=== PATIENT | female | born 1955 ===

== ENCOUNTER 2016-12-03 12:19 | Emergency (ER) | payer MEDICAID ==
[2016-12-03 12:19] VITALS: BMI 15.0
[2016-12-03 12:27] VITALS: BP 139/71; PULSE 88; RESP 20; TEMP 97; O2SAT 98
--- NOTE | 2016-12-03 13:55 | RAD ---
HISTORY: sore throat COMPARISON: 11/13/2016 TECHNIQUE: Chest PA and lateral FINDINGS: LUNGS: Pulmonary hyperinflation consistent with emphysema. No infiltrate. PLEURA: No significant pleural effusion identified. No pneumothorax apparent. CARDIOVASCULAR: Normal. OSSEOUS STRUCTURES: No significant abnormalities. VISUALIZED UPPER ABDOMEN: Normal. OTHER FINDINGS: None. IMPRESSION: No active disease. Emphysema.
--- NOTE | 2016-12-03 14:03 | ED PDOC ---
HPI: General Adult Time Seen by Provider: 12/03/16 12:30 Chief Complaint (Nursing): ENT Problem Chief Complaint (Provider): Rash History Per: Patient Additional Complaint(s): Pt. states for the past several days she's had a white rash in her mouth, tongue , and the back of her throat. Reports increased pain with swallowing. Pt. was seen by me last week and had no rash. Pt. is HIV+. States she is compliant with her medications but has not been seen by Dr. Lynn since late last year. Denies fever, chest pain, cough, hemoptysis, abdominal pain. Past Medical History Reviewed: Historical Data, Nursing Documentation, Vital Signs Vital Signs: Last Vital Signs Temp 97 F L 12/03/16 12:24 Pulse 88 12/03/16 12:24 Resp 20 12/03/16 12:24 BP 139/71 12/03/16 12:24 Pulse Ox 98 12/03/16 15:43 - Medical History PMH: Anemia, Anxiety, Arthritis, Asthma, Bipolar Disorder, Depression, Hepatitis , HIV, HTN, Pneumonia Denies: CHF, COPD, Diabetes, Hypercholesterolemia, Hypothyroidism, Chronic Kidney Disease, Rheumatoid Arthritis, Seizures, Sexually Transmitted Disease - Family History Family History: States: No Known Family Hx - Immunization History Hx Tetanus Toxoid Vaccination: No Hx Influenza Vaccination: No Hx Pneumococcal Vaccination: No - Home Medications Home Medications: Ambulatory Orders Medication Instructions Recorded Fluconazole 100 mg PO DAILY #14 tablet 12/03/16 - Allergies Allergies/Adverse Reactions: Allergies Allergy/AdvReac Type Severity Reaction Status Date / Time No Known Allergies Allergy Verified 12/03/16 12:43 Review of Systems ROS Statement: Except As Marked, All Systems Reviewed And Found Negative ENT: Positive for: Throat Pain Physical Exam - Reviewed Nursing Documentation Reviewed: Yes Vital Signs Reviewed: Yes - Physical Exam Appears: Positive for: Well, Non-toxic, No Acute Distress Head Exam: Positive for: ATRAUMATIC, NORMAL INSPECTION, NORMOCEPHALIC Skin: Positive for: Normal Color, Warm. Negative for: Rash Eye Exam: Positive for: EOMI, Normal appearance, PERRL ENT: Positive for: Other (Scattered white plaques on buccal mucosa, tongue, extending into pharynx and distal to pharynx) Neck: Positive for: Normal, Painless ROM Cardiovascular/Chest: Positive for: Regular Rate, Rhythm Respiratory: Positive for: CNT, Normal Breath Sounds Gastrointestinal/Abdominal: Positive for: Normal Exam, Bowel Sounds, Soft. Negative for: Tenderness Back: Positive for: Normal Inspection Extremity: Positive for: Normal ROM Neurologic/Psych: Positive for: Alert, Oriented - Laboratory Results Result Diagrams: 12/03/16 13:40 12/03/16 13:40 - ECG O2 Sat by Pulse Oximetry: 98 - Radiology X-Ray: Interpreted by Me (CXR) X-Ray Interpretation: No Acute Disease - Progress ED Course And Treament: Labs ordered. Blood culture x 2 ordered. Pt. placed in iso. Case d/w Dr. Lynn who agress with care and states pt. can be given Fluconazole 200mg IV. Fluconazole 200mg IV ordered. Case d/w NICHO Castellanos, resident and arrangements made for admission. 15:41 Patient has expressed the desire to sign out AMA. Leaving Against Medical Advice (AMA): This patient is choosing to leave against medical advice. I have personally explained to the patient that choosing to do so may result in permanent bodily harm or . I have discussed at great length that without further evaluation and monitoring there may be unforeseen circumstances and/or deterioration causing permanent bodily harm or as a result of their choice. The patient has verbalized these risks back to the physician in laymans terms. The patient is alert, oriented, and shows the mental capacity to make clear decisions regarding the pts health care at this time. The pt continues to wishto leave against medical advice. In light of the patient's decision to leave AMA, follow- up has been arranged and the patient is aware of the importance of following up as instructed. The patient has been advised that they should return to the ED immediately if they change their mind at any time, or if their condition begins to change or worsen in any way. Will give Rx for fluconazole. Patient instructed to follow up with Dr. Lynn without fail. Disposition - Clinical Impression Clinical Impression: Esophageal candidiasis - Patient ED Disposition Is Patient to be Admitted: No - Disposition Referrals: Obi Lynn MD [Primary Care Provider] - Disposition: Against Medical Advice Disposition Time: 15:42 Condition: STABLE Additional Instructions: FOLLOW UP WITH DR. LYNN WITHOUT FAIL. TAKE YOUR ANTIBIOTICS WITHOUT FAIL Prescriptions: Fluconazole 100 mg PO DAILY #14 tablet Instructions: Oral Candidiasis (ED) Print Language: FRENCH
[2016-12-03 14:14] LABS: VENOUS BLOOD GAS BASE EXCESS 2.2 mmol/L (0.0-2.0); VENOUS BLOOD GAS PCO2 43 mmHg (40-60); VENOUS BLOOD PH 7.41 (7.32-7.43)
[2016-12-03 14:22] LABS: BASO % 0.8 % (0.0-2.0); EOS % 0.7 % (0.0-4.0); HEMATOCRIT 23.4 % (34.0-47.0); LYMPH # 0.7 K/uL (1.0-4.3); LYMPH % 26.8 % (20.0-40.0); MEAN CELL VOLUME 78.3 fl (81.0-99.0); MEAN CORPUSCULAR HEMOGLOBIN 23.7 pg (27.0-31.0); MEAN CORPUSCULAR HGB CONC 30.3 g/dL (33.0-37.0); MEAN PLATELET VOLUME 8.7 fl (7.2-11.7); MONO # 0.3 K/uL (0.0-0.8); MONO % 12.3 % (0.0-10.0); NEUT # 1.5 K/uL (1.8-7.0); NEUT % 59.4 % (50.0-75.0); NRBC % 0.2 % (0.0-0.0); WHITE BLOOD COUNT 2.5 K/uL (4.8-10.8)
[2016-12-03 14:29] LABS: ALKALINE PHOSPHATASE 73 U/L (38-126); ALT/SGPT 19 U/L (9-52); AST/SGOT 27 U/L (14-36); BILIRUBIN,TOTAL 0.4 mg/dl (0.2-1.3); BLOOD UREA NITROGEN 8 mg/dl (7-17); CALCIUM 8.7 mg/dL (8.4-10.2); CARBON DIOXIDE 23 mmol/L (22-30); CHLORIDE 105 mmol/L (98-107); GFR AFRICAN-AMERICAN > 60; GLUCOSE,RANDOM 88 mg/dL (65-105); POTASSIUM 3.6 MMOL/L (3.6-5.0); SODIUM 139 mmol/l (132-148); TOTAL PROTEIN 8.8 G/DL (6.3-8.2)
[2016-12-03 14:31] LABS: ALB/GLOB RATIO 0.7 (1.0-2.1)
[2016-12-03] MEDS ORDERED: Fluconazole IV 200mg/100 ml NS 100 ML IVPB ONE (15:00)
[2016-12-03] MEDS ORDERED: Sodium Chloride 0.9% 1,000 ML IV STA (15:15)
== END 2016-12-03 15:38 | disposition left against medical advice (07) ==
LOC: H.ER 12:19
DX: B37.0 Candidal stomatitis (principal); J02.9 Acute pharyngitis, unspecified

== ENCOUNTER 2016-12-05 18:22 | Emergency (ER) | payer MEDICAID ==
[2016-12-05 18:22] VITALS: BMI 15.0
[2016-12-05 18:32] VITALS: BP 128/73; PULSE 68; RESP 16; TEMP 98; O2SAT 98
--- NOTE | 2016-12-05 19:00 | ED PDOC ---
HPI: Headache Time Seen by Provider: 12/05/16 18:35 Chief Complaint (Nursing): Chest Pain Chief Complaint (Provider): Posterior Headache History Per: Patient History/Exam Limitations: no limitations Onset/Duration Of Symptoms: Days (2x) Current Symptoms Are (Timing): Still Present Severity: Moderate Associated Symptoms: denies: Blurred Vision, Nausea, Vomiting Additional Complaint(s): 61 year old female with a pertinent medical history of HTN and HIV(+) presents to the ED with complaints of a posterior headache that she has had for the past 2x days. She denies any recent trauma to the head, and denies having associated symptoms of a fever, nausea, vomiting, and blurred vision. PMD: Ruiz Dickens MD Past Medical History Reviewed: Historical Data, Nursing Documentation, Vital Signs Vital Signs: Last Vital Signs Temp 98.0 F 12/05/16 18:28 Pulse 68 12/05/16 18:28 Resp 16 12/05/16 18:28 BP 128/73 12/05/16 18:28 Pulse Ox 98 12/05/16 18:28 - Medical History PMH: Anemia, Anxiety, Arthritis, Asthma, Bipolar Disorder, Depression, Hepatitis , HIV, HTN, Pneumonia Denies: CHF, COPD, Diabetes, Hypercholesterolemia, Hypothyroidism, Chronic Kidney Disease, Rheumatoid Arthritis, Seizures, Sexually Transmitted Disease - Family History Family History: States: Unknown Family Hx - Social History Current smoker - smoking cessation education provided: Yes Alcohol: > 2 Drinks/Day Drugs: Cannabis, Cocaine - Immunization History Hx Tetanus Toxoid Vaccination: No Hx Influenza Vaccination: No Hx Pneumococcal Vaccination: No - Home Medications Home Medications: Ambulatory Orders Medication Instructions Recorded Fluconazole 100 mg PO DAILY #14 tablet 12/03/16 Naproxen [Naprosyn] 500 mg PO Q12H #20 tab 12/05/16 - Allergies Allergies/Adverse Reactions: Allergies Allergy/AdvReac Type Severity Reaction Status Date / Time No Known Allergies Allergy Verified 12/05/16 18:28 Review of Systems ROS Statement: Except As Marked, All Systems Reviewed And Found Negative Constitutional: Negative for: Fever Eyes: Negative for: Vision Change Gastrointestinal: Negative for: Nausea, Vomiting Neurological: Positive for: Headache (posterior) Physical Exam - Reviewed Nursing Documentation Reviewed: Yes Vital Signs Reviewed: Yes - Physical Exam Appears: Positive for: Well, Non-toxic Head Exam: Positive for: ATRAUMATIC, NORMOCEPHALIC Skin: Positive for: Normal Color Cardiovascular/Chest: Positive for: Regular Rate, Rhythm, Chest Non Tender Respiratory: Positive for: Normal Breath Sounds. Negative for: Respiratory Distress Neurologic/Psych: Positive for: Alert (and awake). Negative for: Motor/Sensory Deficits (no focal deficits) - ECG O2 Sat by Pulse Oximetry: 98 (RA) Pulse Ox Interpretation: Normal Medical Decision Making Medical Decision Makin:35 Initial impression: 61 year old female patient with posterior headache Initial plan: * CT head w/o contrast * reevaluation Scribe Attestation: Documented by Adore Durant, acting as a scribe for Dex Morgan MD. Provider Scribe Attestation: All medical record entries made by the Scribe were at my direction and personally dictated by me. I have reviewed the chart and agree that the record accurately reflects my personal performance of the history, physical exam, medical decision making, and the department course for this patient. I have also personally directed, reviewed, and agree with the discharge instructions and disposition. Disposition - Clinical Impression Clinical Impression: Chronic headaches - Patient ED Disposition Is Patient to be Admitted: No - Disposition Referrals: [facility] [Outside] Disposition: Routine/Home Disposition Time: 21:13 Condition: FAIR Prescriptions: Naproxen [Naprosyn] 500 mg PO Q12H #20 tab Instructions: General Headache (ED)
--- NOTE | 2016-12-05 20:59 | CT ---
EXAM: CT Head Without Intravenous Contrast. CLINICAL HISTORY: 61 years old, female; Pain; Headache; Other: Urrutia's R/O bleeding; Patient HX: AMS urrutia's anemia bipolar hiv. HTN hepatitis drug/ ETOH abuser; Additional info: R/O bleed TECHNIQUE: Axial computed tomography images of the head/brain without intravenous contrast. This CT exam was performed using one or more of the following dose reduction techniques: automated exposure control, adjustment of the mA and/or kV according to patient size, and/or use of iterative reconstruction technique. Coronal and sagittal reformatted images were created and reviewed. COMPARISON: CT - HEAD W/O CONTRAST 04/07/2016, MRI 09/15/2015 FINDINGS: Brain: Moderate atrophy. No acute intracranial hemorrhage. Linear hyperdensity, redemonstrated within RIGHT temporal region, stable. No mass. Several scattered foci of decreased attenuation within periventricular/subcortical white matter. No definite edema. Ventricles: No hydrocephalus. Bones/joints: No acute fracture. Soft tissues: Unremarkable. Vasculature: Atherosclerotic disease of intracranial arteries. Sinuses: Mucosal thickening of visualized LEFT sphenoid sinus. LEFT maxillary retention cyst. Mastoid air cells: No mastoid effusion. Orbits: Unremarkable as visualized. Other findings: IMPRESSION: 1. No acute intracranial hemorrhage. 2. Nonspecific white matter changes. 3. Incidental/non-acute findings are described above.
== END 2016-12-05 21:44 | disposition home or self-care (01) ==
LOC: H.ER 18:22
DX: R51 Headache (principal); B20 Human immunodeficiency virus [HIV] disease; D64.9 Anemia, unspecified; F31.9 Bipolar disorder, unspecified; I10 Essential (primary) hypertension

== ENCOUNTER 2016-12-13 15:02 | Emergency (ER) | payer MEDICAID ==
[2016-12-13 15:03] VITALS: BMI 15.0
[2016-12-13 15:17] VITALS: BP 130/69; PULSE 68; RESP 16; TEMP 97.1; O2SAT 98
--- NOTE | 2016-12-13 15:59 | ED PDOC ---
HPI: Chest Pain Time Seen by Provider: 12/13/16 15:14 Chief Complaint (Nursing): Chest Pain History Per: Patient History/Exam Limitations: no limitations Onset/Duration Of Symptoms: Days (2) Current Symptoms Are (Timing): Still Present Severity: Moderate Additional Complaint(s): 61-year-old female, PMHx includes HIV, presents to the emergency department with complaints of chest pain. Patient states she has been experiencing right- sided chest pain for the past two days. Pain is intermittent in nature, non- radiating and worse with deep inspiration. Denies shortness of breath, cough, fevers, nausea/vomiting, dizziness, arm pain, leg swelling, or any other associated symptoms. No other complaints at this time. Past Medical History Reviewed: Historical Data, Nursing Documentation, Vital Signs Vital Signs: Last Vital Signs Temp 97.1 F L 12/13/16 15:16 Pulse 68 12/13/16 15:16 Resp 16 12/13/16 15:16 BP 130/69 12/13/16 15:16 Pulse Ox 98 12/13/16 16:01 - Medical History PMH: Anemia, Anxiety, Arthritis, Asthma, Bipolar Disorder, Depression, Hepatitis , HIV, HTN, Pneumonia Denies: CHF, COPD, Diabetes, Hypercholesterolemia, Hypothyroidism, Chronic Kidney Disease, Rheumatoid Arthritis, Seizures, Sexually Transmitted Disease - Family History Family History: States: Unknown Family Hx - Immunization History Hx Tetanus Toxoid Vaccination: No Hx Influenza Vaccination: No Hx Pneumococcal Vaccination: No - Home Medications Home Medications: Ambulatory Orders Medication Instructions Recorded Fluconazole 100 mg PO DAILY #14 tablet 12/03/16 Naproxen [Naprosyn] 500 mg PO Q12H #20 tab 12/05/16 Naproxen [Naprosyn] 500 mg PO Q12H #20 tab 12/13/16 - Allergies Allergies/Adverse Reactions: Allergies Allergy/AdvReac Type Severity Reaction Status Date / Time No Known Allergies Allergy Verified 12/05/16 18:28 Review of Systems ROS Statement: Except As Marked, All Systems Reviewed And Found Negative Constitutional: Negative for: Fever, Chills Cardiovascular: Positive for: Chest Pain. Negative for: Palpitations Respiratory: Negative for: Cough, Shortness of Breath Gastrointestinal: Negative for: Nausea, Vomiting Musculoskeletal: Negative for: Back Pain Skin: Negative for: Rash Neurological: Negative for: Weakness, Numbness, Headache, Dizziness Physical Exam - Reviewed Nursing Documentation Reviewed: Yes Vital Signs Reviewed: Yes - Physical Exam Appears: Positive for: Non-toxic, No Acute Distress Head Exam: Positive for: ATRAUMATIC, NORMOCEPHALIC Skin: Positive for: Warm, Dry. Negative for: Rash Eye Exam: Positive for: Normal appearance Neck: Positive for: Painless ROM Respiratory: Negative for: Accessory Muscle Use, Respiratory Distress Gastrointestinal/Abdominal: Positive for: Soft. Negative for: Tenderness Extremity: Positive for: Normal ROM Neurologic/Psych: Positive for: Alert, Oriented - ECG O2 Sat by Pulse Oximetry: 98 Medical Decision Making Medical Decision Making: Impression: Chest pain Plan: * EKG * Chest X-Ray * Reassess and Disposition EKG Ordered, viewed and interpreted by ED Physician Rate 70bpm Rhythm NSR Interpret No acute ST/T wave changes Scribe Attestation: Documented by Latoya Lopez acting as a scribe for Dex Morgan MD. Provider Attestation: All medical record entries made by the Scribe were at my direction and personally dictated by me. I have reviewed the chart and agree that the record accurately reflects my personal performance of the history, physical exam, medical decision making, and the department course for this patient. I have also personally directed, reviewed, and agree with the discharge instructions and disposition. Disposition - Clinical Impression Clinical Impression: Pleuritic chest pain - Patient ED Disposition Is Patient to be Admitted: No - Disposition Disposition: Routine/Home Disposition Time: 16:49 Condition: FAIR Prescriptions: Naproxen [Naprosyn] 500 mg PO Q12H #20 tab Instructions: Pleurisy (ED)
--- NOTE | 2016-12-14 13:12 | RAD ---
HISTORY: cough COMPARISON: Comparison is made to the previous study dated 12/03/2016 FINDINGS: LUNGS: Mild hyperinflation of the lungs is again noted. Small hazy opacities in the lungs are noted. PLEURA: No significant pleural effusion identified, no pneumothorax apparent. CARDIOVASCULAR: Normal. OSSEOUS STRUCTURES: No significant abnormalities. VISUALIZED UPPER ABDOMEN: Normal. OTHER FINDINGS: None. IMPRESSION: Small opacities in the lungs noted.
== END 2016-12-13 17:10 | disposition home or self-care (01) ==
LOC: H.ER 15:02
DX: R07.81 Pleurodynia (principal); F31.9 Bipolar disorder, unspecified; I10 Essential (primary) hypertension

== ENCOUNTER 2017-01-14 14:10 | Observation (INO) | payer MEDICAID ==
[2017-01-14 14:10] VITALS: BMI 16.9
[2017-01-14] MEDS ORDERED: Sodium Chloride 0.9% 500 ML IV STA (15:01)
--- NOTE | 2017-01-14 15:05 | ED PDOC ---
HPI: Chest Pain Time Seen by Provider: 01/14/17 14:45 Chief Complaint (Nursing): Back Pain Chief Complaint (Provider): Chest pain History Per: Patient History/Exam Limitations: no limitations Onset/Duration Of Symptoms: Days (1-2 weeks), Waxing/Waning Current Symptoms Are (Timing): Still Present Additional Complaint(s): Pt. with chest pain and upper back pain off and on for 1-2 weeks. Dyspnea with it. No nausea, vomit, diarrhea, weakness, numbness, tingles, cough, headaches, dizziness. Feels cold. States she always feels cold. Does not take any meds at home. Past Medical History Reviewed: Nursing Documentation, Vital Signs Vital Signs: Last Vital Signs Temp 98.5 F 01/14/17 14:27 Pulse 80 01/14/17 14:27 Resp 17 01/14/17 14:27 BP 108/62 01/14/17 14:27 Pulse Ox 100 01/14/17 17:54 - Medical History PMH: Anemia, Anxiety, Arthritis, Asthma, Bipolar Disorder, Depression, Hepatitis , HIV, HTN, Pneumonia Denies: CHF, COPD, Diabetes, Hypercholesterolemia, Hypothyroidism, Chronic Kidney Disease, Rheumatoid Arthritis, Seizures, Sexually Transmitted Disease - Surgical History Surgical History: No Surg Hx - Family History Family History: States: Unknown Family Hx - Living Arrangements Living Arrangements: With Family - Social History Alcohol: None Drugs: Denies - Immunization History Hx Tetanus Toxoid Vaccination: No Hx Influenza Vaccination: No Hx Pneumococcal Vaccination: No - Home Medications Home Medications: Ambulatory Orders Medication Instructions Recorded Albuterol 0.083% [Albuterol 0.083% 3 ml IH Q6H PRN 01/07/17 Inhal Trini (2.5 mg/3 ml) UD] Albuterol HFA [Ventolin HFA 90 2 puff IH Q4H PRN 01/07/17 mcg/actuation (8 g)] Elviteg/Serene/Emtric/Tenofo Dis 1 tab PO DAILY 01/07/17 [Stribild Tablet] - Allergies Allergies/Adverse Reactions: Allergies Allergy/AdvReac Type Severity Reaction Status Date / Time No Known Allergies Allergy Verified 01/07/17 13:23 Review of Systems ROS Statement: Except As Marked, All Systems Reviewed And Found Negative Cardiovascular: Positive for: Chest Pain Respiratory: Positive for: Shortness of Breath Musculoskeletal: Positive for: Back Pain Physical Exam - Reviewed Nursing Documentation Reviewed: Yes Vital Signs Reviewed: Yes - Physical Exam Appears: Positive for: Non-toxic, No Acute Distress Head Exam: Positive for: ATRAUMATIC, NORMAL INSPECTION, NORMOCEPHALIC Skin: Positive for: Normal Color, Warm, DRY Eye Exam: Positive for: EOMI, Normal appearance, PERRL ENT: Positive for: Normal ENT Inspection Neck: Positive for: Normal, Painless ROM Cardiovascular/Chest: Positive for: Regular Rate, Rhythm, Chest Non Tender. Negative for: Edema Respiratory: Positive for: CNT, Normal Breath Sounds Gastrointestinal/Abdominal: Positive for: Normal Exam, Bowel Sounds, Soft. Negative for: Tenderness Back: Positive for: Normal Inspection. Negative for: L CVA Tenderness, R CVA Tenderness Extremity: Positive for: Normal ROM. Negative for: Tenderness, Pedal Edema Neurologic/Psych: Positive for: Alert, Oriented - Laboratory Results Result Diagrams: 01/14/17 15:50 01/14/17 16:15 Interpretation Of Abn Labs: 2.7 wbc, hg 8.8 - ECG ECG: Positive for: Interpreted By Me, Viewed By Me ECG Rhythm: Positive for: Normal QRS, Normal ST Segment, Sinus Rhythm O2 Sat by Pulse Oximetry: 100 Pulse Ox Interpretation: Normal - Radiology X-Ray: Interpreted by Me, Viewed By Me X-Ray Interpretation: No Acute Disease - Progress ED Course And Treament: 1752: Multiple ER visits. Stable. AAOx3. Tolerated PO. Pain free. 1805: Stable. AAOx3. Spoke with Cory for Dr. Villafana. Will admit tele obs for acs workup. Disposition - Clinical Impression Clinical Impression: Chest pain - Patient ED Disposition Is Patient to be Admitted: Yes Counseled Patient/Family Regarding: Studies Performed, Diagnosis - Disposition Disposition Time: 18:09 Condition: FAIR - Pt Status Changed To: Hospital Disposition Of: Observation - POA Present On Arrival: None
[2017-01-14 15:58] LABS: EOS % 1.5 % (0.0-4.0); HEMATOCRIT 27.4 % (34.0-47.0); LYMPH # 0.6 K/uL (1.0-4.3); LYMPH % 21.6 % (20.0-40.0); MEAN CELL VOLUME 79.1 fl (81.0-99.0); MEAN CORPUSCULAR HEMOGLOBIN 25.3 pg (27.0-31.0); MEAN PLATELET VOLUME 8.6 fl (7.2-11.7); MONO # 0.6 K/uL (0.0-0.8); MONO % 21.6 % (0.0-10.0); NEUT # 1.5 K/uL (1.8-7.0); NEUT % 54.3 % (50.0-75.0); NRBC % 0.1 % (0.0-0.0); PLATELET COUNT 209 K/uL (130-400); RED CELL DISTRIBUTION WIDTH 18.7 % (11.5-14.5); WHITE BLOOD COUNT 2.7 K/uL (4.8-10.8)
[2017-01-14 16:18] LABS: PARTIAL THROMBOPLASTIN TIME 27.4 SECONDS (23.3-32.5)
[2017-01-14 16:38] LABS: ALB/GLOB RATIO 0.6 (1.0-2.1); ALCOHOL SERUM < 10 mg/dl (0-10); ALKALINE PHOSPHATASE 89 U/L (38-126); ALT/SGPT 29 U/L (9-52); AST/SGOT 41 U/L (14-36); BILIRUBIN,TOTAL 0.6 mg/dl (0.2-1.3); BLOOD UREA NITROGEN 17 mg/dl (7-17); CALCIUM 9.2 mg/dL (8.4-10.2); CARBON DIOXIDE 24 mmol/L (22-30); CHLORIDE 103 mmol/L (98-107); GFR AFRICAN-AMERICAN > 60; GLUCOSE,RANDOM 96 mg/dL (65-105); POTASSIUM 3.9 MMOL/L (3.6-5.0); SODIUM 137 mmol/l (132-148); TOTAL PROTEIN 9.1 G/DL (6.3-8.2)
[2017-01-14 17:06] LABS: NEUTROPHIL 60 % (42-75); TOTAL CELLS COUNTED 100
[2017-01-14] MEDS ORDERED: Albuterol 0.083% Inhal Sol (2.5 mg/3 mL) UD IH PRN (19:59)
[2017-01-14] MEDS ORDERED: Albuterol HFA 90 mcg/actuation (8 g) IH PRN (19:59)
[2017-01-15 05:49] LABS: BASO % 0.6 % (0.0-2.0); EOS # 0.1 K/uL (0.0-0.7); EOS % 2.9 % (0.0-4.0); HEMATOCRIT 28.9 % (34.0-47.0); LYMPH # 0.6 K/uL (1.0-4.3); LYMPH % 26.4 % (20.0-40.0); MEAN CELL VOLUME 78.9 fl (81.0-99.0); MEAN CORPUSCULAR HGB CONC 31.7 g/dL (33.0-37.0); MEAN PLATELET VOLUME 8.2 fl (7.2-11.7); MONO # 0.5 K/uL (0.0-0.8); MONO % 21.8 % (0.0-10.0); NEUT # 1.1 K/uL (1.8-7.0); NEUT % 48.3 % (50.0-75.0); NRBC % 0.3 % (0.0-0.0); RED CELL DISTRIBUTION WIDTH 18.3 % (11.5-14.5); WHITE BLOOD COUNT 2.2 K/uL (4.8-10.8)
[2017-01-15 05:57] LABS: ALB/GLOB RATIO 0.6 (1.0-2.1); ALKALINE PHOSPHATASE 74 U/L (38-126); ALT/SGPT 29 U/L (9-52); AST/SGOT 26 U/L (14-36); BILIRUBIN,TOTAL 0.3 mg/dl (0.2-1.3); BLOOD UREA NITROGEN 19 mg/dl (7-17); CALCIUM 8.2 mg/dL (8.4-10.2); CARBON DIOXIDE 21 mmol/L (22-30); CHLORIDE 111 mmol/L (98-107); GFR AFRICAN-AMERICAN > 60; GLUCOSE,RANDOM 86 mg/dL (65-105); POTASSIUM 3.3 MMOL/L (3.6-5.0); SODIUM 140 mmol/l (132-148); TOTAL PROTEIN 7.2 G/DL (6.3-8.2)
[2017-01-15] MEDS ORDERED: Potassium Chloride 20 mEq ER Tab PO ONE (06:35)
--- NOTE | 2017-01-15 06:47 | RAD ---
HISTORY: dyspnea COMPARISON: No prior. FINDINGS: LUNGS: No active pulmonary disease. PLEURA: No significant pleural effusion identified, no pneumothorax apparent. CARDIOVASCULAR: Normal. OSSEOUS STRUCTURES: No significant abnormalities. VISUALIZED UPPER ABDOMEN: Normal. OTHER FINDINGS: None. IMPRESSION: No active disease.
--- NOTE | 2017-01-15 07:01 | CP.PCM.HP ---
History of Present Illness - History of Present Illness History of Present Illness: pt admitted for r sided cp radiating to back x 2 wks. at present no pain. seen and cleared by cardio, trops x 3 negative. this complaint was present during last visit and trops x 2 were negative at that time as well. pts hgb 9.2 this am. no bleeding source. pt is noncomliant w/ hiv therapy no compaints offered. no f/c, n/v/d.no cough/congestion. Present on Admission - Present on Admission Any Indicators Present on Admission: No Review of Systems - Cardiovascular Cardiovascular: As Per HPI, Chest Pain Past Patient History - Infectious Disease Hx of Infectious Diseases: None - Past Medical History & Family History Past Medical History?: Yes - Past Social History Smoking Status: Light Smoker < 10 Cigarettes Daily - CARDIAC Hx Congestive Heart Failure: No Hx Hypercholesterolemia: No Hx Hypertension: Yes - PULMONARY Hx Asthma: Yes Hx Chronic Obstructive Pulmonary Disease (COPD): No Hx Pneumonia: Yes - NEUROLOGICAL Hx Seizures: No - HEENT Hx HEENT Problems: Yes Other/Comment: Blurred vision,stated has old eyeglasses, needs new one. - RENAL Hx Chronic Kidney Disease: No - ENDOCRINE/METABOLIC Hx Hypothyroidism: No - HEMATOLOGICAL/ONCOLOGICAL Hx Anemia: Yes Hx Human Immunodeficiency Virus (HIV): Yes - INTEGUMENTARY Hx Dermatological Problems: No - MUSCULOSKELETAL/RHEUMATOLOGICAL Hx Arthritis: Yes Hx Falls: No Hx Rheumatoid Arthritis: No - GASTROINTESTINAL Hx Gastrointestinal Disorders: Yes Other/Comment: hepatitis C - GENITOURINARY/GYNECOLOGICAL Hx Sexually Transmitted Disorders: No - PSYCHIATRIC Hx Anxiety: Yes Hx Bipolar Disorder: Yes Hx Depression: Yes Hx Substance Use: No - SURGICAL HISTORY Hx Surgeries: No - ANESTHESIA Hx Anesthesia: No Hx Anesthesia Reactions: No Hx Malignant Hyperthermia: No Has any member of the family had a problem w/ anesthesia?: No Meds Home Medications: Home Medication List Medication Instructions Recorded Confirmed Type Aspirin [Aspirin Chewable] 81 mg PO DAILY 01/15/17 Rx Allergies/Adverse Reactions: Allergies Allergy/AdvReac Type Severity Reaction Status Date / Time No Known Allergies Allergy Verified 01/07/17 13:23 Physical Exam - Constitutional Appears: Well, Non-toxic, No Acute Distress - Head Exam Head Exam: ATRAUMATIC, NORMAL INSPECTION, NORMOCEPHALIC - Eye Exam Eye Exam: EOMI, Normal appearance, PERRL Pupil Exam: NORMAL ACCOMODATION, PERRL - ENT Exam ENT Exam: Mucous Membranes Moist, Normal Exam - Neck Exam Neck exam: Positive for: Normal Inspection - Respiratory Exam Respiratory Exam: Clear to Auscultation Bilateral, NORMAL BREATHING PATTERN - Cardiovascular Exam Cardiovascular Exam: REGULAR RHYTHM, RRR, +S1, +S2 - GI/Abdominal Exam GI & Abdominal Exam: Normal Bowel Sounds, Soft. absent: Tenderness - Extremities Exam Extremities exam: Positive for: full ROM, normal capillary refill, normal inspection, pedal pulses present - Back Exam Back exam: NORMAL INSPECTION - Neurological Exam Neurological exam: Alert, CN II-XII Intact, Normal Gait, Oriented x3, Reflexes Normal - Psychiatric Exam Psychiatric exam: Normal Affect, Normal Mood - Skin Skin Exam: Dry, Intact, Normal Color, Warm Results - Vital Signs Recent Vital Signs: Last Vital Signs Temp 98.3 F 01/15/17 05:01 Pulse 64 01/15/17 05:01 Resp 19 01/15/17 05:01 BP 110/66 01/15/17 05:01 Pulse Ox 99 01/15/17 05:01 - Labs Result Diagrams: 01/15/17 05:40 01/15/17 05:40 Labs: Laboratory Results - last 24 hr 01/14/17 01/14/17 01/15/17 20:04 21:45 05:40 WBC 2.2 L RBC 3.67 L Hgb 9.2 L Hct 28.9 L MCV 78.9 L MCH 25.0 L MCHC 31.7 L RDW 18.3 H Plt Count 208 MPV 8.2 Neut % (Auto) 48.3 L Lymph % (Auto) 26.4 [place] % (Auto) 21.8 H Eos % (Auto) 2.9 Baso % (Auto) 0.6 Neut # 1.1 L Lymph # 0.6 L [place] # 0.5 Eos # 0.1 Baso # 0.0 Sodium Potassium Chloride Carbon Dioxide Anion Gap BUN Creatinine Est GFR ( Amer) Est GFR (Non-Af Amer) Random Glucose Calcium Total Bilirubin AST ALT Alkaline Phosphatase Troponin I < 0.0120 Total Protein Albumin Globulin Albumin/Globulin Ratio Urine Opiates Screen Negative Urine Methadone Screen Negative Ur Barbiturates Screen Negative Ur Phencyclidine Scrn Negative Ur Amphetamines Screen Negative U Benzodiazepines Scrn Negative U Oth Cocaine Metabols Negative U Cannabinoids Screen Negative 01/15/17 05:40 WBC RBC Hgb Hct MCV MCH MCHC RDW Plt Count MPV Neut % (Auto) Lymph % (Auto) [place] % (Auto) Eos % (Auto) Baso % (Auto) Neut # Lymph # [place] # Eos # Baso # Sodium 140 Potassium 3.3 L Chloride 111 H Carbon Dioxide 21 L Anion Gap 11 BUN 19 H Creatinine 0.9 Est GFR ( Amer) > 60 Est GFR (Non-Af Amer) > 60 Random Glucose 86 Calcium 8.2 L Total Bilirubin 0.3 AST 26 ALT 29 Alkaline Phosphatase 74 Troponin I < 0.0120 Total Protein 7.2 Albumin 2.7 L D Globulin 4.4 H Albumin/Globulin Ratio 0.6 L Urine Opiates Screen Urine Methadone Screen Ur Barbiturates Screen Ur Phencyclidine Scrn Ur Amphetamines Screen U Benzodiazepines Scrn U Oth Cocaine Metabols U Cannabinoids Screen Assessment & Plan (1) DVT prophylaxis Assessment and Plan: scd and ae hose ambulation Status: Acute (2) Chest pain Assessment and Plan: tropx negative, asa cardio cleared Status: Acute (3) AIDS (acquired immunodeficiency syndrome), CD4 <=200 Assessment and Plan: noncompliant on therapy outpt f/u Status: Acute - Assessment and Plan (Free Text) Assessment: hypokalemia-kdur prior to dc Decision To Admit - Pt Status Changed To: Hospital Disposition Of: Observation - . Bed Request Type: Telemetry Admitting Physician: Gisela Villafana
--- NOTE | 2017-01-15 07:01 | CP.PCM.DIS ---
Provider - Provider Date of Admission: 01/14/17 18:09 Attending physician: Gisela Villafana MD Time Spent in preparation of Discharge (in minutes): 15 Hospital Course - Lab Results Lab Results: Most Recent Lab Values WBC 2.2 K/uL (4.8-10.8) L 01/15/17 05:40 RBC 3.67 Mil/uL (3.80-5.20) L 01/15/17 05:40 Hgb 9.2 g/dL (12.0-16.0) L 01/15/17 05:40 Hct 28.9 % (34.0-47.0) L 01/15/17 05:40 MCV 78.9 fl (81.0-99.0) L 01/15/17 05:40 MCH 25.0 pg (27.0-31.0) L 01/15/17 05:40 MCHC 31.7 g/dL (33.0-37.0) L 01/15/17 05:40 RDW 18.3 % (11.5-14.5) H 01/15/17 05:40 Plt Count 208 K/uL (130-400) 01/15/17 05:40 MPV 8.2 fl (7.2-11.7) 01/15/17 05:40 Neut % (Auto) 48.3 % (50.0-75.0) L 01/15/17 05:40 Lymph % (Auto) 26.4 % (20.0-40.0) 01/15/17 05:40 [place] % (Auto) 21.8 % (0.0-10.0) H 01/15/17 05:40 Eos % (Auto) 2.9 % (0.0-4.0) 01/15/17 05:40 Baso % (Auto) 0.6 % (0.0-2.0) 01/15/17 05:40 Neut # 1.1 K/uL (1.8-7.0) L 01/15/17 05:40 Lymph # 0.6 K/uL (1.0-4.3) L 01/15/17 05:40 [place] # 0.5 K/uL (0.0-0.8) 01/15/17 05:40 Eos # 0.1 K/uL (0.0-0.7) 01/15/17 05:40 Baso # 0.0 K/uL (0.0-0.2) 01/15/17 05:40 Neutrophils % (Manual) 60 % (42-75) 01/14/17 15:50 Lymphocytes % (Manual) 20 % (20-50) 01/14/17 15:50 Monocytes % (Manual) 20 % (0-10) H 01/14/17 15:50 Platelet Estimate Normal (NORMAL) 01/14/17 15:50 Anisocytosis (manual) Slight 01/14/17 15:50 Tear Drop Cells Slight 01/14/17 15:50 Ovalocytes Slight 01/14/17 15:50 PT 11.3 SECONDS (9.6-11.2) H 01/14/17 15:50 INR 1.09 (0.92-1.08) H 01/14/17 15:50 APTT 27.4 SECONDS (23.3-32.5) 01/14/17 15:50 Sodium 140 mmol/l (132-148) 01/15/17 05:40 Potassium 3.3 MMOL/L (3.6-5.0) L 01/15/17 05:40 Chloride 111 mmol/L (98-107) H 01/15/17 05:40 Carbon Dioxide 21 mmol/L (22-30) L 01/15/17 05:40 Anion Gap 11 (10-20) 01/15/17 05:40 BUN 19 mg/dl (7-17) H 01/15/17 05:40 Creatinine 0.9 mg/dL (0.7-1.2) 01/15/17 05:40 Est GFR ( Amer) > 60 01/15/17 05:40 Est GFR (Non-Af Amer) > 60 01/15/17 05:40 Random Glucose 86 mg/dL (65-105) 01/15/17 05:40 Calcium 8.2 mg/dL (8.4-10.2) L 01/15/17 05:40 Total Bilirubin 0.3 mg/dl (0.2-1.3) 01/15/17 05:40 AST 26 U/L (14-36) 01/15/17 05:40 ALT 29 U/L (9-52) 01/15/17 05:40 Alkaline Phosphatase 74 U/L (38-126) 01/15/17 05:40 Troponin I < 0.0120 ng/mL (0.00-0.120) 01/15/17 05:40 Total Protein 7.2 G/DL (6.3-8.2) 01/15/17 05:40 Albumin 2.7 g/dL (3.5-5.0) L D 01/15/17 05:40 Globulin 4.4 gm/dL (2.2-3.9) H 01/15/17 05:40 Albumin/Globulin Ratio 0.6 (1.0-2.1) L 01/15/17 05:40 Urine Opiates Screen Negative (NEGATIVE) 01/14/17 20:04 Urine Methadone Screen Negative (NEGATIVE) 01/14/17 20:04 Ur Barbiturates Screen Negative (NEGATIVE) 01/14/17 20:04 Ur Phencyclidine Scrn Negative (NEGATIVE) 01/14/17 20:04 Ur Amphetamines Screen Negative (NEGATIVE) 01/14/17 20:04 U Benzodiazepines Scrn Negative (NEGATIVE) 01/14/17 20:04 U Oth Cocaine Metabols Negative (NEGATIVE) 01/14/17 20:04 U Cannabinoids Screen Negative (NEGATIVE) 01/14/17 20:04 Alcohol, Quantitative < 10 mg/dl (0-10) 01/14/17 16:15 Discharge Exam - Head Exam Head Exam: ATRAUMATIC, NORMAL INSPECTION, NORMOCEPHALIC Discharge Plan - Follow Up Plan Condition: FAIR Disposition: HOME/ ROUTINE Additional Instructions: cleared by cardio trops negative. no cp at present. noback pain at present. no copmalitns/ distress at present for dc and f/u rmg tuesday am. rted prn. med spe rmed rec fianl dx-noncardiac cp. hypokalemia
--- NOTE | 2017-01-15 07:29 | CP.PCM.CON ---
History of Present Illness - History of Present Illness History of Present Illness: I was asked to see patient by Cory Weinstein APN. Patient seen in ED Patient is a 61 year old female with PMH HTN, hypercholesterolemia, HIV who presents with chest pain, abdominal pain weakness. The patietn has symptoms for greater than one week. Chest pain is central, nonradiating. Patient has had previous hospitalization for chest pain. She denies exertional symptoms. Review of Systems - Constitutional Constitutional: Lethargy, Weakness - EENT Eyes: absent: As Per HPI, Blind Spots, Blurred Vision, Change in Vision, Decreased Night Vision, Diplopia, Discharge, Dry Eye, Exophthalmos, Floaters, Irritation, Itchy Eyes, Loss of Peripheral Vision, Pain, Photophobia, Requires Corrective Lenses, Sees Flashes, Spots in Vision, Tunnel Vision, Other Visual Disturbances, Loss of Vision, Other Nose/Mouth/Throat: absent: As Per HPI, Epistaxis, Nasal Congestion, Nasal Discharge, Nasal Obstruction, Nasal Trauma, Nose Pain, Post Nasal Drip, Sinus Pain, Sinus Pressure, Bleeding Gums, Change in Voice, Dental Pain, Dry Mouth, Dysphagia, Halitosis, Hoarsness, Lip Swelling, Mouth Lesions, Mouth Pain, Odynophagia, Sore Throat, Throat Swelling, Tongue Swelling, Facial Pain, Neck Pain, Neck Mass, Other - Cardiovascular Cardiovascular: absent: As Per HPI, Acrocyanosis, Chest Pain, Chest Pain at Rest , Chest Pain with Activity, Claudication, Diaphoresis, Dyspnea, Dyspnea on Exertion, Edema, Irregular Heart Rhythm, Pain Radiating to Arm/Neck/Jaw, Leg Edema, Leg Ulcers, Lightheadedness, Orthopnea, Palpitations, Paroxysmal Nocturnal Dyspnea, Pedal Edema, Radiating Pain, Rapid Heart Rate, Slow Heart Rate, Syncope, Other - Respiratory Respiratory: absent: As Per HPI, Cough, Dyspnea, Hemoptysis, Dyspnea on Exertion , Wheezing, Snoring, Stridor, Pain on Inspiration, Chest Congestion, Excessive Mucous Production, Change in Mucous Color, Pain with Coughing, Other - Gastrointestinal Gastrointestinal: absent: As Per HPI, Abdominal Pain, Belching, Bloating, Change in Bowel Habits, Change in Stool Character, Coffee Ground Emesis, Constipation, Cramping, Diarrhea, Dyspepsia, Dysphagia, Early Satiety, Excessive Flatus, Fecal Incontinence, Heartburn, Hematemesis, Hematochezia, Loose Stools, Melena, Nausea, Odynophagia, Temesmus, Vomiting, Other - Genitourinary Genitourinary: absent: As Per HPI, Change in Urinary Stream, Difficulty Urinating, Dysuria, Flank Pain, Hematuria, Pyuria, Nocturia, Urinary Incontinence, Urinary Frequency, Urinary Hesitance, Urinary Urgency, Voiding Freq/Small Amts, Freq UTI, Hx Renal/Bladder Calculi, Hx /Renal Surgery, Bladder Distension, Other - Musculoskeletal Musculoskeletal: absent: As Per HPI, Abnormal Gait, Arthralgias, Atrophy, Back Pain, Deformity, Joint Swelling, Limited Range of Motion, Loss of Height, Muscle Cramps, Muscle Weakness, Myalgias, Neck Pain, Numbness, Radiating Pain into Limb, Stiffness, Tingling, Other - Integumentary Integumentary: absent: As Per HPI, Acne, Alopecia, Bleeding Lesions, Change in Hair, Change in Nails, Change in Pigmentation, Changing Lesions, Dry Skin, Erythema, Furuncle, Hirsutism, Lesions, New Lesions, Non-Healing Lesions, Photosensitivity, Pruritus, Rash, Skin Pain, Skin Ulcer, Sores, Striae, Swelling , Unusual Bruising, Wounds, Jaundice, Other - Neurological Neurological: absent: As Per HPI, Abnormal Gait, Abnormal Hearing, Abnormal Movements, Abnormal Speech, Behavioral Changes, Burning Sensations, Confusion, Convulsions, Disequilibrium, Dizziness, Numbness, Focal Weakness, Frequent Falls , Headaches, Lack of Coordination, Loss of Vision, Memory Loss, Paresthesias, Radicular Pain, Restless Legs, Sensory Deficit, Syncope, Tingling, Tremor, Vertigo, Weakness, Other Visual Disturbances, Other - Psychiatric Psychiatric: absent: As Per HPI, Abnormal Sleep Pattern, Anhedonia, Anxiety, Auditory Hallucinations, Behavioral Changes, Change in Appetite, Change in Libido, Confusion, Depression, Difficulty Concentrating, Hallucinations, Homicidal Ideation, Hopelessness, Irritability, Memory Loss, Mood Swings, Panic Attacks, Paranoia, Suicidal Ideation, Visual Hallucinations, Tactile Hallucinations, Other - Endocrine Endocrine: absent: As Per HPI, Change in Body Appearance, Change in Libido, Cold Intolorance, Deepening of Voice, Excessive Sweating, Fatigue, Flushing, Heat Intolorance, Increase in Ring/Shoe/Hat Size, Palpitations, Polydipsia, Polyphagia, Polyuria, Other - Hematologic/Lymphatic Hematologic: absent: As Per HPI, Easy Bleeding, Easy Bruising, Lymphadenopathy, Other Past Patient History - Infectious Disease Hx of Infectious Diseases: None - Past Medical History & Family History Past Medical History?: Yes - Past Social History Smoking Status: Light Smoker < 10 Cigarettes Daily - CARDIAC Hx Congestive Heart Failure: No Hx Hypercholesterolemia: No Hx Hypertension: Yes - PULMONARY Hx Asthma: Yes Hx Chronic Obstructive Pulmonary Disease (COPD): No Hx Pneumonia: Yes - NEUROLOGICAL Hx Seizures: No - HEENT Hx HEENT Problems: Yes Other/Comment: Blurred vision,stated has old eyeglasses, needs new one. - RENAL Hx Chronic Kidney Disease: No - ENDOCRINE/METABOLIC Hx Hypothyroidism: No - HEMATOLOGICAL/ONCOLOGICAL Hx Anemia: Yes Hx Human Immunodeficiency Virus (HIV): Yes - INTEGUMENTARY Hx Dermatological Problems: No - MUSCULOSKELETAL/RHEUMATOLOGICAL Hx Arthritis: Yes Hx Falls: No Hx Rheumatoid Arthritis: No - GASTROINTESTINAL Hx Gastrointestinal Disorders: Yes Other/Comment: hepatitis C - GENITOURINARY/GYNECOLOGICAL Hx Sexually Transmitted Disorders: No - PSYCHIATRIC Hx Anxiety: Yes Hx Bipolar Disorder: Yes Hx Depression: Yes Hx Substance Use: No - SURGICAL HISTORY Hx Surgeries: No - ANESTHESIA Hx Anesthesia: No Hx Anesthesia Reactions: No Hx Malignant Hyperthermia: No Has any member of the family had a problem w/ anesthesia?: No Meds Home Medications: Home Medication List Medication Instructions Recorded Confirmed Type Aspirin [Aspirin Chewable] 81 mg PO DAILY 01/15/17 Rx Allergies/Adverse Reactions: Allergies Allergy/AdvReac Type Severity Reaction Status Date / Time No Known Allergies Allergy Verified 01/07/17 13:23 - Medications Medications: Current Medications Albuterol (Ventolin Hfa 90 Mcg/Actuation (8 G)) 2 puff IH Q4H PRN PRN Reason: Shortness of Breath Albuterol Sulfate (Albuterol 0.083% Inhal Trini (2.5 Mg/3 Ml) Ud) 2.5 mg IH Q6H PRN PRN Reason: Shortness of Breath Aspirin (Aspirin Chewable) 81 mg PO DAILY [facility] Home Med (Elviteg/Serene/Emtric/Tenofo Dis [Stribild Tablet]) 1 tab PO DAILY OTILIA Physical Exam - Constitutional Appears: Non-toxic - Head Exam Head Exam: NORMAL INSPECTION - Eye Exam Eye Exam: Normal appearance - ENT Exam ENT Exam: Mucous Membranes Moist - Neck Exam Neck exam: Positive for: Full Rom - Respiratory Exam Respiratory Exam: Decreased Breath Sounds - Cardiovascular Exam Cardiovascular Exam: REGULAR RHYTHM - GI/Abdominal Exam GI & Abdominal Exam: Normal Bowel Sounds - Rectal Exam Rectal Exam: Deferred - Extremities Exam Extremities exam: Negative for: pedal edema - Back Exam Back exam: NORMAL INSPECTION - Neurological Exam Neurological exam: Alert, Oriented x3 - Psychiatric Exam Psychiatric exam: Normal Affect - Skin Skin Exam: Normal Color Results - Vital Signs Recent Vital Signs: Last Vital Signs Temp 98.3 F 01/15/17 05:01 Pulse 64 01/15/17 05:01 Resp 19 01/15/17 05:01 BP 110/66 01/15/17 05:01 Pulse Ox 99 01/15/17 05:01 - Labs Result Diagrams: 01/15/17 05:40 01/15/17 05:40 Labs: Laboratory Results - last 24 hr 01/14/17 01/14/17 01/15/17 20:04 21:45 05:40 WBC 2.2 L RBC 3.67 L Hgb 9.2 L Hct 28.9 L MCV 78.9 L MCH 25.0 L MCHC 31.7 L RDW 18.3 H Plt Count 208 MPV 8.2 Neut % (Auto) 48.3 L Lymph % (Auto) 26.4 [place] % (Auto) 21.8 H Eos % (Auto) 2.9 Baso % (Auto) 0.6 Neut # 1.1 L Lymph # 0.6 L [place] # 0.5 Eos # 0.1 Baso # 0.0 Sodium Potassium Chloride Carbon Dioxide Anion Gap BUN Creatinine Est GFR ( Amer) Est GFR (Non-Af Amer) Random Glucose Calcium Total Bilirubin AST ALT Alkaline Phosphatase Troponin I < 0.0120 Total Protein Albumin Globulin Albumin/Globulin Ratio Urine Opiates Screen Negative Urine Methadone Screen Negative Ur Barbiturates Screen Negative Ur Phencyclidine Scrn Negative Ur Amphetamines Screen Negative U Benzodiazepines Scrn Negative U Oth Cocaine Metabols Negative U Cannabinoids Screen Negative 01/15/17 05:40 WBC RBC Hgb Hct MCV MCH MCHC RDW Plt Count MPV Neut % (Auto) Lymph % (Auto) [place] % (Auto) Eos % (Auto) Baso % (Auto) Neut # Lymph # [place] # Eos # Baso # Sodium 140 Potassium 3.3 L Chloride 111 H Carbon Dioxide 21 L Anion Gap 11 BUN 19 H Creatinine 0.9 Est GFR ( Amer) > 60 Est GFR (Non-Af Amer) > 60 Random Glucose 86 Calcium 8.2 L Total Bilirubin 0.3 AST 26 ALT 29 Alkaline Phosphatase 74 Troponin I < 0.0120 Total Protein 7.2 Albumin 2.7 L D Globulin 4.4 H Albumin/Globulin Ratio 0.6 L Urine Opiates Screen Urine Methadone Screen Ur Barbiturates Screen Ur Phencyclidine Scrn Ur Amphetamines Screen U Benzodiazepines Scrn U Oth Cocaine Metabols U Cannabinoids Screen - EKG Data EKG Interpreted by: Myself Assessment & Plan (1) Chest pain Assessment and Plan: recommend serial troponin. If 3 negative sets the patitn is stable to be discharged. Status: Acute (2) AIDS (acquired immunodeficiency syndrome), CD4 <=200 Assessment and Plan: there is association with premature CAD. if troponin negative can d/c home. Status: Acute (3) HTN (hypertension) Assessment and Plan: medical therapy Status: Chronic
[2017-01-15 07:53] VITALS: BP 132/72; PULSE 61; RESP 18; TEMP 98.6; O2SAT 100
--- NOTE | 2017-01-15 11:25 | CARD ---
APPROVED REPORT EKG Measurement Heart [id number] <Conclusion> Normal sinus rhythm Normal ECG
== END 2017-01-15 10:45 | disposition home or self-care (01) ==
LOC: H.ER 14:10 → H.ERHOLD 18:09 → H.TEL 21:51
PROVIDERS: ADMIT Family Medicine; ATTEND Family Medicine
DX: R07.89 Other chest pain (principal); E78.00 Pure hypercholesterolemia, unspecified; I10 Essential (primary) hypertension; J45.909 Unspecified asthma, uncomplicated; B20 Human immunodeficiency virus [HIV] disease; Z91.19 Patient's noncompliance with other medical treatment and regimen; E87.6 Hypokalemia; F17.210 Nicotine dependence, cigarettes, uncomplicated; Z87.01 Personal history of pneumonia (recurrent); F31.9 Bipolar disorder, unspecified; F41.9 Anxiety disorder, unspecified; F32.9 Major depressive disorder, single episode, unspecified

== ENCOUNTER 2017-01-20 15:17 | Inpatient (IN) | payer MEDICAID ==
[2017-01-20 15:18] VITALS: BMI 16.9
[2017-01-20 15:24] VITALS: O2SAT 99
--- NOTE | 2017-01-20 16:12 | ED PDOC ---
HPI: Psych/Substance Abuse Time Seen by Provider: 01/20/17 15:24 Chief Complaint (Nursing): Psychiatric Evaluation Chief Complaint (Provider): Psychiatric Evaluation History Per: Patient History/Exam Limitations: no limitations Additional Complaint(s): 15:24 Fidelina Rayo, 61 year old female presents to the ED on 01/20/17 for a psychiatric evaluation. A few hours prior to arrival, 911 was called on the patient as patient was making a lot of noise in her apartment. As per notes, the patient has been keeping her oven on and states that she was very cold. The patient denies any shortness of breath, headache, suicidal or homicidal ideations. Of note, Mobile crisis was called on scene. Past Medical History Reviewed: Historical Data, Nursing Documentation, Vital Signs Vital Signs: Last Vital Signs Temp 97.7 F 01/20/17 15:21 Pulse 66 01/20/17 15:21 Resp 18 01/20/17 15:21 BP 163/82 H 01/20/17 15:21 Pulse Ox 99 01/20/17 15:21 - Medical History PMH: Anemia, Anxiety, Arthritis, Asthma, Bipolar Disorder, Depression, Hepatitis , HIV, HTN, Pneumonia Denies: CHF, COPD, Diabetes, Hypercholesterolemia, Hypothyroidism, Chronic Kidney Disease, Rheumatoid Arthritis, Seizures, Sexually Transmitted Disease - Family History Family History: States: Unknown Family Hx - Immunization History Hx Tetanus Toxoid Vaccination: No Hx Influenza Vaccination: No Hx Pneumococcal Vaccination: No - Allergies Allergies/Adverse Reactions: Allergies Allergy/AdvReac Type Severity Reaction Status Date / Time No Known Allergies Allergy Verified 01/07/17 13:23 Review of Systems Respiratory: Negative for: Shortness of Breath Neurological: Negative for: Headache Psych: Negative for: Suicidal ideation (and no homicidal ideations) Physical Exam - Reviewed Nursing Documentation Reviewed: Yes Vital Signs Reviewed: Yes - Physical Exam Appears: Positive for: Non-toxic, No Acute Distress Head Exam: Positive for: ATRAUMATIC, NORMOCEPHALIC Skin: Positive for: Normal Color, Warm, Dry Eye Exam: Positive for: Normal appearance ENT: Positive for: Normal ENT Inspection Neck: Positive for: Normal Cardiovascular/Chest: Positive for: Regular Rate, Rhythm, Chest Non Tender Respiratory: Positive for: Normal Breath Sounds. Negative for: Respiratory Distress Gastrointestinal/Abdominal: Positive for: Normal Exam Back: Positive for: Normal Inspection Extremity: Positive for: Normal ROM. Negative for: Deformity Neurologic/Psych: Positive for: Alert, Oriented (x3) - Laboratory Results Result Diagrams: 01/20/17 20:38 01/20/17 20:38 - ECG O2 Sat by Pulse Oximetry: 99 (RA) Pulse Ox Interpretation: Normal - Radiology X-Ray: Interpreted by Me (CXR) X-Ray Interpretation: No Acute Disease - Progress ED Course And Treament: Pt. evaluated by crisis who spoke with Dr. Cho and arrangements made for admission. Urine culture obtained. Rocephin 1gm IM given for UTI. Medical Decision Making Medical Decision Makin:24 Initial Impression: Psychiatric Evaluation Initial Plan: * Crisis Evaluation As Ordered * 1:1 Observation CONT Scribe Attestation: Documented by Penny Marcelino, acting as a scribe for Lev Patel PA-C. Provider Scribe Attestation: All medical record entries made by the Scribe were at my direction and personally dictated by me. I have reviewed the chart and agree that the record accurately reflects my personal performance of the history, physical exam, medical decision making, and the department course for this patient. I have also personally directed, reviewed, and agree with the discharge instructions and disposition. Disposition - Clinical Impression Clinical Impression: UTI (urinary tract infection), Schizophrenia - Patient ED Disposition Is Patient to be Admitted: No - Disposition Disposition Time: 23:00 Condition: STABLE
[2017-01-20 20:47] LABS: RBC URINE 13 /hpf (0-3); URINE BACTERIA FEW (<OCC); URINE BILIRUBIN NEGATIVE (NEGATIVE); URINE BLOOD SMALL (NEGATIVE); URINE COLOR YELLOW (YELLOW); URINE GLUCOSE (UA) NEG (Normal); URINE KETONE NEGATIVE (NEGATIVE); URINE LEUKOCYTE ESTERASE MOD Leu/uL (Negative); URINE PROTEIN 30 mg/dL (NEGATIVE); WBC CLUMPS FEW /hpf; WBC URINE 115 /hpf (0-5)
[2017-01-20 20:49] LABS: BASO % 0.1 % (0.0-2.0); EOS % 0.2 % (0.0-4.0); LYMPH # 0.7 K/uL (1.0-4.3); LYMPH % 14.3 % (20.0-40.0); MEAN CELL VOLUME 77.8 fl (81.0-99.0); MEAN CORPUSCULAR HEMOGLOBIN 24.7 pg (27.0-31.0); MEAN CORPUSCULAR HGB CONC 31.8 g/dL (33.0-37.0); MEAN PLATELET VOLUME 8.8 fl (7.2-11.7); MONO # 0.8 K/uL (0.0-0.8); MONO % 17.2 % (0.0-10.0); NEUT # 3.3 K/uL (1.8-7.0); NEUT % 68.2 % (50.0-75.0); NRBC % 0.1 % (0.0-0.0); RED CELL DISTRIBUTION WIDTH 19.3 % (11.5-14.5); WHITE BLOOD COUNT 4.8 K/uL (4.8-10.8)
[2017-01-20 21:11] LABS: ALB/GLOB RATIO 0.6 (1.0-2.1); ALCOHOL SERUM < 10 mg/dl (0-10); ALKALINE PHOSPHATASE 73 U/L (38-126); ALT/SGPT 22 U/L (9-52); AST/SGOT 25 U/L (14-36); BILIRUBIN,TOTAL 0.6 mg/dl (0.2-1.3); BLOOD UREA NITROGEN 18 mg/dl (7-17); CALCIUM 8.6 mg/dL (8.4-10.2); CARBON DIOXIDE 23 mmol/L (22-30); CHLORIDE 106 mmol/L (98-107); GFR AFRICAN-AMERICAN > 60; GLUCOSE,RANDOM 89 mg/dL (65-105); POTASSIUM 4.1 MMOL/L (3.6-5.0); SODIUM 139 mmol/l (132-148); TOTAL PROTEIN 7.3 G/DL (6.3-8.2)
[2017-01-20] MEDS ORDERED: cefTRIAXone (Rocephin) 1 gm Inj IM STA (21:14)
[2017-01-20] MEDS ORDERED: Alum-Mag Hydrox-Simethicone Susp (30 mL) PO PRN (22:40)
[2017-01-20] MEDS ORDERED: DiphenhydrAMINE 50 mg/ml Inj IM PRN (22:40)
[2017-01-20] MEDS ORDERED: Magnesium Hydroxide Susp 30 ml UD PO PRN (22:40)
[2017-01-21 07:20] LABS: THYROID STIMULATING HORMONE 3.5 mIU/ML (0.46-4.68)
--- NOTE | 2017-01-21 08:53 | CARD ---
APPROVED REPORT EKG Measurement Heart [id number] <Conclusion> Normal sinus rhythm Normal ECG
--- NOTE | 2017-01-21 10:28 | RAD ---
HISTORY: clearance COMPARISON: Chest radiograph 01/06/[address] scan of the chest 08/21/2013. FINDINGS: LUNGS: Lung parks remain hyperinflated consistent with underlying emphysema upper lobe predominance which is seen to much better advantage on prior CT scan. No acute consolidation. . The interstitial markings are also somewhat increased and coarsened with few scattered peribronchial cuffing changes. Rule out sequela of reactive/ inflammatory airway disease. . Linear radiopaque densities in the left medial lung base consistent with chronic atelectasis and or scarring PLEURA: No significant pleural effusion identified, no pneumothorax apparent. CARDIOVASCULAR: Normal. OSSEOUS STRUCTURES: No significant abnormalities. VISUALIZED UPPER ABDOMEN: Normal. OTHER FINDINGS: None. IMPRESSION: Lung parks remain hyperinflated consistent with underlying emphysema upper lobe predominance which is seen to much better advantage on prior CT scan. No acute consolidation. . The interstitial markings are also somewhat increased and coarsened with few scattered peribronchial cuffing changes. Rule out sequela of reactive/ inflammatory airway disease.. Linear radiopaque densities in the left medial lung base consistent with chronic atelectasis and or scarring
--- NOTE | 2017-01-21 13:26 | PCM.PSYCH ---
Initial Psychiatric Evaluation - Initial Psychiatric Evaluation Type of Admission: Voluntary Legal Status: Capacity Chief Complaint (in patient's own words): my anxiety got the best of me, its got me all mixed up Patient's Reaction to Hospitalization: irritable History of Present Illness and Precipitating Events: 61 yo hiv positive female who is living alone. neighbors called police because pt has been leaving stove on. pt appears to have a change in her functioning. she is not cooperative with this exam because of irritability. she states she has been feeling anxious lately, she answers "i don't know" to most questions. states she does not know how she pays her rent, she does not know where she gets her treatment or the names of her medications. she does remember taking risperdal and being dx with bipolar disorder in the past. she appears thin and medically ill. she is incontinent of urine here on the 3np unit. she has an impaired gait and states she feels week. she denies suicidal thoughts at this time. Current Medications: Active Medications Generic Name Dose Route Start Last Admin Trade Name Freq PRN Reason Stop Dose Admin Acetaminophen 650 mg 01/20/17 22:40 Tylenol 325mg Tab PO Q4 PRN Pain, moderate (4-7) Al Hydrox/Mg Hydrox/Simethicone 30 ml 01/20/17 22:40 Maalox Plus 30 Ml PO Q4 PRN Dyspepsia Diphenhydramine HCl 50 mg 01/20/17 22:40 Benadryl IM Q6 PRN Extrapyramidal S/S Unable PO Diphenhydramine HCl 50 mg 01/20/17 22:40 Benadryl PO Q6 PRN Extrapyramidal Symptoms Diphenhydramine HCl 50 mg 01/20/17 22:47 Benadryl PO HS PRN Sleep Haloperidol 5 mg 01/20/17 22:40 Haldol PO Q4 PRN Agitation Haloperidol Lactate 5 mg 01/20/17 22:40 Haldol IM Q4 PRN Agitation, Unable to Take PO Lorazepam 1 mg 01/20/17 23:18 Ativan PO Q6 PRN Anxiety/Agitation Lorazepam 1 mg 01/20/17 23:20 Ativan IM Q6 PRN Anxiety/Agitation Magnesium Hydroxide 30 ml 01/20/17 22:40 Milk Of Magnesia PO HS PRN Constipation Risperidone 0.5 mg 01/21/17 22:00 Risperdal M-Tab PO HS OTILIA Past Psychiatric History - Past Psychiatric History Previous Treatment History: None Prior Professional Help: cannot remember if she's been hospitalized Prior Psychiatric Treatment: cannot remember name of providers, remembers she is on risperdal History of Abuse: unknown History of ETOH/Drug Use: uses crack cocaine. reports recent use. she is guarded about her past drug use. History of Family Illness: unknown Pertinent Medical Hx (Current Medical&Sleep Prob, Allergies): Allergies Allergy/AdvReac Type Severity Reaction Status Date / Time No Known Allergies Allergy Verified 01/07/17 13:23 hiv positive, hep c positive Review of Systems - Psychiatric Psychiatric: As Per HPI Mental Status Examination - Personal Presentation Personal Presentation: Looks older than stated age Additional comments: thin, weak appearing - Affect Affect: Depressed - Motor Activity Motor Activity: Calm - Reliability in Providing Information Reliability in Providing Information: Poor, due to alteration in thoughts, Poor , due to cognitve impairment (possible ) - Speech Speech: Organized - Mood Mood: Depressed, Anxious - Formal Thought Process Formal Thought Process: Paranoia, Loosening of associations - Obsessions/Compulsions Obsessions: No Compulsions: No - Cognitive Functions Orientation: Person, Place, Situation, Time Sensorium: Alert Attention/Concentration: Easily distracted Abstract Thinking: [place] Estimate of Intelligence: Average Judgement: Intact, as evidence by: Insight regarding need for hospitalization Memory: Recent intact, as evidence by: Ability to recall events of the day, Remote intact, as evidenced by: Abilit to recall sig. life events - Risk Risk: Suicidal (denies plan or intent), Diminished functioning - Strength & Assets Inventory Strength & Assets Inventory: Intelligence - Limitations Limitations: Living alone DSM 5 DX - DSM 5 DSM 5 Diagnosis: bipolar disorder by history psychosis nos hiv, hepatitis c - Recommended/Plan of Treatment Treatment Recommendations and Plan of Treatment: admit to the 3ns unit for safety and observation gather collateral information provide supportive therapy adjust medications- start on low dose of risperdal hospitalist consult- t/c an ID consult to further assess/manage pt's hiv pt/ot consult encourage participation in treatment disposition planning- may need out of home placement Projected ELOS: 7-10 days Prognosis: fair - Smoking Cessation Smoking Cessation Initiated: No Reason for not providing: declines
[2017-01-21] MEDS: Risperidone M tab 0.5MG PO SCH (21:25)
--- NOTE | 2017-01-22 09:26 | CP.PCM.CON ---
History of Present Illness - History of Present Illness History of Present Illness: 61 yo hiv positive female who is living alone. neighbors called police because pt has been leaving stove on. pt appears to have a change in her functioning. she is not cooperative with this exam because of irritability. she states she has been feeling anxious lately, she answers "i don't know" to most questions. states she does not know how she pays her rent, she does not know where she gets her treatment or the names of her medications. she does remember taking risperdal and being dx with bipolar disorder in the past. she appears thin and medically ill. she is incontinent of urine here on the 3np unit. she has an impaired gait and states she feels week. she denies suicidal thoughts at this time. Past Patient History - Infectious Disease Hx of Infectious Diseases: None - Past Medical History & Family History Past Medical History?: Yes - Past Social History Smoking Status: Light Smoker < 10 Cigarettes Daily - CARDIAC Hx Congestive Heart Failure: No Hx Hypercholesterolemia: No Hx Hypertension: Yes - PULMONARY Hx Asthma: Yes Hx Chronic Obstructive Pulmonary Disease (COPD): No Hx Pneumonia: Yes - NEUROLOGICAL Hx Seizures: No - HEENT Hx HEENT Problems: Yes Other/Comment: Blurred vision,stated has old eyeglasses, needs new one. - RENAL Hx Chronic Kidney Disease: No - ENDOCRINE/METABOLIC Hx Hypothyroidism: No - HEMATOLOGICAL/ONCOLOGICAL Hx Anemia: Yes Hx Human Immunodeficiency Virus (HIV): Yes - INTEGUMENTARY Hx Dermatological Problems: No - MUSCULOSKELETAL/RHEUMATOLOGICAL Hx Arthritis: Yes Hx Rheumatoid Arthritis: No - GASTROINTESTINAL Hx Gastrointestinal Disorders: Yes Other/Comment: hepatitis C - GENITOURINARY/GYNECOLOGICAL Hx Sexually Transmitted Disorders: No - PSYCHIATRIC Hx Anxiety: Yes Hx Bipolar Disorder: Yes Hx Depression: Yes - SURGICAL HISTORY Hx Surgeries: No - ANESTHESIA Hx Anesthesia: No Hx Anesthesia Reactions: No Hx Malignant Hyperthermia: No Meds Allergies/Adverse Reactions: Allergies Allergy/AdvReac Type Severity Reaction Status Date / Time No Known Allergies Allergy Verified 01/07/17 13:23 - Medications Medications: Current Medications Acetaminophen (Tylenol 325mg Tab) 650 mg PO Q4 PRN PRN Reason: Pain, moderate (4-7) Al Hydrox/Mg Hydrox/Simethicone (Maalox Plus 30 Ml) 30 ml PO Q4 PRN PRN Reason: Dyspepsia Diphenhydramine HCl (Benadryl) 50 mg IM Q6 PRN PRN Reason: Extrapyramidal S/S Unable PO Diphenhydramine HCl (Benadryl) 50 mg PO Q6 PRN PRN Reason: Extrapyramidal Symptoms Last Admin: 01/21/17 23:40 Dose: 50 mg Diphenhydramine HCl (Benadryl) 50 mg PO HS PRN PRN Reason: Sleep Haloperidol (Haldol) 5 mg PO Q4 PRN PRN Reason: Agitation Haloperidol Lactate (Haldol) 5 mg IM Q4 PRN PRN Reason: Agitation, Unable to Take PO Home Med (Diclofenac [Diclofenac]) 75 mg PO BID [facility] Home Med (Elviteg/Serene/Emtric/Tenofo Dis [Stribild Tablet]) 1 tab PO DAILY OTILIA Lorazepam (Ativan) 1 mg PO Q6 PRN PRN Reason: Anxiety/Agitation Lorazepam (Ativan) 1 mg IM Q6 PRN PRN Reason: Anxiety/Agitation Magnesium Hydroxide (Milk Of Magnesia) 30 ml PO HS PRN PRN Reason: Constipation Risperidone (Risperdal M-Tab) 0.5 mg PO HS OTILIA Last Admin: 01/21/17 21:25 Dose: Not Given Results - Vital Signs Recent Vital Signs: Last Vital Signs Temp 98 F 01/22/17 05:56 Pulse 65 01/22/17 05:56 Resp 16 01/22/17 05:56 BP 130/76 01/22/17 05:56 Pulse Ox 99 01/21/17 16:35 - Labs Result Diagrams: 01/20/17 20:38 01/20/17 20:38 Labs: Laboratory Results - last 24 hr 01/21/17 01/21/17 06:28 06:28 Hemoglobin A1c 6.4 RPR Nonreactive
--- NOTE | 2017-01-22 10:16 | PCM.PYCHPN ---
Psychiatric Progress Note - Psychiatric Progress Note Patient seen today, length of contact: pt is seen today and evaluated Patient Chief Complaint: pt is still depressed and anxious DSM 5 Symptoms Update: major depression Medication Change: No Medical Record Reviewed: Yes Mental Status Examination - Cognitive Function Orientation: Person, Place, Situation, Time Attention: Poor Concentration: Poor Association: WNL Fund of Knowledge: WNL - Mood Mood: Depressed, Anxious - Affect Affect: Constricted, Depressed - Formal Thought Process Formal Thought Process: Paranoia, Loosening of associations - Suicidal Ideation Suicidal Ideation: No - Homicidal Ideation Homicidal Ideation: No Goal/Treatment Plan - Goal/Treatment Plan Progress Toward Problem(s) and Goals/Treatment Plan: will continue to stabilize the pt with risperdal and encourage compliance with HIV meds and risperdal
--- NOTE | 2017-01-22 10:19 | PCM.PYCHPN ---
Psychiatric Progress Note - Psychiatric Progress Note Patient seen today, length of contact: pt is seen today and evaluated Patient Chief Complaint: pt is still depressed and anxious and still in denial about it.pt continues to refuse meds fir HIV .pt is currently taking risperdal 0.5 mg hs. Mental Status Examination - Cognitive Function Orientation: Person, Place, Situation, Time - Mood Mood: Depressed, Anxious - Affect Affect: Depressed - Formal Thought Process Formal Thought Process: Paranoia, Loosening of associations - Homicidal Ideation Homicidal Ideation: No
--- NOTE | 2017-01-22 10:38 | CP.PCM.HP ---
History of Present Illness - History of Present Illness History of Present Illness: pt admitted for abn behavior-had stove/iron on to heat her house. at present denies si/hi. denies complaints. is noncompliant on hiv meds. foundt ohave asymptomatic uti. no f/c, n/v/d. 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 bw nad ua noted. all notes and imaging reviewed. Present on Admission - Present on Admission Any Indicators Present on Admission: No Past Patient History - Infectious Disease Hx of Infectious Diseases: None - Past Medical History & Family History Past Medical History?: Yes - Past Social History Smoking Status: Light Smoker < 10 Cigarettes Daily - CARDIAC Hx Congestive Heart Failure: No Hx Hypercholesterolemia: No Hx Hypertension: Yes - PULMONARY Hx Asthma: Yes Hx Chronic Obstructive Pulmonary Disease (COPD): No Hx Pneumonia: Yes - NEUROLOGICAL Hx Seizures: No - HEENT Hx HEENT Problems: Yes Other/Comment: Blurred vision,stated has old eyeglasses, needs new one. - RENAL Hx Chronic Kidney Disease: No - ENDOCRINE/METABOLIC Hx Hypothyroidism: No - HEMATOLOGICAL/ONCOLOGICAL Hx Anemia: Yes Hx Human Immunodeficiency Virus (HIV): Yes - INTEGUMENTARY Hx Dermatological Problems: No - MUSCULOSKELETAL/RHEUMATOLOGICAL Hx Arthritis: Yes Hx Rheumatoid Arthritis: No - GASTROINTESTINAL Hx Gastrointestinal Disorders: Yes Other/Comment: hepatitis C - GENITOURINARY/GYNECOLOGICAL Hx Sexually Transmitted Disorders: No - PSYCHIATRIC Hx Anxiety: Yes Hx Bipolar Disorder: Yes Hx Depression: Yes - SURGICAL HISTORY Hx Surgeries: No - ANESTHESIA Hx Anesthesia: No Hx Anesthesia Reactions: No Hx Malignant Hyperthermia: No Meds Allergies/Adverse Reactions: Allergies Allergy/AdvReac Type Severity Reaction Status Date / Time No Known Allergies Allergy Verified 01/07/17 13:23 Results - Vital Signs Recent Vital Signs: Last Vital Signs Temp 98 F 01/22/17 05:56 Pulse 65 01/22/17 05:56 Resp 16 01/22/17 05:56 BP 130/76 01/22/17 05:56 Pulse Ox 99 01/21/17 16:35 - Labs Result Diagrams: 01/20/17 20:38 01/20/17 20:38 Labs: Laboratory Results - last 24 hr 01/21/17 01/21/17 06:28 06:28 Hemoglobin A1c 6.4 RPR Nonreactive Assessment & Plan (1) Schizophrenia Assessment and Plan: psych meds, interventions, therapies Status: Acute (2) UTI (urinary tract infection) Assessment and Plan: keflex, f/u c/s hydration Status: Acute (3) AIDS (acquired immunodeficiency syndrome), CD4 <=200 Assessment and Plan: offer meds, pt has been refusing, f/u cd4 count/viral load Status: Acute (4) DVT prophylaxis Assessment and Plan: ambulation Status: Acute (5) Depressed Status: Acute Priority: Medium Decision To Admit - Pt Status Changed To: Hospital Disposition Of: Inpatient - Admit Certification Admit to Inpatient:: After my assessment, the patient will require hospitalization for at least two midnights. This is because of the severity of symptoms shown, intensity of services needed, and/or the medical risk in this patient being treated as an outpatient. - . Bed Request Type: Adult Psychiatry Admitting Physician: Gisela Villafana
[2017-01-22] MEDS: Nystatin 100,000 Units/ml Oral Susp 5 ml UD PO SCH ×3 (14:00→21:34)
[2017-01-22] MEDS: Risperidone M tab 0.5MG PO SCH (21:34)
[2017-01-23] MEDS: Nystatin 100,000 Units/ml Oral Susp 5 ml UD PO SCH ×4 (08:43→21:12)
--- NOTE | 2017-01-23 16:31 | PCM.PYCHPN ---
Psychiatric Progress Note - Psychiatric Progress Note Patient seen today, length of contact: pt is seen today and evaluated Patient Chief Complaint: pt is still depressed and anxious and still in denial about it.pt has agreed to to take meds for HIV .pt is currently taking risperdal 0.5 mg hs.no side ceffects to meds. DSM 5 Symptoms Update: schizophrenia Medication Change: No Medical Record Reviewed: Yes Mental Status Examination - Cognitive Function Orientation: Person, Place, Situation, Time Attention: Poor Concentration: Poor Association: WNL Fund of Knowledge: WNL - Mood Mood: Depressed, Anxious - Affect Affect: Depressed - Speech Speech: Appropriate - Formal Thought Process Formal Thought Process: Paranoia, Loosening of associations - Suicidal Ideation Suicidal Ideation: No - Homicidal Ideation Homicidal Ideation: No Goal/Treatment Plan - Goal/Treatment Plan Progress Toward Problem(s) and Goals/Treatment Plan: will continue to titrate risperdal to stabilize the psychosis and encourage compliance with meds.
[2017-01-23] MEDS: Risperidone M tab 0.5MG PO SCH (21:12)
[2017-01-24] MEDS: Nystatin 100,000 Units/ml Oral Susp 5 ml UD PO SCH ×6 (08:23→21:07)
--- NOTE | 2017-01-24 09:48 | PCM.PYCHPN ---
Psychiatric Progress Note - Psychiatric Progress Note Patient seen today, length of contact: discussed with team Patient Chief Complaint: i want to go home!! Problems Identified/Issues Discussed: met with pt. discussed her problems with leaving stove on prior to the admission. pt states "the problem is just that my apartment is f+&#ing cold." pt is refusing PT services when they come. states she needs a walker to get around. no supports identified. pt states her sleep is improving. she is very irritable. she reports hearing voices that she is not sure are from her head. Medical Problems: pt is hep c and HIV positive. seen by hospitalist Medication Change: Yes (increase risperdal) Medical Record Reviewed: Yes Mental Status Examination - Cognitive Function Orientation: Person, Place, Situation, Time Attention: Poor Concentration: Poor Association: WNL Fund of Knowledge: WNL Decription of patient's judgement and insights: poor - Mood Mood: Other (irritable) - Affect Affect: Depressed - Speech Speech: Appropriate - Formal Thought Process Formal Thought Process: Hallucinations (reports AH), Paranoia, Loosening of associations - Suicidal Ideation Suicidal Ideation: No - Homicidal Ideation Homicidal Ideation: No Goal/Treatment Plan - Goal/Treatment Plan Need for Continued Stay: Remain at risks for inpatient hospitalization, Discharge may exacerbated symptoms Progress Toward Problem(s) and Goals/Treatment Plan: bipolar disorder cocaine abuse will increase risperdal to address her irritable mood continue to encourage pt to accept PT referral disposition planning- may need out of home placement Estimated Date of D/C: 01/31/17
[2017-01-24] MEDS: Risperidone M tab 0.5MG PO SCH ×2 (12:35→21:07)
[2017-01-24 14:33] LABS: HEMATOCRIT 28.7 % (34.0-47.0); MEAN CELL VOLUME 78.8 fl (81.0-99.0); MEAN CORPUSCULAR HEMOGLOBIN 25.1 pg (27.0-31.0); MEAN CORPUSCULAR HGB CONC 31.8 g/dL (33.0-37.0); RED CELL DISTRIBUTION WIDTH 19.3 % (11.5-14.5); WHITE BLOOD COUNT 5.1 K/uL (4.8-10.8)
[2017-01-25] MEDS: Nystatin 100,000 Units/ml Oral Susp 5 ml UD PO SCH ×4 (08:26→21:15)
[2017-01-25] MEDS: Risperidone M tab 0.5MG PO SCH ×2 (08:27→21:13)
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
[2017-01-26] MEDS: Risperidone M tab 0.5MG PO SCH (10:18)
[2017-01-26] MEDS: Nystatin 100,000 Units/ml Oral Susp 5 ml UD PO SCH ×2 (13:06→17:05)
--- NOTE | 2017-01-26 13:18 | PCM.PYCHPN ---
Psychiatric Progress Note - Psychiatric Progress Note Patient seen today, length of contact: Patient evaluated, chart reviewed, case discussed with team, 35 min Patient Chief Complaint: "I want to get out of here." Problems Identified/Issues Discussed: Patient has been more compliant with medications. She [place] [facility] [place] and was not accepted. Her family came to visit yesterday and stated that she will assume responsibility for the patient and between her and the patient's son, they plan to provide the patient with time checker care. Patient denies acute medical or psychiatric complaints to filing writer. NO AH/VH/ paranoia/delusions. Medication Change: No Medical Record Reviewed: Yes Mental Status Examination - Cognitive Function Orientation: Person, Place, Situation, Time Memory: Impaired (Difficult ao assess cognitive function/memory because the patient is irritable and unwilling to engage properly in interview) Attention: Poor Concentration: Poor Association: WNL Fund of Knowledge: WNL Decription of patient's judgement and insights: Poor insight/judgment regarding chronic cocaine abuse and ability to care for herself; is otherwise calm and not aggressive during the day. - Mood Mood: Other (Labile, irritable, angry) - Affect Affect: Constricted (Angry) - Speech Speech: Appropriate - Formal Thought Process Formal Thought Process: Loosening of associations Psychotic Thoughts and Behaviors: No AH/VH/paranoia/delusions - Suicidal Ideation Suicidal Ideation: No - Homicidal Ideation Homicidal Ideation: No Goal/Treatment Plan - Goal/Treatment Plan Need for Continued Stay: Remain at risks for inpatient hospitalization Progress Toward Problem(s) and Goals/Treatment Plan: 61 yo female w/ h/o Bipolar disorder, Cocaine abuse, psychosis NOS r/o substance induced psychotic disorder, presented acutely psychotic and engaging in dangerous behaviors for self and others, likely due to chronic cocaine abuse/ intoxication. Patient screened by [facility] and not accepted for [place] admission, therefore patient will be discharged tomorrow under the care of her family. -Continue to offer medications and therapy, although patient is only intermittently compliant. Estimated Date of D/C: 01/27/17
[2017-01-26 14:26] LABS: % CD3 (MATURE T CELL) 87 Percent (57-85)
[2017-01-27] MEDS: Risperidone M tab 0.5MG PO SCH ×2 (00:59→09:12)
[2017-01-27] MEDS: Nystatin 100,000 Units/ml Oral Susp 5 ml UD PO SCH ×3 (01:01→09:26)
[2017-01-27 06:21] VITALS: BP 125/63; PULSE 54; RESP 18; TEMP 97.2
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
== END 2017-01-27 13:20 | disposition left against medical advice (07) | DRG 430 ==
LOC: H.ER 15:17 → H.ERHOLD 21:20 → H.PSYCH 22:24 → H.STEP 01-21 20:29
PROVIDERS: ADMIT Psychiatry & Neurology Psychiatry; ATTEND Psychiatry & Neurology Psychiatry
PROC: GZHZZZZ Group Psychotherapy (ICD-10-PCS; principal; 2017-01-20)
PROC: GZ56ZZZ Individual Psychotherapy, Supportive (ICD-10-PCS; 2017-01-20)
DX: F31.9 Bipolar disorder, unspecified (principal); B20 Human immunodeficiency virus [HIV] disease; B19.20 Unspecified viral hepatitis C without hepatic coma; F14.10 Cocaine abuse, uncomplicated; N39.0 Urinary tract infection, site not specified; F41.9 Anxiety disorder, unspecified; I10 Essential (primary) hypertension; J45.909 Unspecified asthma, uncomplicated; Z91.14 Patient's other noncompliance with medication regimen; F17.210 Nicotine dependence, cigarettes, uncomplicated

== ENCOUNTER 2017-02-08 12:22 | Inpatient (IN) | payer MEDICAID ==
[2017-02-08 12:22] VITALS: BMI 16.9
[2017-02-08] MEDS ORDERED: Sodium Chloride 0.9% 1,000 ML IV STA ×2 (12:48→14:52)
--- NOTE | 2017-02-08 12:54 | ED PDOC ---
HPI: Altered Mental Status Time Seen by Provider: 02/08/17 12:25 Chief Complaint (Nursing): Altered Mental Status Chief Complaint (Provider): Altered Mental Status History Per: EMS History/Exam Limitations: Clinical Condition Onset/Duration Of Symptoms: Unknown Onset Of Symptoms: Cannot Confirm Onset Current Symptoms Are (Timing): Still Present Description Of Symptoms: Not At Baseline Usual Baseline: Unknown Exacerbating Factor(s): Unknown Use Of Anticoag/Antiplatlets: Unknown Additional History Per: Prior Records Additional Complaint(s): Patient is a 61 year old female who presents to ED via EMS for AMS. As per EMS, tire installer found patient lethargic, minimally responsive with antibiotic bottles near by. History as per patient is limited, patient answers questions but slugishly. pts home health aide will return shortly.. Past Medical History Reviewed: Historical Data, Nursing Documentation, Vital Signs Vital Signs: Last Vital Signs Temp 98.1 F 02/08/17 12:23 Pulse 111 H 02/08/17 12:23 Resp 16 02/08/17 12:23 BP 157/99 H 02/08/17 12:23 Pulse Ox 99 02/08/17 12:23 - Medical History PMH: Anemia, Anxiety, Arthritis, Asthma, Bipolar Disorder, Depression, Hepatitis , HIV, HTN, Pneumonia Denies: CHF, COPD, Diabetes, Hypercholesterolemia, Hypothyroidism, Chronic Kidney Disease, Rheumatoid Arthritis, Seizures, Sexually Transmitted Disease - Surgical History Surgical History: No Surg Hx - Family History Family History: States: Unknown Family Hx - Social History Current smoker - smoking cessation education provided: No Alcohol: None Drugs: Denies - Immunization History Hx Tetanus Toxoid Vaccination: No Hx Influenza Vaccination: No Hx Pneumococcal Vaccination: No - Home Medications Home Medications: Ambulatory Orders Medication Instructions Recorded Elviteg/Serene/Emtric/Tenofo Dis 1 tab PO DAILY 01/22/17 [Stribild Tablet] Risperidone [Risperdal M-TAB] 0.5 mg PO DAILY odt 01/27/17 Risperidone [Risperdal M-TAB] 0.5 mg PO HS odt 01/27/17 - Allergies Allergies/Adverse Reactions: Allergies Allergy/AdvReac Type Severity Reaction Status Date / Time No Known Allergies Allergy Verified 02/08/17 12:23 Review of Systems Review Of Systems: ROS cannot be obtained secondary to pt's inabilty to answer questions. Physical Exam - Reviewed Nursing Documentation Reviewed: Yes Vital Signs Reviewed: Yes - Physical Exam Appears: Positive for: In Acute Distress (contracted , thin, cachectic ) Head Exam: Positive for: ATRAUMATIC Skin: Positive for: Normal Color, Warm Eye Exam: Positive for: Normal appearance Neck: Positive for: Normal, Painless ROM Cardiovascular/Chest: Positive for: Regular Rate, Rhythm. Negative for: Murmur Respiratory: Positive for: Normal Breath Sounds. Negative for: Respiratory Distress Gastrointestinal/Abdominal: Positive for: Normal Exam Extremity: Positive for: Other (contracted extremities ) Neurologic/Psych: Positive for: Alert (but somnolent), Other (unable to access at this time) - Laboratory Results Result Diagrams: 02/09/17 07:04 02/09/17 07:04 - ECG O2 Sat by Pulse Oximetry: 99 (RA) Pulse Ox Interpretation: Normal Medical Decision Making Medical Decision Making: Time: 1250 Initial impression: AMS Initial plan: -- CT-head -- EKG -- Alcohol serum -- Ammonia -- CMP -- UDS -- Urine dip -- CBC -- CXR -- NSF Time: 1430 PROCEDURE: CT HEAD WITHOUT CONTRAST. HISTORY: ams COMPARISON: Comparison made with CT scan brain 12/05/2016 TECHNIQUE: Axial computed tomography images were obtained through the head/brain without intravenous contrast. Radiation dose: Total exam DLP = 913.44 mGy-cm. This CT exam was performed using one or more of the following dose reduction techniques: Automated exposure control, adjustment of the mA and/or kV according to patient size, and/or use of iterative reconstruction technique. FINDINGS: HEMORRHAGE: No acute parenchymal, for axial hemorrhage. BRAIN: Moderate to fairly significant diffuse/color fluid chronic periventricular white matter ischemic changes are again seen extending peripherally into the deep and subcortical white matter both cerebral hemispheres. There also appear to be a few small chronic bilateral basal nuclei lacunar type infarcts. Moderate to fairly significant central volume loss evidenced by disproportionate enlargement of the ventricles as compared sulci. VENTRICLES: Ventricular dilatation likely due to central volume loss. CALVARIUM: There are no acute calvarial fractures. PARANASAL SINUSES: Unremarkable as visualized. No significant inflammatory changes. . Old fracture deformities of the nasal bones again noted. MASTOID AIR CELLS: Unremarkable as visualized. No inflammatory changes. OTHER FINDINGS: None. IMPRESSION: Moderate to significant chronic white matter ischemic changes. Scattered chronic bilateral basal nuclei lacunar type infarcts. Moderate to fairly significant central volume loss. Time: 1445 Urine: RBC elevated at 27 and WBC 311 Toxicology (+) cocaine pt with co2 7. ordered iv fluids, abx for uti abg ordered as well vbg shows improved co2 on repeat DX: cocaine abuse, renal insufficiency, acidosis Scribe Attestation: Documented by Honey Hopper acting as a scribe for Zahida Mclaughlin MD. Scribe Attestation: All medical record entries made by the Scribe were at my direction and personally dictated by me. I have reviewed the chart and agree that the record accurately reflects my personal performance of the history, physical exam, medical decision making, and the department course for this patient. I have also personally directed, reviewed, and agree with the discharge instructions and disposition. Time: 13:55 Chest X-ray FINDINGS: LUNGS: Emphysema changes with hyperinflation again noted PLEURA: No pneumothorax or pleural fluid seen. CARDIOVASCULAR: Normal. OSSEOUS STRUCTURES: No significant abnormalities. VISUALIZED UPPER ABDOMEN: Normal. OTHER FINDINGS: None. IMPRESSION: Emphysema changes with hyperinflation again noted Time: 14:09 --Head CT FINDINGS: HEMORRHAGE: No acute parenchymal, for axial hemorrhage. BRAIN: Moderate to fairly significant diffuse/color fluid chronic periventricular white matter ischemic changes are again seen extending peripherally into the deep and subcortical white matter both cerebral hemispheres. There also appear to be a few small chronic bilateral basal nuclei lacunar type infarcts. Moderate to fairly significant central volume loss evidenced by disproportionate enlargement of the ventricles as compared sulci. VENTRICLES: Ventricular dilatation likely due to central volume loss. CALVARIUM: There are no acute calvarial fractures. PARANASAL SINUSES: Unremarkable as visualized. No significant inflammatory changes. . Old fracture deformities of the nasal bones again noted. MASTOID AIR CELLS: Unremarkable as visualized. No inflammatory changes. OTHER FINDINGS: None. IMPRESSION: Moderate to significant chronic white matter ischemic changes. Scattered chronic bilateral basal nuclei lacunar type infarcts. Moderate to fairly significant central volume loss. Time: 14:34 --ED urine dipstick (POC) Time: 14:51 --Rocephin 1 gm IVBP for UTI --Sodium Chloride 1,000 ml IV 150 mls/hr Time: 14:58 --Arterial Blood Gas Shock --Revaluation Time: 15:03 --Urine Catheter Time: 15:45 --Blood culture Stat Time: 16:41 --Paged family practice Resident for Admission to Telemetry --Pending for callback from Nephrology Time: 16:54 --Spoke to resident and agrees to admission. --Spoke to Dr. Jung who agrees with admission. ----Patient admitted to Telemetry Inpatient for uti, renal insufficiency and cocaine abuse. PCP: Dolly Cevallos Scribe Attestation: Documented by Rea Mansfield, acting as a scribe for Zahida Mclaughlin MD. Provider Scribe Attestation: All medical record entries made by the Scribe were at my direction and personally dictated by me. I have reviewed the chart and agree that the record accurately reflects my personal performance of the history, physical exam, medical decision making, and the department course for this patient. I have also personally directed, reviewed, and agree with the discharge instructions and disposition. Disposition - Clinical Impression Clinical Impression: UTI (urinary tract infection), Renal failure, Cocaine abuse - Patient ED Disposition Is Patient to be Admitted: Yes - Disposition Disposition Time: 14:35 Condition: STABLE
--- NOTE | 2017-02-08 13:56 | RAD ---
PROCEDURE: CHEST RADIOGRAPH, 1 VIEW HISTORY: ams COMPARISON: 01/20/17 FINDINGS: LUNGS: Emphysema changes with hyperinflation again noted PLEURA: No pneumothorax or pleural fluid seen. CARDIOVASCULAR: Normal. OSSEOUS STRUCTURES: No significant abnormalities. VISUALIZED UPPER ABDOMEN: Normal. OTHER FINDINGS: None. IMPRESSION: Emphysema changes with hyperinflation again noted
--- NOTE | 2017-02-08 14:11 | CT ---
PROCEDURE: CT HEAD WITHOUT CONTRAST. HISTORY: ams COMPARISON: Comparison made with CT scan brain 12/05/2016 TECHNIQUE: Axial computed tomography images were obtained through the head/brain without intravenous contrast. Radiation dose: Total exam DLP = 913.44 mGy-cm. This CT exam was performed using one or more of the following dose reduction techniques: Automated exposure control, adjustment of the mA and/or kV according to patient size, and/or use of iterative reconstruction technique. FINDINGS: HEMORRHAGE: No acute parenchymal, for axial hemorrhage. BRAIN: Moderate to fairly significant diffuse/color fluid chronic periventricular white matter ischemic changes are again seen extending peripherally into the deep and subcortical white matter both cerebral hemispheres. There also appear to be a few small chronic bilateral basal nuclei lacunar type infarcts. Moderate to fairly significant central volume loss evidenced by disproportionate enlargement of the ventricles as compared sulci. VENTRICLES: Ventricular dilatation likely due to central volume loss. CALVARIUM: There are no acute calvarial fractures. PARANASAL SINUSES: Unremarkable as visualized. No significant inflammatory changes. . Old fracture deformities of the nasal bones again noted. MASTOID AIR CELLS: Unremarkable as visualized. No inflammatory changes. OTHER FINDINGS: None. IMPRESSION: Moderate to significant chronic white matter ischemic changes. Scattered chronic bilateral basal nuclei lacunar type infarcts. Moderate to fairly significant central volume loss.
[2017-02-08 14:13] LABS: RBC URINE 27 /hpf (0-3); RENAL EPITHELIAL 1 /hpf (0-3); URINE BACTERIA FEW (<OCC); URINE BILIRUBIN NEGATIVE (NEGATIVE); URINE BLOOD MODERATE (NEGATIVE); URINE COLOR YELLOW (YELLOW); URINE GLUCOSE (UA) 150 mg/dL (Normal); URINE KETONE TRACE mg/dL (NEGATIVE); URINE LEUKOCYTE ESTERASE LARGE Leu/uL (Negative); URINE PROTEIN >=500 mg/dL (NEGATIVE); URINE UROBILINOGEN 0.2-1.0 mg/dL (0.2-1.0); WBC URINE 311 /hpf (0-5)
[2017-02-08 14:55] LABS: ALB/GLOB RATIO 0.5 (1.0-2.1); ALCOHOL SERUM < 10 mg/dl (0-10); ALKALINE PHOSPHATASE 84 U/L (38-126); ALT/SGPT 9 U/L (9-52); AST/SGOT 34 U/L (14-36); BILIRUBIN,TOTAL 1.2 mg/dl (0.2-1.3); BLOOD UREA NITROGEN 60 mg/dl (7-17); CALCIUM 9.1 mg/dL (8.4-10.2); CHLORIDE 120 mmol/L (98-107); GFR AFRICAN-AMERICAN 8; GLUCOSE,RANDOM 125 mg/dL (65-105); SODIUM 146 mmol/l (132-148); TOTAL PROTEIN 10.6 G/DL (6.3-8.2)
[2017-02-08 14:58] LABS: CARBON DIOXIDE 7 mmol/L (22-30)
[2017-02-08 14:59] LABS: POTASSIUM 4.8 MMOL/L (3.6-5.0)
[2017-02-08] MEDS ORDERED: cefTRIAXone (Rocephin) 1 gm Inj ONE (15:35)
[2017-02-08 15:54] LABS: BASO % 0.6 % (0.0-2.0); HEMATOCRIT 35.5 % (34.0-47.0); LYMPH # 0.5 K/uL (1.0-4.3); LYMPH % 17.4 % (20.0-40.0); MEAN CELL VOLUME 81.1 fl (81.0-99.0); MEAN CORPUSCULAR HEMOGLOBIN 24.4 pg (27.0-31.0); MEAN CORPUSCULAR HGB CONC 30.1 g/dL (33.0-37.0); MEAN PLATELET VOLUME 9.4 fl (7.2-11.7); MONO # 0.3 K/uL (0.0-0.8); MONO % 11.8 % (0.0-10.0); NEUT # 1.9 K/uL (1.8-7.0); NEUT % 70.2 % (50.0-75.0); NRBC % 0.4 % (0.0-0.0); RED CELL DISTRIBUTION WIDTH 22.1 % (11.5-14.5); WHITE BLOOD COUNT 2.7 K/uL (4.8-10.8)
[2017-02-08 16:43] LABS: VENOUS BLOOD GAS BASE EXCESS 5.2 mmol/L (0.0-2.0); VENOUS BLOOD GAS PCO2 33 mmHg (40-60); VENOUS BLOOD PH 7.53 (7.32-7.43)
[2017-02-08] MEDS ORDERED: Potassium Chloride 20 mEq/15 ml LIQ UD PO ONE (17:40)
[2017-02-08] MEDS ORDERED: Sodium Chloride 0.9% 500 ML IV ONE (18:59)
[2017-02-08] MEDS ORDERED: Potassium Ch 20mEq in D5-1/2NS 1,000 ML IV SCH (19:15)
--- NOTE | 2017-02-08 19:43 | CP.PCM.HP ---
History of Present Illness - History of Present Illness History of Present Illness: Pt is a 61 y/o female w/ PMHx HIV/AIDS (Last blood work on 02/02 CD4 <20), Hepatitis C, Bipolar disorder, COPD, brought to [facility] ER for AMS, ED work up shows pt has UTI and LAN and is severely Dehydrated. Pt was seen and evaluated by this write of this note and Dr. Rodriguez (senior resident) in presence of patient' s family and career information specialist. Pt is currently not talking much, have to ask her ask the same question multiple times before she finally gives answer which is also limited. Per her family she has not been eating much, and ever since she lost her dentures she has difficulty swallowing anything thicken than water, from chart review pt was admitted in 08/2015 for dysphasia presumed to be due fungal infection and treated for it. Family also reports pt complaints a lot about her abdomen hurting. Full ROS not obtained given pt's status Present on Admission - Present on Admission Any Indicators Present on Admission: No Review of Systems - Review of Systems All systems: reviewed and no additional remarkable complaints except Review of Systems: Unable to obtain full ROS given pt status Past Patient History - Infectious Disease Hx of Infectious Diseases: None - Past Medical History & Family History Past Medical History?: Yes - Past Social History Smoking Status: Light Smoker < 10 Cigarettes Daily - CARDIAC Hx Congestive Heart Failure: No Hx Hypercholesterolemia: No Hx Hypertension: Yes - PULMONARY Hx Asthma: Yes Hx Chronic Obstructive Pulmonary Disease (COPD): No Hx Pneumonia: Yes - NEUROLOGICAL Hx Seizures: No - HEENT Hx HEENT Problems: Yes Other/Comment: Blurred vision,stated has old eyeglasses, needs new one. - RENAL Hx Chronic Kidney Disease: No - ENDOCRINE/METABOLIC Hx Hypothyroidism: No - HEMATOLOGICAL/ONCOLOGICAL Hx Anemia: Yes Hx Human Immunodeficiency Virus (HIV): Yes - INTEGUMENTARY Hx Dermatological Problems: No - MUSCULOSKELETAL/RHEUMATOLOGICAL Hx Arthritis: Yes Hx Rheumatoid Arthritis: No - GASTROINTESTINAL Hx Gastrointestinal Disorders: Yes Other/Comment: hepatitis C - GENITOURINARY/GYNECOLOGICAL Hx Sexually Transmitted Disorders: No - PSYCHIATRIC Hx Anxiety: Yes Hx Bipolar Disorder: Yes Hx Depression: Yes - SURGICAL HISTORY Hx Surgeries: No - ANESTHESIA Hx Anesthesia: No Hx Anesthesia Reactions: No Hx Malignant Hyperthermia: No Meds Allergies/Adverse Reactions: Allergies Allergy/AdvReac Type Severity Reaction Status Date / Time No Known Allergies Allergy Verified 02/08/17 12:23 Physical Exam - Constitutional Appears: Toxic, Older Than Stated Age, Cachectic, Chronically Ill - Head Exam Head Exam: NORMOCEPHALIC - Eye Exam Eye Exam: Normal appearance - ENT Exam ENT Exam: Mucous Membranes Dry. absent: Mucous Membranes Moist - Respiratory Exam Respiratory Exam: Clear to Auscultation Bilateral, NORMAL BREATHING PATTERN. absent: Rhonchi, Wheezes - Cardiovascular Exam Cardiovascular Exam: REGULAR RHYTHM, +S1, +S2 - GI/Abdominal Exam GI & Abdominal Exam: Normal Bowel Sounds, Soft, Tenderness. absent: Organomegaly, Pulsatile Mass - Extremities Exam Extremities exam: Negative for: calf tenderness, pedal edema - Back Exam Back exam: tenderness - Neurological Exam Neurological exam: Alert - Psychiatric Exam Psychiatric exam: Flat Affect Results - Vital Signs Recent Vital Signs: Last Vital Signs Temp 103 F H 02/08/17 18:56 Pulse 109 H 02/08/17 18:56 Resp 26 H 02/08/17 18:58 BP 156/83 H 02/08/17 18:56 Pulse Ox 98 02/08/17 18:56 - Labs Result Diagrams: 02/08/17 15:32 02/08/17 14:32 Assessment & Plan - Assessment and Plan (Free Text) Assessment: pt is a61 y/o female w/ PMHx AIDS (non-complaint with medication), Hepatitis C , Bipolar disorder,COPD, being admitted for UTI, severe dehydration, LAN (new, baseline renal function has been normal). Plan: LAN, Cr went from 0.7 () to 6.3 most likely due top being severely dehydrated Nephrology consulted ()- spoke with him via telephone recommends given pt D51/2NS at 150cc, order urine electrolytes,renal ultrasound and loading dose of vancomycin 1g over 2 hours 2. UTI given a dose of ceftrixone in ED Getting Vancomycin now ID consulted for further recommendation 3.Dehydration No bolus was given in ED 500 NS bolus ordered;then continue with D5 1/2NS at 150cc Monitor 4. AIDS cd4< 20 Pt not taking of her medication for HIV or prophylaxis medication against opportunistic infections zaina olivas ID consulted 5. Dysphasia Working diagnosis of esophageal candidiasis Swallow eval ordered Consider starting flucanazole 6. Diet- NPO for now, re-evaluate after swallow eval 7.DVT prophylaxis- SCDs
[2017-02-08] MEDS: Dextrose 5%/0.45% NS 1,000 ML IV SCH (20:30)
--- NOTE | 2017-02-08 21:43 | CP.PCM.CON ---
History of Present Illness - History of Present Illness History of Present Illness: REASON FOR CONSULTATION : LAN .. WITH CREATININ RISING FROM NORMAL EARLY THIS MONTH TO 6.3 NOW ALL PREVIOUS EMR REVIEWED .. CURRENT CHART REVIEWED .. PT WAS SEEN AND EXAMINED CASE D/W ER ATTENDING .. CASE WAS ALSO D/W MED RESIDENT A LENGTH Pt is a 61 y/o female w/ PMHx HIV/AIDS (Last blood work on 02/02 CD4 <20), Hepatitis C, Bipolar disorder, COPD, brought to [facility] ER for AMS, ED work up shows pt has UTI and LAN and is severely Dehydrated. Pt was seen and evaluated by this write of this note and Dr. Rodriguez (senior resident) in presence of patient' s family and career development counselor. Pt is currently not talking much, have to ask her ask the same question multiple times before she finally gives answer which is also limited. Per her family she has not been eating much, and ever since she lost her dentures she has difficulty swallowing anything thicken than water, from chart review pt was admitted in 08/2015 for dysphasia presumed to be due fungal infection and treated Past Patient History - Infectious Disease Hx of Infectious Diseases: None - Past Medical History & Family History Past Medical History?: Yes - Past Social History Smoking Status: Former Smoker - CARDIAC Hx Congestive Heart Failure: No Hx Hypercholesterolemia: No Hx Hypertension: Yes - PULMONARY Hx Asthma: Yes Hx Chronic Obstructive Pulmonary Disease (COPD): No Hx Pneumonia: Yes - NEUROLOGICAL Hx Seizures: No - HEENT Hx HEENT Problems: Yes Other/Comment: Blurred vision,stated has old eyeglasses, needs new one. - RENAL Hx Chronic Kidney Disease: No - ENDOCRINE/METABOLIC Hx Hypothyroidism: No - HEMATOLOGICAL/ONCOLOGICAL Hx Anemia: Yes Hx Human Immunodeficiency Virus (HIV): Yes - INTEGUMENTARY Hx Dermatological Problems: No - MUSCULOSKELETAL/RHEUMATOLOGICAL Hx Falls: No - GASTROINTESTINAL Hx Gastrointestinal Disorders: Yes Other/Comment: hepatitis C - GENITOURINARY/GYNECOLOGICAL Hx Sexually Transmitted Disorders: No - PSYCHIATRIC Hx Substance Use: Yes - SURGICAL HISTORY Hx Surgeries: No - ANESTHESIA Hx Anesthesia: No Hx Anesthesia Reactions: No Hx Malignant Hyperthermia: No Meds Allergies/Adverse Reactions: Allergies Allergy/AdvReac Type Severity Reaction Status Date / Time No Known Allergies Allergy Verified 02/08/17 12:23 - Medications Medications: Current Medications Acetaminophen (Tylenol 650 Mg Supp) 650 mg [place] Q6 PRN PRN Reason: Fever >100.4 F Dextrose/Sodium Chloride (Dextrose 5%/0.45% Ns 1000 Ml) 1,000 mls @ 150 mls/hr IV .Q6H40M OTILIA Stop: 02/09/17 19:40 Last Admin: 02/08/17 20:30 Dose: 150 mls/hr Results - Vital Signs Recent Vital Signs: Last Vital Signs Temp 98.3 F 02/08/17 20:32 Pulse 101 H 02/08/17 20:55 Resp 18 02/08/17 20:55 BP 118/70 02/08/17 20:32 Pulse Ox 100 02/08/17 20:32 - Labs Result Diagrams: 02/08/17 15:32 02/08/17 14:32 Assessment & Plan - Assessment and Plan (Free Text) Assessment: LAN .. R/O PRE RENAL AZOTEMIA Vs ATN MILD HYPERNATREMIA SPEAKS FOR DEHYDRATION MULTIPLE CO MORBIDITIES P : IVF D5 1/2 AT 150 CC/ H URINE LYTES , CREATININ AND OSMOLALITY SERIAL DAILY BNP WILL WATCH RENAL FUNCTION CLOSELY - Date & Time Date: 02/08/17 Time: 18:00
[2017-02-09] MEDS: Dextrose 5%/0.45% NS 1,000 ML IV SCH ×3 (03:00→20:30)
[2017-02-09 07:33] LABS: HEMATOCRIT 31.5 % (34.0-47.0); MEAN CELL VOLUME 79.4 fl (81.0-99.0); MEAN CORPUSCULAR HEMOGLOBIN 24.2 pg (27.0-31.0); MEAN CORPUSCULAR HGB CONC 30.5 g/dL (33.0-37.0); RED CELL DISTRIBUTION WIDTH 21.8 % (11.5-14.5)
[2017-02-09 07:43] LABS: ALB/GLOB RATIO 0.5 (1.0-2.1); BILIRUBIN,TOTAL 0.6 mg/dl (0.2-1.3); POTASSIUM 3.7 MMOL/L (3.6-5.0); TOTAL PROTEIN 7.9 G/DL (6.3-8.2)
--- NOTE | 2017-02-09 10:15 | CP.PCM.PN ---
Subjective - Date & Time of Evaluation Date of Evaluation: 02/09/17 Time of Evaluation: 10:00 - Subjective Subjective: 61 y/o F with PMhx of HIV, AIDS, bipolar disorder admitted for LAN and AMS, seen at bedside this morning, she says she is feeling better. Patient c/o thirst , denies vomiting or nausea, denies SOB or palpitations but c/o chest pressure, since yesterday. Denies diarrhea or calf pain. Objective - Vital Signs/Intake and Output Vital Signs (last 24 hours): Temp Pulse Resp BP Pulse Ox 97.5 F L 71 18 127/77 96 02/09/17 08:11 02/09/17 08:11 02/09/17 08:11 02/09/17 08:11 02/09/17 08:11 Intake and Output: 02/09/17 02/09/17 06:59 18:59 Intake Total 1225 Output Total 500 Balance 725 - Medications Medications: Current Medications Acetaminophen (Tylenol 650 Mg Supp) 650 mg [place] Q6 PRN PRN Reason: Fever >100.4 F Dextrose/Sodium Chloride (Dextrose 5%/0.45% Ns 1000 Ml) 1,000 mls @ 150 mls/hr IV .Q6H40M [facility] Stop: 02/09/17 19:40 Last Admin: 02/09/17 03:00 Dose: 150 mls/hr Ceftriaxone Sodium 1 gm/ (Sodium Chloride) 100 mls @ 100 mls/hr IVPB DAILY [facility] Last Admin: 02/09/17 10:11 Dose: 100 mls/hr - Labs Labs: 02/09/17 07:04 02/09/17 07:04 - Constitutional Appears: Cachectic - Eye Exam Eye Exam: PERRL - ENT Exam ENT Exam: Mucous Membranes Dry - Respiratory Exam Respiratory Exam: Clear to Ausculation Bilateral, NORMAL BREATHING PATTERN. absent: Rales, Wheezes - Cardiovascular Exam Cardiovascular Exam: REGULAR RHYTHM, +S1, +S2. absent: Gallop, Murmur - GI/Abdominal Exam GI & Abdominal Exam: Normal Bowel Sounds. absent: Tenderness, Mass - Extremities Exam Extremities Exam: absent: Pedal Edema, Tenderness - Neurological Exam Neurological Exam: Alert, Awake. absent: Oriented x3 (Partially disoriented. Recognizes person, place and year) - Psychiatric Exam Psychiatric exam: Normal Affect, Normal Mood - Skin Skin Exam: Warm Assessment and Plan - Assessment and Plan (Free Text) Assessment: pt is a61 y/o female w/ PMHx AIDS (non-complaint with medication), Hepatitis C , Bipolar disorder,COPD, being admitted for UTI, severe dehydration, LAN (new, baseline renal function has been normal). 1. LAN most likely due to severe dehydration Repeated CMP this morning unchanged from yesterday Rule out toxic causes F/U methanol, acetaminophen, salicylates levels, Nephrology consulted () US abd: WNL On D5 1/2NS 2. Bacteremia Fever 103 yesterday BCx x2 growing Gram neg rods Possible due to UTI ID Consult(Dr Arredondo). Spoke to Dr Arredondo over the phone and she recommended stopping Ceftriaxone and starting patient on Meropenen IV VS stable Echo ordered Case discussed with Dr Baptiste(ICU) and recommendations and input appreciated. Patient has no criteria at this time for ICU admission. 3. UTI UA + for leukocytes esterase and WBC high. Negative nitrates s/p 1 dose of ceftriaxone and vanco ID consulted: On Meropenen IV 4. AIDS cd4< 20 Non compliant with HAART therapy Will hold truvada, bactrim untill eval by ID ID consulted. Will wait for recommendation Start Zithromax 600mg 2 times a week for MAC prophylaxis LP ordered to rule out meningitis since patient was admitted for AMS, CD4<20. F/ U Anesthesiology consult 5. Dysphagia Working diagnosis of esophageal candidiasis F/U Swallow eval 6. BMI 17 Cachexia Most likely due to AIDS 7. Prophylaxis SCDs
[2017-02-09 10:42] LABS: ABG ALLEN TEST YES; ARTERIAL BLOOD GAS HCO3 11.4 mmol/L (21-28); ARTERIAL BLOOD GAS O2 CAPACITY 12.7 mL/dL (16-24); ARTERIAL BLOOD GAS O2 CONTENT 12.6 ML/dL (15-23); ARTERIAL BLOOD GAS PH 7.29 (7.35-7.45); ARTERIAL BLOOD GAS PO2 115 mm/Hg (80-100); ARTERIAL BLOOD HGB O2 SAT 96.7 % (95.0-98.0); CARBOXYHEMOGLOBIN 0.8 % (0.5-1.5); HHB 0.8 % (0.0-5.0); METHEMOGLOBIN 1.7 % (0.0-3.0)
[2017-02-09] MEDS ORDERED: Meropenem 1 GM in Sodium Chloride 0.9% 100 ML IVPB ONE (10:52)
--- NOTE | 2017-02-09 11:09 | US ---
PROCEDURE: Ultrasound of the Kidneys HISTORY: LAN COMPARISON: 01/01/2016. TECHNIQUE: Sonogram of the kidneys. FINDINGS: RIGHT KIDNEY: Measures: 3.8 x 9.9 cm. Normal in size, contour and echogenicity. No stone, solid mass lesion or hydronephrosis visualized. LEFT KIDNEY: Measures: 4.4 x 10.8 cm. Normal in size, contour and echogenicity. No stone, solid mass lesion or hydronephrosis visualized. OTHER FINDINGS: None. IMPRESSION: No significant or acute findings to account for/ related to the clinical presentation. No significant interval change compared to the prior examination(s).
[2017-02-09 12:52] LABS: ALB/GLOB RATIO 0.5 (1.0-2.1); BILIRUBIN,TOTAL 0.5 mg/dl (0.2-1.3); CALCIUM 7.9 mg/dL (8.4-10.2); POTASSIUM 3.3 MMOL/L (3.6-5.0); TOTAL PROTEIN 7.2 G/DL (6.3-8.2)
--- NOTE | 2017-02-09 13:33 | PQF GENQUE ---
This form is a permanent part of the medical record 02/09/17 Dr. Edward Lee, Would you please clarify if there is an associated diagnosis or not to go along with the following: Ht 5'1", Wt 90 pounds with a BMI of 17. If yes please document along with the BMI of 17. Patient with a history of AIDS is admitted with lethargy, not eating much and difficulty swallowing. EMR lists the patient as being 5'1" weighing 90 pounds with a BMI of 17. Diagnoses include Dehydration ,LAN and dysphagia possible esophageal candidiasis. Clarification of your documentation is requested to better reflect the severity of illness and intensity of treatment of your patient. PHYSICIAN'S RESPONSE Based on your medical judgment of the clinical indicators outlined above please clarify the following: [] Practitioner response : [] Please document the BMI of [] No additional diagnosis [] If unable to determine, please check the box, sign and date. Present On Admission (POA) Indicator: [] Present at the time of admission [] Not present at the time of admission [] Clinically Undetermined In responding to this query, please exercise your independent professional judgment. The fact that a question is asked does not imply that any particular answer is desired or expected. Thank you for your clarification on this documentation. If you have any questions please call:[phone] or [phone] Medical Records Dept * Thank you, Caron Daley RN CDMP MTDD
--- NOTE | 2017-02-09 15:29 | CP.PCM.CON ---
History of Present Illness - History of Present Illness History of Present Illness: Infectious Disease Consultation Note- Asked to see this patient at the request of the family practice team . HPI-History obtained from the medical translator and the patient's chart as pt. is not very good historian. Pt. is a 61 y/o female with HIV/AIDS non compliant with HAART( as per med chart last Cd4 <20) f/u at [facility], hep C, Bipolar disorder, COPD, who was brought in to the ED for AMS. Pt. was found to have fever and + UA and acute renal insufficiency and dehydration on admission and today her blood cx were reported as GNR prelim. as per family practice resident pt. also has been using cocaine and was pos for cocaine on tox screen. as per medical translator pt. is much better compared to yesterday on admission and is AAO x 2. Advised the resident to start pt. on IV meropenem pending ID and sensitivity of the GNR ( renal dose). currently pt. is awake and alert and denies any complaints. She knows place and date but can't name the president. She denies any fever or chills, denies any ESTEVEZ, denies any dysurea, denies any sob, denies any cough, denies any abd. pain, denies any diarrhea. Review of Systems - Review of Systems Review of Systems: ROS- denies any fever or chills now but had fever on admission, denies any ESTEVEZ, denies any neck pain , denies any cough, denies nay sob, denies any chest pain, denies any abd. pain, denies any n/v, denies any dysurea, denies any diarrhea Past Patient History - Infectious Disease Hx of Infectious Diseases: None - Past Medical History & Family History Past Medical History?: Yes - Past Social History Alcohol: None Drugs: Cocaine - CARDIAC Hx Hypertension: Yes - PULMONARY Hx Asthma: Yes Hx Pneumonia: Yes - NEUROLOGICAL Hx Seizures: No - HEENT Hx HEENT Problems: Yes Other/Comment: Blurred vision,stated has old eyeglasses, needs new one. - RENAL Hx Chronic Kidney Disease: No - ENDOCRINE/METABOLIC Hx Hypothyroidism: No - HEMATOLOGICAL/ONCOLOGICAL Hx AIDS: Yes Hx Human Immunodeficiency Virus (HIV): Yes - INTEGUMENTARY Hx Dermatological Problems: No - MUSCULOSKELETAL/RHEUMATOLOGICAL Hx Arthritis: Yes Hx Rheumatoid Arthritis: No - GASTROINTESTINAL Hx Gastrointestinal Disorders: Yes Other/Comment: hepatitis C - GENITOURINARY/GYNECOLOGICAL Hx Sexually Transmitted Disorders: No - PSYCHIATRIC Hx Anxiety: Yes Hx Bipolar Disorder: Yes Hx Depression: Yes - SURGICAL HISTORY Hx Surgeries: No - ANESTHESIA Hx Anesthesia: No Hx Anesthesia Reactions: No Hx Malignant Hyperthermia: No Meds Allergies/Adverse Reactions: Allergies Allergy/AdvReac Type Severity Reaction Status Date / Time No Known Allergies Allergy Verified 02/08/17 12:23 - Medications Medications: Current Medications Acetaminophen (Tylenol 650 Mg Supp) 650 mg ME Q6 PRN PRN Reason: Fever >100.4 F Dextrose/Sodium Chloride (Dextrose 5%/0.45% Ns 1000 Ml) 1,000 mls @ 150 mls/hr IV .[id number] OTILIA Stop: 02/09/17 19:40 Last Admin: 02/09/17 03:00 Dose: 150 mls/hr Physical Exam - Constitutional Appears: No Acute Distress, Chronically Ill - Head Exam Head Exam: ATRAUMATIC - Eye Exam Eye Exam: EOMI, PERRL - ENT Exam Additional comments: dry oral mucosa - Neck Exam Neck exam: Positive for: Full Rom Additional comments: supple - Respiratory Exam Respiratory Exam: Clear to Auscultation Bilateral, NORMAL BREATHING PATTERN - Cardiovascular Exam Cardiovascular Exam: RRR, +S1, +S2 - GI/Abdominal Exam GI & Abdominal Exam: Normal Bowel Sounds, Soft Additional comments: NT, ND - Extremities Exam Additional comments: No edema B/L LE - Neurological Exam Neurological exam: Alert Additional comments: oriented x 2 Results - Vital Signs Recent Vital Signs: Last Vital Signs Temp 98 F 02/09/17 12:22 Pulse 77 02/09/17 12:22 Resp 18 02/09/17 12:22 BP 141/83 02/09/17 12:22 Pulse Ox 99 02/09/17 12:47 - Labs Result Diagrams: 02/09/17 07:04 02/09/17 12:05 Labs: Laboratory Results - last 24 hr 02/09/17 02/09/17 02/09/17 02:50 07:04 07:04 WBC RBC 3.97 Hgb 9.6 L Hct 31.5 L MCV 79.4 L MCH 24.2 L MCHC 30.5 L RDW 21.8 H Plt Count 124 L D pCO2 pO2 HCO3 ABG pH ABG Total CO2 ABG O2 Saturation ABG O2 Content ABG Base Excess ABG Hemoglobin ABG Carboxyhemoglobin POC ABG HHb (Measured) ABG Methemoglobin ABG O2 Capacity Jamie Test A-a O2 Difference Hgb O2 Saturation FiO2 Blood Gas Comments Crit Value Called To Crit Value Called By Crit Value Read Back Blood Gas Notified Time Sodium 144 Potassium 3.7 Chloride 120 H Carbon Dioxide 9 L* D Anion Gap 19 BUN 67 H Creatinine 6.3 H Est GFR ( Amer) 8 Est GFR (Non-Af Amer) 7 Random Glucose 139 H Lactic Acid Calcium 8.0 L Total Bilirubin 0.6 AST 73 H D ALT 20 Alkaline Phosphatase 56 Total Protein 7.9 Albumin 2.7 L D Globulin 5.2 H Albumin/Globulin Ratio 0.5 L Ur Random Sodium 100 Ur Random Potassium 19.5 Salicylates Acetaminophen 02/09/17 02/09/17 02/09/17 10:38 12:05 14:30 WBC RBC Hgb Hct MCV MCH MCHC RDW Plt Count pCO2 15 L* pO2 115 H HCO3 11.4 L ABG pH 7.29 L ABG Total CO2 7.7 L ABG O2 Saturation 99.2 H ABG O2 Content 12.6 L ABG Base Excess -17.3 L ABG Hemoglobin 9.1 L ABG Carboxyhemoglobin 0.8 POC ABG HHb (Measured) 0.8 ABG Methemoglobin 1.7 ABG O2 Capacity 12.7 L Jamie Test Yes A-a O2 Difference 16.0 Hgb O2 Saturation 96.7 FiO2 21.0 Blood Gas Comments Room air,rr Crit Value Called To Rosa reid Crit Value Called By 15 Crit Value Read Back Y Blood Gas Notified Time 1042 Sodium 142 Potassium 3.3 L Chloride 119 H Carbon Dioxide 9 L* Anion Gap 17 BUN 68 H Creatinine 6.0 H Est GFR ( Amer) 9 Est GFR (Non-Af Amer) 7 Random Glucose 74 Lactic Acid 1.4 Calcium 7.9 L Total Bilirubin 0.5 AST 83 H ALT 30 Alkaline Phosphatase 55 Total Protein 7.2 Albumin 2.4 L Globulin 4.8 H Albumin/Globulin Ratio 0.5 L Ur Random Sodium Ur Random Potassium Salicylates Acetaminophen 02/09/17 14:30 WBC RBC Hgb Hct MCV MCH MCHC RDW Plt Count pCO2 pO2 HCO3 ABG pH ABG Total CO2 ABG O2 Saturation ABG O2 Content ABG Base Excess ABG Hemoglobin ABG Carboxyhemoglobin POC ABG HHb (Measured) ABG Methemoglobin ABG O2 Capacity Jamie Test A-a O2 Difference Hgb O2 Saturation FiO2 Blood Gas Comments Crit Value Called To Crit Value Called By Crit Value Read Back Blood Gas Notified Time Sodium Potassium Chloride Carbon Dioxide Anion Gap BUN Creatinine Est GFR ( Amer) Est GFR (Non-Af Amer) Random Glucose Lactic Acid Calcium Total Bilirubin AST ALT Alkaline Phosphatase Total Protein Albumin Globulin Albumin/Globulin Ratio Ur Random Sodium Ur Random Potassium Salicylates < 1.0 Acetaminophen < 10.0 L Laboratory Results - last 72 hr 02/08/17 02/08/17 02/08/17 13:46 13:59 14:32 WBC RBC Hgb Hct MCV MCH MCHC RDW Plt Count MPV Neut % (Auto) Lymph % (Auto) Starke % (Auto) Eos % (Auto) Baso % (Auto) Neut # Lymph # Starke # Eos # Baso # pCO2 pO2 HCO3 ABG pH ABG Total CO2 ABG O2 Saturation ABG O2 Content ABG Base Excess ABG Hemoglobin ABG Carboxyhemoglobin POC ABG HHb (Measured) ABG Methemoglobin ABG O2 Capacity Jamie Test VBG pH VBG pCO2 VBG HCO3 VBG Total CO2 VBG O2 Sat (Calc) VBG Base Excess VBG Potassium A-a O2 Difference Hgb O2 Saturation Glucose Lactate FiO2 Blood Gas Comments Crit Value Called To Crit Value Called By Crit Value Read Back Blood Gas Notified Time Sodium 146 Potassium 4.8 Chloride 120 H Carbon Dioxide 7 L* D Anion Gap 24 H BUN 60 H Creatinine 6.3 H Est GFR ( Amer) 8 Est GFR (Non-Af Amer) 7 Random Glucose 125 H Lactic Acid Calcium 9.1 Total Bilirubin 1.2 AST 34 ALT 9 D Alkaline Phosphatase 84 Ammonia Total Protein 10.6 H Albumin 3.6 Globulin 7.0 H Albumin/Globulin Ratio 0.5 L Venous Blood Potassium Urine Color Yellow Urine Clarity Cloudy Urine pH 6.0 Ur Specific [place] 1.014 Urine Protein >=500 Urine Glucose (UA) 150 Urine Ketones Trace Urine Blood Moderate Urine Nitrate Negative Urine Bilirubin Negative Urine Urobilinogen 0.2-1.0 Ur Leukocyte Esterase Large Urine RBC (Auto) 27 H Urine Microscopic WBC 311 H Ur Squamous Epith Cells 4 Ur Renal Epithelial Cell 1 Urine Bacteria Few H Ur Random Sodium Ur Random Potassium Salicylates Urine Opiates Screen Negative Urine Methadone Screen Negative Acetaminophen Ur Barbiturates Screen Negative Ur Phencyclidine Scrn Negative Ur Amphetamines Screen Negative U Benzodiazepines Scrn Negative U Oth Cocaine Metabols Positive H U Cannabinoids Screen Negative Alcohol, Quantitative < 10 02/08/17 02/08/17 02/08/17 14:32 15:32 16:21 WBC 2.7 L RBC 4.38 Hgb 10.7 L Hct 35.5 MCV 81.1 D MCH 24.4 L MCHC 30.1 L RDW 22.1 H Plt Count 148 MPV 9.4 Neut % (Auto) 70.2 Lymph % (Auto) 17.4 L Starke % (Auto) 11.8 H Eos % (Auto) 0.0 Baso % (Auto) 0.6 Neut # 1.9 Lymph # 0.5 L Starke # 0.3 Eos # 0.0 Baso # 0.0 pCO2 pO2 42 HCO3 ABG pH ABG Total CO2 ABG O2 Saturation ABG O2 Content ABG Base Excess ABG Hemoglobin ABG Carboxyhemoglobin POC ABG HHb (Measured) ABG Methemoglobin ABG O2 Capacity Jamie Test VBG pH 7.53 H VBG pCO2 33 L VBG HCO3 28.5 VBG Total CO2 28.6 H VBG O2 Sat (Calc) 85.5 H VBG Base Excess 5.2 H VBG Potassium 3.0 L A-a O2 Difference Hgb O2 Saturation Glucose 110 H Lactate 1.6 FiO2 21.0 Blood Gas Comments Crit Value Called To Crit Value Called By Crit Value Read Back Blood Gas Notified Time Sodium 137.0 Potassium Chloride 105.0 Carbon Dioxide Anion Gap BUN Creatinine Est GFR ( Amer) Est GFR (Non-Af Amer) Random Glucose Lactic Acid Calcium Total Bilirubin AST ALT Alkaline Phosphatase Ammonia < 9 L Total Protein Albumin Globulin Albumin/Globulin Ratio Venous Blood Potassium 3.0 L Urine Color Urine Clarity Urine pH Ur Specific [place] Urine Protein Urine Glucose (UA) Urine Ketones Urine Blood Urine Nitrate Urine Bilirubin Urine Urobilinogen Ur Leukocyte Esterase Urine RBC (Auto) Urine Microscopic WBC Ur Squamous Epith Cells Ur Renal Epithelial Cell Urine Bacteria Ur Random Sodium Ur Random Potassium Salicylates Urine Opiates Screen Urine Methadone Screen Acetaminophen Ur Barbiturates Screen Ur Phencyclidine Scrn Ur Amphetamines Screen U Benzodiazepines Scrn U Oth Cocaine Metabols U Cannabinoids Screen Alcohol, Quantitative 02/09/17 02/09/17 02/09/17 02:50 07:04 07:04 WBC RBC 3.97 Hgb 9.6 L Hct 31.5 L MCV 79.4 L MCH 24.2 L MCHC 30.5 L RDW 21.8 H Plt Count 124 L D MPV Neut % (Auto) Lymph % (Auto) Starke % (Auto) Eos % (Auto) Baso % (Auto) Neut # Lymph # Starke # Eos # Baso # pCO2 pO2 HCO3 ABG pH ABG Total CO2 ABG O2 Saturation ABG O2 Content ABG Base Excess ABG Hemoglobin ABG Carboxyhemoglobin POC ABG HHb (Measured) ABG Methemoglobin ABG O2 Capacity Jamie Test VBG pH VBG pCO2 VBG HCO3 VBG Total CO2 VBG O2 Sat (Calc) VBG Base Excess VBG Potassium A-a O2 Difference Hgb O2 Saturation Glucose Lactate FiO2 Blood Gas Comments Crit Value Called To Crit Value Called By Crit Value Read Back Blood Gas Notified Time Sodium 144 Potassium 3.7 Chloride 120 H Carbon Dioxide 9 L* D Anion Gap 19 BUN 67 H Creatinine 6.3 H Est GFR ( Amer) 8 Est GFR (Non-Af Amer) 7 Random Glucose 139 H Lactic Acid Calcium 8.0 L Total Bilirubin 0.6 AST 73 H D ALT 20 Alkaline Phosphatase 56 Ammonia Total Protein 7.9 Albumin 2.7 L D Globulin 5.2 H Albumin/Globulin Ratio 0.5 L Venous Blood Potassium Urine Color Urine Clarity Urine pH Ur Specific [place] Urine Protein Urine Glucose (UA) Urine Ketones Urine Blood Urine Nitrate Urine Bilirubin Urine Urobilinogen Ur Leukocyte Esterase Urine RBC (Auto) Urine Microscopic WBC Ur Squamous Epith Cells Ur Renal Epithelial Cell Urine Bacteria Ur Random Sodium 100 Ur Random Potassium 19.5 Salicylates Urine Opiates Screen Urine Methadone Screen Acetaminophen Ur Barbiturates Screen Ur Phencyclidine Scrn Ur Amphetamines Screen U Benzodiazepines Scrn U Oth Cocaine Metabols U Cannabinoids Screen Alcohol, Quantitative 02/09/17 02/09/17 02/09/17 10:38 12:05 14:30 WBC RBC Hgb Hct MCV MCH MCHC RDW Plt Count MPV Neut % (Auto) Lymph % (Auto) Starke % (Auto) Eos % (Auto) Baso % (Auto) Neut # Lymph # Starke # Eos # Baso # pCO2 15 L* pO2 115 H HCO3 11.4 L ABG pH 7.29 L ABG Total CO2 7.7 L ABG O2 Saturation 99.2 H ABG O2 Content 12.6 L ABG Base Excess -17.3 L ABG Hemoglobin 9.1 L ABG Carboxyhemoglobin 0.8 POC ABG HHb (Measured) 0.8 ABG Methemoglobin 1.7 ABG O2 Capacity 12.7 L Jamie Test Yes VBG pH VBG pCO2 VBG HCO3 VBG Total CO2 VBG O2 Sat (Calc) VBG Base Excess VBG Potassium A-a O2 Difference 16.0 Hgb O2 Saturation 96.7 Glucose Lactate FiO2 21.0 Blood Gas Comments Room air,rr Crit Value Called To Rosa reid Crit Value Called By 15 Crit Value Read Back Y Blood Gas Notified Time 1042 Sodium 142 Potassium 3.3 L Chloride 119 H Carbon Dioxide 9 L* Anion Gap 17 BUN 68 H Creatinine 6.0 H Est GFR ( Amer) 9 Est GFR (Non-Af Amer) 7 Random Glucose 74 Lactic Acid 1.4 Calcium 7.9 L Total Bilirubin 0.5 AST 83 H ALT 30 Alkaline Phosphatase 55 Ammonia Total Protein 7.2 Albumin 2.4 L Globulin 4.8 H Albumin/Globulin Ratio 0.5 L Venous Blood Potassium Urine Color Urine Clarity Urine pH Ur Specific [place] Urine Protein Urine Glucose (UA) Urine Ketones Urine Blood Urine Nitrate Urine Bilirubin Urine Urobilinogen Ur Leukocyte Esterase Urine RBC (Auto) Urine Microscopic WBC Ur Squamous Epith Cells Ur Renal Epithelial Cell Urine Bacteria Ur Random Sodium Ur Random Potassium Salicylates Urine Opiates Screen Urine Methadone Screen Acetaminophen Ur Barbiturates Screen Ur Phencyclidine Scrn Ur Amphetamines Screen U Benzodiazepines Scrn U Oth Cocaine Metabols U Cannabinoids Screen Alcohol, Quantitative 02/09/17 14:30 WBC RBC Hgb Hct MCV MCH MCHC RDW Plt Count MPV Neut % (Auto) Lymph % (Auto) Starke % (Auto) Eos % (Auto) Baso % (Auto) Neut # Lymph # Starke # Eos # Baso # pCO2 pO2 HCO3 ABG pH ABG Total CO2 ABG O2 Saturation ABG O2 Content ABG Base Excess ABG Hemoglobin ABG Carboxyhemoglobin POC ABG HHb (Measured) ABG Methemoglobin ABG O2 Capacity Jamie Test VBG pH VBG pCO2 VBG HCO3 VBG Total CO2 VBG O2 Sat (Calc) VBG Base Excess VBG Potassium A-a O2 Difference Hgb O2 Saturation Glucose Lactate FiO2 Blood Gas Comments Crit Value Called To Crit Value Called By Crit Value Read Back Blood Gas Notified Time Sodium Potassium Chloride Carbon Dioxide Anion Gap BUN Creatinine Est GFR ( Amer) Est GFR (Non-Af Amer) Random Glucose Lactic Acid Calcium Total Bilirubin AST ALT Alkaline Phosphatase Ammonia Total Protein Albumin Globulin Albumin/Globulin Ratio Venous Blood Potassium Urine Color Urine Clarity Urine pH Ur Specific [place] Urine Protein Urine Glucose (UA) Urine Ketones Urine Blood Urine Nitrate Urine Bilirubin Urine Urobilinogen Ur Leukocyte Esterase Urine RBC (Auto) Urine Microscopic WBC Ur Squamous Epith Cells Ur Renal Epithelial Cell Urine Bacteria Ur Random Sodium Ur Random Potassium Salicylates < 1.0 Urine Opiates Screen Urine Methadone Screen Acetaminophen < 10.0 L Ur Barbiturates Screen Ur Phencyclidine Scrn Ur Amphetamines Screen U Benzodiazepines Scrn U Oth Cocaine Metabols U Cannabinoids Screen Alcohol, Quantitative Microbiology 02/08/17 15:45 Blood-Venous Blood Culture - Preliminary Gram Negative Alec 02/08/17 15:45 Blood-Venous Gram Stain - Final 02/08/17 13:59 Urine,Clean Catch Urine Culture - Preliminary Gram Negative Alec 02/08/17 15:30 Blood-Venous Blood Culture - Preliminary Gram Negative Alec 02/08/17 15:30 Blood-Venous Gram Stain - Final Accession No. : [id number] Patient Name / ID : KIP CAPPS / [id number] Exam Date : 02/08/2017 13:02:45 ( Approved ) Study Comment : Sex / Age : F / 61Y Creator : Jesus Kenyon MD Dictator : Jesus Kenyon MD Inseam Trimming Machine Operator : Dairy Husbandman : Jesus Kenyon MD Approver2 : Report Date : 02/08/2017 13:55:22 My Comment : PROCEDURE: CHEST RADIOGRAPH, 1 VIEW HISTORY: ams COMPARISON: 01/20/17 FINDINGS: LUNGS: Emphysema changes with hyperinflation again noted PLEURA: No pneumothorax or pleural fluid seen. CARDIOVASCULAR: Normal. OSSEOUS STRUCTURES: No significant abnormalities. VISUALIZED UPPER ABDOMEN: Normal. OTHER FINDINGS: None. IMPRESSION: Emphysema changes with hyperinflation again noted Accession No. : [id number] Patient Name / ID : KIP CAPPS / [id number] Exam Date : 02/08/2017 13:40:05 ( Approved ) Study Comment : Sex / Age : F / 61Y Creator : Jesus Kenyon MD Dictator : Jesus Kenyon MD Inseam Trimming Machine Operator : Dairy Husbandman : Jesus Kenyon MD Approver2 : Report Date : 02/08/2017 14:09:40 My Comment : PROCEDURE: CT HEAD WITHOUT CONTRAST. HISTORY: ams COMPARISON: Comparison made with CT scan brain 12/05/2016 TECHNIQUE: Axial computed tomography images were obtained through the head/brain without intravenous contrast. Radiation dose: Total exam DLP = 913.44 mGy-cm. This CT exam was performed using one or more of the following dose reduction techniques: Automated exposure control, adjustment of the mA and/or kV according to patient size, and/or use of iterative reconstruction technique. FINDINGS: HEMORRHAGE: No acute parenchymal, for axial hemorrhage. BRAIN: Moderate to fairly significant diffuse/color fluid chronic periventricular white matter ischemic changes are again seen extending peripherally into the deep and subcortical white matter both cerebral hemispheres. There also appear to be a few small chronic bilateral basal nuclei lacunar type infarcts. Moderate to fairly significant central volume loss evidenced by disproportionate enlargement of the ventricles as compared sulci. VENTRICLES: Ventricular dilatation likely due to central volume loss. CALVARIUM: There are no acute calvarial fractures. PARANASAL SINUSES: Unremarkable as visualized. No significant inflammatory changes. . Old fracture deformities of the nasal bones again noted. MASTOID AIR CELLS: Unremarkable as visualized. No inflammatory changes. OTHER FINDINGS: None. IMPRESSION: Moderate to significant chronic white matter ischemic changes. Scattered chronic bilateral basal nuclei lacunar type infarcts. Moderate to fairly significant central volume loss. Accession No. : [id number] Patient Name / ID : KIP CAPPS / [id number] Exam Date : 02/08/2017 19:41:15 ( Approved ) Study Comment : Sex / Age : F / 61Y Creator : Jarrod Talamantes MD Dictator : Jarrod Talamantes MD Inseam Trimming Machine Operator : Dairy Husbandman : Jarrod Talamantes MD Approver2 : Report Date : 02/09/2017 11:08:24 My Comment : PROCEDURE: Ultrasound of the Kidneys HISTORY: LAN COMPARISON: 01/01/2016. TECHNIQUE: Sonogram of the kidneys. FINDINGS: RIGHT KIDNEY: Measures: 3.8 x 9.9 cm. Normal in size, contour and echogenicity. No stone, solid mass lesion or hydronephrosis visualized. LEFT KIDNEY: Measures: 4.4 x 10.8 cm. Normal in size, contour and echogenicity. No stone, solid mass lesion or hydronephrosis visualized. OTHER FINDINGS: None. IMPRESSION: No significant or acute findings to account for/ related to the clinical presentation. No significant interval change compared to the prior examination(s ). Assessment & Plan (1) AIDS (acquired immunodeficiency syndrome), CD4 <=200 Status: Acute (2) UTI (urinary tract infection) Status: Acute (3) Bacteremia due to Gram-negative bacteria Status: Acute (4) Renal failure Status: Acute - Assessment and Plan (Free Text) Assessment: A/P- 61 y/o female with AIDS , Cocaine abuse, acute renal failure and dehydration presents with fever, leukopenia and GNR bacteremia. The source of the GNR bacteremia most like UTI as the UA is pos for large LE and prelim urine cx also GNR. in light of the immunesuppressed status and the GNR bacteremia advise to place on broad spectrum GNR coverage and hence meropenem started ( renal dose). await Final ID and sensitivity of the GNR in both blood and urine cx. check echo r/o any vegetations. check 2 more blood cx. advise to also place on zithromax 1200 mg po once a week for MAC prophylaxis since her latest CD4 is <20. Pt. should also be on PCP prophylaxis , would advise atovaquone since bactrim might exacerbate her already low wbc count. Hold off on any HAART at this time since pt. is in acute renal failure most likely secondary to severe dehydration since the renal US is negative for any blockage or any hydro. IV hydration as per primary team. Thank you for allowing me to take part in the care of this patient. All above d/w family practice team at length.
--- NOTE | 2017-02-09 16:56 | CP.CCUPN ---
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 1 month ago, states she is semi-compliant with [facility] meds from [facility] : referred today for transfer to ICU fir further mgmt. and observation. She is presently awake and alert, oriented x 3, denies any distress, admits to be very thirsty, denies any dizziness, headaches, neck pain, photophobia, nausea, recurrent fevers, chills or sweats, nor new focal deficits. She is on D5half saline at 150 ml/hr. Urine tox + for cocaine, Lactate level = 1.6 and empiric Vanco and Alva started in ED. No hypoxemia or hypotension reported. CT brain negative for acute disease process. ROS: All pertinent Nursing notes and all other 10+ systems reviewed: otherwise as above. PMSFH: No other new pertinent information relative to current medical problems noted. No other distress noted: EXAM- overall, thin, frail, cachectic appearing elderly female: HEENT: no icterus, pupils midline, equal and reactive, no nystagmus, + oral candidiasis NECK: no visible JVD, supple, carotids equal upstroke bilat/no bruits, no neck tenderness CHEST: decreased BS bases, no wheezes audible. HEART: regular, distant, S1S2, no murmur audible, no rubs. ABD: soft, flat, no increased distention, no focal tenderness, no HSM. BS hypoactive. EXT: no LE edema, no peripheral/ digital cyanosis, no calf tenderness or palpable cords, distal pulses intact and symmetrical, SCDs on bilaterally. NEURO: no gross focal motor deficits. SKIN: no rashes LABS: WBC= below 1.0 HGB= 9.6 PLTs = 124K Coags: none ordered. Na= 144 K= 3.7 CL= 120 HCO3= 9 BUN/Cr= 67/6.3 BS= 128 Blood Cx +GNRs. Urine Cx + GNRs. CXR: clear bilaterally Assessment: 1. Rapid Progression to Acute Renal Failure: etiology ATN, AIDS Nephropathy, drug-induced renal failure (Tenofovir), other Intra-renal disease with severe metabolic acidosis. 2. Neutropenic Sepsis, without Severe Sepsis physiology; etiology unclear, ?? GUARD RANGE infection. 3. r/o Oral - Esophageal Candidiasis 4. AIDS 5. Chronic Disease Anemia PLAN: 1. f/u pending cultures on identification of GNRs. Meropenem and Vanco as per ID. Also, recd a dose of Rocephin yesterday. LP not done initially, ?? appropriate now after being on antibiotics for 24H. 2. Initial Lactate level normal, check repeat. 3. Hyperchloremic acidosis and on saline fluids, consider switch to LR for now and watch K levels closely. 4. Hold Risperdal unless there is excessive psycho-motor agitative activity. 5. No need for any assisted breathing support, nor invasive monitoring at this time. Would transfer to ICU if she worsens and fails to respond to current treatment.
--- NOTE | 2017-02-09 20:45 | CP.PCM.CON ---
History of Present Illness - History of Present Illness History of Present Illness: Anesthesia Consult: Received phone call around 16:00 to evaluate patient for lumbar puncture. Requested coags be performed prior to procedure. Blood drawn at 18:00 and results posted at 20:30. INR borderline for LP without correction of coagulopathy. Will repeat INR tomorrow morning and if still borderline will request heme consult to correct underlying coagulopathy prior to LP. Thank you for the consult. Marco Mendoza Past Patient History - Infectious Disease Hx of Infectious Diseases: None - Past Medical History & Family History Past Medical History?: Yes - Past Social History Alcohol: None Drugs: Cocaine - CARDIAC Hx Hypertension: Yes - PULMONARY Hx Pneumonia: Yes - NEUROLOGICAL Hx Seizures: No - HEENT Hx HEENT Problems: Yes Other/Comment: Blurred vision,stated has old eyeglasses, needs new one. - RENAL Hx Chronic Kidney Disease: No - ENDOCRINE/METABOLIC Hx Hypothyroidism: No - HEMATOLOGICAL/ONCOLOGICAL Hx AIDS: Yes Hx Human Immunodeficiency Virus (HIV): Yes - INTEGUMENTARY Hx Dermatological Problems: No - MUSCULOSKELETAL/RHEUMATOLOGICAL Hx Arthritis: Yes Hx Rheumatoid Arthritis: No - GASTROINTESTINAL Hx Gastrointestinal Disorders: Yes Other/Comment: hepatitis C - GENITOURINARY/GYNECOLOGICAL Hx Sexually Transmitted Disorders: No - PSYCHIATRIC Hx Anxiety: Yes Hx Bipolar Disorder: Yes Hx Depression: Yes - SURGICAL HISTORY Hx Surgeries: No - ANESTHESIA Hx Anesthesia: No Hx Anesthesia Reactions: No Hx Malignant Hyperthermia: No Meds Allergies/Adverse Reactions: Allergies Allergy/AdvReac Type Severity Reaction Status Date / Time No Known Allergies Allergy Verified 02/08/17 12:23 - Medications Medications: Current Medications Acetaminophen (Tylenol 650 Mg Supp) 650 mg PA Q6 PRN PRN Reason: Fever >100.4 F Meropenem 500 mg/ Sodium (Chloride) 100 mls @ 100 mls/hr IVPB Q12 OTILIA Results - Vital Signs Recent Vital Signs: Last Vital Signs Temp 97.6 F 02/09/17 20:00 Pulse 87 02/09/17 20:00 Resp 20 02/09/17 20:00 BP 135/83 02/09/17 20:00 Pulse Ox 93 L 02/09/17 20:00 - Labs Result Diagrams: 02/09/17 07:04 02/09/17 12:05 Labs: Laboratory Results - last 24 hr 02/09/17 02/09/17 02/09/17 02:50 07:04 07:04 WBC RBC 3.97 Hgb 9.6 L Hct 31.5 L MCV 79.4 L MCH 24.2 L MCHC 30.5 L RDW 21.8 H Plt Count 124 L D PT INR pCO2 pO2 HCO3 ABG pH ABG Total CO2 ABG O2 Saturation ABG O2 Content ABG Base Excess ABG Hemoglobin ABG Carboxyhemoglobin POC ABG HHb (Measured) ABG Methemoglobin ABG O2 Capacity Jamie Test A-a O2 Difference Hgb O2 Saturation FiO2 Blood Gas Comments Crit Value Called To Crit Value Called By Crit Value Read Back Blood Gas Notified Time Sodium 144 Potassium 3.7 Chloride 120 H Carbon Dioxide 9 L* D Anion Gap 19 BUN 67 H Creatinine 6.3 H Est GFR ( Amer) 8 Est GFR (Non-Af Amer) 7 Random Glucose 139 H Lactic Acid Calcium 8.0 L Total Bilirubin 0.6 AST 73 H D ALT 20 Alkaline Phosphatase 56 Total Protein 7.9 Albumin 2.7 L D Globulin 5.2 H Albumin/Globulin Ratio 0.5 L Ur Random Sodium 100 Ur Random Potassium 19.5 Salicylates Acetaminophen 02/09/17 02/09/17 02/09/17 10:38 12:05 14:30 WBC RBC Hgb Hct MCV MCH MCHC RDW Plt Count PT INR pCO2 15 L* pO2 115 H HCO3 11.4 L ABG pH 7.29 L ABG Total CO2 7.7 L ABG O2 Saturation 99.2 H ABG O2 Content 12.6 L ABG Base Excess -17.3 L ABG Hemoglobin 9.1 L ABG Carboxyhemoglobin 0.8 POC ABG HHb (Measured) 0.8 ABG Methemoglobin 1.7 ABG O2 Capacity 12.7 L Jamie Test Yes A-a O2 Difference 16.0 Hgb O2 Saturation 96.7 FiO2 21.0 Blood Gas Comments Room air,rr Crit Value Called To Rosa reid Crit Value Called By 15 Crit Value Read Back Y Blood Gas Notified Time 1042 Sodium 142 Potassium 3.3 L Chloride 119 H Carbon Dioxide 9 L* Anion Gap 17 BUN 68 H Creatinine 6.0 H Est GFR ( Amer) 9 Est GFR (Non-Af Amer) 7 Random Glucose 74 Lactic Acid 1.4 Calcium 7.9 L Total Bilirubin 0.5 AST 83 H ALT 30 Alkaline Phosphatase 55 Total Protein 7.2 Albumin 2.4 L Globulin 4.8 H Albumin/Globulin Ratio 0.5 L Ur Random Sodium Ur Random Potassium Salicylates Acetaminophen 02/09/17 02/09/17 14:30 18:00 WBC RBC Hgb Hct MCV MCH MCHC RDW Plt Count PT 14.0 H INR 1.35 H pCO2 pO2 HCO3 ABG pH ABG Total CO2 ABG O2 Saturation ABG O2 Content ABG Base Excess ABG Hemoglobin ABG Carboxyhemoglobin POC ABG HHb (Measured) ABG Methemoglobin ABG O2 Capacity Jamie Test A-a O2 Difference Hgb O2 Saturation FiO2 Blood Gas Comments Crit Value Called To Crit Value Called By Crit Value Read Back Blood Gas Notified Time Sodium Potassium Chloride Carbon Dioxide Anion Gap BUN Creatinine Est GFR ( Amer) Est GFR (Non-Af Amer) Random Glucose Lactic Acid Calcium Total Bilirubin AST ALT Alkaline Phosphatase Total Protein Albumin Globulin Albumin/Globulin Ratio Ur Random Sodium Ur Random Potassium Salicylates < 1.0 Acetaminophen < 10.0 L
--- NOTE | 2017-02-10 00:14 | CP.PCM.PN ---
Subjective - Date & Time of Evaluation Date of Evaluation: 02/09/17 Time of Evaluation: 13:00 - Subjective Subjective: SEEN ON RENAL F/U A AND O X 2 D/W FP RESIDENT ..CLINICALLY BETTER I AM GLAD TO SEE CREATININ SLIGHTLY BETTER 6.3 -- > 6.0 Objective - Vital Signs/Intake and Output Vital Signs (last 24 hours): Temp Pulse Resp BP Pulse Ox 98.8 F 76 20 150/87 94 L 02/10/17 00:06 02/10/17 00:06 02/10/17 00:06 02/10/17 00:06 02/10/17 00:06 Intake and Output: 02/09/17 02/10/17 18:59 06:59 Intake Total 1450 Balance 1450 - Medications Medications: Current Medications Acetaminophen (Tylenol 650 Mg Supp) 650 mg ME Q6 PRN PRN Reason: Fever >100.4 F Meropenem 500 mg/ Sodium (Chloride) 100 mls @ 100 mls/hr IVPB Q12 OTILIA - Labs Labs: 02/09/17 07:04 02/09/17 12:05 PT 14.0 SECONDS (9.6-11.2) H 02/09/17 18:00 INR 1.35 (0.92-1.08) H 02/09/17 18:00 Assessment and Plan - Assessment and Plan (Free Text) Assessment: LAN .. PROBABLY ATN .. 2/2 INFECTION AND SYSTEMIC INFLAMATORY RESPONSE SYNDROME SEPSIS WITH G - BACTERIA IN URINE AND BLOOD ON IVAB .. ON IVF P : C/O CURRENT MANAGEMENT C/O IVF WILL MONITORE PROGRESS CAREFULLY WILL CONSIDER HD IF NO IMPROVEMENT OF RENAK FUNCTION
[2017-02-10 06:55] LABS: ALB/GLOB RATIO 0.5 (1.0-2.1); BILIRUBIN,TOTAL 0.6 mg/dl (0.2-1.3); CALCIUM 8.4 mg/dL (8.4-10.2); POTASSIUM 4.1 MMOL/L (3.6-5.0); TOTAL PROTEIN 7.4 G/DL (6.3-8.2)
[2017-02-10 07:00] LABS: PARTIAL THROMBOPLASTIN TIME 34.6 SECONDS (23.3-32.5)
[2017-02-10 08:19] LABS: BASO % 0.2 % (0.0-2.0); EOS # 0.1 K/uL (0.0-0.7); EOS % 7.9 % (0.0-4.0); HEMATOCRIT 30.5 % (34.0-47.0); LYMPH # 0.1 K/uL (1.0-4.3); LYMPH % 7.9 % (20.0-40.0); MEAN CELL VOLUME 77.5 fl (81.0-99.0); MEAN CORPUSCULAR HEMOGLOBIN 24.5 pg (27.0-31.0); MEAN CORPUSCULAR HGB CONC 31.6 g/dL (33.0-37.0); MONO # 0.1 K/uL (0.0-0.8); MONO % 8.5 % (0.0-10.0); NEUT # 0.8 K/uL (1.8-7.0); NEUT % 75.5 % (50.0-75.0); NRBC % 0.3 % (0.0-0.0); PLATELET COUNT 87 K/uL (130-400); RED CELL DISTRIBUTION WIDTH 21.5 % (11.5-14.5)
[2017-02-10 08:25] LABS: WHITE BLOOD COUNT 1.1 K/uL (4.8-10.8)
[2017-02-10] MEDS: Lactated Ringer's 1,000 ML IV SCH ×2 (08:30→17:41)
--- NOTE | 2017-02-10 09:50 | PQF GENQUE ---
This form is a permanent part of the medical record 02/10/17 Dr. Edward Lee, Please clarify the appropriate diagnosis for this patient. The attending physician is required to clarify conflicting documentation in the medical record. The following documentation is noted in the medical record: BACTEREMIA or SEPSIS Diagnosis: Bacteremia Documented by: Family Practice Team Diagnosis: Bacteremia due to gram negative bacteria Documented by: ID Diagnosis: Neutropenic Sepsis without severe sepsis physiology Documented by: Director Business Development Diagnosis: Sepsis with gram negative bacteria in urine and blood and SIRS Documented by: Occupational Medicine Officer Admitted with AMS. TEMP 103 max, HR 111, R26, BP 157/99. WBC 2.7 , INR 1.35, procalcitonin 10, BUN 67 and creatinine 6.3. BLOOD and URINE CS growing Gram Neg Rods. Noted to have a history of AIDS and currently in acute renal failure with documentation of Bacteremia and Sepsis . Treated with IVAB Clarification of your documentation is requested to better reflect the severity of illness and intensity of treatment of your patient. PHYSICIAN'S RESPONSE Based on your medical judgment of the clinical indicators outlined above please clarify the following: [] Practitioner response [] If unable to determine, please check the box, sign and date. Present On Admission (POA) Indicator: [] Present at the time of admission [] Not present at the time of admission [] Clinically Undetermined In responding to this query, please exercise your independent professional judgment. The fact that a question is asked does not imply that any particular answer is desired or expected. Thank you for your clarification on this documentation. If you have any questions please call:extension [phone] Medical Records Dept. * Thank you, Caron Daley RN CDPROVID[facility]
--- NOTE | 2017-02-10 09:53 | PQF GENQUE ---
This form is a permanent part of the medical record 02/10/17 Dr.Pierre Lee, Would you please clarify if there is an associated diagnosis or not to go along with the CBC findings. WBC 1.1 H&H 9.6/30.5 and platelet count of 87,000. Clarification of your documentation is requested to better reflect the severity of illness and intensity of treatment of your patient. PHYSICIAN'S RESPONSE Based on your medical judgment of the clinical indicators outlined above please clarify the following: [] Practitioner response [] If unable to determine, please check the box, sign and date. Present On Admission (POA) Indicator: [] Present at the time of admission [] Not present at the time of admission [] Clinically Undetermined In responding to this query, please exercise your independent professional judgment. The fact that a question is asked does not imply that any particular answer is desired or expected. Thank you for your clarification on this documentation. If you have any questions please call:extension [phone] or [phone] Medical Records Dept * Thank you, Caron Daley RN CDNEW [facility]
--- NOTE | 2017-02-10 10:22 | CP.PCM.PN ---
Subjective - Date & Time of Evaluation Date of Evaluation: 02/10/17 Time of Evaluation: 07:30 - Subjective Subjective: 61 y/o admitted for AMS, AIDS and LAN seen at bedside this morning c/o diffuse abd pain since yesterday. Patient communicating less that yesterday and seems less oriented. She denies CP, SOB or palpitations. Reports no BM for few days( can't recall exact number), no diarrhea. Patient c/w NPO after swallowing eval recs. Anesthesiology was consulted for LP yesterday but unable to perform due to patient's INR mildly elevated. She is afebrile. Objective - Vital Signs/Intake and Output Vital Signs (last 24 hours): Temp Pulse Resp BP Pulse Ox 97.6 F 80 16 136/80 93 L 02/10/17 08:20 02/10/17 08:20 02/10/17 08:20 02/10/17 08:20 02/10/17 05:00 - Medications Medications: Current Medications Acetaminophen (Tylenol 650 Mg Supp) 650 mg SC Q6 PRN PRN Reason: Fever >100.4 F Meropenem 500 mg/ Sodium (Chloride) 100 mls @ 100 mls/hr IVPB Q12 OTILIA Fluconazole (Diflucan Iv 200 Mg/100 Ml Ns) 100 mls @ 100 mls/hr IVPB DAILY OTILIA Lactated Ringer's (Lactated Ringer's) 1,000 mls @ 125 mls/hr IV .Q8H OTILIA Last Admin: 02/10/17 08:30 Dose: 125 mls/hr - Labs Labs: 02/10/17 06:25 02/10/17 06:25 PT 12.8 SECONDS (9.6-11.2) H 02/10/17 06:25 INR 1.23 (0.92-1.08) H 02/10/17 06:25 APTT 34.6 SECONDS (23.3-32.5) H 02/10/17 06:25 - Constitutional Appears: Cachectic - Eye Exam Eye Exam: PERRL - ENT Exam ENT Exam: Mucous Membranes Moist - Respiratory Exam Respiratory Exam: Clear to Ausculation Bilateral, NORMAL BREATHING PATTERN - Cardiovascular Exam Cardiovascular Exam: REGULAR RHYTHM, +S1, +S2. absent: Gallop - GI/Abdominal Exam GI & Abdominal Exam: Tenderness (diffuse mild tednerness), Normal Bowel Sounds. absent: Distended, Guarding, Rebound - Extremities Exam Extremities Exam: Normal Capillary Refill. absent: Calf Tenderness - Neurological Exam Neurological Exam: Alert, Awake. absent: Oriented x3 - Psychiatric Exam Psychiatric exam: Normal Affect, Normal Mood - Skin Skin Exam: Warm Assessment and Plan - Assessment and Plan (Free Text) Assessment: pt is a61 y/o female w/ PMHx AIDS (non-complaint with medication), Hepatitis C , Bipolar disorder,COPD, being admitted for UTI, severe dehydration, LAN 1. LAN severe dehydration vs sepsis BUN/Creat trending up Acetaminophen and Salicilates level: WNL F/U methanol, and drug panel levels Nephrology consulted () US abd: WNL On LR 125mls IR consulted for temporary catheter placement for dialysis 2. Sepsis without septic shock SIRS + bacteremia + LAN BCx x2 growing Gram neg rods UCx: E.Coli ESBL SIRS: WBC 1.1, PCO2 15 qSOFA=1: No high risk of mortality Afebrile for more than 24h ID Consult(Dr Arredondo). Will cont following recs F/U Echo report 3. UTI UA + for leukocytes esterase and WBC high. Negative nitrates UCx: ESBL E.Coli sensitive to Imipenen ID consulted: On Meropenen 500mg q12h IV 4. AIDS cd4< 20 Non compliant with HAART therapy Will hold truvada, bactrim as per ID recs because renal impairment and leukopenia Start Zithromax and Atovacuone for prophylaxis LP recommended to rule out meningitis. Anesthesiologist unable to perform LP because low INR 5. Pancytopenia Most likely due to sepsis on AIDS patient will monitor on IV abx 6. Dysphagia Most likely due to esophageal candidiasis Swallow eval abnormal. Recs c/w NPO Start fluconazole IV On IV LR 125mls 7. BMI 17 Cachexia Most likely due to AIDS 8. Prophylaxis SCDs
[2017-02-10] MEDS: Fluconazole IV 200mg/100 ml NS 100 ML IVPB SCH (10:36)
[2017-02-10 14:50] LABS: EOSINOPHIL 6 % (0-7); METAMYELOCYTE 1 % (0-0); MYELOCYTE 2 % (0-0); NEUTROPHIL 69 % (42-75); TOTAL CELLS COUNTED 100
[2017-02-10 14:51] LABS: LARGE PLATELETS PRESENT
--- NOTE | 2017-02-10 14:51 | CP.PCM.PCO ---
Assessment/Plan - Assessment and Plan (Free Text) Assessment: I saw and evaluated the patient. I discussed the case with the resident and agree with the findings and plan as documented in the resident's note. Spoke with Anesthesia/ID/Nephro will hold off on LP for now contiue abx Will start dialysis. will place IR consult
--- NOTE | 2017-02-10 15:05 | CP.PCM.PN ---
Subjective - Date & Time of Evaluation Date of Evaluation: 02/10/17 Time of Evaluation: 12:20 - Subjective Subjective: ID Note- Pt. seen and examined today. Pt. denies any fever or chills. denies any pain anywhere. Objective - Vital Signs/Intake and Output Vital Signs (last 24 hours): Temp Pulse Resp BP Pulse Ox 97.6 F 80 16 136/80 93 L 02/10/17 08:20 02/10/17 08:20 02/10/17 08:20 02/10/17 08:20 02/10/17 05:00 - Medications Medications: Current Medications Acetaminophen (Tylenol 650 Mg Supp) 650 mg ID Q6 PRN PRN Reason: Fever >100.4 F Meropenem 500 mg/ Sodium (Chloride) 100 mls @ 100 mls/hr IVPB Q12 OTILIA Fluconazole (Diflucan Iv 200 Mg/100 Ml Ns) 100 mls @ 100 mls/hr IVPB DAILY OTILIA Last Admin: 02/10/17 10:36 Dose: 100 mls/hr Lactated Ringer's (Lactated Ringer's) 1,000 mls @ 125 mls/hr IV .Q8H OTILIA Last Admin: 02/10/17 08:30 Dose: 125 mls/hr - Labs Labs: - Additional Findings Additional findings: - Constitutional Appears: No Acute Distress, Chronically Ill - Head Exam Head Exam: ATRAUMATIC - Eye Exam Eye Exam: EOMI, PERRL - ENT Exam Additional comments: dry oral mucosa - Neck Exam Neck exam: Positive for: Full Rom Additional comments: supple - Respiratory Exam Respiratory Exam: Clear to Auscultation Bilateral, NORMAL BREATHING PATTERN - Cardiovascular Exam Cardiovascular Exam: RRR, +S1, +S2 - GI/Abdominal Exam GI & Abdominal Exam: Normal Bowel Sounds, Soft Additional comments: NT, ND - Extremities Exam Additional comments: No edema B/L LE - Neurological Exam Neurological exam: Alert Additional comments: oriented x 2 Laboratory Results - last 72 hr 02/08/17 02/08/17 02/08/17 13:46 13:59 14:32 WBC RBC Hgb Hct MCV MCH MCHC RDW Plt Count MPV Neut % (Auto) Lymph % (Auto) [place] % (Auto) Eos % (Auto) Baso % (Auto) Neut # Lymph # [place] # Eos # Baso # Neutrophils % (Manual) Band Neutrophils % Lymphocytes % (Manual) Monocytes % (Manual) Eosinophils % (Manual) Metamyelocytes % Myelocytes % Platelet Estimate Large Platelets Hypochromasia (manual) Poikilocytosis (manual Anisocytosis (manual) Microcytosis (manual) Tear Drop Cells Ovalocytes [place] Cells Schistocytes PT INR APTT pCO2 pO2 HCO3 ABG pH ABG Total CO2 ABG O2 Saturation ABG O2 Content ABG Base Excess ABG Hemoglobin ABG Carboxyhemoglobin POC ABG HHb (Measured) ABG Methemoglobin ABG O2 Capacity Jamie Test VBG pH VBG pCO2 VBG HCO3 VBG Total CO2 VBG O2 Sat (Calc) VBG Base Excess VBG Potassium A-a O2 Difference Hgb O2 Saturation Glucose Lactate FiO2 Blood Gas Comments Crit Value Called To Crit Value Called By Crit Value Read Back Blood Gas Notified Time Sodium 146 Potassium 4.8 Chloride 120 H Carbon Dioxide 7 L* D Anion Gap 24 H BUN 60 H Creatinine 6.3 H Est GFR ( Amer) 8 Est GFR (Non-Af Amer) 7 Random Glucose 125 H Lactic Acid Calcium 9.1 Total Bilirubin 1.2 AST 34 ALT 9 D Alkaline Phosphatase 84 Ammonia Total Protein 10.6 H Albumin 3.6 Globulin 7.0 H Albumin/Globulin Ratio 0.5 L Procalcitonin Venous Blood Potassium Urine Color Yellow Urine Clarity Cloudy Urine pH 6.0 Ur Specific [place] 1.014 Urine Protein >=500 Urine Glucose (UA) 150 Urine Ketones Trace Urine Blood Moderate Urine Nitrate Negative Urine Bilirubin Negative Urine Urobilinogen 0.2-1.0 Ur Leukocyte Esterase Large Urine RBC (Auto) 27 H Urine Microscopic WBC 311 H Ur Squamous Epith Cells 4 Ur Renal Epithelial Cell 1 Urine Bacteria Few H Ur Random Sodium Ur Random Potassium Salicylates Urine Opiates Screen Negative Urine Methadone Screen Negative Acetaminophen Ur Barbiturates Screen Negative Ur Phencyclidine Scrn Negative Ur Amphetamines Screen Negative U Benzodiazepines Scrn Negative U Oth Cocaine Metabols Positive H U Cannabinoids Screen Negative Alcohol, Quantitative < 10 02/08/17 02/08/17 02/08/17 14:32 15:32 16:21 WBC 2.7 L RBC 4.38 Hgb 10.7 L Hct 35.5 MCV 81.1 D MCH 24.4 L MCHC 30.1 L RDW 22.1 H Plt Count 148 MPV 9.4 Neut % (Auto) 70.2 Lymph % (Auto) 17.4 L [place] % (Auto) 11.8 H Eos % (Auto) 0.0 Baso % (Auto) 0.6 Neut # 1.9 Lymph # 0.5 L [place] # 0.3 Eos # 0.0 Baso # 0.0 Neutrophils % (Manual) Band Neutrophils % Lymphocytes % (Manual) Monocytes % (Manual) Eosinophils % (Manual) Metamyelocytes % Myelocytes % Platelet Estimate Large Platelets Hypochromasia (manual) Poikilocytosis (manual Anisocytosis (manual) Microcytosis (manual) Tear Drop Cells Ovalocytes [place] Cells Schistocytes PT INR APTT pCO2 pO2 42 HCO3 ABG pH ABG Total CO2 ABG O2 Saturation ABG O2 Content ABG Base Excess ABG Hemoglobin ABG Carboxyhemoglobin POC ABG HHb (Measured) ABG Methemoglobin ABG O2 Capacity Jamie Test VBG pH 7.53 H VBG pCO2 33 L VBG HCO3 28.5 VBG Total CO2 28.6 H VBG O2 Sat (Calc) 85.5 H VBG Base Excess 5.2 H VBG Potassium 3.0 L A-a O2 Difference Hgb O2 Saturation Glucose 110 H Lactate 1.6 FiO2 21.0 Blood Gas Comments Crit Value Called To Crit Value Called By Crit Value Read Back Blood Gas Notified Time Sodium 137.0 Potassium Chloride 105.0 Carbon Dioxide Anion Gap BUN Creatinine Est GFR ( Amer) Est GFR (Non-Af Amer) Random Glucose Lactic Acid Calcium Total Bilirubin AST ALT Alkaline Phosphatase Ammonia < 9 L Total Protein Albumin Globulin Albumin/Globulin Ratio Procalcitonin Venous Blood Potassium 3.0 L Urine Color Urine Clarity Urine pH Ur Specific [place] Urine Protein Urine Glucose (UA) Urine Ketones Urine Blood Urine Nitrate Urine Bilirubin Urine Urobilinogen Ur Leukocyte Esterase Urine RBC (Auto) Urine Microscopic WBC Ur Squamous Epith Cells Ur Renal Epithelial Cell Urine Bacteria Ur Random Sodium Ur Random Potassium Salicylates Urine Opiates Screen Urine Methadone Screen Acetaminophen Ur Barbiturates Screen Ur Phencyclidine Scrn Ur Amphetamines Screen U Benzodiazepines Scrn U Oth Cocaine Metabols U Cannabinoids Screen Alcohol, Quantitative 02/09/17 02/09/17 02/09/17 02:50 07:04 07:04 WBC RBC 3.97 Hgb 9.6 L Hct 31.5 L MCV 79.4 L MCH 24.2 L MCHC 30.5 L RDW 21.8 H Plt Count 124 L D MPV Neut % (Auto) Lymph % (Auto) [place] % (Auto) Eos % (Auto) Baso % (Auto) Neut # Lymph # [place] # Eos # Baso # Neutrophils % (Manual) Band Neutrophils % Lymphocytes % (Manual) Monocytes % (Manual) Eosinophils % (Manual) Metamyelocytes % Myelocytes % Platelet Estimate Large Platelets Hypochromasia (manual) Poikilocytosis (manual Anisocytosis (manual) Microcytosis (manual) Tear Drop Cells Ovalocytes [place] Cells Schistocytes PT INR APTT pCO2 pO2 HCO3 ABG pH ABG Total CO2 ABG O2 Saturation ABG O2 Content ABG Base Excess ABG Hemoglobin ABG Carboxyhemoglobin POC ABG HHb (Measured) ABG Methemoglobin ABG O2 Capacity Jamie Test VBG pH VBG pCO2 VBG HCO3 VBG Total CO2 VBG O2 Sat (Calc) VBG Base Excess VBG Potassium A-a O2 Difference Hgb O2 Saturation Glucose Lactate FiO2 Blood Gas Comments Crit Value Called To Crit Value Called By Crit Value Read Back Blood Gas Notified Time Sodium 144 Potassium 3.7 Chloride 120 H Carbon Dioxide 9 L* D Anion Gap 19 BUN 67 H Creatinine 6.3 H Est GFR ( Amer) 8 Est GFR (Non-Af Amer) 7 Random Glucose 139 H Lactic Acid Calcium 8.0 L Total Bilirubin 0.6 AST 73 H D ALT 20 Alkaline Phosphatase 56 Ammonia Total Protein 7.9 Albumin 2.7 L D Globulin 5.2 H Albumin/Globulin Ratio 0.5 L Procalcitonin Venous Blood Potassium Urine Color Urine Clarity Urine pH Ur Specific [place] Urine Protein Urine Glucose (UA) Urine Ketones Urine Blood Urine Nitrate Urine Bilirubin Urine Urobilinogen Ur Leukocyte Esterase Urine RBC (Auto) Urine Microscopic WBC Ur Squamous Epith Cells Ur Renal Epithelial Cell Urine Bacteria Ur Random Sodium 100 Ur Random Potassium 19.5 Salicylates Urine Opiates Screen Urine Methadone Screen Acetaminophen Ur Barbiturates Screen Ur Phencyclidine Scrn Ur Amphetamines Screen U Benzodiazepines Scrn U Oth Cocaine Metabols U Cannabinoids Screen Alcohol, Quantitative 02/09/17 02/09/17 02/09/17 10:38 12:05 14:30 WBC RBC Hgb Hct MCV MCH MCHC RDW Plt Count MPV Neut % (Auto) Lymph % (Auto) [place] % (Auto) Eos % (Auto) Baso % (Auto) Neut # Lymph # [place] # Eos # Baso # Neutrophils % (Manual) Band Neutrophils % Lymphocytes % (Manual) Monocytes % (Manual) Eosinophils % (Manual) Metamyelocytes % Myelocytes % Platelet Estimate Large Platelets Hypochromasia (manual) Poikilocytosis (manual Anisocytosis (manual) Microcytosis (manual) Tear Drop Cells Ovalocytes [place] Cells Schistocytes PT INR APTT pCO2 15 L* pO2 115 H HCO3 11.4 L ABG pH 7.29 L ABG Total CO2 7.7 L ABG O2 Saturation 99.2 H ABG O2 Content 12.6 L ABG Base Excess -17.3 L ABG Hemoglobin 9.1 L ABG Carboxyhemoglobin 0.8 POC ABG HHb (Measured) 0.8 ABG Methemoglobin 1.7 ABG O2 Capacity 12.7 L Jamie Test Yes VBG pH VBG pCO2 VBG HCO3 VBG Total CO2 VBG O2 Sat (Calc) VBG Base Excess VBG Potassium A-a O2 Difference 16.0 Hgb O2 Saturation 96.7 Glucose Lactate FiO2 21.0 Blood Gas Comments Room air,rr Crit Value Called To Rosa reid Crit Value Called By 15 Crit Value Read Back Y Blood Gas Notified Time 1042 Sodium 142 Potassium 3.3 L Chloride 119 H Carbon Dioxide 9 L* Anion Gap 17 BUN 68 H Creatinine 6.0 H Est GFR ( Amer) 9 Est GFR (Non-Af Amer) 7 Random Glucose 74 Lactic Acid 1.4 Calcium 7.9 L Total Bilirubin 0.5 AST 83 H ALT 30 Alkaline Phosphatase 55 Ammonia Total Protein 7.2 Albumin 2.4 L Globulin 4.8 H Albumin/Globulin Ratio 0.5 L Procalcitonin Venous Blood Potassium Urine Color Urine Clarity Urine pH Ur Specific [place] Urine Protein Urine Glucose (UA) Urine Ketones Urine Blood Urine Nitrate Urine Bilirubin Urine Urobilinogen Ur Leukocyte Esterase Urine RBC (Auto) Urine Microscopic WBC Ur Squamous Epith Cells Ur Renal Epithelial Cell Urine Bacteria Ur Random Sodium Ur Random Potassium Salicylates Urine Opiates Screen Urine Methadone Screen Acetaminophen Ur Barbiturates Screen Ur Phencyclidine Scrn Ur Amphetamines Screen U Benzodiazepines Scrn U Oth Cocaine Metabols U Cannabinoids Screen Alcohol, Quantitative 02/09/17 02/09/17 02/09/17 14:30 14:30 18:00 WBC RBC Hgb Hct MCV MCH MCHC RDW Plt Count MPV Neut % (Auto) Lymph % (Auto) [place] % (Auto) Eos % (Auto) Baso % (Auto) Neut # Lymph # [place] # Eos # Baso # Neutrophils % (Manual) Band Neutrophils % Lymphocytes % (Manual) Monocytes % (Manual) Eosinophils % (Manual) Metamyelocytes % Myelocytes % Platelet Estimate Large Platelets Hypochromasia (manual) Poikilocytosis (manual Anisocytosis (manual) Microcytosis (manual) Tear Drop Cells Ovalocytes [place] Cells Schistocytes PT 14.0 H INR 1.35 H APTT pCO2 pO2 HCO3 ABG pH ABG Total CO2 ABG O2 Saturation ABG O2 Content ABG Base Excess ABG Hemoglobin ABG Carboxyhemoglobin POC ABG HHb (Measured) ABG Methemoglobin ABG O2 Capacity Jamie Test VBG pH VBG pCO2 VBG HCO3 VBG Total CO2 VBG O2 Sat (Calc) VBG Base Excess VBG Potassium A-a O2 Difference Hgb O2 Saturation Glucose Lactate FiO2 Blood Gas Comments Crit Value Called To Crit Value Called By Crit Value Read Back Blood Gas Notified Time Sodium Potassium Chloride Carbon Dioxide Anion Gap BUN Creatinine Est GFR ( Amer) Est GFR (Non-Af Amer) Random Glucose Lactic Acid Calcium Total Bilirubin AST ALT Alkaline Phosphatase Ammonia Total Protein Albumin Globulin Albumin/Globulin Ratio Procalcitonin 10.05 H Venous Blood Potassium Urine Color Urine Clarity Urine pH Ur Specific [place] Urine Protein Urine Glucose (UA) Urine Ketones Urine Blood Urine Nitrate Urine Bilirubin Urine Urobilinogen Ur Leukocyte Esterase Urine RBC (Auto) Urine Microscopic WBC Ur Squamous Epith Cells Ur Renal Epithelial Cell Urine Bacteria Ur Random Sodium Ur Random Potassium Salicylates < 1.0 Urine Opiates Screen Urine Methadone Screen Acetaminophen < 10.0 L Ur Barbiturates Screen Ur Phencyclidine Scrn Ur Amphetamines Screen U Benzodiazepines Scrn U Oth Cocaine Metabols U Cannabinoids Screen Alcohol, Quantitative 02/10/17 02/10/17 02/10/17 06:25 06:25 06:25 WBC 1.1 L* D RBC 3.94 Hgb 9.6 L Hct 30.5 L MCV 77.5 L MCH 24.5 L MCHC 31.6 L RDW 21.5 H Plt Count 87 L D MPV 10.0 Neut % (Auto) 75.5 H Lymph % (Auto) 7.9 L [place] % (Auto) 8.5 Eos % (Auto) 7.9 H Baso % (Auto) 0.2 Neut # 0.8 L Lymph # 0.1 L [place] # 0.1 Eos # 0.1 Baso # 0.0 Neutrophils % (Manual) 69 Band Neutrophils % 6 H Lymphocytes % (Manual) 9 L Monocytes % (Manual) 7 Eosinophils % (Manual) 6 Metamyelocytes % 1 H Myelocytes % 2 H Platelet Estimate Decreased L Large Platelets Present Hypochromasia (manual) Slight Poikilocytosis (manual Moderate Anisocytosis (manual) Marked Microcytosis (manual) Slight Tear Drop Cells Slight Ovalocytes Slight [place] Cells Moderate Schistocytes Slight PT 12.8 H INR 1.23 H APTT 34.6 H pCO2 pO2 HCO3 ABG pH ABG Total CO2 ABG O2 Saturation ABG O2 Content ABG Base Excess ABG Hemoglobin ABG Carboxyhemoglobin POC ABG HHb (Measured) ABG Methemoglobin ABG O2 Capacity Jamie Test VBG pH VBG pCO2 VBG HCO3 VBG Total CO2 VBG O2 Sat (Calc) VBG Base Excess VBG Potassium A-a O2 Difference Hgb O2 Saturation Glucose Lactate FiO2 Blood Gas Comments Crit Value Called To Crit Value Called By Crit Value Read Back Blood Gas Notified Time Sodium 140 Potassium 4.1 Chloride 119 H Carbon Dioxide 7 L* D Anion Gap 18 BUN 77 H Creatinine 6.7 H Est GFR ( Amer) 8 Est GFR (Non-Af Amer) 6 Random Glucose 84 Lactic Acid Calcium 8.4 Total Bilirubin 0.6 AST 54 H D ALT 30 Alkaline Phosphatase 65 Ammonia Total Protein 7.4 Albumin 2.5 L Globulin 4.9 H Albumin/Globulin Ratio 0.5 L Procalcitonin Venous Blood Potassium Urine Color Urine Clarity Urine pH Ur Specific [place] Urine Protein Urine Glucose (UA) Urine Ketones Urine Blood Urine Nitrate Urine Bilirubin Urine Urobilinogen Ur Leukocyte Esterase Urine RBC (Auto) Urine Microscopic WBC Ur Squamous Epith Cells Ur Renal Epithelial Cell Urine Bacteria Ur Random Sodium Ur Random Potassium Salicylates Urine Opiates Screen Urine Methadone Screen Acetaminophen Ur Barbiturates Screen Ur Phencyclidine Scrn Ur Amphetamines Screen U Benzodiazepines Scrn U Oth Cocaine Metabols U Cannabinoids Screen Alcohol, Quantitative Microbiology 02/08/17 13:59 Urine,Clean Catch Urine Culture - Final Escherichia Coli 02/08/17 15:45 Blood-Venous Blood Culture - Preliminary Gram Negative Alec 02/08/17 15:45 Blood-Venous Gram Stain - Final 02/08/17 15:30 Blood-Venous Blood Culture - Preliminary Gram Negative Alec 02/08/17 15:30 Blood-Venous Gram Stain - Final Assessment and Plan (1) AIDS (acquired immunodeficiency syndrome), CD4 <=200 Status: Acute (2) UTI (urinary tract infection) Status: Acute (3) Bacteremia due to Gram-negative bacteria Status: Acute (4) Renal failure Status: Acute - Assessment and Plan (Free Text) Assessment: A/P- 61 y/o female with AIDS , Cocaine abuse, acute renal failure and dehydration presents with fever, leukopenia and GNR bacteremia. afebrile Leukopenic and thrombocytopenic. blood cx- GNR x 2 urine cx- ESBL e.coli renal function not improving in Acute renal failure as per renal may need HD if no improvement. Metabolic acidosis, might have possibly ingested nephrotoxic substance as outpatient. plan- await final ID and sensitivity of the GNR in blood cx , most likely will be same ESBL as urine cx. advise to continue with IV meropenem (renal dose) day #2. await echo report to rule out IE. neutropenic precautions. continue with one a week zithromax for MAC prophylaaxis. continue with IV fluconazole for severe oral candidiasis, may have esophageal candidiasis as well. also advise nystatin swish and spit to be started . await repeat blood cx as well. acidosis and renal management as per renal and primary team. All above d/w Dr.Pierre Lee.
--- NOTE | 2017-02-10 18:25 | CARD ---
APPROVED REPORT EXAM: Two-dimensional and M-mode echocardiogram with Doppler and color Doppler. Other Information Quality : GoodRhythm : NSR INDICATION Infection:Subacute bacterial endocarditis 2D DIMENSIONS IVSd1.08 (0.7-1.1cm)LVDd3.95 (3.9-5.9cm) LVOT Diameter1.94 (1.8-2.4cm)PWd0.85 (0.7-1.1cm) IVSs1.09 (0.8-1.2cm)LVDs2.84 (2.5-4.0cm) FS (%) 28.0 %PWs1.28 (0.8-1.2cm) M-Mode DIMENSIONS Left Atrium (MM)3.43 (2.5-4.0cm)IVSd0.77 (0.7-1.1cm) Aortic Root2.80 (2.2-3.7cm)LVDd4.63 (4.0-5.6cm) Aortic Cusp Exc.1.80 (1.5-2.0cm)PWd0.87 (0.7-1.1cm) IVSs1.23 cmFS (%) 42 % LVDs2.67 (2.0-3.8cm)PWs1.40 cm Aortic Valve AoV Peak Xfqwevqs724.1cm/sAoV VTI17.0cmAO Peak GR.4mmHg LVOT Peak Gvojowmp57.7cm/Esther Mean GR.2mmHgAVA (VMAX)2.07cm2 Mitral Valve MV E Himipuki46.5cm/sMV DECEL [id number] A Vtazbran57.7cm/s MV THP82xcM/A ratio0.8MVA (PHT)3.55cm2 TDI Lateral E' Peak V9.86cm/sMedial E' Peak V5.30cm/sE/Lateral E'6.7 E/Medial E'12.5 Pulmonary Valve PV Peak Ztocutnp038.7cm/s Tricuspid Valve TR Peak Dsglamnh038na/sRAP [id number] Peak Gr.22mmHg [id number] LEFT VENTRICLE The left ventricle is normal size. There is normal left ventricular wall thickness. The left ventricular function is normal. The left ventricular ejection fraction is 55% There is normal LV segmental wall motion. The left ventricular diastolic function is normal. No left ventricle thrombus noted on this study. There is no ventricular septal defect visualized. There is no left ventricular aneurysm. There is no mass noted in the left ventricle. RIGHT VENTRICLE The right ventricle is normal size. There is normal right ventricular wall thickness. The right ventricular systolic function is normal. ATRIA The left atrium size is normal. The right atrium size is normal. The interatrial septum is intact with no evidence for an atrial septal defect. AORTIC VALVE The aortic valve is normal in structure and function. No aortic regurgitation is present. There is no aortic valvular stenosis. There is no aortic valvular vegetation. MITRAL VALVE The mitral valve is normal in structure and function. There is no evidence of mitral valve prolapse. There is no mitral valve stenosis. Mitral regurgitation is mild. TRICUSPID VALVE The tricuspid valve is normal in structure and function. There is no tricuspid valve regurgitation noted. There is no tricuspid valve prolapse or vegetation. There is no tricuspid valve stenosis. PULMONIC VALVE The pulmonary valve is normal in structure and function. There is no pulmonic valvular regurgitation. There is no pulmonic valvular stenosis. GREAT VESSELS The aortic root is normal in size. The ascending aorta is normal in size. The IVC is normal in size and collapses >50% with inspiration. PERICARDIAL EFFUSION The pericardium appears normal. There is no pleural effusion. <Conclusion> Normal LV sytolic function Mild Mitral Regurgitation No vegetations seen
[2017-02-10 18:37] LABS: CALCIUM 8.4 mg/dL (8.4-10.2); POTASSIUM 3.2 MMOL/L (3.6-5.0)
--- NOTE | 2017-02-10 20:07 | CP.PCM.PN ---
Subjective - Date & Time of Evaluation Date of Evaluation: 02/10/17 Time of Evaluation: 13:00 - Subjective Subjective: SEEN ON RENAL F/U STILL WITH LAN .. CREATININ WORSE ACIDOSIS .. SEPSIS .. GNB IN BLOOD WELL IN URINE WILL START ON HD .. CONSENT OBTAINED FROM THE SON ON THE BED SIDE Objective - Vital Signs/Intake and Output Vital Signs (last 24 hours): Temp Pulse Resp BP Pulse Ox 97.4 F L 79 18 141/75 98 02/10/17 19:41 02/10/17 19:41 02/10/17 19:41 02/10/17 19:41 02/10/17 19:41 - Medications Medications: Current Medications Acetaminophen (Tylenol 650 Mg Supp) 650 mg [place] Q6 PRN PRN Reason: Fever >100.4 F Meropenem 500 mg/ Sodium (Chloride) 100 mls @ 100 mls/hr IVPB Q12 OTILIA Fluconazole (Diflucan Iv 200 Mg/100 Ml Ns) 100 mls @ 100 mls/hr IVPB DAILY OTILIA Last Admin: 02/10/17 10:36 Dose: 100 mls/hr Lactated Ringer's (Lactated Ringer's) 1,000 mls @ 125 mls/hr IV .Q8H OTILIA Last Admin: 02/10/17 17:41 Dose: 125 mls/hr Azithromycin 600 mg/ Sodium (Chloride) 500 mls @ 250 mls/hr IVPB ONCE ONE Stop: 02/11/17 10:59 - Labs Labs: 02/10/17 06:25 02/10/17 17:30 PT 12.8 SECONDS (9.6-11.2) H 02/10/17 06:25 INR 1.23 (0.92-1.08) H 02/10/17 06:25 APTT 34.6 SECONDS (23.3-32.5) H 02/10/17 06:25 Assessment and Plan - Assessment and Plan (Free Text) Assessment: LAN .. ATN .. NOT GETTING BETTER WILL PROCEED WITH HD IR TO INSERT IJ SHILY CATH FOR HD MEANWHILE C/O CURRENT CARE
[2017-02-10] MEDS: Meropenem 500 MG in Sodium Chloride 0.9% 100 ML IVPB SCH (21:58)
[2017-02-11] MEDS: Lactated Ringer's 1,000 ML IV SCH ×3 (05:48→16:29)
[2017-02-11] MEDS: Fluconazole IV 200mg/100 ml NS 100 ML IVPB SCH (08:00)
--- NOTE | 2017-02-11 08:24 | CP.PCM.PN ---
Subjective - Date & Time of Evaluation Date of Evaluation: 02/11/17 Time of Evaluation: 07:05 - Subjective Subjective: 61 y/o F admitted for AIDS, LAN and Sepsis seen at bedside with overall general status improved compared to yesterday. Patient is more talkative. NO acute events overnight. She refused 2nd swallow eval yesterday as per nurse. Advanced to soft diet. F/U PO tolerance. Denies CP, palpitations, SOB. Patient states she "feels hungry". Patient to start HD because of worsening renal function. Still no BM since admission. Objective - Vital Signs/Intake and Output Vital Signs (last 24 hours): Temp Pulse Resp BP Pulse Ox 99.1 F 79 18 158/89 H 96 02/11/17 08:13 02/11/17 08:13 02/11/17 08:13 02/11/17 08:13 02/11/17 08:13 Intake and Output: 02/11/17 02/11/17 06:59 18:59 Intake Total 1475 Balance 1475 - Medications Medications: Current Medications Acetaminophen (Tylenol 650 Mg Supp) 650 mg [place] Q6 PRN PRN Reason: Fever >100.4 F Meropenem 500 mg/ Sodium (Chloride) 100 mls @ 100 mls/hr IVPB Q12 [facility] Last Admin: 02/10/17 21:58 Dose: 100 mls/hr Fluconazole (Diflucan Iv 200 Mg/100 Ml Ns) 100 mls @ 100 mls/hr IVPB DAILY OTILIA Last Admin: 02/10/17 10:36 Dose: 100 mls/hr Lactated Ringer's (Lactated Ringer's) 1,000 mls @ 125 mls/hr IV .Q8H OTILIA Last Admin: 02/11/17 05:48 Dose: 125 mls/hr Azithromycin 600 mg/ Sodium (Chloride) 500 mls @ 250 mls/hr IVPB ONCE ONE Stop: 02/11/17 10:59 - Labs Labs: 02/10/17 06:25 02/10/17 17:30 PT 12.8 SECONDS (9.6-11.2) H 02/10/17 06:25 INR 1.23 (0.92-1.08) H 02/10/17 06:25 APTT 34.6 SECONDS (23.3-32.5) H 02/10/17 06:25 - Constitutional Appears: Cachectic, Chronically Ill - Head Exam Head Exam: ATRAUMATIC, NORMOCEPHALIC - Eye Exam Eye Exam: PERRL - ENT Exam ENT Exam: Mucous Membranes Moist - Respiratory Exam Respiratory Exam: Clear to Ausculation Bilateral, NORMAL BREATHING PATTERN - Cardiovascular Exam Cardiovascular Exam: REGULAR RHYTHM, +S1, +S2. absent: Gallop - GI/Abdominal Exam GI & Abdominal Exam: Soft, Normal Bowel Sounds. absent: Guarding, Tenderness, Rebound - Extremities Exam Extremities Exam: Normal Capillary Refill. absent: Calf Tenderness - Neurological Exam Neurological Exam: Alert, Awake, Oriented x3 - Psychiatric Exam Psychiatric exam: Normal Affect, Normal Mood - Skin Skin Exam: Normal Color, Warm Assessment and Plan - Assessment and Plan (Free Text) Assessment: pt is a61 y/o female w/ PMHx AIDS (non-complaint with medication), Hepatitis C , Bipolar disorder,COPD, being admitted for UTI, Sepsis and LAN 1. LAN severe dehydration vs sepsis vs toxic ingestion BUN/Creat trending up Nephrology consulted () US abd: WNL On LR 125mls IR consulted for temporary catheter placement for dialysis 2. Sepsis without septic shock SIRS + bacteremia + LAN BCx x2 growing Gram neg rods BCx x1: E.Coli ESBL qSOFA=1: No high risk of mortality ID Consult(Dr Arredondo). Will cont following recs. On Meropenen 500mg q12h IV Echo no vegetations 3. UTI UA + for leukocytes esterase and WBC high. Negative nitrates UCx: ESBL E.Coli sensitive to Imipenen On Meropenen 500mg q12h IV 4. AIDS cd4< 20 Will hold truvada, bactrim as per ID recs because renal impairment and leukopenia Start Zithromax for prophylaxis Patient refused Zithromax IV when nurse tried to give it to her. Since patient is now advanced to soft diet will order 1200mg PO weekly as recommended by ID. 5. Pancytopenia Most likely due to sepsis on AIDS patient will monitor with daily CBC on IV abx 6. Dysphagia Most likely due to esophageal candidiasis Repeat Swallow eval done today: Patient started on soft diet as per recs c/w fluconazole IV On IV LR 125mls 7. BMI 17 Cachexia Most likely due to AIDS 8. Prophylaxis SCDs
[2017-02-11] MEDS ORDERED: AZITHROMYCIN IVPB ONE (09:00)
[2017-02-11] MEDS ORDERED: SODIUM CHLORIDE 0.9% IVPB ONE (09:00)
[2017-02-11] MEDS: Meropenem 500 MG in Sodium Chloride 0.9% 100 ML IVPB SCH ×2 (09:31→22:57)
--- NOTE | 2017-02-11 11:43 | CP.PCM.PN ---
Subjective - Date & Time of Evaluation Date of Evaluation: 02/11/17 Time of Evaluation: 11:43 - Subjective Subjective: Id note- Pt. seen and examined today. denies any fever, denies any ESTEVEZ, denies any n/v, denies any chest pain, denies any abd. pain, denies any dysurea, denies any diarrhea. Objective - Vital Signs/Intake and Output Vital Signs (last 24 hours): Temp Pulse Resp BP Pulse Ox 99.1 F 79 18 158/89 H 96 02/11/17 08:13 02/11/17 09:00 02/11/17 08:13 02/11/17 08:13 02/11/17 08:13 Intake and Output: 02/11/17 02/11/17 06:59 18:59 Intake Total 1475 Balance 1475 - Medications Medications: Current Medications Acetaminophen (Tylenol 650 Mg Supp) 650 mg [place] Q6 PRN PRN Reason: Fever >100.4 F Meropenem 500 mg/ Sodium (Chloride) 100 mls @ 100 mls/hr IVPB Q12 [facility] Last Admin: 02/11/17 09:31 Dose: 100 mls/hr Fluconazole (Diflucan Iv 200 Mg/100 Ml Ns) 100 mls @ 100 mls/hr IVPB DAILY [facility] Last Admin: 02/11/17 08:00 Dose: 100 mls/hr Lactated Ringer's (Lactated Ringer's) 1,000 mls @ 125 mls/hr IV .Q8H [facility] Last Admin: 02/11/17 09:00 Dose: 125 mls/hr - Labs Labs: - Additional Findings Additional findings: - Constitutional Appears: No Acute Distress, Chronically Ill - Head Exam Head Exam: ATRAUMATIC - Eye Exam Eye Exam: EOMI, PERRL - ENT Exam Additional comments: dry oral mucosa - Neck Exam Neck exam: Positive for: Full Rom Additional comments: supple - Respiratory Exam Respiratory Exam: Clear to Auscultation Bilateral, NORMAL BREATHING PATTERN - Cardiovascular Exam Cardiovascular Exam: RRR, +S1, +S2 - GI/Abdominal Exam GI & Abdominal Exam: Normal Bowel Sounds, Soft Additional comments: NT, ND - Extremities Exam Additional comments: No edema B/L LE - Neurological Exam Neurological exam: Alert Additional comments: Laboratory Results - last 72 hr 02/09/17 02/09/17 02/09/17 02:50 07:04 07:04 WBC RBC 3.97 Hgb 9.6 L Hct 31.5 L MCV 79.4 L MCH 24.2 L MCHC 30.5 L RDW 21.8 H Plt Count 124 L D MPV Neut % (Auto) Lymph % (Auto) Saline % (Auto) Eos % (Auto) Baso % (Auto) Neut # Lymph # Saline # Eos # Baso # Neutrophils % (Manual) Band Neutrophils % Lymphocytes % (Manual) Monocytes % (Manual) Eosinophils % (Manual) Metamyelocytes % Myelocytes % Platelet Estimate Large Platelets Hypochromasia (manual) Poikilocytosis (manual Anisocytosis (manual) Microcytosis (manual) Tear Drop Cells Ovalocytes [place] Cells Schistocytes PT INR APTT pCO2 pO2 HCO3 ABG pH ABG Total CO2 ABG O2 Saturation ABG O2 Content ABG Base Excess ABG Hemoglobin ABG Carboxyhemoglobin POC ABG HHb (Measured) ABG Methemoglobin ABG O2 Capacity Jamie Test A-a O2 Difference Hgb O2 Saturation FiO2 Blood Gas Comments Crit Value Called To Crit Value Called By Crit Value Read Back Blood Gas Notified Time Sodium 144 Potassium 3.7 Chloride 120 H Carbon Dioxide 9 L* D Anion Gap 19 BUN 67 H Creatinine 6.3 H Est GFR ( Amer) 8 Est GFR (Non-Af Amer) 7 Random Glucose 139 H Lactic Acid Calcium 8.0 L Total Bilirubin 0.6 AST 73 H D ALT 20 Alkaline Phosphatase 56 Total Protein 7.9 Albumin 2.7 L D Globulin 5.2 H Albumin/Globulin Ratio 0.5 L Procalcitonin Ur Random Sodium 100 Ur Random Potassium 19.5 Salicylates Acetaminophen Absolute Lymphs (Flow) % CD4 Cells Absolute CD4 Count T-Help/Suppress Ratio % CD8 Cells Absolute CD8 Count T-Lymph Analys Comment 02/09/17 02/09/17 02/09/17 10:00 10:38 12:05 WBC RBC Hgb Hct MCV MCH MCHC RDW Plt Count MPV Neut % (Auto) Lymph % (Auto) Saline % (Auto) Eos % (Auto) Baso % (Auto) Neut # Lymph # Saline # Eos # Baso # Neutrophils % (Manual) Band Neutrophils % Lymphocytes % (Manual) Monocytes % (Manual) Eosinophils % (Manual) Metamyelocytes % Myelocytes % Platelet Estimate Large Platelets Hypochromasia (manual) Poikilocytosis (manual Anisocytosis (manual) Microcytosis (manual) Tear Drop Cells Ovalocytes Marlene Cells Schistocytes PT INR APTT pCO2 15 L* pO2 115 H HCO3 11.4 L ABG pH 7.29 L ABG Total CO2 7.7 L ABG O2 Saturation 99.2 H ABG O2 Content 12.6 L ABG Base Excess -17.3 L ABG Hemoglobin 9.1 L ABG Carboxyhemoglobin 0.8 POC ABG HHb (Measured) 0.8 ABG Methemoglobin 1.7 ABG O2 Capacity 12.7 L Jamie Test Yes A-a O2 Difference 16.0 Hgb O2 Saturation 96.7 FiO2 21.0 Blood Gas Comments Room air,rr Crit Value Called To Rosa reid Crit Value Called By 15 Crit Value Read Back Y Blood Gas Notified Time 1042 Sodium 142 Potassium 3.3 L Chloride 119 H Carbon Dioxide 9 L* Anion Gap 17 BUN 68 H Creatinine 6.0 H Est GFR ( Amer) 9 Est GFR (Non-Af Amer) 7 Random Glucose 74 Lactic Acid Calcium 7.9 L Total Bilirubin 0.5 AST 83 H ALT 30 Alkaline Phosphatase 55 Total Protein 7.2 Albumin 2.4 L Globulin 4.8 H Albumin/Globulin Ratio 0.5 L Procalcitonin Ur Random Sodium Ur Random Potassium Salicylates Acetaminophen Absolute Lymphs (Flow) 124 L % CD4 Cells 3 L Absolute CD4 Count <20 L T-Help/Suppress Ratio 0.07 L % CD8 Cells 40 Absolute CD8 Count 50 L T-Lymph Analys Comment See note 02/09/17 02/09/17 02/09/17 14:30 14:30 14:30 WBC RBC Hgb Hct MCV MCH MCHC RDW Plt Count MPV Neut % (Auto) Lymph % (Auto) Saline % (Auto) Eos % (Auto) Baso % (Auto) Neut # Lymph # Saline # Eos # Baso # Neutrophils % (Manual) Band Neutrophils % Lymphocytes % (Manual) Monocytes % (Manual) Eosinophils % (Manual) Metamyelocytes % Myelocytes % Platelet Estimate Large Platelets Hypochromasia (manual) Poikilocytosis (manual Anisocytosis (manual) Microcytosis (manual) Tear Drop Cells Ovalocytes Marlene Cells Schistocytes PT INR APTT pCO2 pO2 HCO3 ABG pH ABG Total CO2 ABG O2 Saturation ABG O2 Content ABG Base Excess ABG Hemoglobin ABG Carboxyhemoglobin POC ABG HHb (Measured) ABG Methemoglobin ABG O2 Capacity Jamie Test A-a O2 Difference Hgb O2 Saturation FiO2 Blood Gas Comments Crit Value Called To Crit Value Called By Crit Value Read Back Blood Gas Notified Time Sodium Potassium Chloride Carbon Dioxide Anion Gap BUN Creatinine Est GFR ( Amer) Est GFR (Non-Af Amer) Random Glucose Lactic Acid 1.4 Calcium Total Bilirubin AST ALT Alkaline Phosphatase Total Protein Albumin Globulin Albumin/Globulin Ratio Procalcitonin 10.05 H Ur Random Sodium Ur Random Potassium Salicylates < 1.0 Acetaminophen < 10.0 L Absolute Lymphs (Flow) % CD4 Cells Absolute CD4 Count T-Help/Suppress Ratio % CD8 Cells Absolute CD8 Count T-Lymph Analys Comment 02/09/17 02/10/17 02/10/17 18:00 06:25 06:25 WBC 1.1 L* D RBC 3.94 Hgb 9.6 L Hct 30.5 L MCV 77.5 L MCH 24.5 L MCHC 31.6 L RDW 21.5 H Plt Count 87 L D MPV 10.0 Neut % (Auto) 75.5 H Lymph % (Auto) 7.9 L Saline % (Auto) 8.5 Eos % (Auto) 7.9 H Baso % (Auto) 0.2 Neut # 0.8 L Lymph # 0.1 L Saline # 0.1 Eos # 0.1 Baso # 0.0 Neutrophils % (Manual) 69 Band Neutrophils % 6 H Lymphocytes % (Manual) 9 L Monocytes % (Manual) 7 Eosinophils % (Manual) 6 Metamyelocytes % 1 H Myelocytes % 2 H Platelet Estimate Decreased L Large Platelets Present Hypochromasia (manual) Slight Poikilocytosis (manual Moderate Anisocytosis (manual) Marked Microcytosis (manual) Slight Tear Drop Cells Slight Ovalocytes Slight Marlene Cells Moderate Schistocytes Slight PT 14.0 H INR 1.35 H APTT pCO2 pO2 HCO3 ABG pH ABG Total CO2 ABG O2 Saturation ABG O2 Content ABG Base Excess ABG Hemoglobin ABG Carboxyhemoglobin POC ABG HHb (Measured) ABG Methemoglobin ABG O2 Capacity Jamie Test A-a O2 Difference Hgb O2 Saturation FiO2 Blood Gas Comments Crit Value Called To Crit Value Called By Crit Value Read Back Blood Gas Notified Time Sodium 140 Potassium 4.1 Chloride 119 H Carbon Dioxide 7 L* D Anion Gap 18 BUN 77 H Creatinine 6.7 H Est GFR ( Amer) 8 Est GFR (Non-Af Amer) 6 Random Glucose 84 Lactic Acid Calcium 8.4 Total Bilirubin 0.6 AST 54 H D ALT 30 Alkaline Phosphatase 65 Total Protein 7.4 Albumin 2.5 L Globulin 4.9 H Albumin/Globulin Ratio 0.5 L Procalcitonin Ur Random Sodium Ur Random Potassium Salicylates Acetaminophen Absolute Lymphs (Flow) % CD4 Cells Absolute CD4 Count T-Help/Suppress Ratio % CD8 Cells Absolute CD8 Count T-Lymph Analys Comment 02/10/17 02/10/17 02/10/17 06:25 17:30 17:30 WBC RBC Hgb Hct MCV MCH MCHC RDW Plt Count MPV Neut % (Auto) Lymph % (Auto) Saline % (Auto) Eos % (Auto) Baso % (Auto) Neut # Lymph # Saline # Eos # Baso # Neutrophils % (Manual) Band Neutrophils % Lymphocytes % (Manual) Monocytes % (Manual) Eosinophils % (Manual) Metamyelocytes % Myelocytes % Platelet Estimate Large Platelets Hypochromasia (manual) Poikilocytosis (manual Anisocytosis (manual) Microcytosis (manual) Tear Drop Cells Ovalocytes [place] Cells Schistocytes PT 12.8 H INR 1.23 H APTT 34.6 H pCO2 pO2 HCO3 ABG pH ABG Total CO2 ABG O2 Saturation ABG O2 Content ABG Base Excess ABG Hemoglobin ABG Carboxyhemoglobin POC ABG HHb (Measured) ABG Methemoglobin ABG O2 Capacity Jamie Test A-a O2 Difference Hgb O2 Saturation FiO2 Blood Gas Comments Crit Value Called To Crit Value Called By Crit Value Read Back Blood Gas Notified Time Sodium 139 Potassium 3.2 L Chloride 118 H Carbon Dioxide 8 L* Anion Gap 16 BUN 80 H Creatinine 6.5 H Est GFR ( Amer) 8 Est GFR (Non-Af Amer) 6 Random Glucose 79 Lactic Acid Calcium 8.4 Total Bilirubin AST ALT Alkaline Phosphatase Total Protein Albumin Globulin Albumin/Globulin Ratio Procalcitonin Ur Random Sodium Ur Random Potassium Salicylates < 1.0 Acetaminophen Absolute Lymphs (Flow) % CD4 Cells Absolute CD4 Count T-Help/Suppress Ratio % CD8 Cells Absolute CD8 Count T-Lymph Analys Comment Microbiology 02/08/17 15:45 Blood-Venous Blood Culture - Final Escherichia Coli 02/08/17 15:45 Blood-Venous Gram Stain - Final 02/08/17 15:30 Blood-Venous Blood Culture - Final Escherichia Coli 02/08/17 15:30 Blood-Venous Gram Stain - Final 02/10/17 06:25 Blood-Venous Blood Culture - Preliminary NO GROWTH AFTER 24 HOURS 02/08/17 13:59 Urine,Clean Catch Urine Culture - Final Escherichia Coli Assessment and Plan (1) AIDS (acquired immunodeficiency syndrome), CD4 <=200 Status: Acute (2) UTI (urinary tract infection) Status: Acute (3) Bacteremia due to Gram-negative bacteria Status: Acute (4) Renal failure Status: Acute - Assessment and Plan (Free Text) Assessment: A/P- 61 y/o female with AIDS , Cocaine abuse, acute renal failure and dehydration presents with fever, leukopenia and GNR bacteremia. afebrile Leukopenic and thrombocytopenic. blood cx- ESBL e.coli x 2 urine cx- ESBL e.coli repeat blood cx- neg x 1 renal function not improving in Acute renal failure as per renal may need HD if no improvement. Metabolic acidosis, might have possibly ingested nephrotoxic substance as outpatient. plan- advise to continue with IV meropenem (renal dose) day #3 for E.Coli ESBL bacteremia. advise total of 21 days of IV antibiotics for this GNR bacteremia treatment. neutropenic precautions. continue with once a week zithromax for MAC prophylaaxis. continue with IV fluconazole for severe oral candidiasis, may have esophageal candidiasis as well. also advise nystatin swish and spit to be started . check 2 more repeat blood cx. acidosis and renal management as per renal and primary team. All above d/w Dr.Pierre Lee.
[2017-02-11] MEDS ORDERED: Lidocaine 1% Inj (20ml) ONE (12:59)
--- NOTE | 2017-02-11 13:27 | PCM.SURG1 ---
Surgeon's Initial Post Op Note - Surgeon's Notes Surgeon: Ladan Rodriguez [employer]uttle Driver: None Type of Anesthesia: Local Pre-Operative Diagnosis: Renal failure Operative Findings: Patent right IJV Post-Operative Diagnosis: Renal failure Operation Performed: Non-tunneled HD catheter placement right IJV Specimen/Specimens Removed: none Estimated Blood Loss: EBL {In ML}: 2 Blood Products Given: N/A Drains Used: No Drains Post-Op Condition: Fair Date of Surgery/Procedure: 02/11/17 Time of Surgery/Procedure: 13:25
[2017-02-11] MEDS: POLYETHYLENE GLYCOL 3350 17 GM/Dose PACKET PO ONE ×2 (17:07→17:11)
[2017-02-11] MEDS: Potassium Chloride 20 mEq/15 ml LIQ UD PO ONE ×2 (17:07→17:11)
--- NOTE | 2017-02-11 19:07 | CARD ---
APPROVED REPORT EKG Measurement Heart [id number] <Conclusion> Normal sinus rhythm Normal ECG
[2017-02-11 21:28] LABS: ALB/GLOB RATIO 0.5 (1.0-2.1); BILIRUBIN,TOTAL 0.5 mg/dl (0.2-1.3); CALCIUM 8.7 mg/dL (8.4-10.2); TOTAL PROTEIN 6.4 G/DL (6.3-8.2)
[2017-02-11 21:35] LABS: EOS # 0.1 K/uL (0.0-0.7); HEMATOCRIT 25.8 % (34.0-47.0); MEAN CELL VOLUME 73.5 fl (81.0-99.0); MEAN CORPUSCULAR HEMOGLOBIN 24.1 pg (27.0-31.0); MEAN CORPUSCULAR HGB CONC 32.8 g/dL (33.0-37.0); MEAN PLATELET VOLUME 8.9 fl (7.2-11.7); RED CELL DISTRIBUTION WIDTH 21.4 % (11.5-14.5)
[2017-02-11 21:46] LABS: WHITE BLOOD COUNT 1.3 K/uL (4.8-10.8)
[2017-02-11 21:47] LABS: PLATELET COUNT 53 K/uL (130-400)
[2017-02-11 22:25] LABS: LYMPH % 10.5 % (20.0-40.0); NEUT % 52.8 % (50.0-75.0)
[2017-02-11 22:26] LABS: EOS % 13.1 % (0.0-4.0); MONO % 22.6 % (0.0-10.0)
[2017-02-11 22:27] LABS: NRBC % 0.3 % (0.0-0.0)
[2017-02-11 22:28] LABS: LYMPH # 0.1 K/uL (1.0-4.3); NEUT # 0.6 K/uL (1.8-7.0)
[2017-02-11 22:29] LABS: MONO # 0.3 K/uL (0.0-0.8)
[2017-02-11 22:54] LABS: EOSINOPHIL 8 % (0-7); NEUTROPHIL 54 % (42-75); TOTAL CELLS COUNTED 100
[2017-02-11 23:06] LABS: EOS # 0.3 K/uL (0.0-0.7); LYMPH # 0.3 K/uL (1.0-4.3); NEUT # 1.1 K/uL (1.8-7.0)
[2017-02-11 23:13] LABS: BASO % 0.6 % (0.0-2.0); EOS % 13.5 % (0.0-4.0); HEMATOCRIT 26.8 % (34.0-47.0); LYMPH % 14.3 % (20.0-40.0); MEAN CELL VOLUME 73.7 fl (81.0-99.0); MEAN CORPUSCULAR HEMOGLOBIN 24.1 pg (27.0-31.0); MEAN CORPUSCULAR HGB CONC 32.7 g/dL (33.0-37.0); MEAN PLATELET VOLUME 9.3 fl (7.2-11.7); MONO # 0.2 K/uL (0.0-0.8); MONO % 12.5 % (0.0-10.0); NEUT % 59.1 % (50.0-75.0); NRBC % 0.8 % (0.0-0.0); RED CELL DISTRIBUTION WIDTH 21.5 % (11.5-14.5)
[2017-02-11 23:20] LABS: WHITE BLOOD COUNT 1.9 K/uL (4.8-10.8)
--- NOTE | 2017-02-12 00:26 | CP.PCM.PN ---
Subjective - Date & Time of Evaluation Date of Evaluation: 02/11/17 Time of Evaluation: 13:00 - Subjective Subjective: SEEN ON RENAL F/U S/P R TUNNELLED CATH .. WILL START ON HD TODAY CREATININ REMAINS THE SAME Objective - Vital Signs/Intake and Output Vital Signs (last 24 hours): Temp Pulse Resp BP Pulse Ox 97.3 F L 91 H 18 145/85 96 02/12/17 00:11 02/12/17 00:11 02/12/17 00:11 02/12/17 00:11 02/11/17 20:00 Intake and Output: 02/11/17 02/12/17 18:59 06:59 Intake Total 1475 Balance 1475 - Medications Medications: Current Medications Acetaminophen (Tylenol 650 Mg Supp) 650 mg [place] Q6 PRN PRN Reason: Fever >100.4 F Azithromycin (Zithromax) 1,200 mg PO QWK [facility] Meropenem 500 mg/ Sodium (Chloride) 100 mls @ 100 mls/hr IVPB Q12 [facility] Last Admin: 02/11/17 22:57 Dose: Not Given Fluconazole (Diflucan Iv 200 Mg/100 Ml Ns) 100 mls @ 100 mls/hr IVPB DAILY [facility] Last Admin: 02/11/17 08:00 Dose: 100 mls/hr Lactated Ringer's (Lactated Ringer's) 1,000 mls @ 125 mls/hr IV .Q8H [facility] Last Admin: 02/11/17 16:29 Dose: Not Given - Labs Labs: 02/11/17 21:42 02/11/17 21:05 PT 12.8 SECONDS (9.6-11.2) H 02/10/17 06:25 INR 1.23 (0.92-1.08) H 02/10/17 06:25 APTT 34.6 SECONDS (23.3-32.5) H 02/10/17 06:25 Assessment and Plan - Assessment and Plan (Free Text) Assessment: ACI .. TO START 1ST HD TODAY .. NEXT HD ON MON C/O CURRENT CARE SEPSIS ON IVAB
[2017-02-12 07:47] LABS: BASO % 0.4 % (0.0-2.0); EOS # 0.2 K/uL (0.0-0.7); EOS % 8.4 % (0.0-4.0); HEMATOCRIT 25.3 % (34.0-47.0); LYMPH # 1.3 K/uL (1.0-4.3); LYMPH % 53.3 % (20.0-40.0); MEAN CELL VOLUME 74.7 fl (81.0-99.0); MEAN CORPUSCULAR HEMOGLOBIN 24.5 pg (27.0-31.0); MEAN CORPUSCULAR HGB CONC 32.8 g/dL (33.0-37.0); MEAN PLATELET VOLUME 9.8 fl (7.2-11.7); MONO # 0.3 K/uL (0.0-0.8); MONO % 11.5 % (0.0-10.0); NEUT # 0.6 K/uL (1.8-7.0); NEUT % 26.4 % (50.0-75.0); NRBC % 0.3 % (0.0-0.0); RED CELL DISTRIBUTION WIDTH 21.9 % (11.5-14.5); WHITE BLOOD COUNT 2.3 K/uL (4.8-10.8)
[2017-02-12 08:26] LABS: BLOOD UREA NITROGEN 46 mg/dl (7-17); CARBON DIOXIDE 18 mmol/L (22-30); CHLORIDE 109 mmol/L (98-107); GFR AFRICAN-AMERICAN 15; GLUCOSE,RANDOM 65 mg/dL (65-105); POTASSIUM 2.9 MMOL/L (3.6-5.0); SODIUM 140 mmol/l (132-148)
--- NOTE | 2017-02-12 10:50 | CP.PCM.PN ---
Subjective - Date & Time of Evaluation Date of Evaluation: 02/12/17 Time of Evaluation: 09:10 - Subjective Subjective: 61 y/o admitted for LAN and sepsis seen at bedside, states she feels better, patient general status seems to be improving since admission. She has been refusing to take some PO meds. Attemps to place peripheral IV line yesterday unsuccessful and PM dose of Meropenen was given after dialysis as per nurse. Today's AM dose has not been given. Spoke with Dr Membreno(Climatology Teacher) this morning, he does not recommend using dialysis port for IV abx if life expectancy is more than 15 days. He does not recommends PICC line placement in patient with HD and recommends femoral line in opposite side on the body. I personally spoke with patient this morning to encourage her to take PO meds, she agreed to. She has been tolerating PO soft diet since yesterday. Objective - Vital Signs/Intake and Output Vital Signs (last 24 hours): Temp Pulse Resp BP Pulse Ox 97.7 F 55 L 18 146/70 96 02/12/17 07:57 02/12/17 07:57 02/12/17 07:57 02/12/17 07:57 02/12/17 07:57 Intake and Output: 02/12/17 02/12/17 06:59 18:59 Intake Total 100 Balance 100 - Medications Medications: Current Medications Acetaminophen (Tylenol 650 Mg Supp) 650 mg [place] Q6 PRN PRN Reason: Fever >100.4 F Azithromycin (Zithromax) 1,200 mg PO QWK [facility] Meropenem 500 mg/ Sodium (Chloride) 100 mls @ 100 mls/hr IVPB Q12 [facility] Last Admin: 02/11/17 22:57 Dose: Not Given Fluconazole (Diflucan Iv 200 Mg/100 Ml Ns) 100 mls @ 100 mls/hr IVPB DAILY [facility] Last Admin: 02/11/17 08:00 Dose: 100 mls/hr Lactated Ringer's (Lactated Ringer's) 1,000 mls @ 125 mls/hr IV .Q8H [facility] Last Admin: 02/12/17 00:00 Dose: Not Given - Labs Labs: 02/12/17 06:30 02/12/17 06:30 PT 12.8 SECONDS (9.6-11.2) H 02/10/17 06:25 INR 1.23 (0.92-1.08) H 02/10/17 06:25 APTT 34.6 SECONDS (23.3-32.5) H 02/10/17 06:25 - Constitutional Appears: Cachectic, Chronically Ill - Eye Exam Eye Exam: PERRL - ENT Exam ENT Exam: Mucous Membranes Moist - Respiratory Exam Respiratory Exam: Clear to Ausculation Bilateral, NORMAL BREATHING PATTERN. absent: Rales - Cardiovascular Exam Cardiovascular Exam: REGULAR RHYTHM, +S1, +S2. absent: Gallop, Murmur - GI/Abdominal Exam GI & Abdominal Exam: Soft, Normal Bowel Sounds. absent: Distended, Tenderness - Extremities Exam Extremities Exam: Normal Capillary Refill. absent: Calf Tenderness - Neurological Exam Neurological Exam: Alert, Awake, Oriented x3 (Confused and partially disoriented at times) - Psychiatric Exam Psychiatric exam: absent: Homicidal Ideation, Suicidal Ideation - Skin Skin Exam: Warm Assessment and Plan - Assessment and Plan (Free Text) Assessment: pt is a61 y/o female w/ PMHx AIDS (non-complaint with medication), Hepatitis C , Bipolar disorder, COPD, being admitted for UTI, Sepsis and LAN 1. LAN Unknown cause Severe dehydration vs sepsis vs toxic ingestion BUN/Creat improved after HD Nephrology consulted () C/w IV fluids On HD MWF 2. Sepsis without septic shock SIRS + bacteremia + LAN BCx: ESBL qSOFA=1: No high risk of mortality ID Consult(Dr Arredondo). Will cont following recs. On Meropenen 500mg q12h IV. WBC improved Will try to get femoral line for IV medications today 3. UTI UA + for leukocytes esterase and WBC high. Negative nitrates UCx: ESBL E.Coli sensitive to Imipenen On Meropenen 500mg q12h IV 4. AIDS cd4< 20 Hold HAART On PO Zithromax for MAC prophylaxis 5. Pancytopenia Most likely due to sepsis on AIDS patient will monitor with daily CBC on IV abx 6. Dysphagia Most likely due to esophageal candidiasis C/w pureed diet c/w fluconazole IV 7. BMI 17 Cachexia Most likely due to AIDS 8. Prophylaxis SCDs
[2017-02-12] MEDS: Fluconazole IV 200mg/100 ml NS 100 ML IVPB SCH (11:19)
[2017-02-12] MEDS: Meropenem 500 MG in Sodium Chloride 0.9% 100 ML IVPB SCH ×3 (11:20→21:22)
[2017-02-12] MEDS: Lactated Ringer's 1,000 ML IV SCH ×4 (11:20→23:03)
[2017-02-12] MEDS ORDERED: Potassium Chloride 20 mEq/15 ml LIQ UD PO ONE (12:40)
--- NOTE | 2017-02-12 19:24 | CP.PCM.PN ---
Subjective - Date & Time of Evaluation Date of Evaluation: 02/12/17 Time of Evaluation: 19:22 - Subjective Subjective: had hd on tue next tx on Mon vss stable for same. Objective - Vital Signs/Intake and Output Vital Signs (last 24 hours): Temp Pulse Resp BP Pulse Ox 97.7 F 54 L 20 157/77 H 96 02/12/17 15:58 02/12/17 15:58 02/12/17 15:58 02/12/17 15:58 02/12/17 15:58 - Medications Medications: Current Medications Acetaminophen (Tylenol 650 Mg Supp) 650 mg [place] Q6 PRN PRN Reason: Fever >100.4 F Azithromycin (Zithromax) 1,200 mg PO QWK [facility] Fluconazole (Diflucan Iv 200 Mg/100 Ml Ns) 100 mls @ 100 mls/hr IVPB DAILY [facility] Last Admin: 02/12/17 11:19 Dose: Not Given Lactated Ringer's (Lactated Ringer's) 1,000 mls @ 125 mls/hr IV .Q8H [facility] Last Admin: 02/12/17 15:48 Dose: 125 mls/hr Meropenem 500 mg/ Sodium (Chloride) 100 mls @ 100 mls/hr IVPB Q12 [facility] Last Admin: 02/12/17 14:00 Dose: 100 mls/hr - Labs Labs: 02/12/17 06:30 02/12/17 06:30 PT 12.8 SECONDS (9.6-11.2) H 02/10/17 06:25 INR 1.23 (0.92-1.08) H 02/10/17 06:25 APTT 34.6 SECONDS (23.3-32.5) H 02/10/17 06:25 - Constitutional Appears: Non-toxic - Head Exam Head Exam: NORMAL INSPECTION - Eye Exam Pupil Exam: NORMAL ACCOMODATION - ENT Exam ENT Exam: Mucous Membranes Moist - Respiratory Exam Respiratory Exam: NORMAL BREATHING PATTERN - Cardiovascular Exam Cardiovascular Exam: REGULAR RHYTHM - GI/Abdominal Exam GI & Abdominal Exam: Soft, Normal Bowel Sounds - Extremities Exam Extremities Exam: Normal Inspection - Neurological Exam Neurological Exam: Alert, Awake - Psychiatric Exam Psychiatric exam: Normal Affect - Skin Skin Exam: Dry, Warm Assessment and Plan - Assessment and Plan (Free Text) Plan: hd mw
[2017-02-12] MEDS ORDERED: Meropenem 500 MG in Sodium Chloride 0.9% 100 ML IVPB SCH (21:00)
[2017-02-12 21:17] LABS: CALCIUM 8.8 mg/dL (8.4-10.2); POTASSIUM 3.8 MMOL/L (3.6-5.0)
[2017-02-13 08:14] LABS: BASO % 0.7 % (0.0-2.0); EOS # 0.8 K/uL (0.0-0.7); EOS % 19.9 % (0.0-4.0); LYMPH # 1.6 K/uL (1.0-4.3); LYMPH % 39.3 % (20.0-40.0); MEAN CELL VOLUME 75.7 fl (81.0-99.0); MEAN CORPUSCULAR HEMOGLOBIN 24.1 pg (27.0-31.0); MEAN CORPUSCULAR HGB CONC 31.8 g/dL (33.0-37.0); MEAN PLATELET VOLUME 10.2 fl (7.2-11.7); MONO # 0.5 K/uL (0.0-0.8); MONO % 12.3 % (0.0-10.0); NEUT # 1.1 K/uL (1.8-7.0); NEUT % 27.8 % (50.0-75.0); NRBC % 0.2 % (0.0-0.0); RED CELL DISTRIBUTION WIDTH 22.2 % (11.5-14.5); WHITE BLOOD COUNT 4.1 K/uL (4.8-10.8)
[2017-02-13 08:59] LABS: ALB/GLOB RATIO 0.5 (1.0-2.1); BILIRUBIN,TOTAL 0.5 mg/dl (0.2-1.3); TOTAL PROTEIN 6.1 G/DL (6.3-8.2)
[2017-02-13] MEDS: Fluconazole IV 200mg/100 ml NS 100 ML IVPB SCH (08:59)
[2017-02-13] MEDS: Lactated Ringer's 1,000 ML IV SCH ×2 (08:59→16:41)
[2017-02-13 09:02] LABS: POTASSIUM 2.6 MMOL/L (3.6-5.0)
--- NOTE | 2017-02-13 10:04 | CP.PCM.PN ---
Subjective - Date & Time of Evaluation Date of Evaluation: 02/13/17 Time of Evaluation: 08:05 - Subjective Subjective: 61 y/o F w/ PMHx AIDS admitted with sepsis and LAN. Patient was seen and examined at bedside this morning. Patient states she feels weak, and " wants to come back to sleep". Patient is a poor history inupiat. She is refusing PO medications. She reports chest pain, but does not want to give details. Denies SOB, abdominal pain, diarrheas, or other complains. Objective - Vital Signs/Intake and Output Vital Signs (last 24 hours): Temp Pulse Resp BP Pulse Ox 97.8 F 60 16 174/74 H 95 02/13/17 08:08 02/13/17 08:08 02/13/17 08:08 02/13/17 08:08 02/13/17 08:08 Intake and Output: 02/13/17 02/13/17 06:59 18:59 Intake Total 1575 Balance 1575 - Medications Medications: Current Medications Acetaminophen (Tylenol 650 Mg Supp) 650 mg [place] Q6 PRN PRN Reason: Fever >100.4 F Azithromycin (Zithromax) 1,200 mg PO QWK [facility] Fluconazole (Diflucan Iv 200 Mg/100 Ml Ns) 100 mls @ 100 mls/hr IVPB DAILY [facility] Last Admin: 02/13/17 08:59 Dose: 100 mls/hr Lactated Ringer's (Lactated Ringer's) 1,000 mls @ 125 mls/hr IV .Q8H [facility] Last Admin: 02/13/17 08:59 Dose: 125 mls/hr Meropenem 500 mg/ Sodium (Chloride) 100 mls @ 100 mls/hr IVPB Q12 [facility] Last Admin: 02/12/17 21:22 Dose: 100 mls/hr - Labs Labs: 02/13/17 06:45 02/13/17 06:45 PT 12.8 SECONDS (9.6-11.2) H 02/10/17 06:25 INR 1.23 (0.92-1.08) H 02/10/17 06:25 APTT 34.6 SECONDS (23.3-32.5) H 02/10/17 06:25 - Constitutional Appears: No Acute Distress, Other (cachectic) - Respiratory Exam Respiratory Exam: Clear to Ausculation Bilateral, NORMAL BREATHING PATTERN - Cardiovascular Exam Cardiovascular Exam: REGULAR RHYTHM, +S1, +S2 - GI/Abdominal Exam GI & Abdominal Exam: Soft, Normal Bowel Sounds. absent: Guarding, Rigid, Tenderness - Extremities Exam Extremities Exam: Normal Inspection. absent: Calf Tenderness, Pedal Edema Additional comments: No edema in lower extremities noted. - Neurological Exam Neurological Exam: Alert, Awake, Oriented x3 - Skin Skin Exam: Dry, Intact, Pallor - Additional Findings Additional findings: Mouth: bilateral tongue white lesions Assessment and Plan - Assessment and Plan (Free Text) Assessment: 61 y/o female w/ PMHx AIDS (non-complaint with medication), Hepatitis C, Bipolar disorder, COPD, being admitted for UTI, Sepsis and LAN. Plan: Sepsis most likely secondary to Urosepsis Blood culture and urine culture positive for ESBL/ E choli WBC improving C/w Meropenem 500 mg Q12 ID Consult(Dr Arredondo). F/U recommendations qSOFA=1: No high risk of mortality LAN Unknown etiology BUN/Creat improved after HD, but today were elevated: 50/4.5 Nephrology consulted () C/w IV fluids On HD MWF F/U eosinophils Microcytic anemia -Etiology could be multifactorial -H/H trending down today 7.3/23.0 -Consider transfusion of PRBC -F/U Haptoglobin, Iron studies, Peripheral smear, retic count -Consider Venofer Hypokalemia K+: 2.6 Replace potassium -F/U Magnesium serum -F/U repeat potassium -F/U phosphorus UTI UA + for leukocytes esterase and WBC high. Negative nitrates UCx: ESBL E.Coli sensitive to Imipenen On Meropenen 500mg q12h IV HIV infection with AIDS cd4< 20 Hold HAART C/W PO Zithromax for MAC prophylaxis 5. Pancytopenia Most likely due to sepsis on AIDS patient will monitor with daily CBC on IV abx Consider Hemo consult 6. Dysphagia Most likely due to esophageal candidiasis C/w pureed diet c/w fluconazole IV 7. BMI 17 Cachexia Most likely due to AIDS 8. Prophylaxis SCDs Patient with worsening thrombocytopenia
[2017-02-13] MEDS: Meropenem 500 MG in Sodium Chloride 0.9% 100 ML IVPB SCH ×2 (10:05→21:26)
[2017-02-13 12:03] LABS: IRON 105 ug/dL (37-170)
[2017-02-13 12:04] LABS: MAGNESIUM 1.9 MG/DL (1.6-2.3)
[2017-02-13] MEDS: Potassium Chloride 20 mEq/15 ml LIQ UD PO SCH ×3 (12:05→16:37)
[2017-02-13 12:07] LABS: RETIC% 0.4 % (0.5-1.5)
[2017-02-13 12:45] LABS: ACETONE None Detected; ETHANOL None Detected; METHANOL None Detected
[2017-02-13] MEDS ORDERED: Potassium Chloride 20 mEq/15 ml LIQ UD PO SCH (17:00)
[2017-02-13] MEDS: Potassium Chloride 40 MEQ in Lactated Ringer's 1,000 ML IV SCH (19:10)
[2017-02-14 05:58] LABS: BASO # 0.1 K/uL (0.0-0.2); BASO % 2.5 % (0.0-2.0); EOS # 0.8 K/uL (0.0-0.7); EOS % 13.9 % (0.0-4.0); HEMATOCRIT 23.2 % (34.0-47.0); LYMPH # 2.9 K/uL (1.0-4.3); LYMPH % 51.8 % (20.0-40.0); MEAN CELL VOLUME 76.1 fl (81.0-99.0); MEAN CORPUSCULAR HEMOGLOBIN 24.5 pg (27.0-31.0); MEAN CORPUSCULAR HGB CONC 32.2 g/dL (33.0-37.0); MEAN PLATELET VOLUME 9.2 fl (7.2-11.7); MONO # 0.5 K/uL (0.0-0.8); MONO % 8.6 % (0.0-10.0); NEUT # 1.3 K/uL (1.8-7.0); NEUT % 23.2 % (50.0-75.0); NRBC % 0.1 % (0.0-0.0); RED CELL DISTRIBUTION WIDTH 21.4 % (11.5-14.5); WHITE BLOOD COUNT 5.7 K/uL (4.8-10.8)
[2017-02-14 06:15] LABS: ALB/GLOB RATIO 0.5 (1.0-2.1); BILIRUBIN,TOTAL 0.6 mg/dl (0.2-1.3); CALCIUM 7.9 mg/dL (8.4-10.2); POTASSIUM 3.2 MMOL/L (3.6-5.0); TOTAL PROTEIN 5.8 G/DL (6.3-8.2)
[2017-02-14] MEDS: Potassium Chloride 40 MEQ in Lactated Ringer's 1,000 ML IV SCH ×3 (06:22→22:59)
--- NOTE | 2017-02-14 08:57 | CP.PCM.PN ---
Subjective - Date & Time of Evaluation Date of Evaluation: 02/14/17 Time of Evaluation: 08:10 - Subjective Subjective: Patient is full code Spoke with family today at 13:50. Daniel Arellano and "Easy": , . They prefer patient to be transferred to 24h supervision facility after DC from hospital for continues care and state that [facility]( [phone]) is convenient for them. 61 y/o admitted for sepsis and lan, seen at bedside in not acute distress. Patient apparently pulled out her femoral IV line today. She is due for HD today. SHe has been refusing to take PO meds at times. Afebrile. Denies CP, palpitations, SOB. Labs reviewed. Agitated at times. New peripheral line in R/ UE placed Objective - Vital Signs/Intake and Output Vital Signs (last 24 hours): Temp Pulse Resp BP Pulse Ox 97.4 F L 57 L 18 173/98 H 100 02/14/17 08:10 02/14/17 08:10 02/14/17 08:10 02/14/17 08:10 02/14/17 08:10 Intake and Output: 02/14/17 02/14/17 06:59 18:59 Intake Total 1675 Balance 1675 - Medications Medications: Current Medications Acetaminophen (Tylenol 650 Mg Supp) 650 mg [place] Q6 PRN PRN Reason: Fever >100.4 F Azithromycin (Zithromax) 1,200 mg PO QWK [facility] Fluconazole (Diflucan Iv 200 Mg/100 Ml Ns) 100 mls @ 100 mls/hr IVPB DAILY [facility] Last Admin: 02/13/17 08:59 Dose: 100 mls/hr Meropenem 500 mg/ Sodium (Chloride) 100 mls @ 100 mls/hr IVPB Q12 [facility] Last Admin: 02/13/17 21:26 Dose: 100 mls/hr Potassium Chloride 40 meq/ (Lactated Ringer's) 1,020 mls @ 125 mls/hr IV .Q8H10M [facility] Last Admin: 02/14/17 06:22 Dose: 125 mls/hr Lisinopril (Zestril) 10 mg PO DAILY [facility] Last Admin: 02/13/17 21:27 Dose: 10 mg Risperidone (Risperdal Tab) 0.5 mg PO BID [facility] - Labs Labs: 02/14/17 05:41 02/14/17 05:41 PT 12.8 SECONDS (9.6-11.2) H 02/10/17 06:25 INR 1.23 (0.92-1.08) H 02/10/17 06:25 APTT 34.6 SECONDS (23.3-32.5) H 02/10/17 06:25 - Constitutional Appears: Cachectic, Chronically Ill - Eye Exam Eye Exam: PERRL - ENT Exam ENT Exam: Mucous Membranes Moist - Respiratory Exam Respiratory Exam: Clear to Ausculation Bilateral, NORMAL BREATHING PATTERN - Cardiovascular Exam Cardiovascular Exam: REGULAR RHYTHM, +S1, +S2. absent: Gallop - GI/Abdominal Exam GI & Abdominal Exam: Soft, Normal Bowel Sounds. absent: Tenderness - Neurological Exam Neurological Exam: Alert, Awake. absent: Oriented x3 (confused at times) - Psychiatric Exam Psychiatric exam: Agitated (at times) Assessment and Plan - Assessment and Plan (Free Text) Assessment: pt is a 61 y/o female w/ PMHx AIDS (non-complaint with medication), Hepatitis C , Bipolar disorder, COPD, being admitted for UTI, Sepsis and LAN 1. LAN Possible ATN due to sepsis BUN/Creat persistent elevated but improved since admission For HD today. Nephrology consulted () C/w IV fluids On HD MWF Non anion gap metabolic acidosis on admission. Normal Urine Ph. Low random urine K and High urine Na. Hypokalemia: Spoke with Dr Jung and HD today will be adjusted to replace K levels F/U Urine Phosp, Ca and Eos 2. Sepsis without septic shock Improving. Repeat BCx negative SIRS + bacteremia + LAN BCx: ESBL sensitive to Imipenen qSOFA=1: No high risk of mortality ID Consult(Dr Arredondo). Will cont following recs. On Meropenen 500mg q12h IV. WBC WNL today 3. UTI UA + for leukocytes esterase and WBC high. Negative nitrates UCx: ESBL E.Coli sensitive to Imipenen On Meropenen 500mg q12h IV 4. AIDS cd4< 20 Hold HAART due to LAN On PO Zithromax for MAC prophylaxis 5. Pancytopenia Leukopenia resolved will cont monitoring daily Most likely due to sepsis on AIDS patient vs abx side effects Anemia work up consistent with that of chronic disease F/U Epo. 6.Bipolar disorder Patient agitated at times, pulling out IV lines Restart Seroquel BID Will consider 1 to 1 obs if required Psych consult(Dr Julio) 7. Dysphagia Most likely due to esophageal candidiasis C/w pureed diet c/w fluconazole IV 8. BMI 17 Cachexia Most likely due to AIDS 9. Prophylaxis SCDs
[2017-02-14] MEDS: Meropenem 500 MG in Sodium Chloride 0.9% 100 ML IVPB SCH ×2 (09:18→21:21)
[2017-02-14] MEDS: Fluconazole IV 200mg/100 ml NS 100 ML IVPB SCH (09:18)
[2017-02-14] MEDS ORDERED: Sodium Chloride 0.9% 1,000 ML IV SCH (15:30)
--- NOTE | 2017-02-15 00:12 | CP.PCM.PN ---
Subjective - Date & Time of Evaluation Date of Evaluation: 02/15/17 Time of Evaluation: 16:00 - Subjective Subjective: SEEN ON RENAL F/U SEEN ON HD Objective - Vital Signs/Intake and Output Vital Signs (last 24 hours): Temp Pulse Resp BP Pulse Ox 97.4 F L 76 18 152/75 H 99 02/14/17 20:12 02/14/17 21:00 02/14/17 20:12 02/14/17 20:12 02/14/17 20:12 Intake and Output: 02/14/17 02/15/17 18:59 06:59 Intake Total 1200 Balance 1200 - Medications Medications: Current Medications Acetaminophen (Tylenol 650 Mg Supp) 650 mg [place] Q6 PRN PRN Reason: Fever >100.4 F Azithromycin (Zithromax) 1,200 mg PO QWK [facility] Fluconazole (Diflucan Iv 200 Mg/100 Ml Ns) 100 mls @ 100 mls/hr IVPB DAILY [facility] Last Admin: 02/14/17 09:18 Dose: 100 mls/hr Meropenem 500 mg/ Sodium (Chloride) 100 mls @ 100 mls/hr IVPB Q12 [facility] Last Admin: 02/14/17 21:21 Dose: 100 mls/hr Potassium Chloride 40 meq/ (Lactated Ringer's) 1,020 mls @ 125 mls/hr IV .Q8H10M [facility] Last Admin: 02/14/17 22:59 Dose: Not Given Sodium Chloride (Sodium Chloride 0.9%) 1,000 mls @ 100 mls/hr IV .Q10H [facility] Stop: 02/15/17 15:24 Last Admin: 02/14/17 16:11 Dose: 100 mls/hr Lisinopril (Zestril) 10 mg PO DAILY [facility] Last Admin: 02/14/17 09:15 Dose: 10 mg Risperidone (Risperdal Tab) 0.5 mg PO BID [facility] Last Admin: 02/14/17 16:12 Dose: 0.5 mg - Labs Labs: 02/14/17 05:41 02/14/17 05:41 PT 12.8 SECONDS (9.6-11.2) H 02/10/17 06:25 INR 1.23 (0.92-1.08) H 02/10/17 06:25 APTT 34.6 SECONDS (23.3-32.5) H 02/10/17 06:25 Assessment and Plan - Assessment and Plan (Free Text) Assessment: LAN .. ON HD M W F MULTIPLE CO MORBIDITIES P : C/O CRRENT CARE
[2017-02-15] MEDS: Potassium Chloride 40 MEQ in Lactated Ringer's 1,000 ML IV SCH (05:14)
[2017-02-15 06:52] LABS: BASO % 0.9 % (0.0-2.0); EOS # 0.4 K/uL (0.0-0.7); EOS % 9.5 % (0.0-4.0); LYMPH # 2.2 K/uL (1.0-4.3); LYMPH % 52.9 % (20.0-40.0); MEAN CELL VOLUME 75.3 fl (81.0-99.0); MEAN CORPUSCULAR HEMOGLOBIN 24.8 pg (27.0-31.0); MEAN CORPUSCULAR HGB CONC 32.9 g/dL (33.0-37.0); MEAN PLATELET VOLUME 8.8 fl (7.2-11.7); MONO # 0.5 K/uL (0.0-0.8); MONO % 11.1 % (0.0-10.0); NEUT # 1.1 K/uL (1.8-7.0); NEUT % 25.6 % (50.0-75.0); NRBC % 0.1 % (0.0-0.0); RED CELL DISTRIBUTION WIDTH 21.5 % (11.5-14.5); WHITE BLOOD COUNT 4.2 K/uL (4.8-10.8)
[2017-02-15 07:11] LABS: ALB/GLOB RATIO 0.5 (1.0-2.1); CALCIUM 7.6 mg/dL (8.4-10.2); POTASSIUM 4.9 MMOL/L (3.6-5.0); TOTAL PROTEIN 6.7 G/DL (6.3-8.2)
--- NOTE | 2017-02-15 09:00 | CP.PCM.PN ---
Subjective - Date & Time of Evaluation Date of Evaluation: 02/15/17 Time of Evaluation: 07:35 - Subjective Subjective: 61 y/o admitted for LAN and sepsis seen at bedside. Patient general status continues improving, she is more awake and interacting, although answering questions with single words and not much interested in keeping a conversation. She denies, SOB, CP, palpitations. She underwent hemodialysis last night. Potassium was corrected. Spoke with family yesterday. Objective - Vital Signs/Intake and Output Vital Signs (last 24 hours): Temp Pulse Resp BP Pulse Ox 97.4 F L 65 18 163/71 H 93 L 02/15/17 08:17 02/15/17 08:17 02/15/17 08:17 02/15/17 08:17 02/15/17 08:17 - Medications Medications: Current Medications Acetaminophen (Tylenol 650 Mg Supp) 650 mg [place] Q6 PRN PRN Reason: Fever >100.4 F Azithromycin (Zithromax) 1,200 mg PO QWK [facility] Fluconazole (Diflucan Iv 200 Mg/100 Ml Ns) 100 mls @ 100 mls/hr IVPB DAILY [facility] Last Admin: 02/14/17 09:18 Dose: 100 mls/hr Meropenem 500 mg/ Sodium (Chloride) 100 mls @ 100 mls/hr IVPB Q12 [facility] Last Admin: 02/14/17 21:21 Dose: 100 mls/hr Potassium Chloride 40 meq/ (Lactated Ringer's) 1,020 mls @ 125 mls/hr IV .Q8H10M [facility] Last Admin: 02/15/17 05:14 Dose: 125 mls/hr Sodium Chloride (Sodium Chloride 0.9%) 1,000 mls @ 100 mls/hr IV .Q10H [facility] Stop: 02/15/17 15:24 Last Admin: 02/14/17 16:11 Dose: 100 mls/hr Lisinopril (Zestril) 10 mg PO DAILY [facility] Last Admin: 02/14/17 09:15 Dose: 10 mg Risperidone (Risperdal Tab) 0.5 mg PO BID [facility] Last Admin: 02/14/17 16:12 Dose: 0.5 mg - Labs Labs: 02/15/17 05:15 02/15/17 05:15 PT 12.8 SECONDS (9.6-11.2) H 02/10/17 06:25 INR 1.23 (0.92-1.08) H 02/10/17 06:25 APTT 34.6 SECONDS (23.3-32.5) H 02/10/17 06:25 - Constitutional Appears: Cachectic, Chronically Ill - Eye Exam Eye Exam: Normal appearance - ENT Exam ENT Exam: Mucous Membranes Moist - Respiratory Exam Respiratory Exam: Clear to Ausculation Bilateral, NORMAL BREATHING PATTERN - Cardiovascular Exam Cardiovascular Exam: REGULAR RHYTHM, +S1, +S2. absent: Gallop - GI/Abdominal Exam GI & Abdominal Exam: Soft, Normal Bowel Sounds. absent: Tenderness Additional comments: flat - Extremities Exam Extremities Exam: Normal Capillary Refill. absent: Pedal Edema - Neurological Exam Neurological Exam: Alert, Awake, Oriented x3 (confused at times. Partially oriented in time) - Psychiatric Exam Psychiatric exam: absent: Agitated - Skin Skin Exam: Warm Assessment and Plan - Assessment and Plan (Free Text) Assessment: pt is a 61 y/o female w/ PMHx AIDS (non-complaint with medication), Hepatitis C , Bipolar disorder, COPD, being admitted for UTI, Sepsis and LAN 1. LAN Possible ATN due to sepsis BUN/Creat improved after dialysis yesterday. Hopefully renal function would reverse Nephrology consulted () C/w IV fluids On HD MWF Non anion gap metabolic acidosis on admission. Normal Urine Ph. Low random urine K and High urine Na. Hypokalemia: Potassium level today WNL F/U Urine Phosp, Ca and Eos 2. Sepsis without septic shock Improving. Repeat BCx negative SIRS + bacteremia + LAN BCx: ESBL sensitive to Imipenen qSOFA=1: No high risk of mortality ID Consult(Dr Arredondo). Will cont following recs. On Meropenen 500mg q12h IV(will need 3 weeks of abx) day 6 3. UTI UA + for leukocytes esterase and WBC high. Negative nitrates UCx: ESBL E.Coli sensitive to Imipenen On Meropenen 500mg q12h IV day 6 4. AIDS cd4< 20 Hold HAART due to LAN On PO Zithromax for MAC prophylaxis Patient will need admission to 24h supervision facility after DC from hosp. May also need to cont HD as outpatient. s/w consulted 5. Pancytopenia Stable Most likely due to sepsis on AIDS patient vs abx side effects Anemia work up consistent with that of chronic disease F/U Epo. 6.Bipolar disorder Patient agitated at times C/w Risperdal BID 0.5mg because of renal impairment Psych consult(Dr Julio) recs Increased risperdal to 1 mg BID. 7. Dysphagia Most likely due to esophageal candidiasis C/w pureed diet c/w fluconazole IV day 5 8. BMI 17 Cachexia Most likely due to AIDS 9. Prophylaxis SCDs
--- NOTE | 2017-02-15 10:02 | CP.PCM.CON ---
History of Present Illness - History of Present Illness History of Present Illness: Psychiatry consult called for h/o Bipolar disorder and cocaine abuse, episodes of agitation. HPI: 61 y/o female w/ PMHx AIDS (non-complaint with medication), Hepatitis C, Bipolar disorder, COPD, admitted for UTI, Sepsis, LAN, pancytopenia, dysphagia, is having periods of confusion and agitation due to current medical issues. Patient oriented x 2 (not date, said 1995). She can not explain why she is in the hospital or what is currently happening. She denies AH/VH/paranoia/ depression/hailee/delusions/anxiety. Patient is a poor historian at this time due to altered mental status. Patient has a known history of cocaine abuse and is non-compliant with treatment for her mental illness. She was last admitted to [facility] a few weeks ago and left AMA. PPHx: History of prior psych admissions for bipolar disorder and cocaine abuse. PMHx: AIDS (non-complaint with medication), Hepatitis C, Bipolar disorder, COPD , w/ current UTI, Sepsis, LAN, pancytopenia, dysphagia All: NKDA SHx: H/o crack cocaine abuse. Lives with her family (mother and sister). MSE: A + O x 2, cachetic, poor eye contact, mood "okay", affect- constricted, speech-soft, slow; psychomotor retarded, no AH/VH/delusions/paranoia. Poor insight/judgment. Impression: 61 y/o female w/ PMHx AIDS (non-complaint with medication), Hepatitis C, Bipolar disorder, COPD, admitted for UTI, Sepsis, LAN, pancytopenia , dysphagia, is having periods of confusion and agitation due to current medical issues. Recommendations: -Increase Risperdal to 1 mg PO Q12 hr -No inpatient psychiatric admission indicated at this time, as her presentation is due to acute medical issues Past Patient History - Infectious Disease Hx of Infectious Diseases: None - Past Medical History & Family History Past Medical History?: Yes - Past Social History Alcohol: None Drugs: Cocaine - CARDIAC Hx Hypertension: Yes - PULMONARY Hx Pneumonia: Yes - NEUROLOGICAL Hx Seizures: No - HEENT Hx HEENT Problems: Yes Other/Comment: Blurred vision,stated has old eyeglasses, needs new one. - RENAL Hx Chronic Kidney Disease: No - ENDOCRINE/METABOLIC Hx Hypothyroidism: No - HEMATOLOGICAL/ONCOLOGICAL Hx AIDS: Yes Hx Human Immunodeficiency Virus (HIV): Yes - INTEGUMENTARY Hx Dermatological Problems: No - MUSCULOSKELETAL/RHEUMATOLOGICAL Hx Arthritis: Yes Hx Rheumatoid Arthritis: No - GASTROINTESTINAL Hx Gastrointestinal Disorders: Yes Other/Comment: hepatitis C - GENITOURINARY/GYNECOLOGICAL Hx Sexually Transmitted Disorders: No - PSYCHIATRIC Hx Anxiety: Yes Hx Bipolar Disorder: Yes Hx Depression: Yes - SURGICAL HISTORY Hx Surgeries: No - ANESTHESIA Hx Anesthesia: No Hx Anesthesia Reactions: No Hx Malignant Hyperthermia: No Meds Allergies/Adverse Reactions: Allergies Allergy/AdvReac Type Severity Reaction Status Date / Time No Known Allergies Allergy Verified 02/08/17 12:23 - Medications Medications: Current Medications Acetaminophen (Tylenol 650 Mg Supp) 650 mg SD Q6 PRN PRN Reason: Fever >100.4 F Azithromycin (Zithromax) 1,200 mg PO QWK [facility] Fluconazole (Diflucan Iv 200 Mg/100 Ml Ns) 100 mls @ 100 mls/hr IVPB DAILY [facility] Last Admin: 02/14/17 09:18 Dose: 100 mls/hr Meropenem 500 mg/ Sodium (Chloride) 100 mls @ 100 mls/hr IVPB Q12 [facility] Last Admin: 02/14/17 21:21 Dose: 100 mls/hr Potassium Chloride 40 meq/ (Lactated Ringer's) 1,020 mls @ 125 mls/hr IV .Q8H10M [facility] Last Admin: 02/15/17 05:14 Dose: 125 mls/hr Sodium Chloride (Sodium Chloride 0.9%) 1,000 mls @ 100 mls/hr IV .Q10H [facility] Stop: 02/15/17 15:24 Last Admin: 02/14/17 16:11 Dose: 100 mls/hr Lisinopril (Zestril) 10 mg PO DAILY [facility] Last Admin: 02/14/17 09:15 Dose: 10 mg Risperidone (Risperdal Tab) 0.5 mg PO BID [facility] Last Admin: 02/14/17 16:12 Dose: 0.5 mg Results - Vital Signs Recent Vital Signs: Last Vital Signs Temp 97.4 F L 02/15/17 08:17 Pulse 65 02/15/17 08:17 Resp 18 02/15/17 08:17 BP 163/71 H 02/15/17 08:17 Pulse Ox 93 L 02/15/17 08:17 - Labs Result Diagrams: 02/15/17 05:15 02/15/17 05:15 Labs: Laboratory Results - last 24 hr 02/09/17 02/11/17 02/15/17 15:00 21:05 05:15 WBC 4.2 L RBC 3.18 L Hgb 7.9 L Hct 24.0 L MCV 75.3 L MCH 24.8 L MCHC 32.9 L RDW 21.5 H Plt Count 68 L MPV 8.8 Neut % (Auto) 25.6 L Lymph % (Auto) 52.9 H Price % (Auto) 11.1 H Eos % (Auto) 9.5 H Baso % (Auto) 0.9 Neut # 1.1 L Lymph # 2.2 Price # 0.5 Eos # 0.4 Baso # 0.0 Sodium Potassium Chloride Carbon Dioxide Anion Gap BUN Creatinine Est GFR ( Amer) Est GFR (Non-Af Amer) Random Glucose Calcium Total Bilirubin AST ALT Alkaline Phosphatase Total Protein Albumin Globulin Albumin/Globulin Ratio Toxicology Panel see note Hepatitis A IgM Ab Negative Hep Bs Antigen Negative Hep B Core IgM Ab Negative 02/15/17 05:15 WBC RBC Hgb Hct MCV MCH MCHC RDW Plt Count MPV Neut % (Auto) Lymph % (Auto) Price % (Auto) Eos % (Auto) Baso % (Auto) Neut # Lymph # Price # Eos # Baso # Sodium 139 Potassium 4.9 Chloride 110 H Carbon Dioxide 24 Anion Gap 10 BUN 18 H Creatinine 2.5 H Est GFR ( Amer) 24 Est GFR (Non-Af Amer) 19 Random Glucose 82 Calcium 7.6 L Total Bilirubin 1.0 AST 25 ALT 22 Alkaline Phosphatase 60 Total Protein 6.7 Albumin 2.3 L D Globulin 4.4 H Albumin/Globulin Ratio 0.5 L Toxicology Panel Hepatitis A IgM Ab Hep Bs Antigen Hep B Core IgM Ab
[2017-02-15] MEDS: Meropenem 500 MG in Sodium Chloride 0.9% 100 ML IVPB SCH ×2 (10:15→21:22)
[2017-02-15] MEDS: Fluconazole IV 200mg/100 ml NS 100 ML IVPB SCH (10:16)
--- NOTE | 2017-02-15 12:37 | CP.PCM.PN ---
Subjective - Date & Time of Evaluation Date of Evaluation: 02/15/17 Time of Evaluation: 12:37 - Subjective Subjective: ID note- Pt. seen and examined with her family member in the room. pt. denies any fever . is not eating much. Objective - Vital Signs/Intake and Output Vital Signs (last 24 hours): Temp Pulse Resp BP Pulse Ox 97.6 F 76 18 173/67 H 98 02/15/17 12:19 02/15/17 12:19 02/15/17 12:19 02/15/17 12:19 02/15/17 12:19 - Medications Medications: Current Medications Acetaminophen (Tylenol 650 Mg Supp) 650 mg [place] Q6 PRN PRN Reason: Fever >100.4 F Azithromycin (Zithromax) 1,200 mg PO QWK [facility] Fluconazole (Diflucan Iv 200 Mg/100 Ml Ns) 100 mls @ 100 mls/hr IVPB DAILY [facility] Last Admin: 02/15/17 10:16 Dose: 100 mls/hr Meropenem 500 mg/ Sodium (Chloride) 100 mls @ 100 mls/hr IVPB Q12 [facility] Last Admin: 02/15/17 10:15 Dose: 100 mls/hr Potassium Chloride 40 meq/ (Lactated Ringer's) 1,020 mls @ 125 mls/hr IV .Q8H10M [facility] Last Admin: 02/15/17 05:14 Dose: 125 mls/hr Sodium Chloride (Sodium Chloride 0.9%) 1,000 mls @ 100 mls/hr IV .Q10H [facility] Stop: 02/15/17 15:24 Last Admin: 02/14/17 16:11 Dose: 100 mls/hr Lisinopril (Zestril) 10 mg PO DAILY [facility] Last Admin: 02/15/17 10:15 Dose: 10 mg Risperidone (Risperdal Tab) 1 mg PO Q12 [facility] - Labs Labs: - Additional Findings Additional findings: - Constitutional Appears: No Acute Distress, Chronically Ill - Head Exam Head Exam: ATRAUMATIC - Eye Exam Eye Exam: EOMI, PERRL - ENT Exam Additional comments: dry oral mucosa - Neck Exam Neck exam: Positive for: Full Rom Additional comments: supple - Respiratory Exam Respiratory Exam: Clear to Auscultation Bilateral, NORMAL BREATHING PATTERN - Cardiovascular Exam Cardiovascular Exam: RRR, +S1, +S2 - GI/Abdominal Exam GI & Abdominal Exam: Normal Bowel Sounds, Soft Additional comments: NT, ND - Extremities Exam Additional comments: No edema B/L LE - Neurological Exam Neurological exam: Alert Additional comments: Laboratory Results - last 72 hr 02/09/17 02/11/17 02/12/17 15:00 21:05 20:45 WBC RBC Hgb Hct MCV MCH MCHC RDW Plt Count Manual Plt Count MPV Neut % (Auto) Lymph % (Auto) Blount % (Auto) Eos % (Auto) Baso % (Auto) Neut # Lymph # Blount # Eos # Baso # Retic Count Sodium 135 Potassium 3.8 Chloride 108 H Carbon Dioxide 19 L Anion Gap 12 BUN 12 Creatinine 1.3 H Est GFR ( Amer) 50 Est GFR (Non-Af Amer) 41 Random Glucose 155 H Calcium 8.8 Phosphorus Magnesium Iron TIBC % Saturation Ferritin Total Bilirubin AST ALT Alkaline Phosphatase Lactate Dehydrogenase Total Protein Albumin Globulin Albumin/Globulin Ratio Vitamin B12 Ethanolamine None detected Toxicology Panel see note Methyl Alcohol Level None detected Isopropanol None detected Acetone Level None detected Hepatitis A IgM Ab Negative Hep Bs Antigen Negative Hep B Core IgM Ab Negative Hepatitis C Antibody Reactive H 02/13/17 02/13/17 02/13/17 06:45 06:45 11:50 WBC 4.1 L D RBC 3.04 L Hgb 7.3 L Hct 23.0 L MCV 75.7 L MCH 24.1 L MCHC 31.8 L RDW 22.2 H Plt Count 58 L Manual Plt Count 60 L MPV 10.2 Neut % (Auto) 27.8 L Lymph % (Auto) 39.3 Blount % (Auto) 12.3 H Eos % (Auto) 19.9 H Baso % (Auto) 0.7 Neut # 1.1 L Lymph # 1.6 Blount # 0.5 Eos # 0.8 H Baso # 0.0 Retic Count 0.4 L Sodium 139 Potassium 2.6 L Chloride 111 H Carbon Dioxide 17 L Anion Gap 14 BUN 50 H Creatinine 4.5 H Est GFR ( Amer) 12 Est GFR (Non-Af Amer) 10 Random Glucose 71 Calcium 8.0 L Phosphorus Magnesium Iron TIBC % Saturation Ferritin Total Bilirubin 0.5 AST 32 ALT 27 Alkaline Phosphatase 55 Lactate Dehydrogenase Total Protein 6.1 L Albumin 2.1 L Globulin 4.0 H Albumin/Globulin Ratio 0.5 L Vitamin B12 Ethanolamine Toxicology Panel Methyl Alcohol Level Isopropanol Acetone Level Hepatitis A IgM Ab Hep Bs Antigen Hep B Core IgM Ab Hepatitis C Antibody 02/13/17 02/13/17 02/14/17 11:50 11:50 05:41 WBC 5.7 RBC 3.05 L Hgb 7.5 L Hct 23.2 L MCV 76.1 L MCH 24.5 L MCHC 32.2 L RDW 21.4 H Plt Count 65 L Manual Plt Count MPV 9.2 Neut % (Auto) 23.2 L Lymph % (Auto) 51.8 H Blount % (Auto) 8.6 Eos % (Auto) 13.9 H Baso % (Auto) 2.5 H Neut # 1.3 L Lymph # 2.9 Blount # 0.5 Eos # 0.8 H Baso # 0.1 Retic Count Sodium Potassium Chloride Carbon Dioxide Anion Gap BUN Creatinine Est GFR ( Amer) Est GFR (Non-Af Amer) Random Glucose Calcium Phosphorus 4.0 Magnesium 1.9 Iron 105 TIBC 150 L % Saturation 70 H Ferritin 5410.0 Total Bilirubin AST ALT Alkaline Phosphatase Lactate Dehydrogenase 603 Total Protein Albumin Globulin Albumin/Globulin Ratio Vitamin B12 634 Ethanolamine Toxicology Panel Methyl Alcohol Level Isopropanol Acetone Level Hepatitis A IgM Ab Hep Bs Antigen Hep B Core IgM Ab Hepatitis C Antibody 02/14/17 02/15/17 02/15/17 05:41 05:15 05:15 WBC 4.2 L RBC 3.18 L Hgb 7.9 L Hct 24.0 L MCV 75.3 L MCH 24.8 L MCHC 32.9 L RDW 21.5 H Plt Count 68 L Manual Plt Count MPV 8.8 Neut % (Auto) 25.6 L Lymph % (Auto) 52.9 H Blount % (Auto) 11.1 H Eos % (Auto) 9.5 H Baso % (Auto) 0.9 Neut # 1.1 L Lymph # 2.2 Blount # 0.5 Eos # 0.4 Baso # 0.0 Retic Count Sodium 143 139 Potassium 3.2 L 4.9 Chloride 115 H 110 H Carbon Dioxide 18 L 24 Anion Gap 13 10 BUN 47 H 18 H Creatinine 4.7 H 2.5 H Est GFR ( Amer) 11 24 Est GFR (Non-Af Amer) 9 19 Random Glucose 69 82 Calcium 7.9 L 7.6 L Phosphorus Magnesium Iron TIBC % Saturation Ferritin Total Bilirubin 0.6 1.0 AST 23 25 ALT 22 22 Alkaline Phosphatase 52 60 Lactate Dehydrogenase Total Protein 5.8 L 6.7 Albumin 1.9 L 2.3 L D Globulin 3.8 4.4 H Albumin/Globulin Ratio 0.5 L 0.5 L Vitamin B12 Ethanolamine Toxicology Panel Methyl Alcohol Level Isopropanol Acetone Level Hepatitis A IgM Ab Hep Bs Antigen Hep B Core IgM Ab Hepatitis C Antibody Microbiology 02/12/17 05:30 Blood-Venous Blood Culture - Preliminary NO GROWTH AFTER 3 DAYS 02/10/17 06:25 Blood-Venous Blood Culture - Final NO GROWTH AFTER 5 DAYS 02/10/17 06:25 Blood-Venous Gram Stain - Final TEST NOT PERFORMED 02/10/17 17:30 Blood-Venous Blood Culture - Preliminary NO GROWTH AFTER 4 DAYS 02/10/17 17:30 Blood-Venous Blood Culture - Preliminary NO GROWTH AFTER 4 DAYS 02/08/17 15:45 Blood-Venous Blood Culture - Final Escherichia Coli 02/08/17 15:45 Blood-Venous Gram Stain - Final 02/08/17 15:30 Blood-Venous Blood Culture - Final Escherichia Coli 02/08/17 15:30 Blood-Venous Gram Stain - Final 02/08/17 13:59 Urine,Clean Catch Urine Culture - Final Escherichia Coli Assessment and Plan (1) AIDS (acquired immunodeficiency syndrome), CD4 <=200 Status: Acute (2) UTI (urinary tract infection) Status: Acute (3) Bacteremia due to Gram-negative bacteria Status: Acute (4) Renal failure Status: Acute - Assessment and Plan (Free Text) Assessment: A/P- 61 y/o female with AIDS , Cocaine abuse, acute renal failure and dehydration presents with fever, leukopenia and GNR bacteremia. afebrile Leukopenic and thrombocytopenic. blood cx- ESBL e.coli x 2 urine cx- ESBL e.coli repeat blood cx- neg x 4 HD as per renal plan- advise to continue with IV meropenem (renal dose) day #7 for E.Coli ESBL bacteremia. advise total of 21 days of IV antibiotics for this GNR bacteremia treatment. neutropenic precautions. continue with once a week zithromax for MAC prophylaaxis. continue with IV fluconazole for severe oral candidiasis, may have esophageal candidiasis as well. day #7. can be switched to oral fluconazole. check echo r/o vegetations. HD as per renal. HAART to be initiated as outpatient.
--- NOTE | 2017-02-15 14:07 | VASCULAR ---
PROCEDURE: Date of procedure: 02/11/2017 Procedure: Placement of a non tunneled hemodialysis catheter, CPT 30590 Medications: 6cc 1 percent lidocaine Radiation: 1.3 mGy Fluoro time: 28.7 Seconds Images saved: 2 HISTORY: Acute renal failure TECHNIQUE: Following informed consent, the patient's right neck was prepped and draped in the usual sterile fashion. Ultrasound showed a patent and compressible right internal jugular vein. After the skin was anesthetized with 1% lidocaine, the internal jugular vein was accessed under direct ultrasound guidance with micropuncture technique and a guidewire was advanced under fluorospocic guidance into the SVC. The venotomy was then dilated to accommodate a non tunneled 15 hemodialysis catheter. An image documenting ultrasound guidance for vascular access was permanently saved. The catheter was tested and has adequate blood return for hemodialysis. The catheter was flushed and loaded with heparin per specified amounts. The catheter was secured to patient's skin. A dressing was applied. Post procedure chest x-ray showed a hemodialysis catheter at the caval atrial junction. IMPRESSION: Placement of a non tunneled 15 centimeter hemodialysis catheter via the right internal jugular vein. The tip of the catheter was confirmed with a postoperative chest x-ray and is at the superior vena cava-cavoatrial junction. The catheter is functional ready for use.
[2017-02-15 20:00] LABS: HEMATOCRIT 22.8 % (34.0-47.0); MEAN CORPUSCULAR HGB CONC 31.2 g/dL (33.0-37.0); WHITE BLOOD COUNT 4.3 K/uL (4.8-10.8)
[2017-02-15 20:09] LABS: ALB/GLOB RATIO 0.5 (1.0-2.1); CALCIUM 7.7 mg/dL (8.4-10.2); TOTAL PROTEIN 7.3 G/DL (6.3-8.2)
[2017-02-15 20:12] LABS: POTASSIUM 5.6 MMOL/L (3.6-5.0)
--- NOTE | 2017-02-15 20:19 | PCM.RRTMUL ---
MOBILE [employer]ROL OFFICER Nurse Assessment - Situation MOBILE PATROL OFFICER Responder Arrival Time:: 18:38 Location:: [address] [place] [address] Room Number:: 411 [employer]BILE [employer]ROL OFFICER Reason for Call: Tachycardia MOBILE PATROL OFFICER Called By: RN - IV IV Inserted during MOBILE PATROL OFFICER?: No - Respiratory Oxygen Delivery Method:: Nasal Cannula Received Nebulizer Treatments:: No Was the Patient Ventilated with Bag/Mask 100% O2?: No Secretions Suctioned?: No Was the Patient Intubated?: No Was the Patient Placed on a Ventilator?: No - Diagnostic Test Ordered EKG:: Yes Chest X-Ray:: No CT Scan:: No CPR started during MOBILE PATROL OFFICER?: No - Vital Signs Blood Pressure:: 148/78 Pulse Rate:: 110 Respiratory Rate:: 20 Temperature:: 99.7 F Oxygen Saturation:: 100 - [place] Coma Scale Coma Scale Eye Opening:: Spontaneous Coma Scale Motor:: Withdraw response to pain Coma Scale Verbal:: Confused/able to answer Coma Scale Total:: 12 - Time MOBILE PATROL OFFICER Ended Time MOBILE PATROL OFFICER Ended:: 19:02 - Vital Signs at end of MOBILE PATROL OFFICER Blood Pressure:: 137/69 Pulse Rate:: 105 Respiratory Rate:: 20 Temperature:: 99.7 F O2 Sat by Pulse Oximetry:: 100 - Recommendations 5) MOBILE PATROL OFFICER Level of Care Recommendations: Remain in current setting I.Reason for MOBILE PATROL OFFICER - A) Acute Change in Patient: Subjective: MOBILE [employer]ROL OFFICER time: 6:37 pm MOBILE PATROL OFFICER arrival time: 6:39 pm MOBILE PATROL OFFICER location: 411- MOBILE PATROL OFFICER vitals: 155/65 HR: 139. O2 saturation : 98 S: MOBILE PATROL OFFICER was called by the residents Dr. Coronado and Dr. Rodriguez after they noticed the patients heart rate was 135. The patient has been noticed to have increasing exrapyramidal side effect with shaking of her upper extremities and facial movement after having a increase dosage of her riperidone. When the medical team arrived patient was noticed to be shaking. She was arousable with verbal and physical stimuli and she was able to follow simple commands. Patient was not able to verbalize wether she has chest pain or SOB. General: Patient noted to be shaking, Cachetic, Agitated Chronically ill Mouth: Dry mucous membrane and dry lips. Respiratory: CTAB, no w/r/r Cardio: S1S2 heard, tachycardia, Regular rhythum Abd: soft, NTND Neurological: Awake,able to follow simple verbal commands. Able to with drawl with painful response. MOBILE PATROL OFFICER intervention: EKG: SVT Medication given: Adenosine 6mg x1, Adenosine 12mg x 2. Cardizem 10mg push over 2 min. Cardizam drip 5 units titration Labs ordered: CBC, CMP, Lactic acid, Troponin, - D/C: Risperidone. A/P: 61 YO F w/ PMH: of AIDS, Hepatitis C, Bipolar disorder, COPD who was admitted for UTI, Sepsis and LAN , had an MOBILE PATROL OFFICER called after her heart rate was noticed to be 135. - Dr. Coronado called the attending Dr. Hatfield and informed her about the patients condition. - F/u with Labs - D/C Risperiodone - Recommend Cardio Consult. - Administer Cardizam drip 5 units and titrate. - Vital check Q2. End vitals: 130/80 HR: 126 O2 saturation : 100% - Dr. Bautista was at bedside during entire MOBILE PATROL OFFICER Residents: Dr. Rodriguez PGY-3, Dr. Coronado PGY-2, Jb Ruiz PGY-1
[2017-02-15 20:20] LABS: TROPONIN I 0.015 ng/mL (0.00-0.120)
--- NOTE | 2017-02-15 21:50 | CP.PCM.PN ---
Subjective - Date & Time of Evaluation Date of Evaluation: 02/15/17 Time of Evaluation: 13:00 - Subjective Subjective: WAS SEEN ON RENAL F/U IN BED . VERY SLOW IN MENTATION AND RESPONSE LUNCH ON BED SIDE INTACT .. VERY POOR APPETITE ON HD M W F ALL PREVIOUS EMR REVIEWED Objective - Vital Signs/Intake and Output Vital Signs (last 24 hours): Temp Pulse Resp BP Pulse Ox 99.7 F H 110 H 20 148/78 97 02/15/17 20:26 02/15/17 20:26 02/15/17 20:26 02/15/17 20:26 02/15/17 20:05 Intake and Output: 02/15/17 02/16/17 18:59 06:59 Intake Total 1200 Balance 1200 - Medications Medications: Current Medications Acetaminophen (Tylenol 650 Mg Supp) 650 mg [place] Q6 PRN PRN Reason: Fever >100.4 F Azithromycin (Zithromax) 1,200 mg PO QWK [facility] Fluconazole (Diflucan Iv 200 Mg/100 Ml Ns) 100 mls @ 100 mls/hr IVPB DAILY [facility] Last Admin: 02/15/17 10:16 Dose: 100 mls/hr Meropenem 500 mg/ Sodium (Chloride) 100 mls @ 100 mls/hr IVPB Q12 [facility] Last Admin: 02/15/17 21:22 Dose: 100 mls/hr Potassium Chloride 40 meq/ (Lactated Ringer's) 1,020 mls @ 125 mls/hr IV .Q8H10M [facility] Last Admin: 02/15/17 05:14 Dose: 125 mls/hr Diltiazem HCl 125 mg/ Sodium (Chloride) 125 mls @ 5 mls/hr IV .Q24H ONE; 5 MG/ HR PRN Reason: Protocol Stop: 02/16/17 19:34 Last Admin: 02/15/17 20:31 Dose: 5 mg/hr, 5 mls/hr Lisinopril (Zestril) 10 mg PO DAILY [facility] Last Admin: 02/15/17 10:15 Dose: 10 mg - Labs Labs: 02/15/17 19:30 02/15/17 18:56 PT 12.8 SECONDS (9.6-11.2) H 02/10/17 06:25 INR 1.23 (0.92-1.08) H 02/10/17 06:25 APTT 34.6 SECONDS (23.3-32.5) H 02/10/17 06:25 Assessment and Plan - Assessment and Plan (Free Text) Assessment: LAN .. PROBABLY ATN .. ON HD M W F MULTIPLE CO MORBIDITIES P : C/O CURRENT CARE C/O CURRENT HD
[2017-02-16] MEDS: Potassium Chloride 40 MEQ in Lactated Ringer's 1,000 ML IV SCH (02:10)
[2017-02-16 07:42] LABS: HEMATOCRIT 18.7 % (34.0-47.0); MEAN CELL VOLUME 76.5 fl (81.0-99.0); MEAN CORPUSCULAR HEMOGLOBIN 24.6 pg (27.0-31.0); MEAN CORPUSCULAR HGB CONC 32.1 g/dL (33.0-37.0); RED CELL DISTRIBUTION WIDTH 21.2 % (11.5-14.5); WHITE BLOOD COUNT 4.2 K/uL (4.8-10.8)
[2017-02-16 08:08] LABS: ALB/GLOB RATIO 0.5 (1.0-2.1); BILIRUBIN,TOTAL 0.7 mg/dl (0.2-1.3); CALCIUM 7.6 mg/dL (8.4-10.2); TOTAL PROTEIN 6.7 G/DL (6.3-8.2)
[2017-02-16 08:17] LABS: POTASSIUM 5.6 MMOL/L (3.6-5.0)
--- NOTE | 2017-02-16 09:43 | CP.PCM.PN ---
Subjective - Date & Time of Evaluation Date of Evaluation: 02/16/17 Time of Evaluation: 07:40 - Subjective Subjective: 61 y/o F seen at bedside this morning, lethargic, arousable with difficulty. Patient's general status worsened since yesterday. She was called [facility] last night for tachycardia and she was placed in cardizem drip. VS today reviewed and stable. She is receiving HD MWF. Unable to get any information from patient due to mental status Objective - Vital Signs/Intake and Output Vital Signs (last 24 hours): Temp Pulse Resp BP Pulse Ox 97.4 F L 80 18 126/72 100 02/16/17 08:03 02/16/17 08:03 02/16/17 08:03 02/16/17 08:03 02/16/17 08:03 - Medications Medications: Current Medications Acetaminophen (Tylenol 650 Mg Supp) 650 mg [place] Q6 PRN PRN Reason: Fever >100.4 F Azithromycin (Zithromax) 1,200 mg PO QWK [facility] Fluconazole (Diflucan Iv 200 Mg/100 Ml Ns) 100 mls @ 100 mls/hr IVPB DAILY [facility] Last Admin: 02/15/17 10:16 Dose: 100 mls/hr Meropenem 500 mg/ Sodium (Chloride) 100 mls @ 100 mls/hr IVPB Q12 [facility] Last Admin: 02/15/17 21:22 Dose: 100 mls/hr Diltiazem HCl 125 mg/ Sodium (Chloride) 125 mls @ 5 mls/hr IV .Q24H ONE; 5 MG/ HR PRN Reason: Protocol Stop: 02/16/17 19:34 Last Admin: 02/15/17 20:31 Dose: 5 mg/hr, 5 mls/hr Dextrose/Sodium Chloride (Dextrose 5%/0.45% Ns 1000 Ml) 1,000 mls @ 60 mls/hr IV .[id number] [facility] Stop: 02/17/17 08:42 Lisinopril (Zestril) 10 mg PO DAILY [facility] Last Admin: 02/15/17 10:15 Dose: 10 mg - Labs Labs: 02/16/17 07:29 02/16/17 07:29 PT 12.8 SECONDS (9.6-11.2) H 02/10/17 06:25 INR 1.23 (0.92-1.08) H 02/10/17 06:25 APTT 34.6 SECONDS (23.3-32.5) H 02/10/17 06:25 - Constitutional Appears: Cachectic, Chronically Ill, Other (lethargic) - Respiratory Exam Respiratory Exam: Decreased Breath Sounds, Clear to Ausculation Bilateral - Cardiovascular Exam Cardiovascular Exam: REGULAR RHYTHM, +S1, +S2. absent: Gallop - GI/Abdominal Exam GI & Abdominal Exam: Normal Bowel Sounds - Extremities Exam Extremities Exam: Normal Capillary Refill - Neurological Exam Neurological Exam: absent: Alert (lethargic), Awake, Oriented x3 - Skin Skin Exam: Pallor, Warm Assessment and Plan - Assessment and Plan (Free Text) Assessment: pt is a 61 y/o female w/ PMHx AIDS (non-complaint with medication), Hepatitis C , Bipolar disorder, COPD, being admitted for UTI, Sepsis and LAN . Pancytopenia Worsening Hgb 6.0 today Lethargic 1 PRBC ordered FOBT ordered CT head stat w/o contrast to rule out intracraneal bleeding Most likely due to sepsis on AIDS patient vs abx side effects Anemia work up consistent with that of chronic disease F/U Epo. DC Meropenen, Fluconazole for now . LAN Stable Possible ATN due to sepsis Nephrology consulted () C/w IV fluids On HD MWF Non anion gap metabolic acidosis on admission. Normal Urine Ph. Low random urine K and High urine Na. F/U Urine Phosp, Ca and Eos For HD today . Sepsis without septic shock Improving. Repeat BCx negative SIRS + bacteremia + LAN BCx: ESBL sensitive to Imipenen qSOFA=1: No high risk of mortality ID Consult(Dr Arredondo). Will cont following recs. Hold Meropenen 500mg q12h IV(will need 3 weeks of abx) day 7 due to concerns of possible bone marrow suppression . UTI UA + for leukocytes esterase and WBC high. Negative nitrates UCx: ESBL E.Coli sensitive to Imipenen . AIDS cd4< 20 Hold HAART due to LAN On PO Zithromax for MAC prophylaxis Patient will need admission to 24h supervision facility after DC from hosp. May also need to cont HD as outpatient. s/w consulted .Bipolar disorder Patient agitated at times C/w Risperdal BID 0.5mg because of renal impairment Psych consult(Dr Julio) recs Increased risperdal to 1 mg BID. Hold due to tachy and AMS . Dysphagia Most likely due to esophageal candidiasis C/w pureed diet c/w fluconazole IV day 5 . BMI 17 Cachexia Most likely due to AIDS . Prophylaxis SCDs
[2017-02-16 09:57] LABS: HEMATOCRIT 19.7 % (34.0-47.0)
[2017-02-16] MEDS: Dextrose 5%/0.45% NS 1,000 ML IV SCH (11:18)
--- NOTE | 2017-02-16 12:55 | CARD ---
APPROVED REPORT EKG Measurement Heart [id number] <Conclusion> Unacceptable baseline artefacts Please repeat ??Supraventricular tachycardia Low voltage QRS Borderline ECG
--- NOTE | 2017-02-16 15:58 | CT ---
PROCEDURE: CT HEAD WITHOUT CONTRAST. HISTORY: ams COMPARISON: None available. TECHNIQUE: Axial computed tomography images were obtained through the head/brain without intravenous contrast. Radiation dose: Total exam DLP = 1676 mGy-cm. This CT exam was performed using one or more of the following dose reduction techniques: Automated exposure control, adjustment of the mA and/or kV according to patient size, and/or use of iterative reconstruction technique. FINDINGS: HEMORRHAGE: No intracranial hemorrhage. BRAIN: No mass effect or edema. Atrophy and chronic microvascular ischemic changes. VENTRICLES: Unremarkable. No hydrocephalus. CALVARIUM: Unremarkable. PARANASAL SINUSES: Unremarkable as visualized. No significant inflammatory changes. MASTOID AIR CELLS: Unremarkable as visualized. No inflammatory changes. OTHER FINDINGS: None. IMPRESSION: No bleed.
[2017-02-16] MEDS ORDERED: Meropenem 500 MG in Sodium Chloride 0.9% 100 ML IVPB SCH (21:00)
[2017-02-16] MEDS: Meropenem 500 MG in Sodium Chloride 0.9% 100 ML IVPB SCH (21:45)
--- NOTE | 2017-02-16 23:57 | CP.PCM.PN ---
Subjective - Date & Time of Evaluation Date of Evaluation: 02/16/17 Time of Evaluation: 13:00 - Subjective Subjective: SEEN ON RENAL F/U HD TO START SHORTLY APPEARS LETHARGIC TODAY .. LESS RESPONSIVE THAT BEFORE ALL PREVIOUS EMR REVIEWED ON HD M W F Objective - Vital Signs/Intake and Output Vital Signs (last 24 hours): Temp Pulse Resp BP Pulse Ox 97.8 F 95 H 20 170/70 H 93 L 02/16/17 20:00 02/16/17 20:00 02/16/17 20:00 02/16/17 20:00 02/16/17 20:00 Intake and Output: 02/16/17 02/17/17 18:59 06:59 Intake Total 720 Balance 720 - Medications Medications: Current Medications Acetaminophen (Tylenol 650 Mg Supp) 650 mg [place] Q6 PRN PRN Reason: Fever >100.4 F Azithromycin (Zithromax) 1,200 mg PO QWK [facility] Dextrose/Sodium Chloride (Dextrose 5%/0.45% Ns 1000 Ml) 1,000 mls @ 60 mls/hr IV .[id number] [facility] Stop: 02/17/17 08:42 Last Admin: 02/16/17 11:18 Dose: 60 mls/hr Meropenem 500 mg/ Sodium (Chloride) 100 mls @ 100 mls/hr IVPB Q12 [facility] Last Admin: 02/16/17 21:45 Dose: 100 mls/hr Fluconazole (Diflucan Iv 200 Mg/100 Ml Ns) 100 mls @ 100 mls/hr IVPB DAILY [facility] - Labs Labs: 02/16/17 09:30 02/16/17 07:29 PT 12.8 SECONDS (9.6-11.2) H 02/10/17 06:25 INR 1.23 (0.92-1.08) H 02/10/17 06:25 APTT 34.6 SECONDS (23.3-32.5) H 02/10/17 06:25 Assessment and Plan - Assessment and Plan (Free Text) Assessment: ESRD ON HD M W ANEMIA .. GIVE ONE UNIT TONIGHT .. 2ND UNIT IN AM ON HD SEPSIS ON IVAB C/O CURRENT CARE TRANFUSE ONE UNIT TODAY AND 2ND UNIT ON NEXT HD
[2017-02-17] MEDS: Dextrose 5%/0.45% NS 1,000 ML IV SCH (02:00)
[2017-02-17 06:50] LABS: BASO # 0.1 K/uL (0.0-0.2); BASO % 1.6 % (0.0-2.0); EOS # 0.2 K/uL (0.0-0.7); EOS % 4.5 % (0.0-4.0); HEMATOCRIT 32.7 % (34.0-47.0); LYMPH # 1.4 K/uL (1.0-4.3); MEAN CELL VOLUME 79.5 fl (81.0-99.0); MEAN CORPUSCULAR HEMOGLOBIN 26.7 pg (27.0-31.0); MEAN CORPUSCULAR HGB CONC 33.6 g/dL (33.0-37.0); MEAN PLATELET VOLUME 8.9 fl (7.2-11.7); MONO # 0.4 K/uL (0.0-0.8); MONO % 11.5 % (0.0-10.0); NEUT # 1.7 K/uL (1.8-7.0); NEUT % 45.4 % (50.0-75.0); NRBC % 0.7 % (0.0-0.0); RED CELL DISTRIBUTION WIDTH 17.9 % (11.5-14.5); WHITE BLOOD COUNT 3.8 K/uL (4.8-10.8)
[2017-02-17 07:17] LABS: CALCIUM 7.6 mg/dL (8.4-10.2); POTASSIUM 4.1 MMOL/L (3.6-5.0)
--- NOTE | 2017-02-17 07:23 | PQF SEPSIS ---
This form is a permanent part of the medical record 02/17/17 Dr. Edward Lee, For your patient's severity of illness would you please further clarify the type of Sepsis. Admitted with AMS.Temp 103, HR 111, BP 157/99. Blood and urine CS growing E coli. Lactic acid 1.4. Treated with IVAB Clarification of your documentation is requested to better reflect the severity of illness and intensity of treatment of your patient. Indicators present [x] Temp < 96.8 or > 100.4 [x] WBC count > 12,000/mm3 or <000/mm3 or 10% immature neutrophils [x] Heart Rate > 90 [] Respiratory Rate > 20 [x] Fever or hypothermia [] Chills [x] Positive blood cultures E.Coli [] Hypotension [] Metabolic acidosis (Elevated lactate level, anion gap or reduced blood pH) [x] Acute confusion /Altered Mental Status [] Shock [] Other: [] Location in the medical record that reflects the above clinical findings: [] Treatment Provided: [x] IVAB PHYSICIAN'S RESPONSE Based on your medical judgment of the clinical indicators outlined above, are you treating this patient for a known or suspected: [] Sepsis / Septicemia Please specify organism if known [] [] SIRS (Systemic Inflammatory Response Syndrome) [] Severe Sepsis (Sepsis with Associated Organ Dysfunction) [] Fever of Unknown Origin [] Other, please indicate: [] [] If Unable to Determine, please check the box, sign and date. Present On Admission (POA) Indicator: [] Present at the time of admission [] Not present at the time of admission [] Clinically Undetermined In responding to this query, please exercise your independent professional judgment. The fact that a question is asked does not imply that any particular answer is desired or expected. Thank you for your clarification on this documentation. If you have any questions please call:[phone] or [phone] * Thank you, Caron Daley RN CDMP [facility]
[2017-02-17] MEDS: Meropenem 500 MG in Sodium Chloride 0.9% 100 ML IVPB SCH ×2 (09:31→21:21)
[2017-02-17] MEDS: Fluconazole IV 200mg/100 ml NS 100 ML IVPB SCH (09:32)
--- NOTE | 2017-02-17 10:01 | CP.PCM.PN ---
Subjective - Date & Time of Evaluation Date of Evaluation: 02/17/17 Time of Evaluation: 08:30 - Subjective Subjective: Patient seen and examined bedside. She is lying on her side, awake, lethargic. Patient is nonverbal, not responding to questions. Nurse was bedside, reports patient appeared more alert today. Objective - Vital Signs/Intake and Output Vital Signs (last 24 hours): Temp Pulse Resp BP Pulse Ox 97.8 F 66 18 135/77 100 02/17/17 08:22 02/17/17 08:22 02/17/17 08:22 02/17/17 08:22 02/17/17 08:22 Intake and Output: 02/17/17 02/17/17 06:59 18:59 Intake Total 720 Balance 720 - Medications Medications: Current Medications Acetaminophen (Tylenol 650 Mg Supp) 650 mg [place] Q6 PRN PRN Reason: Fever >100.4 F Azithromycin (Zithromax) 1,200 mg PO QWK [facility] Meropenem 500 mg/ Sodium (Chloride) 100 mls @ 100 mls/hr IVPB Q12 [facility] Last Admin: 02/17/17 09:31 Dose: 100 mls/hr Fluconazole (Diflucan Iv 200 Mg/100 Ml Ns) 100 mls @ 100 mls/hr IVPB DAILY [facility] Last Admin: 02/17/17 09:32 Dose: 100 mls/hr - Labs Labs: 02/17/17 05:45 02/17/17 05:45 PT 12.8 SECONDS (9.6-11.2) H 02/10/17 06:25 INR 1.23 (0.92-1.08) H 02/10/17 06:25 APTT 34.6 SECONDS (23.3-32.5) H 02/10/17 06:25 - Constitutional Appears: Cachectic - Head Exam Head Exam: ATRAUMATIC, NORMAL INSPECTION - Eye Exam Eye Exam: Normal appearance - ENT Exam ENT Exam: Mucous Membranes Moist - Respiratory Exam Respiratory Exam: Clear to Ausculation Bilateral, NORMAL BREATHING PATTERN - Cardiovascular Exam Cardiovascular Exam: REGULAR RHYTHM, +S1, +S2 - GI/Abdominal Exam GI & Abdominal Exam: Normal Bowel Sounds. absent: Distended, Tenderness - Extremities Exam Extremities Exam: absent: Calf Tenderness - Neurological Exam Neurological Exam: Awake, CN II-XII Intact (grossly) - Skin Skin Exam: Dry, Intact Assessment and Plan - Assessment and Plan (Free Text) Assessment: Assessment: 61 y/o female w/ PMHx AIDS (non-complaint with medication), Hepatitis C, Bipolar disorder, COPD, admitted for sepsis likely secondary to UTI and LAN, now with pancytopenia. Patient continues to have AMS. Patient is immunocompromised. status, CD4 <20, consider Progressive Multifocal Leukoencephalopathy, will workup to rule out SARITHA virus vs BK virus as etiologies. Pancytopenia Worsening pancytopenia, unclear if related to sepsis vs adverse side effect of medication vs AIDS. Pt s/p 2 PRBCs. Hb : 11.0. will monitor. Epo: 5.[address] abd/pelvis to rule out bleeding. Heme/onc consult. Case d/w Dr. Marquez. follow up recommendations LAN Improving, possible ATN due to sepsis. Cr: 2.0, trending down. Nephrology consulted () C/w IV fluids and HD MWF Non anion gap metabolic acidosis on admission. Normal Urine Ph. Low random urine K and High urine Na. F/U Urine Phosp, Ca and Eos Monitor. Sepsis Improving. Repeat BCx negative SIRS + bacteremia + LAN BCx: ESBL sensitive to Imipenen qSOFA=1: No high risk of mortality ID Consult(Dr Arredondo). Will cont following recs. Antibiotics continued. UTI UA + for leukocytes esterase and WBC high. Negative nitrates UCx: ESBL, Continue meropenem AIDS pt is immunocompromised, consider PML as etiology, will work up to rule out BK/ SARITHA virus with PCR as well as imaging. -follow up MRI brain with and without contrast. cd4< 20. Hold HAART due to LAN On PO Zithromax for MAC prophylaxis Patient will need admission to 24h supervision facility after DC from hosp. May also need to cont HD as outpatient. s/w consulted Bipolar disorder Patient agitated at times C/w Risperdal BID 0.5mg because of renal impairment Psych consult(Dr Julio) recs Increased risperdal to 1 mg BID. Hold due to tachy and AMS Dysphagia Most likely due to esophageal candidiasis C/w pureed diet c/w fluconazole IV day 5 BMI 17 Cachexia Most likely due to AIDS -nutrition consult ordered DVT Prophylaxis pt has thrombocytopenia, SCDs for now
[2017-02-17 12:37] LABS: RBC URINE 1 /hpf (0-3); URINE BILIRUBIN NEGATIVE (NEGATIVE); URINE BLOOD NEGATIVE (NEGATIVE); URINE COLOR STRAW (YELLOW); URINE GLUCOSE (UA) >=500 mg/dL (Normal); URINE KETONE 20 mg/dL (NEGATIVE); URINE LEUKOCYTE ESTERASE NEG Leu/uL (Negative); URINE PROTEIN 30 mg/dL (NEGATIVE); URINE UROBILINOGEN 0.2-1.0 mg/dL (0.2-1.0); WBC URINE 1 /hpf (0-5)
--- NOTE | 2017-02-17 15:22 | CP.PCM.PCO ---
Assessment/Plan - Assessment and Plan (Free Text) Assessment: Pt admitted with Ecoli sepsis - positive blood and urine cx Spoke with next of kin yesterday and today . Advised family meeting. She will reach out to children and mother nad let us know
--- NOTE | 2017-02-17 17:37 | CP.PCM.PN ---
Subjective - Date & Time of Evaluation Date of Evaluation: 02/17/17 Time of Evaluation: 15:00 - Subjective Subjective: SEEN ON RENAL F/U APPEARS MORE ALERT AND RESPONSIVE THAN BEFORE ON HD M W F CREAT IS BETTER Objective - Vital Signs/Intake and Output Vital Signs (last 24 hours): Temp Pulse Resp BP Pulse Ox 97.9 F 64 20 170/73 H 100 02/17/17 16:00 02/17/17 16:00 02/17/17 16:00 02/17/17 16:00 02/17/17 16:00 Intake and Output: 02/17/17 02/17/17 06:59 18:59 Intake Total 720 Balance 720 - Medications Medications: Current Medications Acetaminophen (Tylenol 650 Mg Supp) 650 mg [place] Q6 PRN PRN Reason: Fever >100.4 F Azithromycin (Zithromax) 1,200 mg PO QWK [facility] Meropenem 500 mg/ Sodium (Chloride) 100 mls @ 100 mls/hr IVPB Q12 [facility] Last Admin: 02/17/17 09:31 Dose: 100 mls/hr Fluconazole (Diflucan Iv 200 Mg/100 Ml Ns) 100 mls @ 100 mls/hr IVPB DAILY [facility] Last Admin: 02/17/17 09:32 Dose: 100 mls/hr - Labs Labs: 02/17/17 05:45 02/17/17 05:45 PT 12.8 SECONDS (9.6-11.2) H 02/10/17 06:25 INR 1.23 (0.92-1.08) H 02/10/17 06:25 APTT 34.6 SECONDS (23.3-32.5) H 02/10/17 06:25 Assessment and Plan - Assessment and Plan (Free Text) Assessment: RENAL FUNCTION IMPROVING .. CREATININ IS 2.0 TODAY IF CREAT IS 2 OR LOWER TOMORROW THEN I WILL D/C FURTHER HD
--- NOTE | 2017-02-17 17:51 | CP.PCM.PN ---
Subjective - Date & Time of Evaluation Date of Evaluation: 02/17/17 Time of Evaluation: 17:00 - Subjective Subjective: ID note- Pt. seen and examined today. somewhat lethargic. afebrile . does not answer my questions. as per team less lethargic today. Objective - Vital Signs/Intake and Output Vital Signs (last 24 hours): Temp Pulse Resp BP Pulse Ox 97.9 F 64 20 170/73 H 100 02/17/17 16:00 02/17/17 16:00 02/17/17 16:00 02/17/17 16:00 02/17/17 16:00 Intake and Output: 02/17/17 02/17/17 06:59 18:59 Intake Total 720 Balance 720 - Medications Medications: Current Medications Acetaminophen (Tylenol 650 Mg Supp) 650 mg [place] Q6 PRN PRN Reason: Fever >100.4 F Azithromycin (Zithromax) 1,200 mg PO QWK [facility] Meropenem 500 mg/ Sodium (Chloride) 100 mls @ 100 mls/hr IVPB Q12 [facility] Last Admin: 02/17/17 09:31 Dose: 100 mls/hr Fluconazole (Diflucan Iv 200 Mg/100 Ml Ns) 100 mls @ 100 mls/hr [facility] Last Admin: 02/17/17 09:32 Dose: 100 mls/hr - Labs Labs: - Additional Findings Additional findings: - Constitutional Appears: No Acute Distress, Chronically Ill - Head Exam Head Exam: ATRAUMATIC - Eye Exam Eye Exam: EOMI, PERRL - ENT Exam Additional comments: dry oral mucosa - Neck Exam Neck exam: Positive for: Full Rom Additional comments: supple - Respiratory Exam Respiratory Exam: Clear to Auscultation Bilateral, NORMAL BREATHING PATTERN - Cardiovascular Exam Cardiovascular Exam: RRR, +S1, +S2 - GI/Abdominal Exam GI & Abdominal Exam: Normal Bowel Sounds, Soft Additional comments: NT, ND - Extremities Exam Additional comments: No edema B/L LE - Neurological Exam Neurological exam: lethargic Laboratory Results - last 72 hr 02/09/17 02/11/17 02/15/17 15:00 21:05 05:15 WBC 4.2 L RBC 3.18 L Hgb 7.9 L Hct 24.0 L MCV 75.3 L MCH 24.8 L MCHC 32.9 L RDW 21.5 H Plt Count 68 L MPV 8.8 Neut % (Auto) 25.6 L Lymph % (Auto) 52.9 H [place] % (Auto) 11.1 H Eos % (Auto) 9.5 H Baso % (Auto) 0.9 Neut # 1.1 L Lymph # 2.2 [place] # 0.5 Eos # 0.4 Baso # 0.0 Sodium Potassium Chloride Carbon Dioxide Anion Gap BUN Creatinine Est GFR ( Amer) Est GFR (Non-Af Amer) Random Glucose Lactic Acid Calcium Erythropoietin Total Bilirubin AST ALT Alkaline Phosphatase Troponin I Total Protein Albumin Globulin Albumin/Globulin Ratio Urine Color Urine Clarity Urine pH Ur Specific [place] Urine Protein Urine Glucose (UA) Urine Ketones Urine Blood Urine Nitrate Urine Bilirubin Urine Urobilinogen Ur Leukocyte Esterase Urine RBC (Auto) Urine Microscopic WBC Ur Squamous Epith Cells Stool Occult Blood Toxicology Panel see note Hepatitis A IgM Ab Negative Hep Bs Antigen Negative Hep B Core IgM Ab Negative Hepatitis C Antibody Reactive H Blood Type Antibody Screen Crossmatch BBK History Checked 02/15/17 02/15/17 02/15/17 05:15 05:15 18:56 WBC RBC Hgb Hct MCV MCH MCHC RDW Plt Count MPV Neut % (Auto) Lymph % (Auto) [place] % (Auto) Eos % (Auto) Baso % (Auto) Neut # Lymph # [place] # Eos # Baso # Sodium 139 140 Potassium 4.9 5.6 H Chloride 110 H 113 H Carbon Dioxide 24 19 L Anion Gap 10 14 BUN 18 H 20 H Creatinine 2.5 H 2.7 H Est GFR ( Amer) 24 22 Est GFR (Non-Af Amer) 19 18 Random Glucose 82 75 Lactic Acid Calcium 7.6 L 7.7 L Erythropoietin 5.0 Total Bilirubin 1.0 1.0 AST 25 27 ALT 22 24 Alkaline Phosphatase 60 63 Troponin I 0.0150 Total Protein 6.7 7.3 Albumin 2.3 L D 2.5 L Globulin 4.4 H 4.9 H Albumin/Globulin Ratio 0.5 L 0.5 L Urine Color Urine Clarity Urine pH Ur Specific [place] Urine Protein Urine Glucose (UA) Urine Ketones Urine Blood Urine Nitrate Urine Bilirubin Urine Urobilinogen Ur Leukocyte Esterase Urine RBC (Auto) Urine Microscopic WBC Ur Squamous Epith Cells Stool Occult Blood Toxicology Panel Hepatitis A IgM Ab Hep Bs Antigen Hep B Core IgM Ab Hepatitis C Antibody Blood Type Antibody Screen Crossmatch BBK History Checked 02/15/17 02/15/17 02/16/17 18:57 19:30 07:29 WBC 4.3 L 4.2 L RBC 2.96 L 2.45 L Hgb 7.1 L 6.0 L* Hct 22.8 L 18.7 L MCV 77.0 L 76.5 L MCH 24.0 L 24.6 L MCHC 31.2 L 32.1 L RDW 21.0 H 21.2 H Plt Count 67 L 67 L MPV Neut % (Auto) Lymph % (Auto) [place] % (Auto) Eos % (Auto) Baso % (Auto) Neut # Lymph # [place] # Eos # Baso # Sodium Potassium Chloride Carbon Dioxide Anion Gap BUN Creatinine Est GFR ( Amer) Est GFR (Non-Af Amer) Random Glucose Lactic Acid 1.4 Calcium Erythropoietin Total Bilirubin AST ALT Alkaline Phosphatase Troponin I Total Protein Albumin Globulin Albumin/Globulin Ratio Urine Color Urine Clarity Urine pH Ur Specific [place] Urine Protein Urine Glucose (UA) Urine Ketones Urine Blood Urine Nitrate Urine Bilirubin Urine Urobilinogen Ur Leukocyte Esterase Urine RBC (Auto) Urine Microscopic WBC Ur Squamous Epith Cells Stool Occult Blood Toxicology Panel Hepatitis A IgM Ab Hep Bs Antigen Hep B Core IgM Ab Hepatitis C Antibody Blood Type Antibody Screen Crossmatch BBK History Checked 02/16/17 02/16/17 02/16/17 07:29 09:30 09:30 WBC RBC Hgb 6.3 L* Hct 19.7 L MCV MCH MCHC RDW Plt Count MPV Neut % (Auto) Lymph % (Auto) [place] % (Auto) Eos % (Auto) Baso % (Auto) Neut # Lymph # [place] # Eos # Baso # Sodium 144 Potassium 5.6 H Chloride 114 H Carbon Dioxide 20 L Anion Gap 16 BUN 22 H Creatinine 3.0 H Est GFR ( Amer) 19 Est GFR (Non-Af Amer) 16 Random Glucose 82 Lactic Acid Calcium 7.6 L Erythropoietin Total Bilirubin 0.7 AST 22 ALT 25 Alkaline Phosphatase 54 Troponin I Total Protein 6.7 Albumin 2.2 L Globulin 4.5 H Albumin/Globulin Ratio 0.5 L Urine Color Urine Clarity Urine pH Ur Specific [place] Urine Protein Urine Glucose (UA) Urine Ketones Urine Blood Urine Nitrate Urine Bilirubin Urine Urobilinogen Ur Leukocyte Esterase Urine RBC (Auto) Urine Microscopic WBC Ur Squamous Epith Cells Stool Occult Blood Toxicology Panel Hepatitis A IgM Ab Hep Bs Antigen Hep B Core IgM Ab Hepatitis C Antibody Blood Type A POSITIVE Antibody Screen Negative Crossmatch See Detail BBK History Checked Patient has bt 02/16/17 02/17/17 02/17/17 Unknown 04:32 05:45 WBC 3.8 L RBC 4.11 Hgb 11.0 L D Hct 32.7 L MCV 79.5 L D MCH 26.7 L MCHC 33.6 RDW 17.9 H Plt Count 52 L MPV 8.9 Neut % (Auto) 45.4 L Lymph % (Auto) 37.0 [place] % (Auto) 11.5 H Eos % (Auto) 4.5 H Baso % (Auto) 1.6 Neut # 1.7 L Lymph # 1.4 [place] # 0.4 Eos # 0.2 Baso # 0.1 Sodium Potassium Chloride Carbon Dioxide Anion Gap BUN Creatinine Est GFR ( Amer) Est GFR (Non-Af Amer) Random Glucose Lactic Acid Calcium Erythropoietin Total Bilirubin AST ALT Alkaline Phosphatase Troponin I Total Protein Albumin Globulin Albumin/Globulin Ratio Urine Color Straw Urine Clarity Clear Urine pH 9.0 Ur Specific [place] < 1.005 Urine Protein 30 Urine Glucose (UA) >=500 Urine Ketones 20 Urine Blood Negative Urine Nitrate Negative Urine Bilirubin Negative Urine Urobilinogen 0.2-1.0 Ur Leukocyte Esterase Neg Urine RBC (Auto) 1 Urine Microscopic WBC 1 Ur Squamous Epith Cells < 1 Stool Occult Blood Negative Toxicology Panel Hepatitis A IgM Ab Hep Bs Antigen Hep B Core IgM Ab Hepatitis C Antibody Blood Type Antibody Screen Crossmatch BBK History Checked 02/17/17 05:45 WBC RBC Hgb Hct MCV MCH MCHC RDW Plt Count MPV Neut % (Auto) Lymph % (Auto) [place] % (Auto) Eos % (Auto) Baso % (Auto) Neut # Lymph # [place] # Eos # Baso # Sodium 142 Potassium 4.1 Chloride 110 H Carbon Dioxide 25 Anion Gap 11 BUN 9 Creatinine 2.0 H Est GFR ( Amer) 30 Est GFR (Non-Af Amer) 25 Random Glucose 89 Lactic Acid Calcium 7.6 L Erythropoietin Total Bilirubin AST ALT Alkaline Phosphatase Troponin I Total Protein Albumin Globulin Albumin/Globulin Ratio Urine Color Urine Clarity Urine pH Ur Specific [place] Urine Protein Urine Glucose (UA) Urine Ketones Urine Blood Urine Nitrate Urine Bilirubin Urine Urobilinogen Ur Leukocyte Esterase Urine RBC (Auto) Urine Microscopic WBC Ur Squamous Epith Cells Stool Occult Blood Toxicology Panel Hepatitis A IgM Ab Hep Bs Antigen Hep B Core IgM Ab Hepatitis C Antibody Blood Type Antibody Screen Crossmatch BBK History Checked Microbiology 02/12/17 05:30 Blood-Venous Blood Culture - Final NO GROWTH AFTER 5 DAYS 02/12/17 05:30 Blood-Venous Gram Stain - Final 02/10/17 17:30 Blood-Venous Blood Culture - Final NO GROWTH AFTER 5 DAYS 02/10/17 17:30 Blood-Venous Gram Stain - Final 02/10/17 17:30 Blood-Venous Blood Culture - Final NO GROWTH AFTER 5 DAYS 02/10/17 17:30 Blood-Venous Gram Stain - Final 02/10/17 06:25 Blood-Venous Blood Culture - Final NO GROWTH AFTER 5 DAYS 02/10/17 06:25 Blood-Venous Gram Stain - Final TEST NOT PERFORMED 02/08/17 15:45 Blood-Venous Blood Culture - Final Escherichia Coli 02/08/17 15:45 Blood-Venous Gram Stain - Final 02/08/17 15:30 Blood-Venous Blood Culture - Final Escherichia Coli 02/08/17 15:30 Blood-Venous Gram Stain - Final 02/08/17 13:59 Urine,Clean Catch Urine Culture - Final Escherichia Coli Accession No. : [id number] Patient Name / ID : KIP CAPPS / [id number] Exam Date : 02/16/2017 15:24:20 ( Approved ) Study Comment : Sex / Age : F / 61Y Creator : Gene Morrissey MD Dictator : Gene Morrissey MD Construction Engineer : [employer]products Extractor : Gene Morrissey MD Approver2 : Report Date : 02/16/2017 15:56:25 My Comment : PROCEDURE: CT HEAD WITHOUT CONTRAST. HISTORY: ams COMPARISON: None available. TECHNIQUE: Axial computed tomography images were obtained through the head/brain without intravenous contrast. Radiation dose: Total exam DLP = 1676 mGy-cm. This CT exam was performed using one or more of the following dose reduction techniques: Automated exposure control, adjustment of the mA and/or kV according to patient size, and/or use of iterative reconstruction technique. FINDINGS: HEMORRHAGE: No intracranial hemorrhage. BRAIN: No mass effect or edema. Atrophy and chronic microvascular ischemic changes. VENTRICLES: Unremarkable. No hydrocephalus. CALVARIUM: Unremarkable. PARANASAL SINUSES: Unremarkable as visualized. No significant inflammatory changes. MASTOID AIR CELLS: Unremarkable as visualized. No inflammatory changes. OTHER FINDINGS: None. IMPRESSION: No bleed. Assessment and Plan (1) AIDS (acquired immunodeficiency syndrome), CD4 <=200 Status: Acute (2) UTI (urinary tract infection) Status: Acute (3) Bacteremia due to Gram-negative bacteria Status: Acute (4) Renal failure Status: Acute - Assessment and Plan (Free Text) Assessment: A/P- 61 y/o female with AIDS , Cocaine abuse, acute renal failure and dehydration presents with fever, leukopenia and GNR bacteremia. afebrile pancytopenia most likely secondary to uncontrolled HIV and hence HIV nmarrow suppression blood cx- ESBL e.coli x 2 urine cx- ESBL e.coli repeat blood cx- neg x 4 HD as per renal plan- advise to continue with IV meropenem (renal dose) day #10 for E.Coli ESBL bacteremia. advise total of 21 days of IV antibiotics for this GNR bacteremia treatment. continue with once a week zithromax for MAC prophylaaxis. continue with fluconazole for severe oral candidiasis, may have esophageal candidiasis as well. day #10. HD as per renal. HAART to be initiated as outpatient. all above d/w DR.Pierre Lee.
--- NOTE | 2017-02-18 06:38 | CP.PCM.PN ---
Subjective - Date & Time of Evaluation Date of Evaluation: 02/18/17 Time of Evaluation: 07:45 - Subjective Subjective: Patient more arousable today, responding slightly more to questions, reports feeling cold. No acute events overnight. Patient to get imaging today as well as HD. Family meeting scheduled for this afternoon. Objective - Vital Signs/Intake and Output Vital Signs (last 24 hours): Temp Pulse Resp BP Pulse Ox 98.2 F 65 18 155/78 H 100 02/18/17 05:02 02/18/17 05:02 02/18/17 05:02 02/18/17 05:02 02/18/17 05:02 Intake and Output: 02/17/17 02/18/17 18:59 06:59 Intake Total 800 Balance 800 - Medications Medications: Current Medications Acetaminophen (Tylenol 650 Mg Supp) 650 mg [place] Q6 PRN PRN Reason: Fever >100.4 F Azithromycin (Zithromax) 1,200 mg PO QWK [facility] Meropenem 500 mg/ Sodium (Chloride) 100 mls @ 100 mls/hr IVPB Q12 [facility] Last Admin: 02/17/17 21:21 Dose: 100 mls/hr Fluconazole (Diflucan Iv 200 Mg/100 Ml Ns) 100 mls @ 100 mls/hr IVPB DAILY [facility] Last Admin: 02/17/17 09:32 Dose: 100 mls/hr - Labs Labs: 02/17/17 05:45 02/17/17 05:45 PT 12.8 SECONDS (9.6-11.2) H 02/10/17 06:25 INR 1.23 (0.92-1.08) H 02/10/17 06:25 APTT 34.6 SECONDS (23.3-32.5) H 02/10/17 06:25 - Constitutional Appears: Cachectic (lethargic, arousable) - Head Exam Head Exam: NORMOCEPHALIC - Eye Exam Eye Exam: Normal appearance - Respiratory Exam Respiratory Exam: Clear to Ausculation Bilateral, NORMAL BREATHING PATTERN - Cardiovascular Exam Cardiovascular Exam: REGULAR RHYTHM, +S1, +S2 - GI/Abdominal Exam GI & Abdominal Exam: absent: Tenderness Assessment and Plan - Assessment and Plan (Free Text) Assessment: 61 y/o female w/ PMHx AIDS (non-complaint with medication), Hepatitis C, Bipolar disorder, COPD, admitted for sepsis likely secondary to UTI and LAN, now with pancytopenia. She is hemodynamically stable, and is more alert today. Patient is immunocompromised. 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 Family meeting this afternoon to discuss plan of care. Pancytopenia Labs reviewed, worsening pancytopenia, appears to be medication induced vs AIDS. Pt s/p 2 PRBCs. Hb on 02/17: 11.0, hb today after dialysis: 9.[address] abd/pelvis to rule out bleeding. Appreciate heme/onc input. If patient clinically improves, consider bone marrow biopsy. LAN Improving, possible ATN due to sepsis. Cr: 3.0, up from 2.0 yesterday, s/p HD also with hypokalemia : 2.9, will replace. Nephrology on board. () C/w IV fluids and HD MWF Non anion gap metabolic acidosis on admission. Normal Urine Ph. Low random urine K and High urine Na. F/U Urine Phosp, Ca and Eos Monitor. Sepsis Hemodynamically stable. Repeat BCx negative SIRS + bacteremia + LAN BCx: ESBL sensitive to Imipenen qSOFA=1: No high risk of mortality ID Consult(Dr Arredondo, appreciate input: Antibiotics continued. UTI UA + for leukocytes esterase and WBC high. Negative nitrates UCx: ESBL, Continue meropenem AIDS pt is immunocompromised, considering PML as etiology, will work up to rule out BK/SARITHA virus with PCR as well as imaging. PCR is pending, MRI without contrast today after HD cd4< 20. Hold HAART due to LAN On PO Zithromax for MAC prophylaxis s/w consulted Bipolar disorder patient has been stable, no reports of agitation to team. Psych consult (Dr Julio) recs Increased risperdal to 1 mg BID. Hold due to tachy and AMS Dysphagia Likely due to esophageal candidiasis, patient does not have appetite C/w pureed diet c/w fluconazole IV day 5 BMI 17 Cachexia Most likely due to AIDS -nutrition consult ordered DVT Prophylaxis pt has worsening thrombocytopenia, SCDs for now
[2017-02-18] MEDS: Fluconazole IV 200mg/100 ml NS 100 ML IVPB SCH (09:17)
[2017-02-18] MEDS: Meropenem 500 MG in Sodium Chloride 0.9% 100 ML IVPB SCH ×2 (09:17→20:40)
--- NOTE | 2017-02-18 09:56 | CP.PCM.CON ---
History of Present Illness - History of Present Illness History of Present Illness: 61 year old female with a history of HIV/AIDS (noncompliant with HAART), hep c, bipolar disorder, admitted with bacteremia, LAN, with pancytopenia. The patient is currently drowsy and I am unable to obtain further history from her. Review of her medical records shows pancytopenia with neutropenia. Her hgb susan is 6 and plt susan is 58,000 during this admission. She has no signs of overt bleeding and is receiving PRBC transfusion support. Past medical, surgical, family, social history cannot be obtained from the patient. Allergies: NKA Review of systems cannot be obtained from the patient. Past Patient History - Infectious Disease Hx of Infectious Diseases: None - Past Medical History & Family History Past Medical History?: Yes - Past Social History Alcohol: None Drugs: Cocaine - CARDIAC Hx Hypertension: Yes - PULMONARY Hx Pneumonia: Yes - NEUROLOGICAL Hx Seizures: No - HEENT Hx HEENT Problems: Yes Other/Comment: Blurred vision,stated has old eyeglasses, needs new one. - RENAL Hx Chronic Kidney Disease: No - ENDOCRINE/METABOLIC Hx Hypothyroidism: No - HEMATOLOGICAL/ONCOLOGICAL Hx AIDS: Yes Hx Human Immunodeficiency Virus (HIV): Yes - INTEGUMENTARY Hx Dermatological Problems: No - MUSCULOSKELETAL/RHEUMATOLOGICAL Hx Arthritis: Yes Hx Rheumatoid Arthritis: No - GASTROINTESTINAL Hx Gastrointestinal Disorders: Yes Other/Comment: hepatitis C - GENITOURINARY/GYNECOLOGICAL Hx Sexually Transmitted Disorders: No - PSYCHIATRIC Hx Anxiety: Yes Hx Bipolar Disorder: Yes Hx Depression: Yes - SURGICAL HISTORY Hx Surgeries: No - ANESTHESIA Hx Anesthesia: No Hx Anesthesia Reactions: No Hx Malignant Hyperthermia: No Meds Allergies/Adverse Reactions: Allergies Allergy/AdvReac Type Severity Reaction Status Date / Time No Known Allergies Allergy Verified 02/08/17 12:23 - Medications Medications: Current Medications Acetaminophen (Tylenol 650 Mg Supp) 650 mg [place] Q6 PRN PRN Reason: Fever >100.4 F Azithromycin (Zithromax) 1,200 mg PO QWK [facility] Meropenem 500 mg/ Sodium (Chloride) 100 mls @ 100 mls/hr IVPB Q12 [facility] Last Admin: 02/18/17 09:17 Dose: 100 mls/hr Fluconazole (Diflucan Iv 200 Mg/100 Ml Ns) 100 mls @ 100 mls/hr IVPB DAILY [facility] Last Admin: 02/18/17 09:17 Dose: 100 mls/hr Physical Exam - Constitutional Appears: Cachectic - Head Exam Head Exam: ATRAUMATIC - Eye Exam Eye Exam: Normal appearance - ENT Exam ENT Exam: Mucous Membranes Dry - Respiratory Exam Respiratory Exam: NORMAL BREATHING PATTERN - Cardiovascular Exam Cardiovascular Exam: +S1, +S2 - GI/Abdominal Exam GI & Abdominal Exam: Normal Bowel Sounds - Extremities Exam Extremities exam: Positive for: normal inspection - Neurological Exam Neurological exam: Altered - Skin Skin Exam: Warm Results - Vital Signs Recent Vital Signs: Last Vital Signs Temp 97.7 F 02/18/17 08:20 Pulse 55 L 02/18/17 08:20 Resp 18 02/18/17 08:20 BP 149/66 02/18/17 08:20 Pulse Ox 100 02/18/17 08:20 - Labs Result Diagrams: 02/17/17 05:45 02/17/17 05:45 Labs: Laboratory Results - last 24 hr 02/17/17 02/17/17 04:32 16:45 Urine Color Straw Urine Clarity Clear Urine pH 9.0 Ur Specific [place] < 1.005 Urine Protein 30 Urine Glucose (UA) >=500 Urine Ketones 20 Urine Blood Negative Urine Nitrate Negative Urine Bilirubin Negative Urine Urobilinogen 0.2-1.0 Ur Leukocyte Esterase Neg Urine RBC (Auto) 1 Urine Microscopic WBC 1 Ur Squamous Epith Cells < 1 Hep Bs Antibody Negative Assessment & Plan (1) Pancytopenia Assessment and Plan: likely related to HIV/AIDS normal iron and b12 stores; will check folate infiltrative bone marrow pathology possible given compromised immune systems will consider bone marrow biopsy if pt clinically improves transfusion support PRN Thank you for this interesting consult. Status: Acute
[2017-02-18 12:02] LABS: POTASSIUM 2.9 MMOL/L (3.6-5.0)
[2017-02-18 12:04] LABS: BASO # 0.1 K/uL (0.0-0.2); BASO % 1.7 % (0.0-2.0); EOS # 0.1 K/uL (0.0-0.7); HEMATOCRIT 28.1 % (34.0-47.0); LYMPH # 1.5 K/uL (1.0-4.3); LYMPH % 40.3 % (20.0-40.0); MEAN CELL VOLUME 80.9 fl (81.0-99.0); MEAN CORPUSCULAR HEMOGLOBIN 28.1 pg (27.0-31.0); MEAN CORPUSCULAR HGB CONC 34.8 g/dL (33.0-37.0); MONO # 0.3 K/uL (0.0-0.8); MONO % 9.3 % (0.0-10.0); NEUT # 1.7 K/uL (1.8-7.0); NEUT % 44.7 % (50.0-75.0); NRBC % 0.6 % (0.0-0.0); RED CELL DISTRIBUTION WIDTH 18.4 % (11.5-14.5); WHITE BLOOD COUNT 3.8 K/uL (4.8-10.8)
[2017-02-18 13:02] LABS: MEAN PLATELET VOLUME 9.1 fl (7.2-11.7)
--- NOTE | 2017-02-18 15:39 | CP.PCM.PN ---
Addendum entered and electronically signed by Jay Cruz MD 02/18/17 17: 29: Family meeting held this afternoon at 14:00, Patients son, friend, sister (via video chat), social media analyst, casework specialist and Danielle Cevallos, Tyson Yuen, and the show card writer were present to the entirety of the meeting. Goals of care were discussed and the family is in agreement with DNR/DNI status. Discussed placement in [facility] dye[facility] machine operator care facility, family is considering. All questions and concerns addressed. Addendum entered and electronically signed by Deena Yuen MD 02/18/17 16:33 : I saw and evaluated the patient. I discussed the case with the resident and agree with the findings and plan as documented in the resident's note. HD today, family meeting this afternoon to discuss goals of care. Original Note: Subjective - Date & Time of Evaluation Date of Evaluation: 02/18/17 Time of Evaluation: 12:00 - Subjective Subjective: ID Note- Pt. seen and examind today. she is getting HD in the room. more awake today. Objective - Vital Signs/Intake and Output Vital Signs (last 24 hours): Temp Pulse Resp BP Pulse Ox 97.3 F L 57 L 18 162/92 H 100 02/18/17 12:30 02/18/17 12:30 02/18/17 12:30 02/18/17 12:30 02/18/17 12:30 Intake and Output: 02/18/17 02/18/17 06:59 18:59 Intake Total 800 200 Balance 800 200 - Medications Medications: Current Medications Acetaminophen (Tylenol 650 Mg Supp) 650 mg [place] Q6 PRN PRN Reason: Fever >100.4 F Azithromycin (Zithromax) 1,200 mg PO QWK [facility] Meropenem 500 mg/ Sodium (Chloride) 100 mls @ 100 mls/hr IVPB Q12 [facility] Last Admin: 02/18/17 09:17 Dose: 100 mls/hr Fluconazole (Diflucan Iv 200 Mg/100 Ml Ns) 100 mls @ 100 mls/hr IVPB DAILY [facility] Last Admin: 02/18/17 09:17 Dose: 100 mls/hr - Labs Labs: Assessment and Plan (1) AIDS (acquired immunodeficiency syndrome), CD4 <=200 Status: Acute (2) UTI (urinary tract infection) Status: Acute (3) Bacteremia due to Gram-negative bacteria Status: Acute (4) Renal failure Status: Acute - Assessment and Plan (Free Text) Assessment: A/P- 61 y/o female with AIDS , Cocaine abuse, acute renal failure and dehydration presented with fever, leukopenia and GNR bacteremia. has remained afebrile pancytopenia most likely secondary to uncontrolled HIV and hence HIV nmarrow suppression blood cx- ESBL e.coli x 2 urine cx- ESBL e.coli repeat blood cx- neg x 4 HD as per renal plan- advise to continue with IV meropenem (renal dose) day #11 for E.Coli ESBL bacteremia. advise total of 21 days of IV antibiotics for this GNR bacteremia treatment. continue with once a week zithromax for MAC prophylaaxis. continue with fluconazole for severe oral candidiasis, may have esophageal candidiasis as well. day #11 continue 4 more days of fluconazole.. HD as per renal. HAART to be initiated as outpatient since pt. does not take much oral intake and must have good oral intake and be compliant adn also came in with Acute renal failure and also needs HIV genotype prior to restarting HAART since pt. has been noncomplaiant in past and may have developed resistance hence imperative to have genotype result. all above d/w DR.Pierre Lee.
[2017-02-18] MEDS ORDERED: Potassium Chloride 20 mEq ER Tab PO ONE ×2 (17:10→20:00)
--- NOTE | 2017-02-19 07:56 | CP.PCM.PN ---
Subjective - Date & Time of Evaluation Date of Evaluation: 02/18/17 Time of Evaluation: 13:00 - Subjective Subjective: SEEN ON RENAL F/U HAD HER HD EARLIAR TODAY CASE D/W RESIDENT ON THE FLOOR Objective - Vital Signs/Intake and Output Vital Signs (last 24 hours): Temp Pulse Resp BP Pulse Ox 97.5 F L 78 18 132/76 99 02/19/17 05:05 02/19/17 05:05 02/19/17 05:05 02/19/17 05:05 02/19/17 05:05 - Medications Medications: Current Medications Acetaminophen (Tylenol 650 Mg Supp) 650 mg [place] Q6 PRN PRN Reason: Fever >100.4 F Azithromycin (Zithromax) 1,200 mg PO QWK [facility] Meropenem 500 mg/ Sodium (Chloride) 100 mls @ 100 mls/hr IVPB Q12 [facility] Last Admin: 02/18/17 20:40 Dose: 100 mls/hr Fluconazole (Diflucan Iv 200 Mg/100 Ml Ns) 100 mls @ 100 mls/hr IVPB DAILY [facility] Last Admin: 02/18/17 09:17 Dose: 100 mls/hr - Labs Labs: 02/18/17 11:30 02/18/17 16:45 PT 12.8 SECONDS (9.6-11.2) H 02/10/17 06:25 INR 1.23 (0.92-1.08) H 02/10/17 06:25 APTT 34.6 SECONDS (23.3-32.5) H 02/10/17 06:25 Assessment and Plan - Assessment and Plan (Free Text) Assessment: ACI ON HD M W F IF CT WITH CONTRAST IS DONE ON SAT , THEN WE CAN SCHEDULE EXTRA HD AFTERWARD C/O CURRENT CARE
[2017-02-19 08:05] LABS: HEMATOCRIT 32.3 % (34.0-47.0); MEAN CELL VOLUME 81.1 fl (81.0-99.0); MEAN CORPUSCULAR HEMOGLOBIN 26.4 pg (27.0-31.0); MEAN CORPUSCULAR HGB CONC 32.5 g/dL (33.0-37.0); RED CELL DISTRIBUTION WIDTH 18.4 % (11.5-14.5)
[2017-02-19 08:08] LABS: WHITE BLOOD COUNT 3.5 K/uL (4.8-10.8)
[2017-02-19] MEDS: Meropenem 500 MG in Sodium Chloride 0.9% 100 ML IVPB SCH ×2 (08:10→21:06)
[2017-02-19 08:32] LABS: CALCIUM 7.4 mg/dL (8.4-10.2); POTASSIUM 3.1 MMOL/L (3.6-5.0)
[2017-02-19] MEDS: Fluconazole IV 200mg/100 ml NS 100 ML IVPB SCH (09:20)
--- NOTE | 2017-02-19 09:43 | CP.PCM.PN ---
Addendum entered and electronically signed by Jay Cruz MD 02/19/17 14: 13: Family meeting held on 02/18/17 at 14:00, Patients son, friend, sister (via video chat), forensic social worker, case maker and Danielle Cevallos, Tyson Yuen, and the rewriter were present to the entirety of the meeting. Goals of care were discussed and the family is in agreement with DNR/DNI status. Discussed placement in halfway care facility, family is considering. All questions and concerns addressed. Original Note: Subjective - Date & Time of Evaluation Date of Evaluation: 02/19/17 Time of Evaluation: 09:15 - Subjective Subjective: No acute events overnight. Patient sitting up in bed today, alert and responsive while eating breakfast. No complaints at time of visit. Tolerating diet, however not eating very much. She is oriented to person place and time. Objective - Vital Signs/Intake and Output Vital Signs (last 24 hours): Temp Pulse Resp BP Pulse Ox 97.5 F L 56 L 18 149/77 100 02/19/17 08:14 02/19/17 08:14 02/19/17 08:14 02/19/17 08:14 02/19/17 08:14 - Medications Medications: Current Medications Acetaminophen (Tylenol 650 Mg Supp) 650 mg [place] Q6 PRN PRN Reason: Fever >100.4 F Azithromycin (Zithromax) 1,200 mg PO QWK [facility] Meropenem 500 mg/ Sodium (Chloride) 100 mls @ 100 mls/hr IVPB Q12 [facility] Last Admin: 02/19/17 08:10 Dose: 100 mls/hr Fluconazole (Diflucan Iv 200 Mg/100 Ml Ns) 100 mls @ 100 mls/hr IVPB DAILY [facility] Last Admin: 02/19/17 09:20 Dose: 100 mls/hr Potassium Chloride (Potassium Chloride Oral Soln) 20 meq PO ONCE ONE Stop: 02/19/17 09:40 - Labs Labs: 02/19/17 06:30 02/19/17 06:30 PT 12.8 SECONDS (9.6-11.2) H 02/10/17 06:25 INR 1.23 (0.92-1.08) H 02/10/17 06:25 APTT 34.6 SECONDS (23.3-32.5) H 02/10/17 06:25 - Constitutional Appears: No Acute Distress, Cachectic - Head Exam Head Exam: NORMOCEPHALIC - Eye Exam Eye Exam: Normal appearance - ENT Exam ENT Exam: Normal Exam - Respiratory Exam Respiratory Exam: Clear to Ausculation Bilateral, NORMAL BREATHING PATTERN - Cardiovascular Exam Cardiovascular Exam: REGULAR RHYTHM, +S1, +S2 - GI/Abdominal Exam GI & Abdominal Exam: Soft. absent: Tenderness - Neurological Exam Neurological Exam: Alert, Awake, CN II-XII Intact - Skin Skin Exam: Dry, Intact Assessment and Plan - Assessment and Plan (Free Text) Assessment: 61 y/o female w/ PMHx AIDS (non-complaint with medication), Hepatitis C, Bipolar disorder, COPD, admitted for sepsis likely secondary to UTI and LAN, now with pancytopenia. She is hemodynamically stable, and is alert today, sitting up in bed, responding to questions. She is still a little lethargic. Will hold off on MRI and CT scan as mental status is improving and h/h is stable. Pancytopenia Labs reviewed, appears to be medication induced vs AIDS. Thrombocytopenia worsening, H/H stable, WBC stable Pt s/p 2 PRBCs Appreciate heme/onc input. If patient clinically improves, will consider bone marrow biopsy. LAN Improving, possibly ATN due to sepsis. hypokalemia- potassium replaced and improved to 3.3 Nephrology on board. () C/w IV fluids and HD MWF Non anion gap metabolic acidosis on admission. F/U Urine Phosp, Ca and Eos Monitor. Sepsis Hemodynamically stable. Repeat BCx negative SIRS + bacteremia + LAN BCx: ESBL sensitive to Imipenen qSOFA=1: No high risk of mortality ID Consult(Dr Arredondo, appreciate input: Antibiotics continued. UTI UA + for leukocytes esterase and WBC high. Negative nitrates UCx: ESBL, Continue meropenem AIDS pt is immunocompromised, considering PML as etiology, will work up to rule out BK/SARITHA virus with PCR as well as imaging. PCR is pending, MRI without contrast today after HD cd4< 20. Hold HAART due to LAN On PO Zithromax for MAC prophylaxis s/w consulted Bipolar disorder patient has been stable, no reports of agitation to team. Psych consult (Dr Julio) recs Increased risperdal to 1 mg BID. Hold due to tachy and AMS Dysphagia Likely due to esophageal candidiasis, patient does not have appetite C/w pureed diet c/w fluconazole IV BMI 17 Cachexia Most likely due to AIDS -nutrition consult appreciate rec DVT Prophylaxis pt has worsening thrombocytopenia, SCDs for now
[2017-02-19] MEDS: Potassium Chloride 20 mEq/15 ml LIQ UD PO ONE ×4 (10:14→17:30)
--- NOTE | 2017-02-19 22:26 | CP.PCM.PN ---
Subjective - Date & Time of Evaluation Date of Evaluation: 02/19/17 Time of Evaluation: 17:00 - Subjective Subjective: Feeling better, family at bedside Objective - Vital Signs/Intake and Output Vital Signs (last 24 hours): Temp Pulse Resp BP Pulse Ox 98.6 F 59 L 20 157/76 H 99 02/19/17 21:00 02/19/17 21:00 02/19/17 21:00 02/19/17 21:00 02/19/17 21:00 - Medications Medications: Current Medications Acetaminophen (Tylenol 650 Mg Supp) 650 mg [place] Q6 PRN PRN Reason: Fever >100.4 F Azithromycin (Zithromax) 1,200 mg PO QWK [facility] Meropenem 500 mg/ Sodium (Chloride) 100 mls @ 100 mls/hr IVPB Q12 [facility] Last Admin: 02/19/17 21:06 Dose: 100 mls/hr Fluconazole (Diflucan Iv 200 Mg/100 Ml Ns) 100 mls @ 100 mls/hr IVPB DAILY [facility] Last Admin: 02/19/17 09:20 Dose: 100 mls/hr - Labs Labs: 02/19/17 06:30 02/19/17 06:30 PT 12.8 SECONDS (9.6-11.2) H 02/10/17 06:25 INR 1.23 (0.92-1.08) H 02/10/17 06:25 APTT 34.6 SECONDS (23.3-32.5) H 02/10/17 06:25 - Constitutional Appears: Cachectic - Head Exam Head Exam: ATRAUMATIC - ENT Exam ENT Exam: Mucous Membranes Dry - Respiratory Exam Respiratory Exam: NORMAL BREATHING PATTERN - Cardiovascular Exam Cardiovascular Exam: +S1, +S2 - GI/Abdominal Exam GI & Abdominal Exam: Normal Bowel Sounds - Extremities Exam Extremities Exam: Normal Inspection Assessment and Plan (1) Pancytopenia Assessment & Plan: likely secondary to HIV/AIDS may have infiltrative BM pathology will consider bone marrow bioipsy if clinical status improves Status: Acute
--- NOTE | 2017-02-19 22:27 | CP.PCM.PN ---
Subjective - Date & Time of Evaluation Date of Evaluation: 02/18/17 Time of Evaluation: 13:00 - Subjective Subjective: Fatigued Objective - Vital Signs/Intake and Output Vital Signs (last 24 hours): Temp Pulse Resp BP Pulse Ox 98.6 F 59 L 20 157/76 H 99 02/19/17 21:00 02/19/17 21:00 02/19/17 21:00 02/19/17 21:00 02/19/17 21:00 - Medications Medications: Current Medications Acetaminophen (Tylenol 650 Mg Supp) 650 mg [place] Q6 PRN PRN Reason: Fever >100.4 F Azithromycin (Zithromax) 1,200 mg PO QWK [facility] Meropenem 500 mg/ Sodium (Chloride) 100 mls @ 100 mls/hr IVPB Q12 [facility] Last Admin: 02/19/17 21:06 Dose: 100 mls/hr Fluconazole (Diflucan Iv 200 Mg/100 Ml Ns) 100 mls @ 100 mls/hr IVPB DAILY [facility] Last Admin: 02/19/17 09:20 Dose: 100 mls/hr - Labs Labs: 02/19/17 06:30 02/19/17 06:30 PT 12.8 SECONDS (9.6-11.2) H 02/10/17 06:25 INR 1.23 (0.92-1.08) H 02/10/17 06:25 APTT 34.6 SECONDS (23.3-32.5) H 02/10/17 06:25 - Constitutional Appears: Cachectic - ENT Exam ENT Exam: Mucous Membranes Dry - Respiratory Exam Respiratory Exam: NORMAL BREATHING PATTERN - Cardiovascular Exam Cardiovascular Exam: +S1, +S2 - GI/Abdominal Exam GI & Abdominal Exam: Normal Bowel Sounds - Extremities Exam Extremities Exam: Normal Inspection Assessment and Plan (1) Pancytopenia Assessment & Plan: likely secondary to HIV/AIDS may have infiltrative bone marrow pathology; will consider bone marrow if clinically improved Status: Acute
[2017-02-20] MEDS: Meropenem 500 MG in Sodium Chloride 0.9% 100 ML IVPB SCH ×2 (08:06→21:40)
--- NOTE | 2017-02-20 09:32 | CP.PCM.PN ---
Subjective - Date & Time of Evaluation Date of Evaluation: 02/20/17 Time of Evaluation: 08:00 - Subjective Subjective: Patient was seen and examined at bedside this morning. Patient appears no acute distress and sleepy. Patient stated she is eating now better than previous. Patient denies fever, chills, SOB, chest pain, N/V/D, headache and dizziness. Patient refused blood draw this morning Objective - Vital Signs/Intake and Output Vital Signs (last 24 hours): Temp Pulse Resp BP Pulse Ox 97.5 F L 55 L 18 151/73 H 100 02/20/17 07:58 02/20/17 09:00 02/20/17 07:58 02/20/17 07:58 02/20/17 07:58 - Medications Medications: Current Medications Acetaminophen (Tylenol 650 Mg Supp) 650 mg [place] Q6 PRN PRN Reason: Fever >100.4 F Azithromycin (Zithromax) 1,200 mg PO QWK [facility] Meropenem 500 mg/ Sodium (Chloride) 100 mls @ 100 mls/hr IVPB Q12 [facility] Last Admin: 02/20/17 08:06 Dose: 100 mls/hr Fluconazole (Diflucan Iv 200 Mg/100 Ml Ns) 100 mls @ 100 mls/hr IVPB DAILY [facility] Last Admin: 02/19/17 09:20 Dose: 100 mls/hr - Labs Labs: 02/19/17 06:30 02/19/17 06:30 PT 12.8 SECONDS (9.6-11.2) H 02/10/17 06:25 INR 1.23 (0.92-1.08) H 02/10/17 06:25 APTT 34.6 SECONDS (23.3-32.5) H 02/10/17 06:25 - Constitutional Appears: Unkempt, Cachectic, Chronically Ill - Head Exam Head Exam: NORMAL INSPECTION, NORMOCEPHALIC - Eye Exam Eye Exam: EOMI, Normal appearance, PERRL Pupil Exam: NORMAL ACCOMODATION, PERRL - ENT Exam ENT Exam: Mucous Membranes Moist - Respiratory Exam Respiratory Exam: Clear to Ausculation Bilateral, NORMAL BREATHING PATTERN - Cardiovascular Exam Cardiovascular Exam: REGULAR RHYTHM, RRR, +S1, +S2 - GI/Abdominal Exam GI & Abdominal Exam: Soft, Normal Bowel Sounds - Extremities Exam Extremities Exam: Full ROM, Normal Inspection - Back Exam Back Exam: NORMAL INSPECTION - Neurological Exam Neurological Exam: Alert, Awake. absent: Oriented x3 - Psychiatric Exam Psychiatric exam: Depressed, Flat Affect - Skin Skin Exam: Dry, Intact, Normal Color, Warm Assessment and Plan - Assessment and Plan (Free Text) Assessment: 61 y/o female w/ PMHx AIDS (non-complaint with medication), Hepatitis C, Bipolar disorder, COPD, admitted for sepsis likely secondary to UTI and LAN, now with pancytopenia. She is hemodynamically stable, and is alert today, sitting up in bed, responding to questions. Plan: 1.Pancytopenia -etiology secondary to medication induced vs AIDS. -no cbc result this morning due to patient refused -Thrombocytopenia worsening -H/H stable, WBC stable -Appreciate heme/onc input. If patient clinically improves, will consider bone marrow biopsy. 2.LAN -Improving, etiology possible ATN due to sepsis. -hypokalemia -no bmp this morning -Nephrology on board. () -continue with potassium 20meq PO daily -C/w IV fluids and HD MWF 3.Sepsis -Hemodynamically stable. Repeat BCx negative -SIRS + bacteremia + LAN -BCx: ESBL sensitive to Imipenen -ID Consult(Dr Arredondo) -Antibiotics continued. 4. UTI -UA + for leukocytes esterase and WBC high. Negative nitrates -UCx: ESBL -Continue meropenem 5. AIDS -pt is immunocompromised, considering PML as etiology, will work up to rule out BK/SARITHA virus with PCR as well as imaging. -cd4< 20. Hold HAART due to LAN -On PO Zithromax for MAC prophylaxis 6. Bipolar disorder -stable -Psych consult (Dr Julio) recs Increased risperdal to 1 mg BID. -Hold due to tachy and AMS 7. Dysphagia -Likely due to esophageal candidiasis, patient does not have appetite -C/w pureed diet -c/w fluconazole IV 8. BMI 17 -Cachexia -Most likely due to AIDS 9. DVT Prophylaxis - worsening thrombocytopenia -SCDs for now
[2017-02-20] MEDS: Fluconazole IV 200mg/100 ml NS 100 ML IVPB SCH (10:00)
[2017-02-20] MEDS ORDERED: Magnesium Sulfate 4 gm/100 ml 4 GM/100 ML BAG IVPB ONE (11:21)
--- NOTE | 2017-02-20 11:21 | CP.PCM.PN ---
Subjective - Date & Time of Evaluation Date of Evaluation: 02/19/17 Time of Evaluation: 14:00 - Subjective Subjective: SEEN ON RENAL F/U BROTHER AND SIS IS LAW ON THE BED SIDE PT IS A@O IN NAD GETTING HD M W F K IS RUNNING LOW WELL MG .. BOTH NEED TO BE REPLACED Objective - Vital Signs/Intake and Output Vital Signs (last 24 hours): Temp Pulse Resp BP Pulse Ox 97.5 F L 55 L 18 151/73 H 100 02/20/17 07:58 02/20/17 09:00 02/20/17 07:58 02/20/17 07:58 02/20/17 07:58 - Medications Medications: Current Medications Acetaminophen (Tylenol 650 Mg Supp) 650 mg [place] Q6 PRN PRN Reason: Fever >100.4 F Azithromycin (Zithromax) 1,200 mg PO QWK [facility] Meropenem 500 mg/ Sodium (Chloride) 100 mls @ 100 mls/hr IVPB Q12 [facility] Last Admin: 02/20/17 08:06 Dose: 100 mls/hr Fluconazole (Diflucan Iv 200 Mg/100 Ml Ns) 100 mls @ 100 mls/hr IVPB DAILY [facility] Last Admin: 02/20/17 10:00 Dose: 100 mls/hr - Labs Labs: 02/19/17 06:30 02/19/17 06:30 PT 12.8 SECONDS (9.6-11.2) H 02/10/17 06:25 INR 1.23 (0.92-1.08) H 02/10/17 06:25 APTT 34.6 SECONDS (23.3-32.5) H 02/10/17 06:25 Assessment and Plan - Assessment and Plan (Free Text) Assessment: LAN ON HD M W F HYPO MAGNESEMIA HYPOKALEMIA SYNDROME .. SUPPLY C/O CURRENT CARE BMP IN AM
[2017-02-20 22:07] LABS: JC VIRUS DNA PCR QUANT 643 copies/mL (<500); JC VIRUS DNA SOURCE Plasma
--- NOTE | 2017-02-21 06:36 | CP.PCM.PN ---
Subjective - Date & Time of Evaluation Date of Evaluation: 02/21/17 Time of Evaluation: 08:15 - Subjective Subjective: No acute events overnight, remains afebrile, BP 110s-189 systolic. Patient is for HD today. She is awake and alert, would like to sleep. Does not want to be bothered. Refusing blood draw this AM. Clinically stable. Will discuss dispo with SW. Objective - Vital Signs/Intake and Output Vital Signs (last 24 hours): Temp Pulse Resp BP Pulse Ox 97.5 F L 64 18 117/70 99 02/21/17 05:14 02/21/17 05:14 02/21/17 05:14 02/21/17 05:14 02/21/17 05:14 Intake and Output: 02/20/17 02/21/17 18:59 06:59 Intake Total 950 Balance 950 - Medications Medications: Current Medications Acetaminophen (Tylenol 650 Mg Supp) 650 mg [place] Q6 PRN PRN Reason: Fever >100.4 F Azithromycin (Zithromax) 1,200 mg PO SUN@2200 [facility] Last Admin: 02/20/17 21:41 Dose: 1,200 mg Meropenem 500 mg/ Sodium (Chloride) 100 mls @ 100 mls/hr IVPB Q12 [facility] Last Admin: 02/20/17 21:40 Dose: 100 mls/hr Fluconazole (Diflucan Iv 200 Mg/100 Ml Ns) 100 mls @ 100 mls/hr IVPB DAILY [facility] Last Admin: 02/20/17 10:00 Dose: 100 mls/hr Magnesium Oxide (Mag-Ox) 400 mg PO DAILY [facility] Potassium Chloride (K-Dur 20 Meq Er Tab) 20 meq PO DAILY [facility] - Labs Labs: 02/19/17 06:30 02/19/17 06:30 PT 12.8 SECONDS (9.6-11.2) H 02/10/17 06:25 INR 1.23 (0.92-1.08) H 02/10/17 06:25 APTT 34.6 SECONDS (23.3-32.5) H 02/10/17 06:25 - Constitutional Appears: Cachectic - Head Exam Head Exam: NORMAL INSPECTION - Eye Exam Eye Exam: Normal appearance - ENT Exam ENT Exam: Mucous Membranes Moist - Respiratory Exam Respiratory Exam: NORMAL BREATHING PATTERN - Cardiovascular Exam Cardiovascular Exam: REGULAR RHYTHM - GI/Abdominal Exam GI & Abdominal Exam: Soft, Normal Bowel Sounds. absent: Tenderness - Neurological Exam Neurological Exam: Awake, CN II-XII Intact - Skin Skin Exam: Dry, Intact Assessment and Plan - Assessment and Plan (Free Text) Assessment: 61 y/o female w/ PMHx AIDS (non-complaint with medication), Hepatitis C, Bipolar disorder, COPD, admitted for sepsis likely secondary to UTI and LAN, now with pancytopenia. She is hemodynamically stable, and is alert today, sitting up in bed, responding to questions. Refusing blood draw. 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 Will discuss these results with ID. Palliative care nurse referral. Plan: 1.Pancytopenia -worsening thrombocytopenia -likely secondary to AIDS. -Appreciate heme/onc input. 2.LAN -etiology possible ATN due to sepsis. -hypokalemia and hypomagnesemia, will replace. -f/u phos -Nephrology on board. () -continue with potassium 20meq PO daily, mag ordered as well. -C/w IV fluids and HD MWF 3.Sepsis -resolved Repeat BCx negative -had SIRS + bacteremia + LAN -BCx: ESBL sensitive to Imipenen -ID Consult(Dr Arredondo) will speak with regarding antibiotics for discharge. -Antibiotics continued. 4. UTI -UA + for leukocytes esterase and WBC high. Negative nitrates -UCx: ESBL -Continue meropenem 5. AIDS -SARITHA virus + -pt is immunocompromised, considering PML as etiology, will work up to rule out BK/SARITHA virus with PCR -cd4< 20. Hold HAART due to LAN -On PO Zithromax for MAC prophylaxis 6. Bipolar disorder -stable -previously on risperdal, held due to AMS and tachycardia. -consider restarting 7. Dysphagia -Likely due to esophageal candidiasis, patient does not have appetite but is tolerating diet. -C/w pureed diet -c/w fluconazole IV 8. BMI 17 -Cachexia -appreciate nutrition recommendations. -Most likely due to AIDS 9. DVT Prophylaxis - worsening thrombocytopenia -SCDs for now
[2017-02-21 06:50] LABS: HEMATOCRIT 29.8 % (34.0-47.0); MEAN CELL VOLUME 81.7 fl (81.0-99.0); MEAN CORPUSCULAR HEMOGLOBIN 26.6 pg (27.0-31.0); MEAN CORPUSCULAR HGB CONC 32.5 g/dL (33.0-37.0); RED CELL DISTRIBUTION WIDTH 18.9 % (11.5-14.5); WHITE BLOOD COUNT 2.9 K/uL (4.8-10.8)
[2017-02-21] MEDS ORDERED: Potassium Chloride 20 mEq ER Tab PO SCH (09:00)
[2017-02-21] MEDS ORDERED: Magnesium Oxide 400 mg Tab UD PO SCH (09:00)
[2017-02-21] MEDS: Fluconazole IV 200mg/100 ml NS 100 ML IVPB SCH (09:06)
[2017-02-21] MEDS: Meropenem 500 MG in Sodium Chloride 0.9% 100 ML IVPB SCH (09:07)
[2017-02-21 12:20] VITALS: TEMP 97.5; O2SAT 98
[2017-02-21 15:37] VITALS: BP 161/80; PULSE 60; RESP 20
--- NOTE | 2017-02-21 16:16 | CP.PCM.PN ---
Subjective - Date & Time of Evaluation Date of Evaluation: 02/21/17 Time of Evaluation: 16:15 - Subjective Subjective: ID Note- Pt. seen and examined today. pt. remains weak but more alert and answers questions. Denies any pain . as per medical team pt. is being d/c to [facility] today. Objective - Vital Signs/Intake and Output Vital Signs (last 24 hours): Temp Pulse Resp BP Pulse Ox 97.5 F L 60 20 161/80 H 98 02/21/17 15:36 02/21/17 15:36 02/21/17 15:36 02/21/17 15:36 02/21/17 15:36 Intake and Output: 02/21/17 02/21/17 06:59 18:59 Intake Total 950 Balance 950 - Medications Medications: Current Medications Acetaminophen (Tylenol 650 Mg Supp) 650 mg [place] Q6 PRN PRN Reason: Fever >100.4 F Azithromycin (Zithromax) 1,200 mg PO SUN@2200 [facility] Last Admin: 02/20/17 21:41 Dose: 1,200 mg Meropenem 500 mg/ Sodium (Chloride) 100 mls @ 100 mls/hr IVPB Q12 [facility] Last Admin: 02/21/17 09:07 Dose: 100 mls/hr Fluconazole (Diflucan Iv 200 Mg/100 Ml Ns) 100 mls @ 100 mls/hr IVPB DAILY [facility] Last Admin: 02/21/17 09:06 Dose: 100 mls/hr Magnesium Oxide (Mag-Ox) 400 mg PO DAILY [facility] Last Admin: 02/21/17 09:06 Dose: 400 mg Potassium Chloride (K-Dur 20 Meq Er Tab) 20 meq PO DAILY [facility] Last Admin: 02/21/17 09:06 Dose: 20 meq - Labs Labs: - Additional Findings Additional findings: - Constitutional Appears: No Acute Distress, Chronically Ill - Head Exam Head Exam: ATRAUMATIC - Eye Exam Eye Exam: EOMI, PERRL - ENT Exam Additional comments: dry oral mucosa - Neck Exam Neck exam: Positive for: Full Rom Additional comments: supple - Respiratory Exam Respiratory Exam: Clear to Auscultation Bilateral, NORMAL BREATHING PATTERN - Cardiovascular Exam Cardiovascular Exam: RRR, +S1, +S2 - GI/Abdominal Exam GI & Abdominal Exam: Normal Bowel Sounds, Soft Additional comments: NT, ND - Extremities Exam Additional comments: No edema B/L LE - Neurological Exam Neurological exam: awake and much more alert Laboratory Results - last 72 hr 02/17/17 02/17/17 02/18/17 11:11 11:11 16:45 WBC RBC Hgb Hct MCV MCH MCHC RDW Plt Count Sodium Potassium 2.9 L Chloride Carbon Dioxide Anion Gap BUN Creatinine Est GFR ( Amer) Est GFR (Non-Af Amer) Random Glucose Calcium Magnesium Urine Eosinophils Ur Random Phosphorus BK Virus Spec Source Plasma BK Virus DNA Qual PCR Not detected SARITHA Virus Spec Source Plasma SARITHA Virus DNA (PCR) 643 H 02/18/17 02/18/17 02/18/17 18:45 Unknown Unknown WBC RBC Hgb Hct MCV MCH MCHC RDW Plt Count Sodium Potassium Chloride Carbon Dioxide Anion Gap BUN Creatinine Est GFR ( Amer) Est GFR (Non-Af Amer) Random Glucose Calcium Magnesium 1.5 L Urine Eosinophils Negative Ur Random Phosphorus < 5.5 BK Virus Spec Source BK Virus DNA Qual PCR SARITHA Virus Spec Source SARITHA Virus DNA (PCR) 02/19/17 02/19/17 02/21/17 06:30 06:30 05:20 WBC 3.5 L 2.9 L RBC 3.98 3.64 L Hgb 10.5 L 9.7 L Hct 32.3 L 29.8 L MCV 81.1 81.7 MCH 26.4 L 26.6 L MCHC 32.5 L 32.5 L RDW 18.4 H 18.9 H Plt Count 34 L 38 L Sodium 138 Potassium 3.1 L Chloride 108 H Carbon Dioxide 24 Anion Gap 9 L BUN 11 Creatinine 2.3 H Est GFR ( Amer) 26 Est GFR (Non-Af Amer) 21 Random Glucose 82 Calcium 7.4 L Magnesium Urine Eosinophils Ur Random Phosphorus BK Virus Spec Source BK Virus DNA Qual PCR SARITHA Virus Spec Source SARITHA Virus DNA (PCR) Microbiology 02/12/17 05:30 Blood-Venous Blood Culture - Final NO GROWTH AFTER 5 DAYS 02/12/17 05:30 Blood-Venous Gram Stain - Final 02/10/17 17:30 Blood-Venous Blood Culture - Final NO GROWTH AFTER 5 DAYS 02/10/17 17:30 Blood-Venous Gram Stain - Final 02/10/17 17:30 Blood-Venous Blood Culture - Final NO GROWTH AFTER 5 DAYS 02/10/17 17:30 Blood-Venous Gram Stain - Final 02/10/17 06:25 Blood-Venous Blood Culture - Final NO GROWTH AFTER 5 DAYS 02/10/17 06:25 Blood-Venous Gram Stain - Final TEST NOT PERFORMED 02/08/17 15:45 Blood-Venous Blood Culture - Final Escherichia Coli 02/08/17 15:45 Blood-Venous Gram Stain - Final 02/08/17 15:30 Blood-Venous Blood Culture - Final Escherichia Coli 02/08/17 15:30 Blood-Venous Gram Stain - Final 02/08/17 13:59 Urine,Clean Catch Urine Culture - Final Escherichia Coli Assessment and Plan (1) AIDS (acquired immunodeficiency syndrome), CD4 <=200 Status: Acute (2) UTI (urinary tract infection) Status: Acute (3) Bacteremia due to Gram-negative bacteria Status: Acute (4) Renal failure Status: Acute - Assessment and Plan (Free Text) Assessment: A/P- 61 y/o female with AIDS , Cocaine abuse, acute renal failure and dehydration presents with fever, leukopenia and GNR bacteremia. has remained afebrile pancytopenia most likely secondary to uncontrolled HIV and hence HIV nmarrow suppression blood cx- ESBL e.coli x 2 urine cx- ESBL e.coli repeat blood cx- neg x 4 HD as per renal brain CT - negative as per report post SARITHA DNA from serum cd4 <20 plan- advise to continue with IV meropenem (renal dose) day #14 for E.Coli ESBL bacteremia. advise 7 more days to complete total of 21 days of IV meropenem for e.coli esbl bacteremia treatment. continue with once a week zithromax for MAC prophylaaxis. has completed 14 days of empiric fluconazole. can be switched to oral fluconazole 100 mg daily for another 10-14 days. HD as per renal. HAART to be initiated as outpatient once pt's renal function is improved and once her HIV genotype is tested so that she can be started on correct HAARt regimen. If PML is to be ruled out pt. needs LP to r/o SARITHA virus in CSF and treatment for PML is HAART therapy , Hence advise pt. to be seen by HIV/ID specialist as outpatient and in longterm. also once her wbc is higher she should be started on PCP prophylaxis as well as outpatient. all above was d/w family practice team at length. all above d/w DR.Pierre Lee.
--- NOTE | 2017-02-21 17:06 | CP.PCM.DIS ---
Provider - Provider Date of Admission: 02/08/17 16:26 Attending physician: Dolly Cevallos MD Consults: ID Heme/Onc Nephro Time Spent in preparation of Discharge (in minutes): 30 Hospital Course - Lab Results Lab Results: Micro Results 02/12/17 05:30 Blood-Venous Blood Culture - Final NO GROWTH AFTER 5 DAYS 02/12/17 05:30 Blood-Venous Gram Stain - Final 02/10/17 17:30 Blood-Venous Blood Culture - Final NO GROWTH AFTER 5 DAYS 02/10/17 17:30 Blood-Venous Gram Stain - Final 02/10/17 17:30 Blood-Venous Blood Culture - Final NO GROWTH AFTER 5 DAYS 02/10/17 17:30 Blood-Venous Gram Stain - Final 02/10/17 06:25 Blood-Venous Blood Culture - Final NO GROWTH AFTER 5 DAYS 02/10/17 06:25 Blood-Venous Gram Stain - Final TEST NOT PERFORMED Most Recent Lab Values WBC 2.9 K/uL (4.8-10.8) L 02/21/17 05:20 RBC 3.64 Mil/uL (3.80-5.20) L 02/21/17 05:20 Hgb 9.7 g/dL (12.0-16.0) L 02/21/17 05:20 Hct 29.8 % (34.0-47.0) L 02/21/17 05:20 MCV 81.7 fl (81.0-99.0) 02/21/17 05:20 MCH 26.6 pg (27.0-31.0) L 02/21/17 05:20 MCHC 32.5 g/dL (33.0-37.0) L 02/21/17 05:20 RDW 18.9 % (11.5-14.5) H 02/21/17 05:20 Plt Count 38 K/uL (130-400) L 02/21/17 05:20 Manual Plt Count 60 K/uL (130-400) L 02/13/17 11:50 MPV 9.1 fl (7.2-11.7) 02/18/17 11:30 Neut % (Auto) 44.7 % (50.0-75.0) L 02/18/17 11:30 Lymph % (Auto) 40.3 % (20.0-40.0) H 02/18/17 11:30 [place] % (Auto) 9.3 % (0.0-10.0) 02/18/17 11:30 Eos % (Auto) 4.0 % (0.0-4.0) 02/18/17 11:30 Baso % (Auto) 1.7 % (0.0-2.0) 02/18/17 11:30 Neut # 1.7 K/uL (1.8-7.0) L 02/18/17 11:30 Lymph # 1.5 K/uL (1.0-4.3) 02/18/17 11:30 [place] # 0.3 K/uL (0.0-0.8) 02/18/17 11:30 Eos # 0.1 K/uL (0.0-0.7) 02/18/17 11:30 Baso # 0.1 K/uL (0.0-0.2) 02/18/17 11:30 Neutrophils % (Manual) 54 % (42-75) 02/11/17 21:05 Band Neutrophils % 4 % (0-2) H 02/11/17 21:05 Lymphocytes % (Manual) 18 % (20-50) L 02/11/17 21:05 Monocytes % (Manual) 16 % (0-10) H 02/11/17 21:05 Eosinophils % (Manual) 8 % (0-7) H 02/11/17 21:05 Metamyelocytes % 1 % (0-0) H 02/10/17 06:25 Myelocytes % 2 % (0-0) H 02/10/17 06:25 Platelet Estimate Markedly decreased (NORMAL) L 02/11/17 21:05 Large Platelets Present 02/10/17 06:25 Hypochromasia (manual) Slight 02/11/17 21:05 Poikilocytosis (manual Slight 02/11/17 21:05 Anisocytosis (manual) Moderate 02/11/17 21:05 Microcytosis (manual) Slight 02/10/17 06:25 Macrocytosis (manual) Slight 02/11/17 21:05 Target Cells Slight 02/11/17 21:05 Tear Drop Cells Slight 02/10/17 06:25 Ovalocytes Slight 02/11/17 21:05 [place] Cells Slight 02/11/17 21:05 Schistocytes Slight 02/11/17 21:05 Retic Count 0.4 % (0.5-1.5) L 02/13/17 11:50 PT 12.8 SECONDS (9.6-11.2) H 02/10/17 06:25 INR 1.23 (0.92-1.08) H 02/10/17 06:25 APTT 34.6 SECONDS (23.3-32.5) H 02/10/17 06:25 pCO2 15 mm/Hg (35-45) L* 02/09/17 10:38 pO2 115 mm/Hg (80-100) H 02/09/17 10:38 HCO3 11.4 mmol/L (21-28) L 02/09/17 10:38 ABG pH 7.29 (7.35-7.45) L 02/09/17 10:38 ABG Total CO2 7.7 mmol/L (22-28) L 02/09/17 10:38 ABG O2 Saturation 99.2 % (95-98) H 02/09/17 10:38 ABG O2 Content 12.6 ML/dL (15-23) L 02/09/17 10:38 ABG Base Excess -17.3 mmol/L (-2.0-3.0) L 02/09/17 10:38 ABG Hemoglobin 9.1 g/dL (11.7-17.4) L 02/09/17 10:38 ABG Carboxyhemoglobin 0.8 % (0.5-1.5) 02/09/17 10:38 POC ABG HHb (Measured) 0.8 % (0.0-5.0) 02/09/17 10:38 ABG Methemoglobin 1.7 % (0.0-3.0) 02/09/17 10:38 ABG O2 Capacity 12.7 mL/dL (16-24) L 02/09/17 10:38 Jamie Test Yes 02/09/17 10:38 VBG pH 7.53 (7.32-7.43) H 02/08/17 16:21 VBG pCO2 33 mmHg (40-60) L 02/08/17 16:21 VBG HCO3 28.5 mmol/L 02/08/17 16:21 VBG Total CO2 28.6 mmol/L (22-28) H 02/08/17 16:21 VBG O2 Sat (Calc) 85.5 % (40-65) H 02/08/17 16:21 VBG Base Excess 5.2 mmol/L (0.0-2.0) H 02/08/17 16:21 VBG Potassium 3.0 mmol/L (3.6-5.2) L 02/08/17 16:21 A-a O2 Difference 16.0 mm/Hg 02/09/17 10:38 Hgb O2 Saturation 96.7 % (95.0-98.0) 02/09/17 10:38 Sodium 137.0 mmol/L (132-148) 02/08/17 16:21 Chloride 105.0 mmol/L (98-107) 02/08/17 16:21 Glucose 110 mg/dL (65-105) H 02/08/17 16:21 Lactate 1.6 mmol/L (0.7-2.1) 02/08/17 16:21 FiO2 21.0 % 02/09/17 10:38 Blood Gas Comments Room air,rr 02/09/17 10:38 Crit Value Called To Rosa reid 02/09/17 10:38 Crit Value Called By 15 02/09/17 10:38 Crit Value Read Back Y 02/09/17 10:38 Blood Gas Notified Time 1042 02/09/17 10:38 Sodium 138 mmol/l (132-148) 02/19/17 06:30 Potassium 3.1 MMOL/L (3.6-5.0) L 02/19/17 06:30 Chloride 108 mmol/L (98-107) H 02/19/17 06:30 Carbon Dioxide 24 mmol/L (22-30) 02/19/17 06:30 Anion Gap 9 (10-20) L 02/19/17 06:30 BUN 11 mg/dl (7-17) 02/19/17 06:30 Creatinine 2.3 mg/dL (0.7-1.2) H 02/19/17 06:30 Est GFR ( Amer) 02/19/17 06:30 Est GFR (Non-Af Amer) 02/19/17 06:30 Random Glucose 82 mg/dL (65-105) 02/19/17 06:30 Lactic Acid 1.4 MMOL/L (0.7-2.1) 02/15/17 18:57 Calcium 7.4 mg/dL (8.4-10.2) L 02/19/17 06:30 Phosphorus 4.0 mg/dl (2.5-4.5) 02/13/17 11:50 Magnesium 1.5 MG/DL (1.6-2.3) L 02/18/17 18:45 Iron 105 ug/dL (37-170) 02/13/17 11:50 TIBC 150 ug/dL (250-450) L 02/13/17 11:50 % Saturation 70 % (20-55) H 02/13/17 11:50 Erythropoietin 5.0 mIU/mL (2.6-18.5) 02/15/17 05:15 Ferritin 5410.0 ng/mL 02/13/17 11:50 Total Bilirubin 0.7 mg/dl (0.2-1.3) 02/16/17 07:29 AST 22 U/L (14-36) 02/16/17 07:29 ALT 25 U/L (9-52) 02/16/17 07:29 Alkaline Phosphatase 54 U/L (38-126) 02/16/17 07:29 Ammonia < 9 umo/L (11-51) L 02/08/17 14:32 Lactate Dehydrogenase 603 U/L (313-618) 02/13/17 11:50 Total Creatine Kinase < 20 U/L (30-135) L 02/12/17 06:30 Troponin I 0.0150 ng/mL (0.00-0.120) 02/15/17 18:56 Total Protein 6.7 G/DL (6.3-8.2) 02/16/17 07:29 Albumin 2.2 g/dL (3.5-5.0) L 02/16/17 07:29 Globulin 4.5 gm/dL (2.2-3.9) H 02/16/17 07:29 Albumin/Globulin Ratio 0.5 (1.0-2.1) L 02/16/17 07:29 Vitamin B12 634 pg/mL (239-931) 02/13/17 11:50 Ethanolamine None detected 02/09/17 15:00 Procalcitonin 10.05 NG/ML (0.19-0.49) H 02/09/17 14:30 Venous Blood Potassium 3.0 mmol/L (3.6-5.2) L 02/08/17 16:21 Urine Color Straw (YELLOW) 02/17/17 04:32 Urine Clarity Clear (Clear) 02/17/17 04:32 Urine pH 9.0 (5.0-8.0) 02/17/17 04:32 Ur Specific [place] < 1.005 (1.003-1.030) 02/17/17 04:32 Urine Protein 30 mg/dL (NEGATIVE) 02/17/17 04:32 Urine Glucose (UA) >=500 mg/dL (Normal) 02/17/17 04:32 Urine Ketones 20 mg/dL (NEGATIVE) 02/17/17 04:32 Urine Blood Negative (NEGATIVE) 02/17/17 04:32 Urine Nitrate Negative (NEGATIVE) 02/17/17 04:32 Urine Bilirubin Negative (NEGATIVE) 02/17/17 04:32 Urine Urobilinogen 0.2-1.0 mg/dL (0.2-1.0) 02/17/17 04:32 Ur Leukocyte Esterase Neg Jose/uL (Negative) 02/17/17 04:32 Urine RBC (Auto) 1 /hpf (0-3) 02/17/17 04:32 Urine Microscopic WBC 1 /hpf (0-5) 02/17/17 04:32 Ur Squamous Epith Cells < 1 /hpf (0-5) 02/17/17 04:32 Ur Renal Epithelial Cell 1 /hpf (0-3) 02/08/17 13:59 Urine Bacteria Few (<OCC) H 02/08/17 13:59 Urine Eosinophils Negative (NEGATIVE) 02/18/17 Unknown Ur Random Sodium 100 meq/L 02/09/17 02:50 Ur Random Potassium 19.5 mmol/L 02/09/17 02:50 Ur Random Phosphorus < 5.5 mg/dL 02/18/17 Unknown Stool Occult Blood Negative (NEGATIVE) 02/16/17 Unknown Salicylates < 1.0 mg/dl 02/10/17 17:30 Urine Opiates Screen Negative (NEGATIVE) 02/08/17 13:46 Urine Methadone Screen Negative (NEGATIVE) 02/08/17 13:46 Acetaminophen < 10.0 ug/ml (10.0-30.0) L 02/09/17 14:30 Ur Barbiturates Screen Negative (NEGATIVE) 02/08/17 13:46 Ur Phencyclidine Scrn Negative (NEGATIVE) 02/08/17 13:46 Ur Amphetamines Screen Negative (NEGATIVE) 02/08/17 13:46 U Benzodiazepines Scrn Negative (NEGATIVE) 02/08/17 13:46 U Oth Cocaine Metabols Positive (NEGATIVE) H 02/08/17 13:46 U Cannabinoids Screen Negative (NEGATIVE) 02/08/17 13:46 Toxicology Panel see note 02/09/17 15:00 Alcohol, Quantitative < 10 mg/dl (0-10) 02/08/17 14:32 Methyl Alcohol Level None detected 02/09/17 15:00 Isopropanol None detected 02/09/17 15:00 Acetone Level None detected 02/09/17 15:00 Absolute Lymphs (Flow) 124 Cells/mcL (850-3900) L 02/09/17 10:00 % CD4 Cells 3 Percent (30-61) L 02/09/17 10:00 Absolute CD4 Count <20 Cells/mcL (490-1740) L 02/09/17 10:00 T-Help/Suppress Ratio 0.07 Ratio (0.86-5.00) L 02/09/17 10:00 % CD8 Cells 40 Percent (12-42) 02/09/17 10:00 Absolute CD8 Count 50 Cells/mcL (180-1170) L 02/09/17 10:00 T-Lymph Analys Comment See note 02/09/17 10:00 Hepatitis A IgM Ab Negative (NEGATIVE) 02/11/17 21:05 Hep Bs Antigen Negative (NEGATIVE) 02/11/17 21:05 Hep Bs Antibody Negative (NEGATIVE) 02/17/17 16:45 Hep B Core IgM Ab Negative (NEGATIVE) 02/11/17 21:05 Hepatitis C Antibody Reactive (NEGATIVE) H 02/11/17 21:05 BK Virus Spec Source Plasma 02/17/17 11:11 BK Virus DNA Qual PCR Not detected (Not Detected) 02/17/17 11:11 SARITHA Virus Spec Source Plasma 02/17/17 11:11 SARITHA Virus DNA (PCR) 643 copies/mL (<500) H 02/17/17 11:11 Blood Type A POSITIVE 02/16/17 09:30 Antibody Screen Negative 02/16/17 09:30 Crossmatch See Detail 02/16/17 09:30 BBK History Checked Patient has bt 02/16/17 09:30 - Hospital Course Hospital Course: 61 y/o female w/ PMHx AIDS (non-complaint with medication), Hepatitis C, Bipolar disorder, COPD, presented with AMS, and was admitted for sepsis with LAN and UTI, and pancytopenia. Patient was started on HD MWF due to LAN. Treated with IV meropenem for sepsis, fluconazole for esophageal candidiasis, and Azithromycin for MAC prophylaxis. She responded to treatment well and her mental status has improved. Family meeting was held and decision for DNR/DNI was made given patient current status. AMS likely secondary to PML 2/2 given that SARITHA Virus +. Patient hemodynamically stable. She is to be transferred to [facility] for terminal manager care. She will continue IV meropenem for 7 days. Will follow up PMD to possibly restart HAART therapy. Palliative care nurse referral at rehab facility. Discharge Exam - Head Exam Head Exam: NORMAL INSPECTION Additional comments: cachectic - Eye Exam Eye Exam: Normal appearance - Respiratory Exam Respiratory Exam: Clear to PA & Lateral, UNREMARKABLE - Cardiovascular Exam Cardiovascular Exam: REGULAR RHYTHM, +S1, +S2 - GI/Abdominal Exam GI & Abdominal Exam: Unremarkable - Neurological Exam Neurological exam: Alert, CN II-XII Intact Discharge Plan - Discharge Medications Prescriptions: Fluconazole [Diflucan] 100 mg PO DAILY #14 tab Meropenem 500 mg IV Q12 7 Days - Follow Up Plan Condition: STABLE Disposition: REHAB FACILITY/REHAB UNIT Additional Instructions: Patient to resume HIV medications as per Dr. Lynn. She is to follow up as outpatient with Dr. Lynn. She will continue Azithromycin 1200mg q week, Meropenem 500mg q12 for 7 days.
--- NOTE | 2017-02-21 19:39 | CP.PCM.PN ---
Subjective - Date & Time of Evaluation Date of Evaluation: 02/21/17 Time of Evaluation: 15:00 - Subjective Subjective: seen on renal f/u feels better d/w int med .. for transfere to [facility] will hold HD today as pt is scheduled for hd tomorrow at [facility] Objective - Vital Signs/Intake and Output Vital Signs (last 24 hours): Temp Pulse Resp BP Pulse Ox 97.5 F L 60 20 161/80 H 98 02/21/17 15:36 02/21/17 15:36 02/21/17 15:36 02/21/17 15:36 02/21/17 15:36 - Medications Medications: Current Medications Acetaminophen (Tylenol 650 Mg Supp) 650 mg MT Q6 PRN PRN Reason: Fever >100.4 F Azithromycin (Zithromax) 1,200 mg PO SUN@2200 [facility] Last Admin: 02/20/17 21:41 Dose: 1,200 mg Meropenem 500 mg/ Sodium (Chloride) 100 mls @ 100 mls/hr IVPB Q12 [facility] Last Admin: 02/21/17 09:07 Dose: 100 mls/hr Fluconazole (Diflucan Iv 200 Mg/100 Ml Ns) 100 mls @ 100 mls/hr IVPB DAILY [facility] Last Admin: 02/21/17 09:06 Dose: 100 mls/hr Magnesium Oxide (Mag-Ox) 400 mg PO DAILY [facility] Last Admin: 02/21/17 09:06 Dose: 400 mg Potassium Chloride (K-Dur 20 Meq Er Tab) 20 meq PO DAILY [facility] Last Admin: 02/21/17 09:06 Dose: 20 meq - Labs Labs: 02/21/17 05:20 02/19/17 06:30 PT 12.8 SECONDS (9.6-11.2) H 02/10/17 06:25 INR 1.23 (0.92-1.08) H 02/10/17 06:25 APTT 34.6 SECONDS (23.3-32.5) H 02/10/17 06:25 Assessment and Plan - Assessment and Plan (Free Text) Assessment: LAN .. BUN @CREAT R RUNNING ON THE LOW SIDE WILL WATCH AT [facility] IF PT STILL NEEDS HD OK FOR TRANSFER [facility] ID
== END 2017-02-21 19:30 | DRG 710 ==
LOC: H.ER 12:22 → H.ERHOLD 16:26 → H.TEL 20:28
PROVIDERS: ADMIT Family Medicine Geriatric Medicine; ATTEND Family Medicine Geriatric Medicine
PROC: 05HM33Z Insertion of Infusion Device into Right Internal Jugular Vein, Percutaneous Approach (ICD-10-PCS; principal; 2017-02-10)
PROC: B513ZZA Fluoroscopy of Right Jugular Veins, Guidance (ICD-10-PCS; 2017-02-10)
PROC: 3E04329 Introduction of Other Anti-infective into Central Vein, Percutaneous Approach (ICD-10-PCS; 2017-02-10)
PROC: 5A1D60Z (ICD-10-PCS; 2017-02-17)
DX: A41.51 Sepsis due to Escherichia coli [E. coli] (principal); B37.81 Candidal esophagitis; B20 Human immunodeficiency virus [HIV] disease; N17.0 Acute kidney failure with tubular necrosis; E87.2 Acidosis; R64 Cachexia; E87.0 Hyperosmolality and hypernatremia; B19.20 Unspecified viral hepatitis C without hepatic coma; E87.6 Hypokalemia; F14.10 Cocaine abuse, uncomplicated; J44.9 Chronic obstructive pulmonary disease, unspecified; N39.0 Urinary tract infection, site not specified; D63.8 Anemia in other chronic diseases classified elsewhere; E86.0 Dehydration; B96.20 Unspecified Escherichia coli [E. coli] as the cause of diseases classified elsewhere; F31.9 Bipolar disorder, unspecified; Z68.1 Body mass index [BMI] 19.9 or less, adult; Z66 Do not resuscitate; I10 Essential (primary) hypertension; J45.909 Unspecified asthma, uncomplicated; F17.210 Nicotine dependence, cigarettes, uncomplicated; Z91.14 Patient's other noncompliance with medication regimen; Z91.19 Patient's noncompliance with other medical treatment and regimen; Z87.01 Personal history of pneumonia (recurrent)

== ENCOUNTER 2017-04-12 20:21 | Inpatient (IN) | payer MEDICAID ==
[2017-04-12 20:21] VITALS: BMI 16.9
--- NOTE | 2017-04-12 21:59 | ED PDOC ---
HPI: General Adult Time Seen by Provider: 04/12/17 20:25 Chief Complaint (Nursing): Abnormal Labs Chief Complaint (Provider): Abnormal labs History Per: Patient, Other (long term documentation) Additional Complaint(s): The patient is a 62yo female, Past medical history of HIV, sent to the ED from [facility] for evaluation s/p abnormal labs specifically positive blood cultures. Upon interview, patient denies fever, chills, nausea, vomiting and denies any medical complaints. Of note, patient is a poor historian. According to records, patient has a history of unspecific kidney failure and cocaine abuse. She denies any complaints Past Medical History Reviewed: Historical Data, Nursing Documentation, Vital Signs Vital Signs: Last Vital Signs Temp 98.8 F 04/14/17 08:00 Pulse 64 04/14/17 08:00 Resp 18 04/14/17 08:00 BP 144/56 L 04/14/17 08:00 Pulse Ox 100 04/14/17 08:00 - Medical History PMH: Anemia, Anxiety, Arthritis, Asthma, Bipolar Disorder, Depression, Hepatitis , HIV, HTN, Pneumonia Denies: CHF, COPD, Diabetes, Hypercholesterolemia, Hypothyroidism, Chronic Kidney Disease, Rheumatoid Arthritis, Seizures, Sexually Transmitted Disease - Surgical History Surgical History: No Surg Hx - Family History Family History: States: Unknown Family Hx - Social History Current smoker - smoking cessation education provided: No Alcohol: None Drugs: Denies - Immunization History Hx Tetanus Toxoid Vaccination: No Hx Influenza Vaccination: No Hx Pneumococcal Vaccination: No - Home Medications Home Medications: Ambulatory Orders Medication Instructions Recorded Acetaminophen [Tylenol 325mg tab] 650 mg PO Q4 PRN 04/12/17 Ammonium Lactate 12% [Lac-Hydrin 1 appl TOP DAILY 04/12/17 12% Cream (140 g)] Folic Acid/Vit B Complex and C 0.8 mg PO BID 04/12/17 [Nephro-Angie Tablet] Lactose-Reduced Food [Ensure 200 ml PO BID 04/12/17 Active Clear] Magnesium Oxide [Magox 400] 400 mg PO HS 04/12/17 Nystatin [Nystatin Oral Susp] 3 ml PO TID 04/12/17 - Allergies Allergies/Adverse Reactions: Allergies Allergy/AdvReac Type Severity Reaction Status Date / Time No Known Allergies Allergy Verified 04/12/17 23:51 Review of Systems ROS Statement: Except As Marked, All Systems Reviewed And Found Negative Constitutional: Negative for: Fever, Chills Gastrointestinal: Negative for: Nausea, Vomiting, Diarrhea Physical Exam - Reviewed Nursing Documentation Reviewed: Yes Vital Signs Reviewed: Yes - Physical Exam Appears: Positive for: Well, Non-toxic, No Acute Distress Head Exam: Positive for: ATRAUMATIC, NORMAL INSPECTION, NORMOCEPHALIC Eye Exam: Positive for: Normal appearance Cardiovascular/Chest: Positive for: Regular Rate, Rhythm, Other (r IJ catheter) Respiratory: Positive for: Normal Breath Sounds. Negative for: Respiratory Distress Gastrointestinal/Abdominal: Positive for: Normal Exam, Soft. Negative for: Tenderness Extremity: Positive for: Normal ROM. Negative for: Deformity, Swelling Neurologic/Psych: Positive for: Alert, Oriented - Laboratory Results Result Diagrams: 04/13/17 10:00 04/13/17 09:30 - ECG O2 Sat by Pulse Oximetry: 98 (RA) Pulse Ox Interpretation: Normal Medical Decision Making Medical Decision Making: Time: 2119 Impression: Abnormal labs Plan: [address] Blum who states he has seen patient transiently. Advised to call [facility] resident for further evaluation. -- Labs Reassess 2339 Resident from [facility] - accepted patient. wbc low, but pt without fever (prior wbc 2.9)_ pt with chronic anemia and chronic renal insufficiency UA no infection CXR no pneumonia will admit for further workup and ID consult. Scribe Attestation: Documented by Radha Ruiz acting as a scribe for Zahida Mclaughlin MD. Provider Attestation: All medical record entries made by the Scribe were at my direction and personally dictated by me. I have reviewed the chart and agree that the record accurately reflects my personal performance of the history, physical exam, medical decision making, and the department course for this patient. I have also personally directed, reviewed, and agree with the discharge instructions and disposition. Disposition - Clinical Impression Clinical Impression: Positive blood culture - Patient ED Disposition Is Patient to be Admitted: Yes Counseled Patient/Family Regarding: Studies Performed, Diagnosis - Disposition Disposition Time: 21:45 Condition: GUARDED
[2017-04-12 22:56] LABS: ALB/GLOB RATIO 0.7 (1.0-2.1); ALBUMIN 3.4 g/dL (3.5-5.0); CALCIUM 8.3 mg/dL (8.4-10.2)
[2017-04-12 23:11] LABS: BASO % 0.8 % (0.0-2.0); EOS # 0.1 K/uL (0.0-0.7); EOS % 8.2 % (0.0-4.0); HEMOGLOBIN 7.7 g/dL (12.0-16.0); LYMPH # 0.4 K/uL (1.0-4.3); LYMPH % 26.8 % (20.0-40.0); MEAN CELL VOLUME 90.4 fl (81.0-99.0); MEAN CORPUSCULAR HEMOGLOBIN 27.9 pg (27.0-31.0); MEAN CORPUSCULAR HGB CONC 30.8 g/dL (33.0-37.0); MONO # 0.3 K/uL (0.0-0.8); MONO % 18.6 % (0.0-10.0); NEUT # 0.7 K/uL (1.8-7.0); NEUT % 45.6 % (50.0-75.0); NRBC % 0.3 % (0.0-0.0); RBC 2.75 Mil/uL (3.80-5.20); RED CELL DISTRIBUTION WIDTH 18.3 % (11.5-14.5)
[2017-04-12 23:43] LABS: WHITE BLOOD COUNT 1.6 K/uL (4.8-10.8)
--- NOTE | 2017-04-13 00:02 | CP.PCM.HP ---
History of Present Illness - History of Present Illness History of Present Illness: 60 year old F with known history of aids (CD4 <20 [01/2017]), HTN, Hep C, CKD4 ( on HD), Anemia, h/o ESBL transported from group home to [facility] ED due to positive blood cultures noted on 04/11/17. Unknown reason why culture was drawn as well as no indication of antibiotics started. Patient states she feels well without fever or chills. Patient denies abdominal pain, chest pain, sob, cough, or recent known illness. Patient has very poor compliance with HAART and PCP/ MAC prophylaxis. Patient is unsure if she is taking the medication at this time though states she has been taking medication from group home. Denies gross bleeding at this time. No dizziness/palpitations. Patient is a poor historian. Unable to provide much of history though supplemented documentation via previous charts and eCw notes. EMS notes reviewed Blood culture positive gram negative bacilli PMD: Dr. Calderón PMH: HTN, HIV/AIDS (1993), Hep C, Asthma, hypothyroidism, anemia, CKD 4 (on HD unable to provide history or days of dialysis), ESBL UTI Medications: as per chart Allergies: NKDA Surgeries: denies Social: Longstanding history of tobacco abuse- 5 cig/day since age of 13. History of drug abuse: marijuana and cocaine and etoh abuse. ER: Vitals stable, mildly elevated BP. Afebrile. PE unremarkable WBC: 1.6, hgb/hct: 7.7/24.9 CMP: BUN/Cr 35/2.1 Ua: pending CXR: pending Blood cx x 1 obtained Present on Admission - Present on Admission Any Indicators Present on Admission: No Review of Systems - Review of Systems All systems: reviewed and no additional remarkable complaints except (mentioned in HPI) Past Patient History - Infectious Disease Hx of Infectious Diseases: None - Past Medical History & Family History Past Medical History?: Yes - Past Social History Smoking Status: Former Smoker - CARDIAC Hx Congestive Heart Failure: No Hx Hypercholesterolemia: No Hx Hypertension: Yes - PULMONARY Hx Asthma: Yes Hx Chronic Obstructive Pulmonary Disease (COPD): No Hx Pneumonia: Yes - NEUROLOGICAL Hx Seizures: No - HEENT Hx HEENT Problems: Yes Other/Comment: Blurred vision,stated has old eyeglasses, needs new one. - RENAL Hx Chronic Kidney Disease: No - ENDOCRINE/METABOLIC Hx Hypothyroidism: No - HEMATOLOGICAL/ONCOLOGICAL Hx Anemia: Yes Hx Human Immunodeficiency Virus (HIV): Yes - INTEGUMENTARY Hx Dermatological Problems: No - MUSCULOSKELETAL/RHEUMATOLOGICAL Hx Arthritis: Yes Hx Rheumatoid Arthritis: No - GASTROINTESTINAL Hx Gastrointestinal Disorders: Yes Other/Comment: hepatitis C - GENITOURINARY/GYNECOLOGICAL Hx Sexually Transmitted Disorders: No - PSYCHIATRIC Hx Anxiety: Yes Hx Bipolar Disorder: Yes Hx Depression: Yes - SURGICAL HISTORY Hx Surgeries: No - ANESTHESIA Hx Anesthesia: No Hx Anesthesia Reactions: No Hx Malignant Hyperthermia: No Meds Allergies/Adverse Reactions: Allergies Allergy/AdvReac Type Severity Reaction Status Date / Time No Known Allergies Allergy Verified 04/12/17 23:51 Physical Exam - Constitutional Appears: Non-toxic, No Acute Distress, Cachectic, Chronically Ill - Head Exam Head Exam: ATRAUMATIC, NORMAL INSPECTION, NORMOCEPHALIC - Eye Exam Eye Exam: Normal appearance - Neck Exam Neck exam: Positive for: Normal Inspection - Respiratory Exam Respiratory Exam: Clear to Auscultation Bilateral, NORMAL BREATHING PATTERN. absent: Decreased Breath Sounds, Rales, Rhonchi, Wheezes - Cardiovascular Exam Cardiovascular Exam: REGULAR RHYTHM, +S1, +S2 - GI/Abdominal Exam GI & Abdominal Exam: Normal Bowel Sounds, Soft. absent: Tenderness - Extremities Exam Extremities exam: Positive for: normal inspection. Negative for: calf tenderness, pedal edema, tenderness - Neurological Exam Neurological exam: Alert - Psychiatric Exam Psychiatric exam: Normal Affect, Normal Mood - Skin Skin Exam: Dry, Intact, Normal Color, Warm Results - Vital Signs Recent Vital Signs: Last Vital Signs Temp 98.3 F 04/12/17 20:23 Pulse 62 04/12/17 20:23 Resp 18 04/12/17 20:23 BP 154/74 H 04/12/17 20:23 Pulse Ox 98 04/12/17 23:48 - Labs Result Diagrams: 04/12/17 23:08 04/12/17 22:43 Labs: Laboratory Results - last 24 hr 04/12/17 04/12/17 22:43 23:08 WBC 1.6 L* RBC 2.75 L Hgb 7.7 L D Hct 24.9 L MCV 90.4 D MCH 27.9 MCHC 30.8 L RDW 18.3 H Plt Count 171 D MPV 9.0 Neut % (Auto) 45.6 L Lymph % (Auto) 26.8 [place] % (Auto) 18.6 H Eos % (Auto) 8.2 H Baso % (Auto) 0.8 Neut # 0.7 L Lymph # 0.4 L [place] # 0.3 Eos # 0.1 Baso # 0.0 Sodium 140 Potassium 3.8 Chloride 108 H Carbon Dioxide 22 Anion Gap 14 BUN 35 H Creatinine 2.1 H Est GFR ( Amer) 29 Est GFR (Non-Af Amer) 24 Random Glucose 76 Calcium 8.3 L Total Bilirubin 0.4 AST 38 H D ALT 35 Alkaline Phosphatase 59 Total Protein 8.0 Albumin 3.4 L D Globulin 4.6 H Albumin/Globulin Ratio 0.7 L Assessment & Plan (1) Positive blood culture Status: Acute (2) AIDS (acquired immunodeficiency syndrome), CD4 <=200 Status: Acute (3) Leukopenia Status: Acute (4) History of ESBL E. coli infection Status: Chronic (5) Anemia Status: Chronic (6) CKD (chronic kidney disease) stage 4, GFR 15-29 ml/min Status: Chronic (7) HTN (hypertension) Status: Chronic (8) Hypothyroidism Status: Chronic (9) Hepatitis C Status: Chronic (10) DVT prophylaxis Status: Acute - Assessment and Plan (Free Text) Assessment: 60 year old F with known history of aids (CD4 <20 [01/2017]), HTN, Hep C, CKD4 ( on HD), Anemia, h/o ESBL transported from group home to [facility] ED due to positive blood cultures noted on 04/11/17. Asymptomatic. Hemodynamically stable. Noted to have anemia and renal insuff. DNR/DNI according to group home documentation Plan: (1) Positive blood culture - Unknown reason it was collected - 04/11 gram negative bacilli - Asymptomatic. Afebrile. Hemodynamically stable - Repeat blood culture, urine culture - Monitor vitals - f/u CXR, UA - Consider ID consult (2) AIDS (acquired immunodeficiency syndrome), CD4 <=200 - CD4 less than 20 01/2017 - Very poor compliance with medication - Not on MAC/PCP prophylaxis - No indication patient has been compliant with TU - Asymptomatic at this time - will restart PCP prophylaxis at this time (3) Leukopenia - ANC 730 - Previous history of same - Will continue to monitor, likely due from immunocompromised state - Afebrile - Repeat labs in AM (4) History of ESBL E. coli infection - On review of labs, noted UTI ESBL infection 01/2017 - Asymptomatic - Follow up urine culture at this time (5) Anemia - Asymptomatic. No gross bleeding - H/H: 7.7/24.9 - Not far from baseline - Likely from CKD, will continue to monitor, may need to transfuse if continues to decrease - Consider nephro consult (5) CKD4, on HD (,,Tue) - Unknown last dialysis day/lumber tripper according to patient - BUN/Cr: 35/2.1 - Much improved from previous values - Will continue to monitor - Consider nephro consult (7) HTN (hypertension) - Mildly elevated in ED - Will continue to monitor (8) Hypothyroidism - Previous TSH 6.0 -> 3.5 - Unknown if on medication - Will repeat in AM (9) Hepatitis C - Elevated LFT noted - Not on treatment (10) DVT prophylaxis -SCDs for now
[2017-04-13] MEDS ORDERED: Dextrose 5%/0.45% NS 1,000 ML IV SCH (01:00)
[2017-04-13] MEDS: Sodium Chloride 0.9% 1,000 ML IV SCH ×2 (06:50→23:21)
[2017-04-13] MEDS ORDERED: LACTOSE REDUCED FOOD PO SCH (09:00)
[2017-04-13] MEDS: Multivitamin Vitamin B Complex (Nephro-Vite) Tab PO SCH (09:21)
[2017-04-13] MEDS: Nystatin 100,000 Units/ml Oral Susp 5 ml UD PO SCH ×3 (09:21→16:36)
[2017-04-13] MEDS: Ammonium Lactate 12% Cream (140 g) TOP SCH (09:22)
[2017-04-13 10:29] LABS: BASO % 1.1 % (0.0-2.0); EOS # 0.1 K/uL (0.0-0.7); EOS % 7.6 % (0.0-4.0); LYMPH # 0.4 K/uL (1.0-4.3); LYMPH % 22.9 % (20.0-40.0); MEAN CELL VOLUME 89.5 fl (81.0-99.0); MEAN CORPUSCULAR HEMOGLOBIN 28.6 pg (27.0-31.0); MEAN CORPUSCULAR HGB CONC 31.9 g/dL (33.0-37.0); MEAN PLATELET VOLUME 8.6 fl (7.2-11.7); MONO # 0.3 K/uL (0.0-0.8); MONO % 17.2 % (0.0-10.0); NEUT # 0.8 K/uL (1.8-7.0); NEUT % 51.2 % (50.0-75.0); NRBC % 0.3 % (0.0-0.0); RBC 2.46 Mil/uL (3.80-5.20); RED CELL DISTRIBUTION WIDTH 18.2 % (11.5-14.5)
[2017-04-13 10:36] LABS: ALB/GLOB RATIO 0.7 (1.0-2.1); ALBUMIN 2.8 g/dL (3.5-5.0); CALCIUM 7.4 mg/dL (8.4-10.2)
[2017-04-13 10:37] LABS: INR 1.1 (0.9-1.2); PARTIAL THROMBOPLASTIN TIME 29.5 Seconds (25.6-37.1); PROTHROMBIN TIME 12.6 Seconds (9.8-13.1)
[2017-04-13 11:35] LABS: SQUAMOUS EPITHIAL 4 /hpf (0-5); URINE BACTERIA RARE (<OCC); URINE BILIRUBIN NEGATIVE (NEGATIVE); URINE BLOOD NEGATIVE (NEGATIVE); URINE CLARITY SLIGHTY-CLOUDY (Clear); URINE COLOR YELLOW (YELLOW); URINE GLUCOSE (UA) NEG (Normal); URINE LEUKOCYTE ESTERASE NEG Leu/uL (Negative); URINE NITRATE NEGATIVE (NEGATIVE); URINE PROTEIN 30 mg/dL (NEGATIVE); URINE UROBILINOGEN 0.2-1.0 mg/dL (0.2-1.0)
[2017-04-13 12:01] LABS: WHITE BLOOD COUNT 1.6 K/uL (4.8-10.8)
[2017-04-13] MEDS: Tmp-Smz 800 mg-160 mg DS Tab PO SCH (13:38)
--- NOTE | 2017-04-13 14:04 | CP.PCM.CON ---
History of Present Illness - History of Present Illness History of Present Illness: 62yo female, Past medical history of HIV, sent to the ED from [facility] for evaluation s/p abnormal labs. Positive blood cultures Upon interview, patient denies fever, chills, nausea, vomiting and denies any medical complaints. Of note, patient is a poor historian. According to records, patient has a history of unspecific kidney failure and cocaine abuse. - Medical History PMH: Anemia, Anxiety, Arthritis, Asthma, Bipolar Disorder, Depression, Hepatitis , HIV, HTN, Pneumonia Denies: CHF, COPD, Diabetes, Hypercholesterolemia, Hypothyroidism, Chronic Kidney Disease, Rheumatoid Arthritis, Seizures, Sexually Transmitte Review of Systems - Constitutional Constitutional: Anorexia - EENT Eyes: absent: As Per HPI, Blind Spots, Blurred Vision, Change in Vision, Decreased Night Vision, Diplopia, Discharge, Dry Eye, Exophthalmos, Floaters, Irritation, Itchy Eyes, Loss of Peripheral Vision, Pain, Photophobia, Requires Corrective Lenses, Sees Flashes, Spots in Vision, Tunnel Vision, Other Visual Disturbances, Loss of Vision, Other Ears: absent: As Per HPI, Decreased Hearing, Ear Discharge, Ear Pain, Tinnitus, Abnormal Hearing, Disequilibrium, Dizziness, Other Nose/Mouth/Throat: absent: As Per HPI, Epistaxis, Nasal Congestion, Nasal Discharge, Nasal Obstruction, Nasal Trauma, Nose Pain, Post Nasal Drip, Sinus Pain, Sinus Pressure, Bleeding Gums, Change in Voice, Dental Pain, Dry Mouth, Dysphagia, Halitosis, Hoarsness, Lip Swelling, Mouth Lesions, Mouth Pain, Odynophagia, Sore Throat, Throat Swelling, Tongue Swelling, Facial Pain, Neck Pain, Neck Mass, Other - Breasts Breasts: absent: As Per HPI, Change in Shape, Mass, Pain, Nipple Discharge, Nipple Inversion, Skin Changes, Swelling, Other - Cardiovascular Cardiovascular: absent: As Per HPI, Acrocyanosis, Chest Pain, Chest Pain at Rest , Chest Pain with Activity, Claudication, Diaphoresis, Dyspnea, Dyspnea on Exertion, Edema, Irregular Heart Rhythm, Pain Radiating to Arm/Neck/Jaw, Leg Edema, Leg Ulcers, Lightheadedness, Orthopnea, Palpitations, Paroxysmal Nocturnal Dyspnea, Pedal Edema, Radiating Pain, Rapid Heart Rate, Slow Heart Rate, Syncope, Other - Respiratory Respiratory: absent: As Per HPI, Cough, Dyspnea, Hemoptysis, Dyspnea on Exertion , Wheezing, Snoring, Stridor, Pain on Inspiration, Chest Congestion, Excessive Mucous Production, Change in Mucous Color, Pain with Coughing, Other - Gastrointestinal Gastrointestinal: absent: As Per HPI, Abdominal Pain, Belching, Bloating, Change in Bowel Habits, Change in Stool Character, Coffee Ground Emesis, Constipation, Cramping, Diarrhea, Dyspepsia, Dysphagia, Early Satiety, Excessive Flatus, Fecal Incontinence, Heartburn, Hematemesis, Hematochezia, Loose Stools, Melena, Nausea, Odynophagia, Temesmus, Vomiting, Other - Genitourinary Genitourinary: absent: As Per HPI, Change in Urinary Stream, Difficulty Urinating, Dysuria, Flank Pain, Hematuria, Pyuria, Nocturia, Urinary Incontinence, Urinary Frequency, Urinary Hesitance, Urinary Urgency, Voiding Freq/Small Amts, Freq UTI, Hx Renal/Bladder Calculi, Hx /Renal Surgery, Bladder Distension, Other - Reproductive: Female Reproductive:Female: absent: As Per HPI, Amenorrhea, Amenorrhea/ Control, Currently Menstual, Cycle <21 Days, Cycle >35 Days, Cycle Variable, Menses 1-7 Days, Menses >/= 8 Days, Menses Variable, Cycle > 4 Weeks Between, No Menses for 6 Months, Heavy Menses, Light Menses, Normal Menses, Spotting Between Cycles , S/P Hysterectomy, Menopausal, Post Menopausal, Premenarche, Abnormal Vaginal Bleeding, Dysmenorrhea, Dyspareunia, Genital Lesions, Genital Pruritis, Pelvic Pain, Prolapse Symptoms, Sexual Dysfunction, Vaginal Discharge, Vaginal Dryness , Vaginal Odor, Vaginal Pruritis, Other - Menstruation Menstruation: absent: As Per HPI, Amenorrhea, Amenorrhea/ Control, Currently Menstual, Cycle <21 Days, Cycle >35 Days, Cycle Variable, Menses 1-7 Days, Menses >/= 8 Days, Menses Variable, Cycle > 4 Weeks Between, No Menses for 6 Months, Heavy Menses, Light Menses, Normal Menses, Spotting Between Cycles , S/P Hysterectomy, Menopausal, Post Menopausal, Premenarche, Abnormal Vaginal Bleeding, Dysmenorrhea, Other - Musculoskeletal Musculoskeletal: absent: As Per HPI, Abnormal Gait, Arthralgias, Atrophy, Back Pain, Deformity, Joint Swelling, Limited Range of Motion, Loss of Height, Muscle Cramps, Muscle Weakness, Myalgias, Neck Pain, Numbness, Radiating Pain into Limb, Stiffness, Tingling, Other - Integumentary Integumentary: absent: As Per HPI, Acne, Alopecia, Bleeding Lesions, Change in Hair, Change in Nails, Change in Pigmentation, Changing Lesions, Dry Skin, Erythema, Furuncle, Hirsutism, Lesions, New Lesions, Non-Healing Lesions, Photosensitivity, Pruritus, Rash, Skin Pain, Skin Ulcer, Sores, Striae, Swelling , Unusual Bruising, Wounds, Jaundice, Other - Neurological Neurological: absent: As Per HPI, Abnormal Gait, Abnormal Hearing, Abnormal Movements, Abnormal Speech, Behavioral Changes, Burning Sensations, Confusion, Convulsions, Disequilibrium, Dizziness, Numbness, Focal Weakness, Frequent Falls , Headaches, Lack of Coordination, Loss of Vision, Memory Loss, Paresthesias, Radicular Pain, Restless Legs, Sensory Deficit, Syncope, Tingling, Tremor, Vertigo, Weakness, Other Visual Disturbances, Other - Psychiatric Psychiatric: absent: As Per HPI, Abnormal Sleep Pattern, Anhedonia, Anxiety, Auditory Hallucinations, Behavioral Changes, Change in Appetite, Change in Libido, Confusion, Depression, Difficulty Concentrating, Hallucinations, Homicidal Ideation, Hopelessness, Irritability, Memory Loss, Mood Swings, Panic Attacks, Paranoia, Suicidal Ideation, Visual Hallucinations, Tactile Hallucinations, Other - Endocrine Endocrine: absent: As Per HPI, Change in Body Appearance, Change in Libido, Cold Intolorance, Deepening of Voice, Excessive Sweating, Fatigue, Flushing, Heat Intolorance, Increase in Ring/Shoe/Hat Size, Palpitations, Polydipsia, Polyphagia, Polyuria, Other - Hematologic/Lymphatic Hematologic: absent: As Per HPI, Easy Bleeding, Easy Bruising, Lymphadenopathy, Other Past Patient History - Infectious Disease Hx of Infectious Diseases: None - Past Medical History & Family History Past Medical History?: Yes - Past Social History Smoking Status: Former Smoker - CARDIAC Hx Congestive Heart Failure: No Hx Hypercholesterolemia: No Hx Hypertension: Yes - PULMONARY Hx Asthma: Yes Hx Chronic Obstructive Pulmonary Disease (COPD): No Hx Pneumonia: Yes - NEUROLOGICAL Hx Seizures: No - HEENT Hx HEENT Problems: Yes Other/Comment: Blurred vision,stated has old eyeglasses, needs new one. - RENAL Hx Chronic Kidney Disease: No - ENDOCRINE/METABOLIC Hx Hypothyroidism: No - HEMATOLOGICAL/ONCOLOGICAL Hx Anemia: Yes Hx Human Immunodeficiency Virus (HIV): Yes - INTEGUMENTARY Hx Dermatological Problems: No - MUSCULOSKELETAL/RHEUMATOLOGICAL Hx Arthritis: Yes Hx Rheumatoid Arthritis: No - GASTROINTESTINAL Hx Gastrointestinal Disorders: Yes Other/Comment: hepatitis C - GENITOURINARY/GYNECOLOGICAL Hx Sexually Transmitted Disorders: No - PSYCHIATRIC Hx Anxiety: Yes Hx Bipolar Disorder: Yes Hx Depression: Yes - SURGICAL HISTORY Hx Surgeries: No - ANESTHESIA Hx Anesthesia: No Hx Anesthesia Reactions: No Hx Malignant Hyperthermia: No Meds Allergies/Adverse Reactions: Allergies Allergy/AdvReac Type Severity Reaction Status Date / Time No Known Allergies Allergy Verified 04/12/17 23:51 - Medications Medications: Current Medications Acetaminophen (Tylenol 325mg Tab) 650 mg PO Q4 PRN PRN Reason: Pain, Mild (1-3) Sodium Chloride (Sodium Chloride 0.9%) 1,000 mls @ 60 mls/hr IV .[id number] [facility] Stop: 04/14/17 06:03 Last Admin: 04/13/17 06:50 Dose: 60 mls/hr Lactic Acid (Lac-Hydrin 12% Cream (140 G)) 1 ea TOP DAILY [facility] Last Admin: 04/13/17 09:22 Dose: 1 applic Magnesium Oxide (Mag-Ox) 400 mg PO HS [facility] Nystatin (Nystatin Oral Susp) 5 ml PO TID [facility] Last Admin: 04/13/17 13:39 Dose: 5 ml Trimethoprim/Sulfamethoxazole (Bactrim Ds Tab) 1 tab PO DAILY [facility] Last Admin: 04/13/17 13:38 Dose: 1 tab Vitamin B Complex/Vit C/Folic Acid (Nephro-Angie) 1 tab PO DAILY [facility] Last Admin: 04/13/17 09:21 Dose: 1 tab Physical Exam - Constitutional Appears: Non-toxic, Cachectic, Chronically Ill - Head Exam Head Exam: ATRAUMATIC, NORMAL INSPECTION, NORMOCEPHALIC - Eye Exam Eye Exam: PERRL. absent: Scleral icterus Pupil Exam: NORMAL ACCOMODATION - ENT Exam ENT Exam: Mucous Membranes Dry, Normal External Ear Exam - Neck Exam Neck exam: Negative for: Lymphadenopathy, Thyromegaly - Respiratory Exam Respiratory Exam: Decreased Breath Sounds, Clear to Auscultation Bilateral - Cardiovascular Exam Cardiovascular Exam: REGULAR RHYTHM, +S1, +S2 - GI/Abdominal Exam GI & Abdominal Exam: Diminished Bowel Sounds, Soft. absent: Tenderness - Rectal Exam Rectal Exam: Deferred - Exam Exam: NORMAL INSPECTION - Extremities Exam Extremities exam: Negative for: calf tenderness, pedal edema - Back Exam Back exam: absent: CVA tenderness (L), CVA tenderness (R), paraspinal tenderness - Neurological Exam Neurological exam: Alert, CN II-XII Intact, Oriented x3, Reflexes Normal - Psychiatric Exam Psychiatric exam: Normal Mood - Skin Skin Exam: Dry, Intact Results - Vital Signs Recent Vital Signs: Last Vital Signs Temp 98.5 F 04/13/17 12:05 Pulse 66 04/13/17 12:05 Resp 18 04/13/17 12:05 BP 140/80 04/13/17 12:05 Pulse Ox 99 04/13/17 12:05 - Labs Result Diagrams: 04/13/17 10:00 04/13/17 09:30 Labs: Laboratory Results - last 24 hr 04/12/17 04/13/17 04/13/17 23:08 09:30 09:30 WBC 1.6 L* RBC 2.75 L Hgb 7.7 L D Hct 24.9 L MCV 90.4 D MCH 27.9 MCHC 30.8 L RDW 18.3 H Plt Count 171 D MPV 9.0 Neut % (Auto) 45.6 L Lymph % (Auto) 26.8 [place] % (Auto) 18.6 H Eos % (Auto) 8.2 H Baso % (Auto) 0.8 Neut # 0.7 L Lymph # 0.4 L [place] # 0.3 Eos # 0.1 Baso # 0.0 Retic Count PT 12.6 INR 1.1 APTT 29.5 Sodium 141 Potassium 3.4 L Chloride 112 H Carbon Dioxide 21 L Anion Gap 11 BUN 28 H Creatinine 1.9 H Est GFR ( Amer) 32 Est GFR (Non-Af Amer) 27 Random Glucose 93 Calcium 7.4 L Total Bilirubin 0.3 AST 29 ALT 30 Alkaline Phosphatase 50 Total Protein 7.0 Albumin 2.8 L Globulin 4.2 H Albumin/Globulin Ratio 0.7 L TSH 3rd Generation 4.81 H 04/13/17 10:00 WBC 1.6 L* RBC 2.46 L Hgb 7.0 L Hct 22.0 L MCV 89.5 MCH 28.6 MCHC 31.9 L RDW 18.2 H Plt Count 163 MPV 8.6 Neut % (Auto) 51.2 Lymph % (Auto) 22.9 [place] % (Auto) 17.2 H Eos % (Auto) 7.6 H Baso % (Auto) 1.1 Neut # 0.8 L Lymph # 0.4 L [place] # 0.3 Eos # 0.1 Baso # 0.0 Retic Count 1.0 D PT INR APTT Sodium Potassium Chloride Carbon Dioxide Anion Gap BUN Creatinine Est GFR ( Amer) Est GFR (Non-Af Amer) Random Glucose Calcium Total Bilirubin AST ALT Alkaline Phosphatase Total Protein Albumin Globulin Albumin/Globulin Ratio TSH 3rd Generation Assessment & Plan (1) Positive blood culture Status: Acute (2) CKD (chronic kidney disease) stage 4, GFR 15-29 ml/min Status: Chronic (3) History of ESBL E. coli infection Status: Chronic (4) AIDS (acquired immunodeficiency syndrome), CD4 <=200 Status: Acute - Assessment and Plan (Free Text) Assessment: check cultures iv rx ordered cont meds
--- NOTE | 2017-04-13 14:49 | CARD ---
APPROVED REPORT EXAM: Two-dimensional and M-mode echocardiogram with Doppler and color Doppler. Other Information Quality : AverageRhythm : NSR INDICATION Infection: 2D DIMENSIONS IVSd1.17 (0.7-1.1cm)LVDd3.55 (3.9-5.9cm) LVOT Diameter1.70 (1.8-2.4cm)PWd1.07 (0.7-1.1cm) IVSs1.49 (0.8-1.2cm)LVDs2.61 (2.5-4.0cm) FS (%) 26.3 %PWs1.22 (0.8-1.2cm) M-Mode DIMENSIONS Left Atrium (MM)2.63 (2.5-4.0cm)IVSd1.00 (0.7-1.1cm) Aortic Root2.96 (2.2-3.7cm)LVDd4.94 (4.0-5.6cm) Aortic Cusp Exc.1.67 (1.5-2.0cm)PWd1.36 (0.7-1.1cm) IVSs1.49 cmFS (%) 45 % LVDs2.73 (2.0-3.8cm)PWs1.26 cm Mitral Valve MV E Lrgisaoa99.8cm/sMV DECEL [id number] A Ksmyjiqj56.3cm/s MV [id number]/A ratio1.3MVA (PHT)3.98cm2 TDI Lateral E' Peak V11.24cm/sMedial E' Peak V8.07cm/sE/Lateral E'7.5 E/Medial E'10.4 LEFT VENTRICLE The left ventricle is normal size. There is normal left ventricular wall thickness. The left ventricular function is normal. The left ventricular ejection fraction is - 70%. There is normal LV segmental wall motion. The left ventricular diastolic function is normal. No left ventricle thrombus noted on this study. There is no ventricular septal defect visualized. There is no left ventricular aneurysm. There is no mass noted in the left ventricle. RIGHT VENTRICLE The right ventricle is normal size. There is normal right ventricular wall thickness. The right ventricular systolic function is normal. ATRIA The left atrium size is normal. There is no thrombus suspected in the left atrium. The right atrium size is normal. The interatrial septum is intact with no evidence for an atrial septal defect. AORTIC VALVE The aortic valve is normal in structure and function. No aortic regurgitation is present. There is no aortic valvular stenosis. MITRAL VALVE The mitral valve is normal in structure and function. There is no evidence of mitral valve prolapse. There is no mitral valve stenosis. Mitral regurgitation is mild. TRICUSPID VALVE The tricuspid valve is normal in structure and function. There is trace tricuspid regurgitation. There is no tricuspid valve prolapse or vegetation. There is no tricuspid valve stenosis. PULMONIC VALVE The pulmonic valve is not well visualized. Doppler studies if the PV were not performed. GREAT VESSELS The aortic root is normal in size. The IVC is normal in size and collapses >50% with inspiration. PERICARDIAL EFFUSION The pericardium appears normal. There is no pleural effusion. <Conclusion> The left ventricle is normal in size and wall thickness. The left ventricular function is normal. The left ventricular ejection fraction is - 70%. The left atrium, right ventricle and right atrium are normal in size. The mitral, aortic and tricuspid valves are normal. No valvular vegetations were seen. There is mild mitral regurgitation and trace tricuspid regurgitation.
--- NOTE | 2017-04-13 15:00 | RAD ---
HISTORY: blood cultures COMPARISON: Comparison chest dated 02/08/2017. Comparison also made with CT scan chest dated 08/21/2013 FINDINGS: LUNGS: Re- demonstrated are hyperinflation changes consistent with underlying emphysema. There may be some minimal bibasilar atelectasis and or scarring. PLEURA: No significant pleural effusion identified, no pneumothorax apparent. CARDIOVASCULAR: Normal. OSSEOUS STRUCTURES: No significant abnormalities. VISUALIZED UPPER ABDOMEN: Normal. OTHER FINDINGS: Right IJ dialysis catheter with tip in the SVC IMPRESSION: Mild hyperinflation consistent with emphysema. Suspect minor bibasilar atelectasis In situ right IJ dialysis catheter with tip in the SVC
[2017-04-13] MEDS: Meropenem 500 MG in Sodium Chloride 0.9% 100 ML IVPB SCH (21:29)
[2017-04-13] MEDS: Magnesium Oxide 400 mg Tab UD PO SCH (21:40)
--- NOTE | 2017-04-13 23:26 | CP.PCM.CON ---
History of Present Illness - History of Present Illness History of Present Illness: REASONS FOR CONSULT : LAN ON HD T T S FOR THE LAST 2 MONTH ANEMIA OF CKD .. R/O OTHER CAUSES PT IS WELL KNOWN TO ME .. LAN ON HER LAST ADDMISION .. WAS STARTED ON LAST ADMISION HAD 2 SETS OF B/C DONE WHILE ON HD LAST SAT .. GOT RIGOR BUT NOT FEVER ..THIS PROMPTED DR ADAMS ( MY COVERAGE OVER THE WEEK END ) TO ORDER THE B/C .. AND PT WAS COVERED WITH 1 GR VANCO AND 100 MG GENTA THE BLOOD CULTURES WERE REPORTED TO ME TO BE +VE WITH GRAM NEGATIVE BACILLI IN BOTH AROIC AND ANEROBIC BOTTLES PT WAS ADMITTED FOR THAT .. SHE NEEDS HER HD CATH BE REMOVED TED History of Present Illness: 60 year old F with known history of aids (CD4 <20 [01/2017]), HTN, Hep C, CKD4 ( on HD), Anemia, h/o ESBL transported from snf to [facility] ED due to positive blood cultures noted on 04/11/17. Unknown reason why culture was drawn as well as no indication of antibiotics started. Patient states she feels well without fever or chills. Patient denies abdominal pain, chest pain, sob, cough, or recent known illness. Patient has very poor compliance with HAART and PCP/ MAC prophylaxis. Patient is unsure if she is taking the medication at this time though states she has been taking medication from snf. Denies gross bleeding at this time. No dizziness/palpitations. Patient is a poor historian. Unable to provide much of history though supplemented documentation via previous charts and eCw notes. EMS notes reviewed Blood culture positive gram negative bacilli PMD: Dr. Calderón PMH: HTN, HIV/AIDS (1993), Hep C, Asthma, hypothyroidism, anemia, CKD 4 (on HD unable to provide history or days of dialysis), ESBL UTI Medications: as per chart Allergies: NKDA Surgeries: denies Social: Longstanding history of tobacco abuse- 5 cig/day since age of 13. History of drug abuse: marijuana and cocaine and etoh abuse. ER: Vitals stable, mildly elevated BP. Afebrile. PE unremarkable WBC: 1.6, hgb/hct: 7.7/24.9 CMP: BUN/Cr 35/2.1 Ua: pending CXR: pending Blood cx x 1 obtained Past Patient History - Infectious Disease Hx of Infectious Diseases: None - Past Medical History & Family History Past Medical History?: Yes - Past Social History Smoking Status: Former Smoker - CARDIAC Hx Congestive Heart Failure: No Hx Hypercholesterolemia: No Hx Hypertension: Yes - PULMONARY Hx Asthma: Yes Hx Chronic Obstructive Pulmonary Disease (COPD): No Hx Pneumonia: Yes - NEUROLOGICAL Hx Seizures: No - HEENT Hx HEENT Problems: Yes Other/Comment: Blurred vision,stated has old eyeglasses, needs new one. - RENAL Hx Chronic Kidney Disease: No - ENDOCRINE/METABOLIC Hx Hypothyroidism: No - HEMATOLOGICAL/ONCOLOGICAL Hx Anemia: Yes Hx Human Immunodeficiency Virus (HIV): Yes - INTEGUMENTARY Hx Dermatological Problems: No - MUSCULOSKELETAL/RHEUMATOLOGICAL Hx Arthritis: Yes Hx Rheumatoid Arthritis: No - GASTROINTESTINAL Hx Gastrointestinal Disorders: Yes Other/Comment: hepatitis C - GENITOURINARY/GYNECOLOGICAL Hx Sexually Transmitted Disorders: No - PSYCHIATRIC Hx Anxiety: Yes Hx Bipolar Disorder: Yes Hx Depression: Yes - SURGICAL HISTORY Hx Surgeries: No - ANESTHESIA Hx Anesthesia: No Hx Anesthesia Reactions: No Hx Malignant Hyperthermia: No Meds Allergies/Adverse Reactions: Allergies Allergy/AdvReac Type Severity Reaction Status Date / Time No Known Allergies Allergy Verified 04/12/17 23:51 - Medications Medications: Current Medications Acetaminophen (Tylenol 325mg Tab) 650 mg PO Q4 PRN PRN Reason: Pain, Mild (1-3) Sodium Chloride (Sodium Chloride 0.9%) 1,000 mls @ 60 mls/hr IV .[id number] [facility] Stop: 04/14/17 06:03 Last Admin: 04/13/17 06:50 Dose: 60 mls/hr Meropenem 500 mg/ Sodium (Chloride) 100 mls @ 100 mls/hr IVPB Q8 [facility] Last Admin: 04/13/17 21:29 Dose: 100 mls/hr Lactic Acid (Lac-Hydrin 12% Cream (140 G)) 1 ea TOP DAILY [facility] Last Admin: 04/13/17 09:22 Dose: 1 applic Magnesium Oxide (Mag-Ox) 400 mg PO HS [facility] Last Admin: 04/13/17 21:40 Dose: 400 mg Nystatin (Nystatin Oral Susp) 5 ml PO TID [facility] Last Admin: 04/13/17 16:36 Dose: Not Given Trimethoprim/Sulfamethoxazole (Bactrim Ds Tab) 1 tab PO DAILY [facility] Last Admin: 04/13/17 13:38 Dose: 1 tab Vitamin B Complex/Vit C/Folic Acid (Nephro-Angie) 1 tab PO DAILY [facility] Last Admin: 04/13/17 09:21 Dose: 1 tab Results - Vital Signs Recent Vital Signs: Last Vital Signs Temp 99.4 F 04/13/17 19:21 Pulse 79 04/13/17 19:21 Resp 20 04/13/17 19:21 BP 153/80 H 04/13/17 19:21 Pulse Ox 100 04/13/17 19:21 - Labs Result Diagrams: 04/13/17 10:00 04/13/17 09:30 Labs: Laboratory Results - last 24 hr 04/12/17 04/13/17 04/13/17 23:08 09:30 09:30 WBC 1.6 L* RBC 2.75 L Hgb 7.7 L D Hct 24.9 L MCV 90.4 D MCH 27.9 MCHC 30.8 L RDW 18.3 H Plt Count 171 D MPV 9.0 Neut % (Auto) 45.6 L Lymph % (Auto) 26.8 [place] % (Auto) 18.6 H Eos % (Auto) 8.2 H Baso % (Auto) 0.8 Neut # 0.7 L Lymph # 0.4 L [place] # 0.3 Eos # 0.1 Baso # 0.0 Retic Count PT 12.6 INR 1.1 APTT 29.5 Sodium 141 Potassium 3.4 L Chloride 112 H Carbon Dioxide 21 L Anion Gap 11 BUN 28 H Creatinine 1.9 H Est GFR ( Amer) 32 Est GFR (Non-Af Amer) 27 Random Glucose 93 Calcium 7.4 L Total Bilirubin 0.3 AST 29 ALT 30 Alkaline Phosphatase 50 Total Protein 7.0 Albumin 2.8 L Globulin 4.2 H Albumin/Globulin Ratio 0.7 L TSH 3rd Generation 4.81 H 04/13/17 10:00 WBC 1.6 L* RBC 2.46 L Hgb 7.0 L Hct 22.0 L MCV 89.5 MCH 28.6 MCHC 31.9 L RDW 18.2 H Plt Count 163 MPV 8.6 Neut % (Auto) 51.2 Lymph % (Auto) 22.9 [place] % (Auto) 17.2 H Eos % (Auto) 7.6 H Baso % (Auto) 1.1 Neut # 0.8 L Lymph # 0.4 L [place] # 0.3 Eos # 0.1 Baso # 0.0 Retic Count 1.0 D PT INR APTT Sodium Potassium Chloride Carbon Dioxide Anion Gap BUN Creatinine Est GFR ( Amer) Est GFR (Non-Af Amer) Random Glucose Calcium Total Bilirubin AST ALT Alkaline Phosphatase Total Protein Albumin Globulin Albumin/Globulin Ratio TSH 3rd Generation Assessment & Plan - Assessment and Plan (Free Text) Assessment: LAN ON HD FOR THE LAST 2 MONTH .. BUN AND CREAT R RUNING LOW PT MAY NOT NEED FURTHER HD SEPSIS WITH G - BACCILI MOST LIKELY LINE SEPSIS .. TO D/C CATH TED C/O IVAB .. ID CONSULT C/O PRESENT MANAGEMENT WILL MONITOR RENAL FUNCTION CLOSELY - Date & Time Date: 04/13/17 Time: 19:00
[2017-04-14] MEDS: Meropenem 500 MG in Sodium Chloride 0.9% 100 ML IVPB SCH ×3 (01:23→16:14)
[2017-04-14] MEDS: Tmp-Smz 800 mg-160 mg DS Tab PO SCH (09:11)
[2017-04-14] MEDS: Ammonium Lactate 12% Cream (140 g) TOP SCH (09:11)
[2017-04-14] MEDS: Multivitamin Vitamin B Complex (Nephro-Vite) Tab PO SCH (09:12)
[2017-04-14] MEDS: Nystatin 100,000 Units/ml Oral Susp 5 ml UD PO SCH ×3 (09:25→16:12)
--- NOTE | 2017-04-14 14:36 | PCM.SURG1 ---
Surgeon's Initial Post Op Note - Surgeon's Notes Surgeon: Sidney Amin MD Agitator Operator: None Type of Anesthesia: None Pre-Operative Diagnosis: Renal failure no longer requiring HD Operative Findings: RIGHT IJ tunneled HD catheter Post-Operative Diagnosis: Renal failure no longer requiring HD Operation Performed: Right IJV tunneled HD catheter removal Specimen/Specimens Removed: HD catheter. Estimated Blood Loss: EBL {In ML}: 0 Blood Products Given: N/A Drains Used: No Drains Post-Op Condition: Fair Date of Surgery/Procedure: 04/14/17 Time of Surgery/Procedure: 14:30
--- NOTE | 2017-04-14 16:28 | CP.PCM.PN ---
Subjective - Date & Time of Evaluation Date of Evaluation: 04/14/17 Time of Evaluation: 07:20 - Subjective Subjective: Pt seen and examined at bedside, reports no acute events overnight. Denies fever , chills, sob, abdominal pain, leg/calf pain/swelling. Pt was aware this morning that she is to get the IJ catheder taken out today as per recommendation from web interface developer Dr. Jung, as she may no longer need HD, and the catheder may be source of infection. Pt did have the IJ catheder removed this afternoon, tolerated well. Objective - Vital Signs/Intake and Output Vital Signs (last 24 hours): Temp Pulse Resp BP Pulse Ox 98.1 F 85 18 122/74 97 04/14/17 15:46 04/14/17 16:09 04/14/17 16:09 04/14/17 16:09 04/14/17 15:46 Intake and Output: 04/14/17 04/14/17 06:59 18:59 Intake Total 1120 Balance 1120 - Medications Medications: Current Medications Acetaminophen (Tylenol 325mg Tab) 650 mg PO Q4 PRN PRN Reason: Pain, Mild (1-3) Meropenem 500 mg/ Sodium (Chloride) 100 mls @ 100 mls/hr IVPB Q8 [facility] Last Admin: 04/14/17 16:14 Dose: 100 mls/hr Lactic Acid (Lac-Hydrin 12% Cream (140 G)) 1 ea TOP DAILY [facility] Last Admin: 04/14/17 09:11 Dose: 1 applic Magnesium Oxide (Mag-Ox) 400 mg PO HS [facility] Last Admin: 04/13/17 21:40 Dose: 400 mg Nystatin (Nystatin Oral Susp) 5 ml PO TID [facility] Last Admin: 04/14/17 16:12 Dose: Not Given Trimethoprim/Sulfamethoxazole (Bactrim Ds Tab) 1 tab PO DAILY [facility] Last Admin: 04/14/17 09:11 Dose: 1 tab Vitamin B Complex/Vit C/Folic Acid (Nephro-Angie) 1 tab PO DAILY [facility] Last Admin: 04/14/17 09:12 Dose: 1 tab - Labs Labs: 04/13/17 10:00 04/13/17 09:30 PT 12.6 Seconds (9.8-13.1) 04/13/17 09:30 INR 1.1 (0.9-1.2) 04/13/17 09:30 APTT 29.5 Seconds (25.6-37.1) 04/13/17 09:30 - Constitutional Appears: Non-toxic, No Acute Distress - Head Exam Head Exam: NORMAL INSPECTION - Eye Exam Eye Exam: Normal appearance - Respiratory Exam Respiratory Exam: Clear to Ausculation Bilateral, NORMAL BREATHING PATTERN - Cardiovascular Exam Cardiovascular Exam: REGULAR RHYTHM, +S1, +S2 - GI/Abdominal Exam GI & Abdominal Exam: Normal Bowel Sounds - Neurological Exam Neurological Exam: Alert, Awake - Skin Skin Exam: Dry, Normal Color, Warm Assessment and Plan - Assessment and Plan (Free Text) Assessment: 60 yo F with PMH HIV/AIDS, HTN, Hep C, CKD4 (was on HD until today), anemia, hx of ESBL admitted from assisted due to positive blood culture for gram negative rods that was drawn after pt spiked a fever during HD treatment. Office Technology Instructor Dr. Jung assessed pt and recommended that IJ catheder be removed, as he states it may the source of infection, and that pt may not need HD anymore due to BUN/Cr running low. Plan: 1) Positive blood culture -Spoke to assisted [facility]; as per staff, pt spiked fever during HD on Monday 04/09, so blood cultures were collected, and came back positive for gram negative bacilli on 04/11 -Asymptomatic: afebrile, hemodynamically stable -Repeat blood culture -No growth after 24 hrs -Urine culture -Preliminary positive for gram negative charles, 50-100K CFU/ml -CXR: mild hyperinflation consistent with emphysema -Echocardiogram: EF is 70%. Mild mitral regurgitation and trace tricuspid regurgitation. No valvular vegetations seen, LV normal in size, function, wall thickness, RA, RV, LA normal in size. -ID consult : start Meropenem 500 mg IVPB Q8 (today is day 1) -IJ catheder was removed due to nephro recs -Monitor vitals 2) Positive urine culture -Preliminary result positive for gram negative rods, 50-100 CFU/ml -Continue current antibiotics 3) AIDS (acquired immunodeficiency syndrome), CD4 <=200 -Last known CD4>20, 01/2017 -very poor compliance, not on MAC/PCP prophylaxis, no indication that pt is on HAART 4) Leukopenia -Likely due to immunocompromised state -Afebrile -Will continue to monitor 5) Anemia -Asymptomatic -Likely due to CKD -Continue to monitor 6) CKD -Nephrology consult: Dr. Jung recommended removing IJ catheder, as it is probable source of infection and pt's BUN/Cr have been trending low so she may not need HD anymore -IJ Catheder was removed today -BUN/Cr: 28/1.9 -Much improved from previous values -Continue to monitor 7) HTN (hypertension) -Controlled, will continue to monitor 8) Hypothyroidism -TSH 4.81 -repeat TSH/free T4 (9) Hepatitis C -LFT elevated in ED, not on repeat labs -Not on treatment (10) DVT prophylaxis -SCDs for now
--- NOTE | 2017-04-14 20:09 | CP.PCM.PN ---
Subjective - Date & Time of Evaluation Date of Evaluation: 04/14/17 Time of Evaluation: 17:00 - Subjective Subjective: SEEN ON RENAL F/U ALL PREVIOUS EMR REVIEWED RENAL FUNCTION REMAINS STABLE WITHOUT HD PT IS RECOVERING HER RENAL FUNCTION CATH IS OUT ON IVAB Objective - Vital Signs/Intake and Output Vital Signs (last 24 hours): Temp Pulse Resp BP Pulse Ox 98.2 F 65 20 134/65 100 04/14/17 19:42 04/14/17 19:42 04/14/17 19:42 04/14/17 19:42 04/14/17 19:42 - Medications Medications: Current Medications Acetaminophen (Tylenol 325mg Tab) 325 mg PO Q4 PRN PRN Reason: Pain, Mild (1-3) Meropenem 500 mg/ Sodium (Chloride) 100 mls @ 100 mls/hr IVPB Q8 [facility] Last Admin: 04/14/17 16:14 Dose: 100 mls/hr Lactic Acid (Lac-Hydrin 12% Cream (140 G)) 1 ea TOP DAILY [facility] Last Admin: 04/14/17 09:11 Dose: 1 applic Magnesium Oxide (Mag-Ox) 400 mg PO HS [facility] Last Admin: 04/13/17 21:40 Dose: 400 mg Nystatin (Nystatin Oral Susp) 5 ml PO TID [facility] Last Admin: 04/14/17 16:12 Dose: Not Given Trimethoprim/Sulfamethoxazole (Bactrim Ds Tab) 1 tab PO DAILY [facility] Last Admin: 04/14/17 09:11 Dose: 1 tab Vitamin B Complex/Vit C/Folic Acid (Nephro-Angie) 1 tab PO DAILY [facility] Last Admin: 04/14/17 09:12 Dose: 1 tab - Labs Labs: 04/13/17 10:00 04/13/17 09:30 PT 12.6 Seconds (9.8-13.1) 04/13/17 09:30 INR 1.1 (0.9-1.2) 04/13/17 09:30 APTT 29.5 Seconds (25.6-37.1) 04/13/17 09:30 Assessment and Plan - Assessment and Plan (Free Text) Assessment: LAN .. OFF HD .. WILL WATCH CLOSELY LINE SEPSIS .. CATH IS OUT ON IVAB C/O [facility] CARE
[2017-04-14] MEDS: Magnesium Oxide 400 mg Tab UD PO SCH (22:03)
[2017-04-15] MEDS: Meropenem 500 MG in Sodium Chloride 0.9% 100 ML IVPB SCH ×3 (01:22→16:39)
[2017-04-15 07:33] LABS: T4 10.5 ug/dl (5.5-11.0)
[2017-04-15] MEDS: Ammonium Lactate 12% Cream (140 g) TOP SCH (08:28)
[2017-04-15] MEDS: Nystatin 100,000 Units/ml Oral Susp 5 ml UD PO SCH ×4 (08:29→16:40)
[2017-04-15] MEDS: Tmp-Smz 800 mg-160 mg DS Tab PO SCH (08:29)
[2017-04-15] MEDS: Multivitamin Vitamin B Complex (Nephro-Vite) Tab PO SCH (08:29)
--- NOTE | 2017-04-15 10:46 | CP.PCM.PN ---
Addendum entered and electronically signed by Annabel Lee MD 04/15/17 17:24 : Pt seen again later in the afternoon, friend sitting at bedside. Pt appears in better mood, no complaints at this time. Physical Exam: Appears: no acute distress Head/Neck Exam: Head autraumatic. Dressing in place over site where right IJ was removed; clean and dry. Eye Exam: normal appearance. Respiratory Exam: normal breathing effort/pattern, clear breath sounds b/l Cardiovascular: S1,S2 GI & Abdominal exam: normal bowel sounds Extremities: no pedal edema, no calf swelling Skin- Dry, normal color, warm Original Note: Subjective - Date & Time of Evaluation Date of Evaluation: 04/15/17 Time of Evaluation: 07:40 - Subjective Subjective: Pt seen and examined at bedside, reports no acute events overnight, does not appear very interested in speaking to resident. Denies fever, chills, sob, abdominal pain, leg/calf pain/swelling. She got the IJ catheder removed yesterday, states that she is tolerating it well. Was seen by cocoa milling machine operator later in the evening, who stated she is recovering her renal function. Objective - Vital Signs/Intake and Output Vital Signs (last 24 hours): Temp Pulse Resp BP Pulse Ox 97.7 F 68 20 147/66 95 04/15/17 08:00 04/15/17 08:00 04/15/17 08:00 04/15/17 08:00 04/15/17 08:00 Intake and Output: 04/15/17 04/15/17 06:59 18:59 Intake Total 1200 Balance 1200 - Medications Medications: Current Medications Acetaminophen (Tylenol 325mg Tab) 325 mg PO Q4 PRN PRN Reason: Pain, Mild (1-3) Meropenem 500 mg/ Sodium (Chloride) 100 mls @ 100 mls/hr IVPB Q8 [facility] Last Admin: 04/15/17 08:29 Dose: 100 mls/hr Lactic Acid (Lac-Hydrin 12% Cream (140 G)) 1 ea TOP DAILY [facility] Last Admin: 04/15/17 08:28 Dose: 1 applic Magnesium Oxide (Mag-Ox) 400 mg PO HS [facility] Last Admin: 04/14/17 22:03 Dose: 400 mg Nystatin (Nystatin Oral Susp) 5 ml PO TID [facility] Last Admin: 04/15/17 08:29 Dose: 5 ml Trimethoprim/Sulfamethoxazole (Bactrim Ds Tab) 1 tab PO DAILY [facility] Last Admin: 04/15/17 08:29 Dose: 1 tab Vitamin B Complex/Vit C/Folic Acid (Nephro-Angie) 1 tab PO DAILY [facility] Last Admin: 04/15/17 08:29 Dose: 1 tab - Labs Labs: 04/13/17 10:00 04/13/17 09:30 PT 12.6 Seconds (9.8-13.1) 04/13/17 09:30 INR 1.1 (0.9-1.2) 04/13/17 09:30 APTT 29.5 Seconds (25.6-37.1) 04/13/17 09:30 Assessment and Plan - Assessment and Plan (Free Text) Assessment: 60 yo F with PMH HIV/AIDS, HTN, Hep C, CKD (was on HD until yest, 04/14), anemia , hx of ESBL [facility] from jail due to positive blood culture for gram negative rods that was drawn after pt spiked a fever during HD treatment. Cartography Teacher Dr. Jung assessed pt and recommended that IJ catheder be removed, as he states it may the source of infection, and that pt may not need HD anymore due to BUN/Cr running low. Pt had catheder removed yesterday, tolerating it well. Plan: 1) Positive blood culture -Spoke to jail [facility]; as per staff, pt spiked fever during HD on Monday 04/09, so blood cultures were collected, and came back positive for gram negative bacilli on 04/11 -Asymptomatic: afebrile, hemodynamically stable -Repeat blood culture -No growth after 48 hrs, prelim results -Urine culture -positive for E. coli -CXR: mild hyperinflation consistent with emphysema -Echocardiogram: EF is 70%. Mild mitral regurgitation and trace tricuspid regurgitation. No valvular vegetations seen, LV normal in size, function, wall thickness, RA, RV, LA normal in size. -ID consult : continue Meropenem 500 mg IVPB Q8 (today is day 2); continue for 21 days -IJ catheder was removed due to nephro recs, tip sent for culture -Monitor vitals 2) Positive urine culture, E. coli -Preliminary result positive for gram negative rods, 50-100 CFU/ml -Spoke to ID, continue meropenem 500 mg Q8 for 21 days, today is day 2 3) AIDS (acquired immunodeficiency syndrome), CD4 <=200 -Last known CD4 less than 20, 01/2017 -Very poor compliance, not on MAC/PCP prophylaxis, no indication that pt is on HAART; was refusing medications in jail as well 4) Leukopenia -Likely due to immunocompromised state -Afebrile -Will continue to monitor 5) Anemia -Asymptomatic -Likely due to CKD -Continue to monitor, repeat CBC 6) CKD -Nephrology consult: Dr. Jung recommended removing IJ catheder because it may have been source of infection, stated pt is regaining some renal function -IJ Catheder was removed 04/14 -BUN/Cr: 16/10.9 -Much improved from previous values -Continue to monitor 7) HTN (hypertension) -Controlled, will continue to monitor 8) Hypothyroidism -free T4 WNL 9) Hepatitis C -LFT elevated in ED, not on repeat labs -Not on treatment 10) DVT prophylaxis -SCDs
--- NOTE | 2017-04-15 13:31 | CP.PCM.PN ---
Subjective - Date & Time of Evaluation Date of Evaluation: 04/15/17 Time of Evaluation: 08:00 - Subjective Subjective: patient with recurrent E Coli ESBL infections now on Merrem may need 6 weeks iv rx consider eval Objective - Vital Signs/Intake and Output Vital Signs (last 24 hours): Temp Pulse Resp BP Pulse Ox 97.8 F 61 18 131/74 96 04/15/17 12:00 04/15/17 12:00 04/15/17 12:00 04/15/17 12:00 04/15/17 12:00 Intake and Output: 04/15/17 04/15/17 06:59 18:59 Intake Total 1200 Balance 1200 - Medications Medications: Current Medications Acetaminophen (Tylenol 325mg Tab) 325 mg PO Q4 PRN PRN Reason: Pain, Mild (1-3) Meropenem 500 mg/ Sodium (Chloride) 100 mls @ 100 mls/hr IVPB Q8 [facility] Last Admin: 04/15/17 08:29 Dose: 100 mls/hr Lactic Acid (Lac-Hydrin 12% Cream (140 G)) 1 ea TOP DAILY [facility] Last Admin: 04/15/17 08:28 Dose: 1 applic Magnesium Oxide (Mag-Ox) 400 mg PO HS [facility] Last Admin: 04/14/17 22:03 Dose: 400 mg Nystatin (Nystatin Oral Susp) 5 ml PO TID [facility] Last Admin: 04/15/17 13:03 Dose: Not Given Trimethoprim/Sulfamethoxazole (Bactrim Ds Tab) 1 tab PO DAILY [facility] Last Admin: 04/15/17 08:29 Dose: 1 tab Vitamin B Complex/Vit C/Folic Acid (Nephro-Angie) 1 tab PO DAILY [facility] Last Admin: 04/15/17 08:29 Dose: 1 tab - Labs Labs: 04/13/17 10:00 04/13/17 09:30 PT 12.6 Seconds (9.8-13.1) 04/13/17 09:30 INR 1.1 (0.9-1.2) 04/13/17 09:30 APTT 29.5 Seconds (25.6-37.1) 04/13/17 09:30 - Constitutional Appears: Non-toxic, Cachectic, Chronically Ill - Head Exam Head Exam: NORMOCEPHALIC - Eye Exam Eye Exam: PERRL. absent: Scleral icterus - ENT Exam ENT Exam: Mucous Membranes Dry, Normal External Ear Exam - Neck Exam Neck Exam: absent: Lymphadenopathy - Respiratory Exam Respiratory Exam: Decreased Breath Sounds, Clear to Ausculation Bilateral - Cardiovascular Exam Cardiovascular Exam: REGULAR RHYTHM - GI/Abdominal Exam GI & Abdominal Exam: Distended, Soft - Rectal Exam Rectal Exam: Deferred - Exam Exam: NORMAL INSPECTION - Extremities Exam Extremities Exam: absent: Pedal Edema - Back Exam Back Exam: absent: CVA tenderness (L), CVA tenderness (R) - Neurological Exam Neurological Exam: Alert, Awake Assessment and Plan (1) Positive blood culture Status: Acute (2) CKD (chronic kidney disease) stage 4, GFR 15-29 ml/min Status: Chronic (3) History of ESBL E. coli infection Status: Chronic (4) AIDS (acquired immunodeficiency syndrome), CD4 <=200 Status: Acute - Assessment and Plan (Free Text) Assessment: patient with recurrent E Coli ESBL infections now on Merrem may need 6 weeks iv rx consider eval
--- NOTE | 2017-04-15 15:29 | VASCULAR ---
PROCEDURE: Date of procedure: 04/14/2017 Procedure: Removal of right IJ hemodialysis catheter Medications: none HISTORY: Resolved renal failure no longer requiring hemodialysis. TECHNIQUE: Following informed consent and procedure time-out, the patient was placed supine on the interventional table. The existing right IJ NON-tunneled hemodialysis catheter surrounding skin were prepped and draped in the usual sterile fashion. Spot fluoroscopic image showed a right IJ catheter in place. The catheter was removed. Light pressure was applied to the venotomy site and tunnel tract until hemostasis was achieved. A dressing was applied. IMPRESSION: Removal of right IJ hemodialysis catheter.
[2017-04-15] MEDS: Magnesium Oxide 400 mg Tab UD PO SCH (22:00)
[2017-04-16] MEDS: Meropenem 500 MG in Sodium Chloride 0.9% 100 ML IVPB SCH ×2 (01:01→08:28)
[2017-04-16 05:00] VITALS: RESP 18
[2017-04-16 07:50] LABS: BASO % 0.8 % (0.0-2.0); EOS # 0.2 K/uL (0.0-0.7); EOS % 10.2 % (0.0-4.0); HEMOGLOBIN 7.7 g/dL (12.0-16.0); LYMPH # 0.5 K/uL (1.0-4.3); LYMPH % 22.5 % (20.0-40.0); MEAN CORPUSCULAR HEMOGLOBIN 27.6 pg (27.0-31.0); MEAN CORPUSCULAR HGB CONC 31.1 g/dL (33.0-37.0); MEAN PLATELET VOLUME 8.5 fl (7.2-11.7); MONO # 0.3 K/uL (0.0-0.8); NEUT # 1.3 K/uL (1.8-7.0); NEUT % 55.5 % (50.0-75.0); NRBC % 0.2 % (0.0-0.0); RBC 2.78 Mil/uL (3.80-5.20); WHITE BLOOD COUNT 2.3 K/uL (4.8-10.8)
[2017-04-16 08:02] LABS: CALCIUM 8.2 mg/dL (8.4-10.2); MAGNESIUM 1.9 MG/DL (1.6-2.3)
[2017-04-16 08:05] LABS: IRON 22 ug/dL (37-170)
[2017-04-16 08:07] VITALS: PULSE 62; TEMP 99.1; O2SAT 100
[2017-04-16 08:14] LABS: % IRON SATURATION 10 % (20-55); TOTAL IRON BINDING CAPACITY 230 ug/dL (250-450)
[2017-04-16] MEDS: Multivitamin Vitamin B Complex (Nephro-Vite) Tab PO SCH ×2 (08:27→08:41)
[2017-04-16] MEDS: Tmp-Smz 800 mg-160 mg DS Tab PO SCH ×2 (08:27→08:40)
[2017-04-16] MEDS: Nystatin 100,000 Units/ml Oral Susp 5 ml UD PO SCH ×2 (08:28→08:41)
[2017-04-16] MEDS: Ammonium Lactate 12% Cream (140 g) TOP SCH ×2 (08:28→08:41)
[2017-04-16 09:37] VITALS: BP 162/80
--- NOTE | 2017-04-16 09:44 | CP.PCM.DIS ---
Provider - Provider Date of Admission: 04/12/17 23:00 Attending physician: Dolly Cevallos MD Consults: Infectious Disease, Nephrology Time Spent in preparation of Discharge (in minutes): 20 Diagnosis - Discharge Diagnosis (1) ESBL Escherichia coli carrier Status: Acute Hospital Course - Lab Results Lab Results: Micro Results 04/12/17 23:04 Blood Blood Culture - Preliminary NO GROWTH AFTER 3 DAYS 04/14/17 15:00 Catheter Tip Catheter Tip Culture - Preliminary No growth. Most Recent Lab Values WBC 2.3 K/uL (4.8-10.8) L 04/16/17 06:00 RBC 2.78 Mil/uL (3.80-5.20) L 04/16/17 06:00 Hgb 7.7 g/dL (12.0-16.0) L 04/16/17 06:00 Hct 24.7 % (34.0-47.0) L 04/16/17 06:00 MCV 89.0 fl (81.0-99.0) 04/16/17 06:00 MCH 27.6 pg (27.0-31.0) 04/16/17 06:00 MCHC 31.1 g/dL (33.0-37.0) L 04/16/17 06:00 RDW 18.0 % (11.5-14.5) H 04/16/17 06:00 Plt Count 234 K/uL (130-400) 04/16/17 06:00 MPV 8.5 fl (7.2-11.7) 04/16/17 06:00 Neut % (Auto) 55.5 % (50.0-75.0) 04/16/17 06:00 Lymph % (Auto) 22.5 % (20.0-40.0) 04/16/17 06:00 [place] % (Auto) 11.0 % (0.0-10.0) H 04/16/17 06:00 Eos % (Auto) 10.2 % (0.0-4.0) H 04/16/17 06:00 Baso % (Auto) 0.8 % (0.0-2.0) 04/16/17 06:00 Neut # 1.3 K/uL (1.8-7.0) L 04/16/17 06:00 Lymph # 0.5 K/uL (1.0-4.3) L 04/16/17 06:00 [place] # 0.3 K/uL (0.0-0.8) 04/16/17 06:00 Eos # 0.2 K/uL (0.0-0.7) 04/16/17 06:00 Baso # 0.0 K/uL (0.0-0.2) 04/16/17 06:00 Retic Count 1.0 % (0.5-1.5) D 04/13/17 10:00 PT 12.6 Seconds (9.8-13.1) 04/13/17 09:30 INR 1.1 (0.9-1.2) 04/13/17 09:30 APTT 29.5 Seconds (25.6-37.1) 04/13/17 09:30 Sodium 140 mmol/l (132-148) 04/16/17 06:00 Potassium 4.8 MMOL/L (3.6-5.0) 04/16/17 06:00 Chloride 114 mmol/L (98-107) H 04/16/17 06:00 Carbon Dioxide 19 mmol/L (22-30) L 04/16/17 06:00 Anion Gap 12 (10-20) 04/16/17 06:00 BUN 23 mg/dl (7-17) H 04/16/17 06:00 Creatinine 1.9 mg/dL (0.7-1.2) H 04/16/17 06:00 Est GFR ( Amer) 32 04/16/17 06:00 Est GFR (Non-Af Amer) 27 04/16/17 06:00 Random Glucose 85 mg/dL (65-105) 04/16/17 06:00 Calcium 8.2 mg/dL (8.4-10.2) L 04/16/17 06:00 Phosphorus 4.0 mg/dl (2.5-4.5) 04/16/17 06:00 Magnesium 1.9 MG/DL (1.6-2.3) 04/16/17 06:00 Iron 23 ug/dL (37-170) L 04/16/17 06:00 TIBC 230 ug/dL (250-450) L 04/15/17 06:00 % Saturation 10 % (20-55) L 04/15/17 06:00 Ferritin 1200.0 ng/mL 04/16/17 06:00 Total Bilirubin 0.3 mg/dl (0.2-1.3) 04/13/17 09:30 AST 29 U/L (14-36) 04/13/17 09:30 ALT 30 U/L (9-52) 04/13/17 09:30 Alkaline Phosphatase 50 U/L (38-126) 04/13/17 09:30 Total Protein 7.0 G/DL (6.3-8.2) 04/13/17 09:30 Albumin 2.8 g/dL (3.5-5.0) L 04/13/17 09:30 Globulin 4.2 gm/dL (2.2-3.9) H 04/13/17 09:30 Albumin/Globulin Ratio 0.7 (1.0-2.1) L 04/13/17 09:30 Free T4 1.16 ng/dL (0.78-2.19) 04/15/17 06:00 Thyroxine (T4) 10.5 ug/dl (5.5-11.0) 04/15/17 06:00 TSH 3rd Generation 8.32 mIU/ML (0.46-4.68) H 04/15/17 06:00 Urine Color Yellow (YELLOW) 04/12/17 11:23 Urine Clarity Slighty-cloudy (Clear) 04/12/17 11:23 Urine pH 8.0 (5.0-8.0) 04/12/17 11:23 Ur Specific [place] 1.010 (1.003-1.030) 04/12/17 11:23 Urine Protein 30 mg/dL (NEGATIVE) 04/12/17 11:23 Urine Glucose (UA) Neg mg/dL (Normal) 04/12/17 11:23 Urine Ketones Negative mg/dL (NEGATIVE) 04/12/17 11:23 Urine Blood Negative (NEGATIVE) 04/12/17 11:23 Urine Nitrate Negative (NEGATIVE) 04/12/17 11:23 Urine Bilirubin Negative (NEGATIVE) 04/12/17 11:23 Urine Urobilinogen 0.2-1.0 mg/dL (0.2-1.0) 04/12/17 11:23 Ur Leukocyte Esterase Neg Jose/uL (Negative) 04/12/17 11:23 Urine RBC (Auto) 2 /hpf (0-3) 04/12/17 11:23 Urine Microscopic WBC 5 /hpf (0-5) 04/12/17 11:23 Ur Squamous Epith Cells 4 /hpf (0-5) 04/12/17 11:23 Urine Bacteria Rare (<OCC) 04/12/17 11:23 - Hospital Course Hospital Course: Pt was transferred from her [facility] due to positive blood cultures for gram negative bacilli and was given a one time dose of antibiotic during dialysis, upon arrival to ED, pt was perez-cultured, ID was consulted and started on Meropenem given pt history of ESBL. Pt urine culture was positive for ESBL this time as well and is being discharged back to her [facility] with instructions to complete 3weeks of Meropenem and also to follow up with a urologist as outpatient. Pt is also advised to start taking iron tablets daily for her anemia Discharge Exam - Head Exam Head Exam: NORMOCEPHALIC - Eye Exam Eye Exam: EOMI - ENT Exam ENT Exam: Mucous Membranes Moist - Respiratory Exam Respiratory Exam: NORMAL BREATHING PATTERN. absent: Decreased Breath Sounds - Cardiovascular Exam Cardiovascular Exam: REGULAR RHYTHM, +S1, +S2 - GI/Abdominal Exam GI & Abdominal Exam: Normal Bowel Sounds, Soft. absent: Tenderness - Neurological Exam Neurological exam: Alert Discharge Plan - Discharge Medications Prescriptions: Ammonium Lactate 12% [Lac-Hydrin 12% Cream (140 g)] 1 appl TOP DAILY #1 Folic Acid/Vit B Complex and C [Nephro-Angie Tablet] 0.8 mg PO BID #30 Magnesium Oxide [Magox 400] 400 mg PO HS #30 Meropenem 1g/NS 100mL IVPB 1 gm IV Q8 #60 piggyback Nystatin [Nystatin Oral Susp] 3 ml PO TID #30 Sulfamethoxazole/Trimethoprim [Bactrim DS Tab] 1 tab PO DAILY #30 tab - Follow Up Plan Condition: GOOD Disposition: REHAB FACILITY/REHAB UNIT Instructions: Bacteremia (DC) Additional Instructions: Please complete the 3 weeks of antibiotics, make an appointment with an urologist to follow up given this history of ESBL Start taking iron tablets to help with anemia restart AIDS medications as well continue with prophylactic bactrim. Referrals: Juancarlos Quispe MD [Medical Doctor] - Mika Barrios MD [Medical Doctor] -
== END 2017-04-16 12:00 | DRG 703 ==
LOC: H.ER 20:21 → OBSVTOIN 23:00 → H.ERHOLD 23:00 → H.TEL 04-13 05:55
PROVIDERS: ADMIT Family Medicine Geriatric Medicine; ATTEND Family Medicine Geriatric Medicine
PROC: 05PY33Z Removal of Infusion Device from Upper Vein, Percutaneous Approach (ICD-10-PCS; principal; 2017-04-14)
DX: T80.211A Bloodstream infection due to central venous catheter, initial encounter (principal); B20 Human immunodeficiency virus [HIV] disease; A41.89 Other specified sepsis; N17.9 Acute kidney failure, unspecified; N18.4 Chronic kidney disease, stage 4 (severe); B18.2 Chronic viral hepatitis C; I12.9 Hypertensive chronic kidney disease with stage 1 through stage 4 chronic kidney disease, or unspecified chronic kidney disease; Z66 Do not resuscitate; D63.1 Anemia in chronic kidney disease; E03.9 Hypothyroidism, unspecified; F31.9 Bipolar disorder, unspecified; J45.909 Unspecified asthma, uncomplicated; D72.819 Decreased white blood cell count, unspecified; F17.210 Nicotine dependence, cigarettes, uncomplicated; Z87.01 Personal history of pneumonia (recurrent); Y84.8 Other medical procedures as the cause of abnormal reaction of the patient, or of later complication, without mention of misadventure at the time of the procedure